=== PATIENT | female | born 1945 | race Caucasian/White ===

== ENCOUNTER 2024-04-28 14:08 | Inpatient (IN) ==
--- NOTE | 2024-04-28 14:19 | Emergency Department Note ---
Impression & Plan Weakness, Acute UTI (urinary tract infection) ED Provider Note NAME: GRAZYNA ALEXIS AGE: 78 SEX: F : 1945 ARRIVES VIA: Ambulance INFORMANT: Patient, EMS ED PROVIDER(S): Primo Harrison DO CHIEF COMPLAINT: Weakness HPI: The patient is a 78-year-old female who presented to the emergency department by ambulance for evaluation of generalized weakness. The patient was found by her caregiver this morning. She was having difficulty waking up. She states she normally wakes up early in the morning and is awake and having no problems when her caregiver arrives but today she felt very weak and tired. She states over the last week she has been feeling this way. She is also noticed a slight frontal headache. She has noticed generalized weakness and difficulty getting up and down. She has not been seen by her family doctor for the symptoms. She denies having any chest pain. She does complain of a dry cough. She does have lower extremity swelling which she states is not new for her. She denies having any back pain or vomiting. She states she has had some smelly urine especially over the course the last month. ROS: See above HPI for pertinent positives & negatives. A total of 10 systems reviewed and were otherwise negative. PAST MEDICAL HISTORY: See Below PAST SURGICAL HISTORY: See Below FAMILY HISTORY: See Below SOCIAL HISTORY: See Below HOME MEDICATIONS: See Below ALLERGIES: See Below VITALS: See Below PHYSICAL EXAMINATION: GENERAL: Patient is awake alert in no acute distress patient is resting comfortably and showing no signs of anxiety EYES: The conjunctivae are clear. The pupils are round and reactive. EARS, NOSE, MOUTH AND THROAT: The nose is without any evidence of any deformity. Mucous membranes are dry. NECK: The neck is nontender and supple. RESPIRATORY: Normal respiratory effort is noted there is no evidence of wheezing rhonchi or rales CARDIOVASCULAR: Regular rate and rhythm noted there no murmurs rubs or gallops normal S1 normal S2. GASTROINTESTINAL: The abdomen is soft. Abdomen is nontender. BACK: No midline tenderness or or step-off noted range of motion in flexion extension as well as rotation no signs of muscle spasm noted MUSCULOSKELETAL/EXTREMITIES: There is no evidence of gross deformity full range of motion is noted in the hips and shoulders. SKIN: Bilateral lower extremity edema was noted. NEUROLOGIC: Patient is awake alert and oriented x3. Strength was symmetric. There is no facial droop. Speech was clear. MEDICAL DECISION MAKING: The patient is a 78-year-old female who presented to the emergency department by ambulance for an evaluation of generalized weakness as well as reported confusion. Upon arrival the patient was awake and alert. The patient has been noticing foul-smelling urine. Nursing staff did note that she may have had a small uterine prolapse. The patient was treated with IV antibiotics in emergency department for presumed urinary tract infection noted on urinalysis. I discussed patient's laboratory and radiographic studies with her and her daughter. The patient's blood pressure was elevated. She has a history of hypertension but it is unclear if she has been compliant with her outpatient medications. Because of her daughter's concerns I discussed her condition with the on-call [facility] hospitalist. They have agreed to evaluate the patient in the emergency department for further management and disposition. Triage Nursing notes reviewed. Prior medical records reviewed Vital Signs: reviewed and remarkable for elevated blood pressure. Differential diagnosis: Infection, dehydration, metabolic abnormality, hypo/hyperglycemia, electrolyte disturbance, anemia, hypoxia, cardiac sources, intracerebral event, toxicologic, neurologic, as well as other pathologies. ER treatment provided: See below Diagnostics interpreted by me: ECG: EKG was obtained in the emergency department. My interpretation is normal sinus rhythm at 62 bpm. There were no PVCs noted. Nonspecific lateral ST abnormalities were noted. This was compared to a tracing from December 07, 2021. No changes were noted. Cardiac Monitoring: An order was placed for continuous cardiac monitoring. The monitor shows a rate of 73 bpm with sinus rhythm. Laboratory studies: As stated above and show below. Imaging studies: See below. Radiographic imaging was reviewed by myself Consultation(s): I discussed this case [facility]. Past Med/Surg History Problem List (Updated 04/28/24 @ 19:07 by Primo Harrison DO) Acute UTI (urinary tract infection) (Acute) Weakness (Acute) Medical History Hypokalemia Social History Smoking Status: Never smoker Preferred Language: Hungarian Feels Safe at Home: Yes Allergies Allergies Allergy/AdvReac Type Severity Reaction Status Date / Time semaglutide AdvReac Mild Diarrhea Unverified 04/28/24 17:53 metformin AdvReac Diarrhea Verified 12/05/22 20:52 Home Meds Home Medications Medication Instructions Recorded Confirmed aspirin 81 mg tablet,delayed 81 mg PO QAM 04/28/24 04/28/24 release atorvastatin 40 mg tablet 40 mg PO DAILY 04/28/24 04/28/24 escitalopram oxalate 20 mg tablet 20 mg PO DAILY 04/28/24 04/28/24 famotidine 20 mg tablet 20 mg PO HS 04/28/24 04/28/24 fluticasone propionate 50 2 spray intranasal DAILY PRN 04/28/24 04/28/24 mcg/actuation nasal allergies spray,suspension furosemide 20 mg tablet 20 mg PO DAILY PRN Fluid Retention 04/28/24 04/28/24 insulin detemir U-100 100 unit/mL 20 unit subcut BID 04/28/24 04/28/24 (3 mL) subcutaneous pen insulin lispro 100 unit/mL 8 unit subcut TID 04/28/24 04/28/24 subcutaneous pen (Humalog KwikPen (U-100) Insulin) levothyroxine 150 mcg tablet 150 mcg PO DAILY 04/28/24 04/28/24 losartan 100 mg tablet 100 mg PO DAILY 04/28/24 04/28/24 ondansetron HCl 8 mg tablet 8 mg PO DIRECTED PRN n/v 04/28/24 04/28/24 potassium chloride 20 mEq 20 meq PO QAM 04/28/24 04/28/24 tablet,extended release(part/cryst) Results & Data (ED) Vital Signs Vital Signs - 24 hr 04/28/24 14:14 04/28/24 14:16 04/28/24 15:00 Pulse Rate 66 Pulse Rate [Finger] 66 Respiratory Rate 18 18 Respiratory Effort / Characteristics Non-Labored Spontaneous Non-Labored Spontaneous Respiratory Depth Normal Normal Respiratory Pattern Regular Regular Blood Pressure 189/99 H Blood Pressure [Right Arm] 195/99 H Blood Pressure Mean 129 Blood Pressure Mean [Right Arm] 131 Pulse Oximetry 94 93 94 Oxygen Delivery Method Room Air Room Air Room Air Sepsis Recent Fever Within 48 Hours No Sepsis New/Unexplained Change in Mental Status N/A Sepsis Action Taken by Nursing No Action Required 04/28/24 18:00 Pulse Rate Pulse Rate [Finger] 73 Respiratory Rate 18 Respiratory Effort / Characteristics Non-Labored Spontaneous Respiratory Depth Normal Respiratory Pattern Regular Blood Pressure Blood Pressure [Right Arm] 146/94 H Blood Pressure Mean Blood Pressure Mean [Right Arm] 111 Pulse Oximetry 93 Oxygen Delivery Method Room Air Sepsis Recent Fever Within 48 Hours Sepsis New/Unexplained Change in Mental Status Sepsis Action Taken by Detention Medications Current Medication List: was personally reviewed by me Laboratory Data Attestation: I reviewed the patient's lab results. 04/28/24 14:14 04/28/24 14:14 Lab Results 04/28/24 04/28/24 04/28/24 Range/Units 14:14 14:54 17:30 WBC 5.54 (4.8-10.8) K/ul RBC 4.45 (4.20-5.40) M/uL Hgb 12.0 (12.0-16.0) g/dl Hct 36.2 L (37.0-47.0) % MCV 81.3 (80.0-100.0) fL MCH 27.0 (25.0-34.0) pg MCHC 33.1 (32.0-36.0) g/dL RDW Std Deviation 39.3 (36.4-46.3) fL RDW Coeff of Richelle 13.4 (11.5-14.5) % Plt Count 211 (130-400) K/uL MPV 10.3 (9.4-12.4) fL Immature Gran % (Auto) 0.2 % Neut % (Auto) 60.7 % Lymph % (Auto) 29.1 % [place] % (Auto) 5.8 % Eos % (Auto) 3.1 % Baso % (Auto) 1.1 % Neut # (Auto) 3.37 (1.40-6.50) K/uL Lymph # (Auto) 1.61 (1.20-3.40) K/uL [place] # (Auto) 0.32 (0.11-0.59) K/uL Eos # (Auto) 0.17 (0.00-0.50) K/uL Baso # (Auto) 0.06 (0.00-0.20) K/uL Immature Gran # (Auto) 0.01 (0.01-0.20) K/uL Sodium 140 (136-145) mmol/L Potassium 3.5 (3.5-5.1) mmol/L Chloride 105 (98-107) mmol/L Carbon Dioxide 28 (21-32) mmol/L Anion Gap 7 (3-11) BUN 20 (6-23) mg/dl Creatinine 1.07 (0.6-1.2) mg/dl Est Cr Clr Drug Dosing 46.5 ml/min eGFR 52.84 BUN/Creatinine Ratio 18.7 (10-20) Glucose 151 H (70-99(Fasting)) mg/dl Calcium 9.1 (8.6-10.3) mg/dl Magnesium 1.7 (1.7-2.4) mg/dl Total Bilirubin 0.6 (0.2-1.0) mg/dl AST 18 (13-39) U/L ALT 11 (7-52) U/L Alkaline Phosphatase 85 (34-104) U/L Total Creatine Kinase 256 H (26-192) U/L Troponin I High Sens 7.6 (0-14) pg/ml Total Protein 6.9 (6.0-8.3) gm/dl Albumin 3.9 (3.4-5.0) gm/dl Globulin 3.0 (2.5-4.0) gm/dl Albumin/Globulin Ratio 1.3 (0.9-2) TSH 122.438 H (0.300-4.500) uIu/ml Free T4 0.61 (0.61-1.60) ng/dl Urine Color Yellow Urine Appearance Cloudy A (Clear) Urine pH 6.5 (4.5-7.5) Ur Specific [place] 1.014 (1.000-1.030) Urine Protein 2+ H (Negative) Urine Glucose (UA) Negative (Negative) Urine Ketones Negative (Negative) Urine Blood Negative (Negative) Urine Nitrite Positive A (Negative) Urine Bilirubin Negative (Negative) Urine Urobilinogen Negative (Negative) Ur Leukocyte Esterase 3+ H (Negative) Urine WBC (Auto) >50 H (0-5) /hpf Urine RBC (Auto) 0-2 (0-2) /hpf U Hyaline Cast (Auto) 3-5 H (0-2) /lpf U Epithel Cells (Auto) 0-2 (0-2) /hpf Urine Bacteria (Auto) 4+ H (None Seen) SARS-CoV-2 (PCR) NEGATIVE (Negative) Influenza Type A (PCR) Negative (Neg) Influenza Type B (PCR) Negative (Neg) RSV (RT-PCR) Negative (Neg) Administered Medications Discontinued Medications Ceftriaxone Sodium (Rocephin) 2,000 mg in 50 mls @ 100 mls/hr IV NOW STA Stop: 04/28/24 18:36 Last Admin: 04/28/24 18:50 Dose: 100 mls/hr Documented By: [facility] Imaging Data Attestation: I personally reviewed and interpreted this imaging study as follows: My Impression: 1 view chest x-ray was obtained in the emergency department. My interpretation is no free air, final report below. CT of the brain was obtained. My interpretation is no intracranial hemorrhage or mass effect, final report below. Radiologist's Impression: Chest X-Ray 04/28/24 14:16 XR chest 1V portable HISTORY: 78 years-old Female weakness COMPARISON: 12/05/2022 TECHNIQUE: AP view of the chest FINDINGS: Cardiac silhouette is enlarged. Large hiatal hernia. Possible small left pleural effusion with left basilar consolidation. Pulmonary vascular congestion. Bones appear grossly intact. IMPRESSION: 1. Cardiomegaly with pulmonary vascular congestion. 2. Large hiatal hernia. 3. Possible small left pleural effusion with left basilar consolidation. ACT 112: Negative or not required by law. The above report was generated using voice recognition software. It may contain grammatical, syntax or spelling errors. Electronically signed by: Lan Mantilla M.D. 04/28/2024 3:[address] 04/28/24 14:16 CT head/brain wo con CLINICAL HISTORY: 78 years-old Female with weakness. Acute headache with weakness TECHNIQUE: Multiple axial CT images of the head were obtained without contrast. A dose lowering technique was utilized adhering to the principles of ALARA. CT DOSE: 547.75 mGy.cm COMPARISON: None. FINDINGS: No acute intracranial hemorrhage, midline shift, intracranial mass, hydrocephalus, territorial ischemia or abnormal extra-axial collection. Involutional changes with chronic microvascular ischemic disease. The calvarium is intact. Moderate mucosal thickening with volume loss of the right maxillary sinus. Mastoid air cells are clear. IMPRESSION: No acute intracranial abnormality. ACT 112: Negative or not required by law. The above report was generated using voice recognition software. It may contain grammatical, syntax or spelling errors. Electronically signed by: Lan Mantilla M.D. 04/28/2024 3:21 PM Discharge Plan Visit Data Chief Complaint: Illness ED Provider: Primo Harrison Discharge Problem: Weakness, Acute UTI (urinary tract infection) Patient Disposition: Being Evaluated by Hospitalist Forms Stand Alone Forms: My [facility] Prescriptions Prescriptions: No Action atorvastatin 40 mg tablet 40 mg PO DAILY ondansetron HCl [Zofran] 8 mg Tablet 8 mg PO DIRECTED PRN (Reason: n/v) aspirin [Aspir-81] 81 mg Tablet,Delayed Release (Dr/Ec) 81 mg PO QAM potassium chloride 20 mEq tablet,ER particles/crystals 20 meq PO QAM famotidine 20 mg tablet 20 mg PO HS levothyroxine 150 mcg tablet 150 mcg PO DAILY furosemide 20 mg tablet 20 mg PO DAILY PRN (Reason: Fluid Retention) losartan 100 mg tablet 100 mg PO DAILY fluticasone propionate 50 mcg/actuation spray,suspension 2 spray intranasal DAILY PRN (Reason: allergies) insulin lispro [Humalog KwikPen Insulin] 100 unit/mL insulin pen 8 unit SUBCUT TID escitalopram oxalate 20 mg tablet 20 mg PO DAILY Levemir FlexPen 100 unit/mL (3 mL) insulin pen 20 unit subcut BID Referrals Referrals: Barbie Diamond MD [Primary Care Provider] -
[2024-04-28 14:32] LABS: Basophils # (auto) 0.06 K/uL (0.00-0.20); Basophils % (auto) 1.1 %; Eosinophils # (auto) 0.17 K/uL (0.00-0.50); Eosinophils % (auto) 3.1 %; Hematocrit (blood only) 36.2 % (37.0-47.0); Immature Granulocytes # (auto) 0.01 K/uL (0.01-0.20); Immature Granulocytes % (auto) 0.2 %; Lymphocytes # (auto) 1.61 K/uL (1.20-3.40); Lymphocytes % (auto) 29.1 %; Mean Corpuscular Hgb Conc 33.1 g/dL (32.0-36.0); Mean Corpuscular Volume 81.3 fL (80.0-100.0); Mean Platelet Volume 10.3 fL (9.4-12.4); Monocytes # (auto) 0.32 K/uL (0.11-0.59); Monocytes % (auto) 5.8 %; Neutrophils # (auto) 3.37 K/uL (1.40-6.50); Neutrophils % (auto) 60.7 %; Platelet Count 211 K/uL (130-400); RDW Coefficient of Variation 13.4 % (11.5-14.5); RDW Standard Deviation 39.3 fL (36.4-46.3); Red Blood Count 4.45 M/uL (4.20-5.40); White Blood Count 5.54 K/ul (4.8-10.8)
[2024-04-28 14:48] LABS: Albumin Globulin Ratio 1.3 (0.9-2); Albumin Level 3.9 gm/dl (3.4-5.0); BUN Creatinine Ratio 18.7 (10-20); Bilirubin,Total 0.6 mg/dl (0.2-1.0); Calcium 9.1 mg/dl (8.6-10.3); Creatinine Clr Calc Pharmacy 46.5 ml/min; Magnesium 1.7 mg/dl (1.7-2.4); Potassium 3.5 mmol/L (3.5-5.1); Total Protein 6.9 gm/dl (6.0-8.3)
[2024-04-28 14:53] LABS: Troponin I High Sensitivity 7.6 pg/ml (0-14)
--- NOTE | 2024-04-28 15:19 | XRay Report ---
XR chest 1V portable HISTORY: 78 years-old Female weakness COMPARISON: 12/05/2022 TECHNIQUE: AP view of the chest FINDINGS: Cardiac silhouette is enlarged. Large hiatal hernia. Possible small left pleural effusion with left b asilar consolidation. Pulmonary vascular congestion. Bones appear grossly intact. IMPRESSION: 1. Cardiomegaly with pulmonary vascular congestion. 2. Large hiatal hernia. 3. Possible small left pleural effusion with left basilar consolidation. ACT 112: Negative or not required by law. The above report was generated using voice recognition software. It may contain grammatical, syntax o r spelling errors. Electronically signed by: Lan Mantilla M.D. 04/28/2024 3:18 PM
--- NOTE | 2024-04-28 15:22 | CT Scan Report ---
CT head/brain wo con CLINICAL HISTORY: 78 years-old Female with weakness. Acute headache with weakness TECHNIQUE: Multiple axial CT images of the head were obtained without contrast. A dose lowering tech nique was utilized adhering to the principles of ALARA. CT DOSE: 547.75 mGy.cm COMPARISON: None. FINDINGS: No acute intracranial hemorrhage, midline shift, intracranial mass, hydrocephalus, territorial ischem ia or abnormal extra-axial collection. Involutional changes with chronic microvascular ischemic disea se. The calvarium is intact. Moderate mucosal thickening with volume loss of the right maxillary sinus. Mastoid air cells are clear. IMPRESSION: No acute intracranial abnormality. ACT 112: Negative or not required by law. The above report was generated using voice recognition software. It may contain grammatical, syntax o r spelling errors. Electronically signed by: Lan Mantilla M.D. 04/28/2024 3:21 PM
[2024-04-28 15:41] LABS: Thyroid Stimulating Hormone 122.438 uIu/ml (0.300-4.500)
[2024-04-28 16:02] LABS: Influenza A virus by PCR Negative (Neg); Influenza B virus by PCR Negative (Neg); RSV by PCR Negative (Neg); SARS CoV2 RNA(COVID-19) Ceph NEGATIVE (Negative)
[2024-04-28 16:16] LABS: T4 Free Thyroxine 0.61 ng/dl (0.61-1.60)
[2024-04-28 17:58] LABS: Appearance Urine Cloudy (Clear); Bacteria Urine Automated 4+ (None Seen); Bilirubin Urine Negative (Negative); Blood Urine Negative (Negative); Color Urine Yellow; Epithelial Cell Urine Auto 0-2 /hpf (0-2); Glucose Urine UA Negative (Negative); Ketones Urine Negative (Negative); Leukocyte Esterase Urine 3+ (Negative); Nitrite Urine Positive (Negative); Protein Urine 2+ (Negative); RBC Urine Automated 0-2 /hpf (0-2); Specific Gravity Urine 1.014 (1.000-1.030); Urobilinogen Urine Negative (Negative); WBC Urine Automated >50 /hpf (0-5); pH Urine 6.5 (4.5-7.5)
[2024-04-28] MEDS: cefTRIAXone SODIUM 2,000 MG/50 ML BAG IV STA (18:50)
--- NOTE | 2024-04-28 19:10 | History & Physical Report ---
Date of Service April 28, 2024 Assessment & Plan (1) Weakness: (2) Stroke-like symptoms: (3) Acute UTI (urinary tract infection): (4) Hypothyroidism: (5) HTN (hypertension): (6) Diabetes mellitus, type II, insulin dependent: Plan: Generalized Weakness Stroke like symptom UTI No leukocytosis, negative influenza, RSV and COVID-19 PCR. Glucose: 151, no other significant electrolyte abnormality. negative troponin EKG: Sinus rhythm, rate 62, T wave flattening lateral leads CT head: No acute intracranial abnormality CXR: Cardiomegaly, pulmonary vascular congestion, possible small left pleural effusion with left basilar consolidation UA: + Nitrite, 3+ leuk esterase,> 50 WBC, 4+ bacteria Urine culture pending In ER given Rocephin Continue Rocephin DDx: TIA, R/O CVA. ?possible uncontrolled hypertension Tele to monitor for arrhythmias Lipids, A1c in am CTA head and neck MRI brain Echo Aspiration precautions PT/OT consult Resume home aspirin, atorvastatin Allow permissive HTN in 1st 24 hrs, but will likely resume home losartan If recurrent symptoms or findings on MRI consider neurology consult CBC, BMP in am Generalized Weakness Generalized weakness possibly secondary to underlying UTI and uncontrolled hypothyroidism Fall precautions PT/OT eval CPK: 256. Troponin WNL Repeat CPK in a.m. HTN In ER BP 195/99 down to 146/94 On losartan with known mediation noncompliance. Will hold for now with possible TIA, stroke rule out and allowing permissive hypertension. Will likely need to resume CXR:Cardiomegaly, pulmonary vascular congestion, possible small left pleural effusion with left basilar consolidation Patient with chronic cough without any worsening and no SOB, CP, fever/chills. Negative procalcitonin. Do not suspect pneumonia at this time Clinically patient appears euvolemic currently Hold home prn lasix Reassess in am Hypothyroidism TSH: 122, free T4: 0.6 TSH: 4.5 on 12/10/2022 Medication noncompliance Resume home levothyroxine Patient will require outpatient follow-up with repeat TSH levels to determine further dosing Loose stool Reports 3 episodes loose stool today. If recurrent diarrhea obtain stool culture and C. difficile DM II Insulin dependent A1c: 7.0 on 12/08/2023 Will continue basal bolus insulin A1c in am HLD Continue home atorvastatin DVT Prophylaxis SCDs for now Admit med tele DNR/DNI as per discussion with pt Follows with Dr Barbie Diamond for routine care Pt was seen and care coordinated with Dr De Santiago. See addendum I spent a total of 80 minutes reviewing notes, outpatient records, labs, medication, coordinating, documenting and providing care for this patient excluding time spent in the performance of separately billed services. History of Present Illness Chief Complaint: weakness Primary Care Provider: Barbie Diamond MD Patient is 78-year-old female with PMH DM II, diabetic neuropathy, CVA, HTN, HLD, hypothyroidism, hypokalemia, lymphedema, venous insufficiency, history of falls, history medication noncompliance presented to ER with c/o weakness and confusion type episode today. Patient states this morning woke up and felt ok. States was in kitchen when she suddenly felt weak and was trying to sit down but having difficultly. She states she felt "weird and had trouble thinking and trouble getting her words out" and couldn't walk. Reports symptoms lasted approximately 15 minutes. EMS was called and patient reports BSG was 160 when EMS arrived. She states caregiver didn't notice any slurred speech. Upon arrival to ER patient reports is at her baseline but still feels overall tired. Has been having posterior RAMIRES for past week. States no RAMIRES today. 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 Denies any recent vision changes. Patient reports for past couple of weeks waking up and still feeling tired. She reports wakes up to urinate 2-3 times a night and is able to fall back asleep eventually. Thinks gets about 8-9 hours of sleep a night. Patient admits to not taking her medications regularly and usually takes medications every 3 days because she doesn't like to take medication. She states took medications last night but unable to recall when last took prior to that. States has had a dry cough for a year and denies any increase or SOB. Reports chronic bilateral lower extremity edema. Reports has Lasix to use as needed however uses very rarely maybe approximately once a month. She feels her current edema is baseline. She denies any shortness of breath, chest pain, orthopnea. States had 3 episodes of loose stool today. Also nauseated this morning. Denies vomiting or abdominal pain or recent travel. States urine has been dark. Has caregiver to do cleaning and laundry one day a week. Denies fever/chills, diaphoresis, dizziness, syncope, recent vision changes, CP, SOB, orthopnea, palpitations, sore throat,rhinorrhea, abdominal pain, paresthesias, rashes, dysuria, hematuria. Per PCP note on 12/08/2023 patient had edema with amlodipine and that was discontinued, at that time she was on losartan 50 mg daily however BP was not within goal and it was recommended to increase to 100 mg daily Allergies Allergy/AdvReac Type Severity Reaction Status Date / Time semaglutide AdvReac Mild Diarrhea Unverified 04/28/24 17:53 metformin AdvReac Diarrhea Verified 12/05/22 20:52 Home Medications Medication Instructions Recorded Confirmed Type aspirin 81 mg tablet,delayed 81 mg PO QAM 04/28/24 04/28/24 History release atorvastatin 40 mg tablet 40 mg PO DAILY 04/28/24 04/28/24 History escitalopram oxalate 20 mg tablet 20 mg PO DAILY 04/28/24 04/28/24 History famotidine 20 mg tablet 20 mg PO HS 04/28/24 04/28/24 History fluticasone propionate 50 2 spray intranasal DAILY PRN 04/28/24 04/28/24 History mcg/actuation nasal allergies spray,suspension furosemide 20 mg tablet 20 mg PO DAILY PRN Fluid Retention 04/28/24 04/28/24 History insulin detemir U-100 100 unit/mL 20 unit subcut BID 04/28/24 04/28/24 History (3 mL) subcutaneous pen insulin lispro 100 unit/mL 8 unit subcut TID 04/28/24 04/28/24 History subcutaneous pen (Humalog KwikPen (U-100) Insulin) levothyroxine 150 mcg tablet 150 mcg PO DAILY 04/28/24 04/28/24 History losartan 100 mg tablet 100 mg PO DAILY 04/28/24 04/28/24 History ondansetron HCl 8 mg tablet 8 mg PO DIRECTED PRN n/v 04/28/24 04/28/24 History potassium chloride 20 mEq 20 meq PO QAM 04/28/24 04/28/24 History tablet,extended release(part/cryst) Past Med/Surg History Problem List (Updated 04/28/24 @ 20:45 by Background Benedicto) Diabetes mellitus, type II, insulin dependent HTN (hypertension) Hypothyroidism Stroke-like symptoms Acute UTI (urinary tract infection) (Acute) Weakness (Acute) Medical History Hypokalemia Family History Other Breast cancer Social History Smoking Status: Former smoker Hx Alcohol Use: No Hx Substance Use: No Preferred Language: Estonian Feels Safe at Home: Yes Review of Systems Review of Systems: All systems reviewed & are unremarkable except as noted in HPI & below Physical Exam Physical Exam: General: no acute distress, obese elderly female Head: normocephalic, atraumatic Eyes: PERRL, EOM's intact, conjunctiva non-injected, anicteric ENT: hard of hearing, normal inspection external ears, nose, mucous membranes mildly dry Neck: supple, trachea midline Lungs: clear, no respiratory distress, no wheezing/rhonchi/rales CV: RRR, no murmur, trace pretibial edema Abd: normal BS, soft, non-tender Ext: no cyanosis, no calf tenderness Neuro: A&O x 3, normal affect, facial sensation is intact and symmetric, face is strong and symmetric, soft palate elevates symmetrically, no dysarthria, shoulder shrug intact, tongue is midline, normal movement, no fasciculations. strength 5/5 bilateral upper extremities, 4/5 bilateral lower extremities Skin: warm, dry, +scratches to bilateral arms Results & Data Results & Data Vital Signs (Past 12 Hours) Vital Signs Pulse Pulse Resp BP BP Pulse Ox O2 Del Method 04/28/24 18:00 73 18 146/94 H 93 Room Air 04/28/24 15:00 66 18 195/99 H 94 Room Air 04/28/24 14:16 93 Room Air 04/28/24 14:14 66 18 189/99 H 94 Room Air Laboratory Results Short CBC 04/28/24 Range/Units 14:14 WBC 5.54 (4.8-10.8) K/ul Hgb 12.0 (12.0-16.0) g/dl Hct 36.2 L (37.0-47.0) % Plt Count 211 (130-400) K/uL BMP 04/28/24 14:14 Sodium 140 Potassium 3.5 Chloride 105 Carbon Dioxide 28 BUN 20 Creatinine 1.07 Glucose 151 H Calcium 9.1 Cardiac Enzymes 04/28/24 Range/Units 14:14 Total Creatine Kinase 256 H (26-192) U/L Liver Function 04/28/24 Range/Units 14:14 Total Bilirubin 0.6 (0.2-1.0) mg/dl AST 18 (13-39) U/L ALT 11 (7-52) U/L Alkaline Phosphatase 85 (34-104) U/L Albumin 3.9 (3.4-5.0) gm/dl Urine 04/28/24 Range/Units 17:30 Urine Color Yellow Urine Appearance Cloudy A (Clear) Urine pH 6.5 (4.5-7.5) Ur Specific [place] 1.014 (1.000-1.030) Urine Protein 2+ H (Negative) Urine Glucose (UA) Negative (Negative) Diagnostic Findings Chest X-Ray 04/28/24 14:16 XR chest 1V portable HISTORY: 78 years-old Female weakness COMPARISON: 12/05/2022 TECHNIQUE: AP view of the chest FINDINGS: Cardiac silhouette is enlarged. Large hiatal hernia. Possible small left pleural effusion with left basilar consolidation. Pulmonary vascular congestion. Bones appear grossly intact. IMPRESSION: 1. Cardiomegaly with pulmonary vascular congestion. 2. Large hiatal hernia. 3. Possible small left pleural effusion with left basilar consolidation. ACT 112: Negative or not required by law. The above report was generated using voice recognition software. It may contain grammatical, syntax or spelling errors. Electronically signed by: Lan Mantilla M.D. 04/28/2024 3:[address] 04/28/24 14:16 CT head/brain wo con CLINICAL HISTORY: 78 years-old Female with weakness. Acute headache with weakness TECHNIQUE: Multiple axial CT images of the head were obtained without contrast. A dose lowering technique was utilized adhering to the principles of ALARA. CT DOSE: 547.75 mGy.cm COMPARISON: None. FINDINGS: No acute intracranial hemorrhage, midline shift, intracranial mass, hydrocephalus, territorial ischemia or abnormal extra-axial collection. Involutional changes with chronic microvascular ischemic disease. The calvarium is intact. Moderate mucosal thickening with volume loss of the right maxillary sinus. Mastoid air cells are clear. IMPRESSION: No acute intracranial abnormality. ACT 112: Negative or not required by law. The above report was generated using voice recognition software. It may contain grammatical, syntax or spelling errors. Electronically signed by: Lan Mantilla M.D. 04/28/2024 3:21 PM Supervising Physician Co-Signing Physician Notes Attending addendum: The patient was seen and examined emergency room She has been complaining of weakness and confusion since this morning Has been feeling present with team examination Denies any slurred speech, headache, any blood, any weakness involving examined and does not have any nausea and or vomiting On examination Lying in bed without any acute distress Hemodynamically stable Chestdecreased breath sound the bases otherwise clear HeartS1-S2 Abdomenbenign Extremities1+ edema bilaterally CNSalert, awake, moving all limbs equally no focal motor deficit appreciated no acute events patient still Her admission labs, EKG and imaging studies reviewed Presented with possible strokelike symptoms and generalized weakness CT scan of the head has been negative and awaiting further testing Has UTI and started on antibiotic Chest x-ray is compatible with mild CHF Agree with assessment and plan as outlined above by Irvin Patrick PA-C and take the full disposition of care Dr Hermelinda De Santiago
[2024-04-28] MEDS: OPTIRAY 320 125ml IV ONE (20:36)
[2024-04-28] MEDS ORDERED: PROMETHAZINE 6.25 MG/50.25 ML BAG IV PRN (21:11)
[2024-04-28] MEDS ORDERED: DEXTROSE 50% 50 ML SYRINGE IV PRN (21:11)
[2024-04-28] MEDS ORDERED: GLUCAGON FOR INJ 1 MG VIAL SQ PRN (21:11)
[2024-04-28] MEDS ORDERED: GLUCOSE 10 TAB/TUBE PO PRN (21:11)
[2024-04-28] MEDS ORDERED: GLUCOSE 40% GEL 15 GM TUBE PO PRN (21:11)
[2024-04-28] MEDS ORDERED: PHARMACIST DISCHARGE MED REC CONSULT PRN (21:11)
[2024-04-28] MEDS ORDERED: POLYETHYLENE (MIRALAX) 17 GM PACK PO PRN (21:11)
[2024-04-28] MEDS ORDERED: CARBOHYDRATES FOR HYPOGLYCEMIA PO PRN (21:11)
[2024-04-28] MEDS: ASPIRIN 81 MG CHEW PO STA (21:56)
[2024-04-28] MEDS: LANTUS PER UNIT CHARGE SQ SCH (21:56)
[2024-04-28] MEDS: INSULIN ASPART PER UNIT CHARGE SC SCH (21:57)
--- NOTE | 2024-04-28 22:24 | CT Scan Report ---
Exam(s): CTA NECK With Contrast IV Amt: 116 ml optiray 320 EXAM: CT Angiography Neck With Intravenous Contrast CLINICAL HISTORY: Reason for exam: stroke like symptoms. TECHNIQUE: Routine carotid CT angiography protocol was performed with intravenous contrast. NASCET criteria using the distal ICAs for comparison were used for evaluation of stenoses. CTDI is 17 mGy and DLP is 503 mGy-cm. Automated exposure control was utilized for the study. A dose lowering technique was utilized adhering to the principles of ALARA. MIP reconstructed images were created and reviewed. CONTRAST: Patient received 116 ml optiray 320 of IV contrast COMPARISON: None. FINDINGS: VASCULATURE: Right common carotid artery: Unremarkable. No occlusion or significant stenosis. No dissection. Right internal carotid artery: Unremarkable. Extracranial segment is patent with no occlusion or significant stenosis. No dissection. Right external carotid artery: Unremarkable. No occlusion. Right vertebral artery: Unremarkable. No occlusion or significant stenosis. No dissection. Left common carotid artery: Unremarkable. No occlusion or significant stenosis. No dissection. Left internal carotid artery: Unremarkable. Extracranial segment is patent with no occlusion or significant stenosis. No dissection. Left external carotid artery: Unremarkable. No occlusion. Left vertebral artery: Unremarkable. No occlusion or significant stenosis. No dissection. Aorta: Conventional aortic arch branch anatomy. NECK: Bones/joints: Cervical spondylosis. No acute osseous findings. Soft tissues: Unremarkable. Lung apices: Pleural-parenchymal scarring at the lung apices. CAROTID STENOSIS REFERENCE USING NASCET CRITERIA: % ICA stenosis = (1 - narrowest ICA diameter/diameter of distal cervical ICA) x 100. Mild - <50% stenosis. Moderate - 50-69% stenosis. Severe - 70-94% stenosis. Near occlusion - 95-99% stenosis. Occluded - 100% stenosis. IMPRESSION: No dissection, hemodynamically significant stenosis, or occlusion. Electronically signed by: Cathryn Johnson M.D. 04/28/24 22:22 PM
--- NOTE | 2024-04-28 22:28 | CT Scan Report ---
Exam(s): CTA HEAD With Contrast IV Amt: 116 ml optiray 320 EXAM: CT Angiography Head With Intravenous Contrast CLINICAL HISTORY: Reason for exam: stroke like symptom. TECHNIQUE: Axial computed tomographic angiography images of the head with intravenous contrast. CTDI is 17 mGy and DLP is 503 mGy-cm. Automated exposure control was utilized for the study. A dose lowering technique was utilized adhering to the principles of ALARA. MIP reconstructed images were created and reviewed. CONTRAST: Patient received 116 ml optiray 320 of IV contrast COMPARISON: No relevant prior studies available. FINDINGS: Right internal carotid artery: Mild stenosis of the paraclinoid right ICA. No aneurysm. Right anterior cerebral artery: Unremarkable. No occlusion or significant stenosis. No aneurysm. Right middle cerebral artery: Unremarkable. No occlusion or significant stenosis. No aneurysm. Right posterior cerebral artery: origin of the right MENTAL HEALTH THERAPIST. No occlusion or significant stenosis. No aneurysm. Right vertebral artery: Unremarkable as visualized. Left internal carotid artery: No acute findings. Intracranial segment is patent with no significant stenosis. No aneurysm. Left anterior cerebral artery: Unremarkable. No occlusion or significant stenosis. No aneurysm. Left middle cerebral artery: Short segment anterior left M2 branch occlusion versus near-occlusion with immediate distal reconstitution (series 3, images [id number]). No aneurysm. Left posterior cerebral artery: origin of the left MENTAL HEALTH THERAPIST. No occlusion or significant stenosis. No aneurysm. Left vertebral artery: Unremarkable as visualized. Basilar artery: Unremarkable. No occlusion or significant stenosis. No aneurysm. IMPRESSION: Short segment anterior left M2 branch occlusion versus near-occlusion with immediate distal reconstitution (series 3, images [id number]). Correlate clinically and consider MRI. Communications: Call Doctor Other Electronically signed by: Cathryn Johnson M.D. 04/28/24 22:27 PM
--- NOTE | 2024-04-28 22:43 | Magnetic Resonance Report ---
Exam(s): MRI HEAD Without Contrast EXAM: MR Head Without Intravenous Contrast CLINICAL HISTORY: Reason for exam: r/o stroke. TECHNIQUE: Magnetic resonance images of the head/brain without intravenous contrast in multiple planes. COMPARISON: CT head, CTA head 04/28/24 FINDINGS: Brain: No diffusion restriction to suggest acute cerebral ischemia. No acute intracranial hemorrhage. No mass-effect or shift. Volume loss and chronic small vessel ischemic change. Ventricles: Unremarkable. No hydrocephalus. Bones/joints: Unremarkable. No acute fracture. Sinuses: Right maxillary sinus mucosal thickening. Mastoid air cells: Trace left mastoid effusion. Orbits: Unremarkable as visualized. IMPRESSION: No diffusion restriction to suggest acute cerebral ischemia. Electronically signed by: Cathryn Johnson M.D. 04/28/24 22:42 PM
[2024-04-29] MEDS: FAMOTIDINE 20 MG TAB PO SCH
[2024-04-29] MEDS ORDERED: LABETALOL HCL IV 5 MG/ML 20ML IV PRN (00:12)
[2024-04-29] MEDS: LABETALOL HCL IV 5 MG/ML 20ML IV STA (00:30)
--- NOTE | 2024-04-29 05:36 | Electrocardiogram Report ---
Test Reason : Blood Pressure : */* mmHG Vent. Rate : 62 BPM Atrial Rate : 62 BPM P-R Int : 168 ms QRS Dur : 82 ms QT Int : 472 ms P-R-T Axes : 83 11 158 degrees QTcB Int : 479 ms Normal sinus rhythm Cannot rule out Anterior infarct , age undetermined T wave abnormality, consider lateral ischemia Prolonged QT Abnormal ECG When compared with ECG of 05-Dec-2022 19:13, T wave inversion more evident in Lateral leads Confirmed by Jake Tolentino ([id number]) on 04/29/2024 5:35:59 AM Referred By: REFERRED SELF Confirmed By: Jake Tolentino
[2024-04-29] MEDS: LEVOTHYROXINE SODIUM 150 MCG TABLET PO SCH (06:09)
[2024-04-29 06:45] LABS: Hematocrit (blood only) 32.4 % (37.0-47.0); Hemoglobin 11.1 g/dl (12.0-16.0); Mean Corpuscular Hgb Conc 34.3 g/dL (32.0-36.0); Mean Corpuscular Volume 81.6 fL (80.0-100.0); Mean Platelet Volume 10.6 fL (9.4-12.4); Platelet Count 191 K/uL (130-400); RDW Coefficient of Variation 13.7 % (11.5-14.5); RDW Standard Deviation 40.2 fL (36.4-46.3); Red Blood Count 3.97 M/uL (4.20-5.40); White Blood Count 9.71 K/ul (4.8-10.8)
[2024-04-29 07:12] LABS: BUN Creatinine Ratio 19.8 (10-20); Calcium 8.7 mg/dl (8.6-10.3); Chol HDL Ratio 3.9 (0-5); Creatinine Clr Calc Pharmacy 48.2 ml/min; Potassium 3.4 mmol/L (3.5-5.1)
--- NOTE | 2024-04-29 07:23 | Hospitalist Progress Note ---
Date of Service April 29, 2024 Assessment & Plan (1) Weakness: (2) Stroke-like symptoms: (3) Acute UTI (urinary tract infection): (4) Hypothyroidism: (5) HTN (hypertension): (6) Diabetes mellitus, type II, insulin dependent: Plan: Ms. Haq is a 78-year-old female with PMH DM II, diabetic neuropathy, CVA, HTN, HLD, hypothyroidism, hypokalemia, lymphedema, venous insufficiency, history of falls, history medication noncompliance presented to ED due to confusion and admitted for stroke r/o. UA suggestive of UTI and MRI negative for stroke. CTA + for chronic stenosis that does not require any further management. #Generalized Weakness #Stroke like symptoms iso infection #Left MCA occlusions, chronic No leukocytosis, negative influenza, RSV and COVID-19 PCR. Glucose: 151, no other significant electrolyte abnormality. negative troponin EKG: Sinus rhythm, rate 62, T wave flattening lateral leads CT head: No acute intracranial abnormality CXR: Cardiomegaly, pulmonary vascular congestion, possible small left pleural effusion with left basilar consolidation MRI: no acute cerebral ischemia continue ASA and statin A1C 6.4--controlled DM cholesterol 233, LDL 155--increased statin to 80, encouraged compliance ECHO pending PT/OT #Acute complicated UTI UA: + Nitrite, 3+ leuk esterase,> 50 WBC, 4+ bacteria Urine culture pending In ER given Rocephin Continue Rocephin #HTN In ER BP 195/99 down to 146/94 resumed home losartan continue lasix prn #Hypothyroidism TSH: 122, free T4: 0.6 TSH: 4.5 on 12/10/2022 Medication noncompliance Continue home levothyroxine--counselled extensively about proper administration. 25 minutes with daughter at bedside #Loose stool *resolved CTM #DM II Insulin dependent A1c: 7.0 on 12/08/2023 Will continue basal bolus insulin A1c 6.4% DVT Prophylaxis SCDs for now Dispo contingent of PT/OT and culuture Admission and Anticipated Discharge Date Admission Date: April 28, 2024 Subjective NAEO Reports feeling much better discussed chronic fatigue---reviewed TSH of 122--patient states she knows how to take synthroid, but then admits she "doesn't take it that way, often its with food or other meds Physical Exam Constitutional: WD/WN, vitals as above Respiratory: normal respiratory effort, lungs clear to auscultation Cardiovascular: RRR, no murmur, no edema Musculoskeletal: no cyanosis or clubbing, extremities motor strength 5/5 Neurologic: PERRL, EOMI, accommodation nl, no face palsy, no dysarthria Results & Data Results & Data Vital Signs (Past 12 Hours) Vital Signs Temp Pulse Pulse Resp BP BP Pulse Ox 04/29/24 06:09 66 181/90 H 04/29/24 06:08 63 04/29/24 02:40 36.4 C L 65 18 195/86 H 93 04/29/24 00:45 66 177/82 H 04/29/24 00:30 71 216/122 H 04/29/24 00:07 36.7 C 71 18 216/122 H 93 04/28/24 21:45 69 04/28/24 21:20 74 04/28/24 21:11 04/28/24 21:11 36.5 C 69 18 210/121 H 93 04/28/24 19:50 74 18 159/87 H 92 O2 Del Method 04/29/24 06:09 04/29/24 06:08 04/29/24 02:40 Room Air 04/29/24 00:45 04/29/24 00:30 04/29/24 00:07 Room Air 04/28/24 21:45 04/28/24 21:20 04/28/24 21:11 Room Air 04/28/24 21:11 Room Air 04/28/24 19:50 Room Air Laboratory Results Short CBC 04/28/24 04/29/24 Range/Units 14:14 06:27 WBC 5.54 9.71 (4.8-10.8) K/ul Hgb 12.0 11.1 L (12.0-16.0) g/dl Hct 36.2 L 32.4 L (37.0-47.0) % Plt Count 211 191 (130-400) K/uL BMP 04/28/24 04/29/24 14:14 06:27 Sodium 140 142 Potassium 3.5 3.4 L Chloride 105 106 Carbon Dioxide 28 28 BUN 20 20 Creatinine 1.07 1.01 Glucose 151 H 116 H Calcium 9.1 8.7 Cardiac Enzymes 04/28/24 04/29/24 Range/Units 14:14 06:27 Total Creatine Kinase 256 H 285 H (26-192) U/L Liver Function 04/28/24 Range/Units 14:14 Total Bilirubin 0.6 (0.2-1.0) mg/dl AST 18 (13-39) U/L ALT 11 (7-52) U/L Alkaline Phosphatase 85 (34-104) U/L Albumin 3.9 (3.4-5.0) gm/dl Urine 04/28/24 Range/Units 17:30 Urine Color Yellow Urine Appearance Cloudy A (Clear) Urine pH 6.5 (4.5-7.5) Ur Specific [place] 1.014 (1.000-1.030) Urine Protein 2+ H (Negative) Urine Glucose (UA) Negative (Negative) Medications Administered Home Medications Medication Instructions Recorded Confirmed Last Taken aspirin 81 mg tablet,delayed 81 mg PO QAM 04/28/24 04/28/24 Unknown release atorvastatin 40 mg tablet 40 mg PO DAILY 04/28/24 04/28/24 Unknown escitalopram oxalate 20 mg tablet 20 mg PO DAILY 04/28/24 04/28/24 Unknown famotidine 20 mg tablet 20 mg PO HS 04/28/24 04/28/24 Unknown fluticasone propionate 50 2 spray intranasal DAILY PRN 04/28/24 04/28/24 Unknown mcg/actuation nasal allergies spray,suspension furosemide 20 mg tablet 20 mg PO DAILY PRN Fluid Retention 04/28/24 04/28/24 Unknown insulin detemir U-100 100 unit/mL 20 unit subcut BID 04/28/24 04/28/24 Unknown (3 mL) subcutaneous pen insulin lispro 100 unit/mL 8 unit subcut TID 04/28/24 04/28/24 Unknown subcutaneous pen (Humalog KwikPen (U-100) Insulin) levothyroxine 150 mcg tablet 150 mcg PO DAILY 04/28/24 04/28/24 Unknown losartan 100 mg tablet 100 mg PO DAILY 04/28/24 04/28/24 Unknown ondansetron HCl 8 mg tablet 8 mg PO DIRECTED PRN n/v 04/28/24 04/28/24 Unknown potassium chloride 20 mEq 20 meq PO QAM 04/28/24 04/28/24 Unknown tablet,extended release(part/cryst) Active Medications Generic Name Dose Route Start Last Admin Trade Name Freq PRN Reason Stop Dose Admin Famotidine 20 mg 04/28/24 21:30 04/29/24 00:00 Famotidine 20 Mg Tab PO 05/28/24 21:29 20 mg HS RUBENS Administration Insulin Aspart 0 units 04/28/24 21:15 04/28/24 21:57 Insulin Aspart Per Unit Charge SC 05/28/24 21:14 Not Given ACHS RUBENS Insulin Glargine 15 units 04/28/24 21:15 04/28/24 21:56 Lantus Per Unit Charge SQ 05/28/24 21:14 15 units BID RUBENS Administration Levothyroxine Sodium 150 mcg 04/29/24 06:30 04/29/24 06:09 Levothyroxine Sodium 150 Mcg Tablet PO 05/29/24 06:29 150 mcg DAILYBB RUBENS Administration
[2024-04-29] MEDS: ESCITALOPRAM OXALATE 20 MG TAB PO SCH (08:15)
[2024-04-29] MEDS: ASPIRIN 81 MG ECTAB PO SCH (08:15)
[2024-04-29] MEDS: ATORVASTATIN 40 MG TAB PO SCH (08:15)
[2024-04-29] MEDS: POTASSIUM CHLORIDE CRTAB 20 MEQ TABCR PO SCH (08:19)
[2024-04-29 08:23] LABS: Estimated Average Glucose 137 mg/dl; Hemoglobin A1C 6.4 % (4.5-5.6)
[2024-04-29] MEDS: LOSARTAN POTASSIUM 50 MG TAB PO SCH (08:24)
--- NOTE | 2024-04-29 10:19 | Neurology Consultation ---
Date of Consultation April 29, 2024 Assessment & Plan (1) Stroke-like symptoms: left MCA occlusion in a 78M with a PMH of HTN, HLD and DM. Exam is at her baseline. CTA shows a left MCA occlusion and MRI shows no evidence of stroke. I suspect that this is a chronic occlusion due to the lack of stroke on MRI and the near immediate reconstitution. Its unclear if the symptoms she experienced were a TIA from hypoperfusion across the occlusion, or an encephalopathy. Plan - continue ASA/statin - goal normotension Telehealth Consultation Telehealth Information Telehealth Information: I performed this visit using a real-time telehealth connection between my location and the patients location ([facility]). After connecting through interactive tele-video, patient was identified by name and date of and/or wristband check.Patient (or authorized healthcare outside medical sales representative) was informed that this was a telemedicine visit and it was being conducted confidentially over secure lines. My office door was closed and no one else was present in the room with me.Patient (or authorized healthcare outside medical sales representative) provided consent to proceed with the visit, expressed an understanding of privacy and security of the telemedicine visit, and gave permission to have a hospital outside medical sales representative in the room in order to assist with the visit and to conduct portions of the visit, as needed. I informed the patient (or authorized healthcare outside medical sales representative) that I reviewed their record and presented the opportunity for them to ask any questions regarding the visit today. The patient agreed to participate. History of Present Illness Reason for Consultation: stroke like symptoms Attending Physician: Ellyn Liao MD History of Present Illness Madison Haq is a 78F with a PMH of HTN, HLD and DM who presented to the ED with stroke like symptoms. Yesterday she was in the kitchen and had just washed the dishes. She became confused and was having trouble standing. Her respiratory care assistant was there and she was able to understand the conversation but felt confused. She also reports that her whole body was weak and this has been getting worse and worse over the last months. She denied any focal weakness but did report that her speech was off. She denies fever, headache, SOB. Allergies Allergy/AdvReac Type Severity Reaction Status Date / Time semaglutide AdvReac Mild Diarrhea Unverified 04/28/24 17:53 metformin AdvReac Diarrhea Verified 12/05/22 20:52 Home Medications Medication Instructions Recorded Confirmed Type aspirin 81 mg tablet,delayed 81 mg PO QAM 04/28/24 04/28/24 History release atorvastatin 40 mg tablet 40 mg PO DAILY 04/28/24 04/28/24 History escitalopram oxalate 20 mg tablet 20 mg PO DAILY 04/28/24 04/28/24 History famotidine 20 mg tablet 20 mg PO HS 04/28/24 04/28/24 History fluticasone propionate 50 2 spray intranasal DAILY PRN 04/28/24 04/28/24 History mcg/actuation nasal allergies spray,suspension furosemide 20 mg tablet 20 mg PO DAILY PRN Fluid Retention 04/28/24 04/28/24 History insulin detemir U-100 100 unit/mL 20 unit subcut BID 04/28/24 04/28/24 History (3 mL) subcutaneous pen insulin lispro 100 unit/mL 8 unit subcut TID 04/28/24 04/28/24 History subcutaneous pen (Humalog KwikPen (U-100) Insulin) levothyroxine 150 mcg tablet 150 mcg PO DAILY 04/28/24 04/28/24 History losartan 100 mg tablet 100 mg PO DAILY 04/28/24 04/28/24 History ondansetron HCl 8 mg tablet 8 mg PO DIRECTED PRN n/v 04/28/24 04/28/24 History potassium chloride 20 mEq 20 meq PO QAM 04/28/24 04/28/24 History tablet,extended release(part/cryst) Patient History Medical History Hypokalemia Family History Other Breast cancer Social History Smoking Status: Former smoker Smoking End Date: ; Second Hand Exposure: No; Do You Dip or Chew Tobacco: No; Hx Alcohol Use: No Hx Substance Use: No Preferred Language: Romansh Communication Ability: Effective Phlebotomy Instructor Required: No Beliefs That Will Affect Care: None Current Living Situation: Alone Current Living Situation Comment: Caregiver that comes 2x per week to help with tasks, daughter checks on her Other Information That Helps Us Care for You: No Feels Safe at Home: Yes Safety Concerns: Feels Safe At This Time Assistive Devices: Walker Review of Systems see HPI Physical Exam NEUROLOGIC EXAMINATION: Mental Status:alert, oriented to time, place, person, normal recent memory, normal remote memory, normal attention span, normal concentration, normal language, and normal fund of knowledge Cranial Nerves: CN 2 - no visual defect on confrontation and pupils round, equal, reactive to light CN 3, 4, 6 - extra-ocular movements intact and no nystagmus CN 5 - facial sensation intact CN 7 - no facial asymmetry CN 8 - hard of hearing CN 9, 10 - palate symmetric, normal gag CN 11 - good shoulder shrug CN 12 - tongue midline MOTOR: Strength was at least antigravity throughout, Pronator drift was absent, and There were no abnormal movements SENSATION: intact GAIT: deferred COORDINATION: no ataxia with finger to nose testing and heel to saunders testing REFLEXES: cannot assess over telemedicine Results & Data Vital Signs (Past 12 Hours) Vital Signs Temp Pulse Pulse Resp BP BP Pulse Ox 04/29/24 07:50 36.4 C L 62 18 185/83 H 92 04/29/24 06:09 66 181/90 H 04/29/24 06:08 63 04/29/24 02:40 36.4 C L 65 18 195/86 H 93 04/29/24 00:45 66 177/82 H 04/29/24 00:30 71 216/122 H 04/29/24 00:07 36.7 C 71 18 216/122 H 93 O2 Del Method 04/29/24 07:50 Room Air 04/29/24 06:09 04/29/24 06:08 04/29/24 02:40 Room Air 04/29/24 00:45 04/29/24 00:30 04/29/24 00:07 Room Air Diagnostic Findings Abnormal Lab Results 04/28/24 04/28/24 04/28/24 14:14 14:54 17:30 WBC 5.54 RBC 4.45 Hgb 12.0 Hct 36.2 L MCV 81.3 MCH 27.0 MCHC 33.1 RDW Std Deviation 39.3 RDW Coeff of Richelle 13.4 Plt Count 211 MPV 10.3 Immature Gran % (Auto) 0.2 Neut % (Auto) 60.7 Lymph % (Auto) 29.1 [place] % (Auto) 5.8 Eos % (Auto) 3.1 Baso % (Auto) 1.1 Neut # (Auto) 3.37 Lymph # (Auto) 1.61 [place] # (Auto) 0.32 Eos # (Auto) 0.17 Baso # (Auto) 0.06 Immature Gran # (Auto) 0.01 Sodium 140 Potassium 3.5 Chloride 105 Carbon Dioxide 28 Anion Gap 7 BUN 20 Creatinine 1.07 Est Cr Clr Drug Dosing 46.5 eGFR 52.84 BUN/Creatinine Ratio 18.7 Glucose 151 H POC Glucose Estimat Average Glucose Hemoglobin A1c Calcium 9.1 Magnesium 1.7 Total Bilirubin 0.6 AST 18 ALT 11 Alkaline Phosphatase 85 Total Creatine Kinase 256 H Troponin I High Sens 7.6 Total Protein 6.9 Albumin 3.9 Globulin 3.0 Albumin/Globulin Ratio 1.3 Triglycerides Cholesterol LDL Cholesterol, Calc VLDL Cholesterol, Calc HDL Cholesterol Cholesterol/HDL Ratio Procalcitonin < 0.02 TSH 122.438 H Free T4 0.61 Urine Color Yellow Urine Appearance Cloudy A Urine pH 6.5 Ur Specific [place] 1.014 Urine Protein 2+ H Urine Glucose (UA) Negative Urine Ketones Negative Urine Blood Negative Urine Nitrite Positive A Urine Bilirubin Negative Urine Urobilinogen Negative Ur Leukocyte Esterase 3+ H Urine WBC (Auto) >50 H Urine RBC (Auto) 0-2 U Hyaline Cast (Auto) 3-5 H U Epithel Cells (Auto) 0-2 Urine Bacteria (Auto) 4+ H SARS-CoV-2 (PCR) NEGATIVE Influenza Type A (PCR) Negative Influenza Type B (PCR) Negative RSV (RT-PCR) Negative 04/28/24 04/29/24 04/29/24 21:52 06:27 07:55 WBC 9.71 RBC 3.97 L Hgb 11.1 L Hct 32.4 L MCV 81.6 MCH 28.0 MCHC 34.3 RDW Std Deviation 40.2 RDW Coeff of Richelle 13.7 Plt Count 191 MPV 10.6 Immature Gran % (Auto) Neut % (Auto) Lymph % (Auto) [place] % (Auto) Eos % (Auto) Baso % (Auto) Neut # (Auto) Lymph # (Auto) [place] # (Auto) Eos # (Auto) Baso # (Auto) Immature Gran # (Auto) Sodium 142 Potassium 3.4 L Chloride 106 Carbon Dioxide 28 Anion Gap 8 BUN 20 Creatinine 1.01 Est Cr Clr Drug Dosing 48.2 eGFR 56.63 BUN/Creatinine Ratio 19.8 Glucose 116 H POC Glucose 145 H 140 H Estimat Average Glucose 137 Hemoglobin A1c 6.4 H Calcium 8.7 Magnesium Total Bilirubin AST ALT Alkaline Phosphatase Total Creatine Kinase 285 H Troponin I High Sens Total Protein Albumin Globulin Albumin/Globulin Ratio Triglycerides 95 Cholesterol 233 H LDL Cholesterol, Calc 155 VLDL Cholesterol, Calc 19 HDL Cholesterol 59 Cholesterol/HDL Ratio 3.9 Procalcitonin TSH Free T4 Urine Color Urine Appearance Urine pH Ur Specific [place] Urine Protein Urine Glucose (UA) Urine Ketones Urine Blood Urine Nitrite Urine Bilirubin Urine Urobilinogen Ur Leukocyte Esterase Urine WBC (Auto) Urine RBC (Auto) U Hyaline Cast (Auto) U Epithel Cells (Auto) Urine Bacteria (Auto) SARS-CoV-2 (PCR) Influenza Type A (PCR) Influenza Type B (PCR) RSV (RT-PCR) Medications Administered Brain MRI 04/28/24 19:52 Exam(s): MRI HEAD Without Contrast EXAM: MR Head Without Intravenous Contrast CLINICAL HISTORY: Reason for exam: r/o stroke. TECHNIQUE: Magnetic resonance images of the head/brain without intravenous contrast in multiple planes. COMPARISON: CT head, CTA head 04/28/24 FINDINGS: Brain: No diffusion restriction to suggest acute cerebral ischemia. No acute intracranial hemorrhage. No mass-effect or shift. Volume loss and chronic small vessel ischemic change. Ventricles: Unremarkable. No hydrocephalus. Bones/joints: Unremarkable. No acute fracture. Sinuses: Right maxillary sinus mucosal thickening. Mastoid air cells: Trace left mastoid effusion. Orbits: Unremarkable as visualized. IMPRESSION: No diffusion restriction to suggest acute cerebral ischemia. Electronically signed by: Cathryn Johnson M.D. 04/28/24 22:42 PM Head CTA 04/28/24 19:52 CR Exam(s): CTA HEAD With Contrast IV Amt: 116 ml optiray 320 EXAM: CT Angiography Head With Intravenous Contrast CLINICAL HISTORY: Reason for exam: stroke like symptom. TECHNIQUE: Axial computed tomographic angiography images of the head with intravenous contrast. CTDI is 17 mGy and DLP is 503 mGy-cm. Automated exposure control was utilized for the study. A dose lowering technique was utilized adhering to the principles of ALARA. MIP reconstructed images were created and reviewed. CONTRAST: Patient received 116 ml optiray 320 of IV contrast COMPARISON: No relevant prior studies available. FINDINGS: Right internal carotid artery: Mild stenosis of the paraclinoid right ICA. No aneurysm. Right anterior cerebral artery: Unremarkable. No occlusion or significant stenosis. No aneurysm. Right middle cerebral artery: Unremarkable. No occlusion or significant stenosis. No aneurysm. Right posterior cerebral artery: origin of the right BACK END ENGINEER. No occlusion or significant stenosis. No aneurysm. Right vertebral artery: Unremarkable as visualized. Left internal carotid artery: No acute findings. Intracranial segment is patent with no significant stenosis. No aneurysm. Left anterior cerebral artery: Unremarkable. No occlusion or significant stenosis. No aneurysm. Left middle cerebral artery: Short segment anterior left M2 branch occlusion versus near-occlusion with immediate distal reconstitution (series 3, images [id number]). No aneurysm. Left posterior cerebral artery: origin of the left BACK END ENGINEER. No occlusion or significant stenosis. No aneurysm. Left vertebral artery: Unremarkable as visualized. Basilar artery: Unremarkable. No occlusion or significant stenosis. No aneurysm. IMPRESSION: Short segment anterior left M2 branch occlusion versus near-occlusion with immediate distal reconstitution (series 3, images [id number]). Correlate clinically and consider MRI. Communications: Call Doctor Other Electronically signed by: Cathryn Johnson M.D. 04/28/24 22:27 PM
[2024-04-29] MEDS ORDERED: FUROSEMIDE 20 MG TAB PO PRN (14:48)
[2024-04-29] MEDS ORDERED: carvediloL 3.125 MG TAB PO SCH (16:00)
[2024-04-29] MEDS: SPIRONOLACTONE 12.5 MG TAB PO ONE (16:46)
[2024-04-29] MEDS: cefTRIAXone SODIUM 2,000 MG/50 ML BAG IV SCH (16:49)
--- NOTE | 2024-04-29 17:01 | Cardiology Progress Note ---
Date of Service April 29, 2024 Assessment & Plan (1) Stroke-like symptoms: (2) HTN (hypertension): (3) Left ventricular hypertrophy: (4) Acute UTI (urinary tract infection): Plan Patient does not have any prior echocardiograms on file at this institution or within the [facility] outpatient chart. An echocardiogram had previously been ordered by primary care but had yet to be completed. Echocardiogram performed today as part of her workup for strokelike symptoms reveals severe concentric left ventricle hypertrophy with resultant small LV cavity size. The left ventricular systolic function is normal to hyperdynamic with ejection fraction greater than 70%. Severe left atrial lodgment present. Mild aortic valve sclerosis without stenosis. There is a small loculated left lateral pericardial effusion. Grade 2 diastolic dysfunction noted. -The echocardiogram findings are compatible with severe concentric left ventricular atrophy due to underlying hypertension related to heart disease, perhaps a variant of hypertrophic cardiomyopathy, or infiltrative cardiomyopathy such as cardiac amyloidosis. Diagnostics Will check serum and urine immunofixation and kappa/lambda light chains Future considerations include cardiac MRI and nuclear medicine PYP scan as outpatient. Therapeutics At present recommend improved blood pressure control, labetalol 10 mg IV x 1 with carvedilol 3.125 mg by mouth twice daily to start thereafter with first dose at 2100. Agree with plan to treat with atorvastatin and losartan. The dose of loop diuretic may be necessary to help control edema, however patient certainly predisposed to volume depletion given the LVH and given recent administration of contrast, will hold off on further diuretic therapy with exception of the spironolactone at present. Admission and Anticipated Discharge Date Admission Date: April 28, 2024 Juan David Haq is a 78 year old female seen in cardiology consultation per the request of Dr Liao for the evaluation of hypertension and severe concentric left ventricular hypertrophy on echocardiogram. Patient does not follow with cardiology as an outpatient. She has a longstanding history of hypertension and apparent medication nonadherence. She has chronic lower extremity edema she presented via the emergency department on 04/28/2024. Having had sudden onset of weakness and expressive aphasia with difficulty walking. 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 CT angiogram of the head and neck was performed on admission revealing patent carotid arteries, there was a short segment in the anterior left M2 branch within occlusion versus near occlusion. MRI revealed no suggestion of acute infarct. At present the patient is asymptomatic. Telemetry reveals sinus rhythm in the 60s. Physical Exam Physical Exam: General: no acute distress and stated age Eyes: conjunctiva are pink and non-injected, sclera clear Neck: normal jugular venous pulse, no hepatojugular reflux Chest: normal shape and normal respiratory effort Lungs: clear to auscultation and percussion Cardiac Exam: - regular heart sounds, no murmurs, rubs, or gallops, no jugular venous distention Abdomen: abdomen soft, non-tender, no abnormal masses and no hepatosplenomegaly Musculoskeletal: no gait disturbance, no weakness Extremities: 1+ bilateral lower extremity edema Neuro:awake, conversant, follows commands, no focal motor deficits Results & Data Vital Signs (Past 12 Hours) Vital Signs Temp Pulse Pulse Resp BP BP Pulse Ox 04/29/24 15:27 36.6 C 60 18 196/82 H 91 04/29/24 14:06 62 04/29/24 11:37 36.5 C 65 18 174/82 H 94 04/29/24 07:50 36.4 C L 62 18 185/83 H 92 04/29/24 06:09 66 181/90 H 04/29/24 06:08 63 O2 Del Method 04/29/24 15:27 Room Air 04/29/24 14:06 04/29/24 11:37 Room Air 04/29/24 07:50 Room Air 04/29/24 06:09 04/29/24 06:08 Laboratory Results Lipids 04/29/24 Range/Units 06:27 Triglycerides 95 (0-150) mg/dl Cholesterol 233 H (0-200) mg/dl HDL Cholesterol 59 mg/dl Cholesterol/HDL Ratio 3.9 (0-5) CBC 04/29/24 Range/Units 06:27 WBC 9.71 (4.8-10.8) K/ul RBC 3.97 L (4.20-5.40) M/uL Hgb 11.1 L (12.0-16.0) g/dl Hct 32.4 L (37.0-47.0) % Plt Count 191 (130-400) K/uL Comprehensive Metabolic Panel 04/29/24 Range/Units 06:27 Sodium 142 (136-145) mmol/L Potassium 3.4 L (3.5-5.1) mmol/L Chloride 106 (98-107) mmol/L Carbon Dioxide 28 (21-32) mmol/L BUN 20 (6-23) mg/dl Creatinine 1.01 (0.6-1.2) mg/dl Glucose 116 H (70-99(Fasting)) mg/dl Calcium 8.7 (8.6-10.3) mg/dl Intake and Output 04/29/24 04/29/24 04/29/24 06:59 14:59 22:59 Intake Total 100 / 150 120 / 120 Balance 100 / 150 120 / 120 Intake: Oral 100 / 100 120 / 120 Other: # Unmeasured Voids 1 Weight 83.5 kg Weight Measurement Method Standing Scale Diagnostic Findings EKG performed on 04/28/2024: Sinus rhythm at 62 bpm with nonspecific T wave changes compatible with LVH, unchanged compared to 2021.
[2024-04-29] MEDS: hydrALAZINE HCL 20 MG/ML VIAL IV ONE ×2 (17:06→17:07)
[2024-04-29] MEDS ORDERED: cefTRIAXone SODIUM 1,000 MG/50 ML BAG IV SCH (18:00)
--- OUTSIDE RECORDS SUMMARY | 2024-04-29 18:57 | External Medical Summary | Summary of Care ---
Author Name Unknown Organization [facility] Address [address] [place] [address] Phone [phone] Care Team Providers Care Agricultural Purchasing Agent Name Role Phone Barbie Diamond MD Primary Care Provid er Encounter Details Date Type Department Care Team (Late st Contact Info) Description 11/10/2023 Orders Only PATIENT PORTAL DO NOT DELETE THIS DEPT USED BY [facility]OWN [id number] Allergies Active Allergy Reactions Criticality Noted Date Comments Lisinopril 05/16/2020 Other reaction(s): Cough Metformin Diarrhea 05/16/2020 documented as of this encounter (statuses as of 11/10/2023) Medications Medication Sig Dispensed Refills Start Date End Date Status Ondansetron HCl 8 MG Oral Tablet (Zofran)Indications:H iatal hernia,Colitis Take by mouth 1 Tablet every 8 hours as needed for Nausea. 20 Tablet 1 08/02/2021 Active Potassium Chloride Aiyana ER 20 MEQ Oral Tablet Extended ReleaseIndications:Hy pokalemia Take 1 Tablet by mouth in the morning. 90 Tablet 1 12/12/2022 Active Famotidine 20 MG Oral Tablet (Pepcid) Take 1 Tablet by mouth every night at bedtime. 90 Tablet 3 12/12/2022 Active Aspirin 81 MG Oral Tablet ChewableIndications:T ype 2 diabetes mellitus without complication, with long-term current use of insulin (HCC),Type 2 diabetes mellitus with hemoglobin A1c goal of less than 8.0% (HCC),Cerebrovascular accident (CVA), unspecified mechanism ([facility]) Take 1 Tablet by mouth in the morning. with food.. 100 Tablet 5 12/12/2022 Active HumaLOG KwikPen 100 UNIT/ML Subcutaneous Solution Pen-injectorIndicatio ns:Type 2 diabetes mellitus without complication, with long-term current use of insulin ([facility]) Inject 8 Units under the skin in the morning and 8 Units at noon and 8 Units in the evening. Inject before meals. 30 mL 3 12/15/2022 Active Levemir FlexPen 100 UNIT/ML Subcutaneous Solution Pen-injector (Insulin Detemir)Indications:T ype 2 diabetes mellitus with hemoglobin A1c goal of less than 8.0% ([facility]),Uncontrolled type 2 diabetes mellitus with hyperglycemia ([facility]),Type 2 diabetes mellitus without complication, with long-term current use of insulin ([facility]) Inject 20 Units under the skin in the morning and 20 Units before bedtime. 45 mL 3 02/10/2023 Active Furosemide 20 MG Oral Tablet (Lasix)Indications:Ly mphedema of both lower extremities Take 1 Tablet by mouth daily as needed (lower extremity swelling). for fluid accumulation or weight gain 30 Tablet 2 04/13/2023 Active Escitalopram Oxalate 20 MG Oral Tablet (Lexapro)Indications: Depression, unspecified depression type take 1 tablet by mouth IN THE MORNING 90 Tablet 3 04/13/2023 Active GNP UltiCare Pen [place] 32G X 4 MM (Insulin Pen Needle)Indications:Ty pe 2 diabetes mellitus without complication, with long-term current use of insulin ([facility]),Type 2 diabetes mellitus with hemoglobin A1c goal of less than 8.0% ([facility]) To be used with insulin injection, one needle per injection twice a day. 100 Each 11 04/13/2023 Active Losartan Potassium 50 MG Oral Tablet (Cozaar)Indications:T ype 2 diabetes mellitus with hemoglobin A1c goal of less than 8.0% ([facility]),Uncontrolled type 2 diabetes mellitus with hyperglycemia ([facility]),HTN, goal below 150/90 Take 1 Tablet by mouth in the morning. 90 Tablet 1 04/13/2023 Active Levothyroxine Sodium 150 MCG Oral Tablet (Levoxyl)Indications: Acquired hypothyroidism Take 1 Tablet by mouth daily first thing in the morning. (at least 30 min prior to breakfast or other meds) 90 Tablet 11/06/2023 Active Atorvastatin Calcium 40 MG Oral Tablet (Lipitor)Indications: Familial hypercholesterolemia, Cerebrovascular accident (CVA), unspecified mechanism (HCC) Take 1 Tablet by mouth in the morning. 90 Tablet 11/06/2023 Active documented as of this encounter (statuses as of 11/10/2023) Active Problems Problem Noted Date Diagnosed Date Hx of nonmelanoma skin cancer 12/15/2022 Overview: Basal cell with sebaceous differentiation (L upper back 12/28) Noncompliance with medication regimen 12/12/2022 Acute UTI 12/12/2022 Lymphedema of both lower extremities 12/12/2022 Type 2 diabetes mellitus wit h hemoglobin A1c goal of less than 8.0% 12/12/2022 Uncontrolled type 2 diabetes mellitus with hyper glycemia 12/12/2022 History of nonadherence to medical treatment Memory changes 12/05/2022 Ptosis of eyelid 12/05/2022 Fatigue 12/05/2022 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 3 H/O iron deficiency anemia 09/11/2021 Ambulatory dysfunction 08/02/2021 Balance problem 08/02/2021 PUD (peptic ulcer disease) 08/02/2021 History of bleeding peptic ulcer 08/02/2021 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 08/02/2021 Type 2 diabetes mellitus wit melvi complication, with long-term current use of insulin 08/02/2021 Colitis 08/02/2021 Colitis, acute 03/06/2021 Hiatal hernia 03/04/2021 Hypochloremia 03/04/2021 Hypomagnesemia 03/04/2021 Hyponatremia 03/04/2021 Hypokalemia 03/03/2021 Multinodular goiter (nontoxic) 05/16/2020 Age-related osteoporosis wit hout current pathological fracture 11/16/2019 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 Familial hypercholesterolemia 03/03/2018 Cerebrovascular accident (CVA) 08/07/2016 Depression 08/07/2016 Hyperlipidemia 08/07/2016 HTN, goal below 150/90 08/07/2016 Hypothyroidism 08/07/2016 Lymphedema 08/07/2016 Palpitations 08/07/2016 Stricture of artery 08/07/2016 documented as of this encounter (statuses as of 11/10/2023) Resolved Problems Problem Noted Date Diagnosed Date Resolved Date Changing skin lesion 12/05/2022 023 documented as of this encounter (statuses as of 11/10/2023) Immunizations Name Administration Dates Next Due COVID-19 mRNA, LNP-s, No Pre serve, 10 mcg, Ages 5-11 (Pfizer) 04/13/2021,03/17/2021 Pneumococcal Conjugate Vaccine, 20-valent (Prevn ar20) 12/12/2022 Pneumococcal Polysaccharide PPV23 (Pneumovax) Seasonal Influenza, Quadrivalent Hd (Fluzone Hd) 04/13/2023 Seasonal Influenza, Split, IIV3, With Preserve, Inj 03/08/2014,03/08/2013 TD, Preservative Free 06/08/2005 TDAP (age 10 and older)(Boostrix) 10/13/2015 documented as of this encounter Social History Tobacco Use Types Packs/Day Years Used Date Smoking Tobacco: Former Smokeless Tobacco: Never Alcohol Use Standard Drinks/Week Comments Not Currently 0 (1 standard drink = 0.6 oz pur e alcohol) Sex and Gender Information Value Date Recorded Sex Assigned at Not on file Gender Identity Not on file Sexual Orientation Not on file Job Start Date Occupation Industry Not on file Not on file Not on file documented as of this encounter Plan of Treatment Upcoming Encounters Date Type Department Care Team (Late st Contact Info) Description 12/08/2023 10:20 AM EDT Office Visit [facility] [address] [place] [address] Barbie Diamond MD [address] [place] [address] Health Maintenance Due Date Last Done Comments Albumin/Creatinine Ratio 1962 DXA Scan 1994 Zoster Vaccines (1 of 2) 1994 *BISPHONATE OR OTHER ACCEPTABLE MEDICATION NEEDED FOR OSTEOPOROSIS (REFER TO SMARTSET #1146) 08/04/2021 COVID-19 Vaccine ( season) 2023 04/13/2021, 03/17/2021 HbA1c 10/12/2023 04/13/2023, 07/0 10/2022, 09/05/2021 GFR 12/11/2023 12/10/2022, 07/0 07/2021, 09/05/2021, Additional history exists TSH 12/11/2023 12/10/2022, 07/0 07/2021, 09/05/2021 Diabetic Foot Exam 12/13/2023 12/12/2022 Diabetic Eye Exam 01/28/2024 01/27/2023, , 01/27/2023, Additional history exists DTaP,Tdap,and Td Vaccines (2 - Td or Tdap) 10/12/2025 10/13/2015, 06/08/2005 VITAMIN D LEVEL ONCE IN A LIFETIME-USE SMARTSET# [id number] Completed 12/10/2022 Pneumococcal Vaccine: 65+ Years Completed 12/12/2022, 06/08/2014 Influenza Vaccine (FLU shot) Completed 11/2022, 05/16/2020, 02/28/2019, Additional history exists GARDASIL-HPV IMMUNIZATION SERIES Aged Out No longer eligible based on patient's age to complete this topic Hepatitis B Aged Out No longer eligi ble based on patient's age to complete this topic MENINGOCOCCAL (MENACTRA/MENVEO) Aged Out No longer eligible based on patient's age to complete this topic documented as of this encounter Medical Devices Not on filedocumented as of this encounter Care Teams Agricultural Purchasing Agent Relationship Specialty Start Date End Date Barbie Diamond MD [address] [place] [address] PCP - General Family Medicine 08/02/21 documented as of this encounter
--- OUTSIDE RECORDS SUMMARY | 2024-04-29 18:57 | External Medical Summary ---
Author Name Unknown Address Unknown Organization : Laboratory Report Ordering Provider Test Date Status DUNIA SYKES 12/08/2023 11:15:24 Final Observation Date Value Abnormality Reference (Units ) Status HbA1C 12/08/2023 11:15:24 7.0 Above high normal 4. 0-5.6 (%) Final Performing Location
--- OUTSIDE RECORDS SUMMARY | 2024-04-29 18:57 | External Medical Summary | Summary of Care ---
Author Name Unknown Organization [facility] Address [address] [place] [address] Phone [phone] Care Team Providers Care Patient Consumer Marketer Name Role Phone Mony Duque MD Primary Care Provid er Reason for Visit * Reason Comments Medication Refill Encounter Details Date Type Department Care Team (Late st Contact Info) Description 01/24/2024 [address] [address] Mony Duque MD [address] [place] [id number] Type 2 diabetes mellitus without complication, with long-term current use of insulin ([facility]) Allergies Active Allergy Reactions Criticality Noted Date Comments Lisinopril 05/16/2020 Other reaction(s): Cough Metformin Diarrhea 05/16/2020 documented as of this encounter (statuses as of 01/25/2024) Medications Medication Sig Dispensed Refills Start Date End Date Status Ondansetron HCl 8 MG Oral Tablet (Zofran)Indications: Hiatal hernia,Colitis Take by mouth 1 Tablet every 8 hours as needed for Nausea. 20 Tablet 1 2 Active Potassium Chloride Aiyana ER 20 MEQ Oral Tablet Extended ReleaseIndications:H ypokalemia Take 1 Tablet by mouth in the morning. 90 Tablet 1 3 Active Famotidine 20 MG Oral Tablet (Pepcid) Take 1 Tablet by mouth every night at bedtime. 90 Tablet 3 3 Active Aspirin 81 MG Oral Tablet ChewableIndications: Type 2 diabetes mellitus without complication, with long-term current use of insulin ([facility]),Type 2 diabetes mellitus with hemoglobin A1c goal of less than 8.0% ([facility]),Cerebrovascula r accident (CVA), unspecified mechanism ([facility]) Take 1 Tablet by mouth in the morning. with food.. 100 Tablet 5 3 Active Levemir FlexPen 100 UNIT/ML Subcutaneous Solution Pen-injector (Insulin Detemir)Indications: Type 2 diabetes mellitus with hemoglobin A1c goal of less than 8.0% ([facility]),Uncontrolled type 2 diabetes mellitus with hyperglycemia ([facility]),Type 2 diabetes mellitus without complication, with long-term current use of insulin ([facility]) Inject 20 Units under the skin in the morning and 20 Units before bedtime. 45 mL 3 3 Active Furosemide 20 MG Oral Tablet (Lasix)Indications:L ymphedema of both lower extremities Take 1 Tablet by mouth daily as needed (lower extremity swelling). for fluid accumulation or weight gain 30 Tablet 2 3 Active Escitalopram Oxalate 20 MG Oral Tablet (Lexapro)Indications :Depression, unspecified depression type take 1 tablet by mouth IN THE MORNING 90 Tablet 3 3 Active GNP UltiCare Pen [place] 32G X 4 MM (Insulin Pen Needle)Indications:T ype 2 diabetes mellitus without complication, with long-term current use of insulin ([facility]),Type 2 diabetes mellitus with hemoglobin A1c goal of less than 8.0% ([facility]) To be used with insulin injection, one needle per injection twice a day. 100 Each 11 3 Active Levothyroxine Sodium 150 MCG Oral Tablet (Levoxyl)Indications :Acquired hypothyroidism Take 1 Tablet by mouth daily first thing in the morning. (at least 30 min prior to breakfast or other meds) 90 Tablet 4 Active Atorvastatin Calcium 40 MG Oral Tablet (Lipitor)Indications :Familial hypercholesterolemia ,Cerebrovascular accident (CVA), unspecified mechanism ([facility]) Take 1 Tablet by mouth in the morning. 90 Tablet 4 Active Fluticasone Propionate 50 MCG/ACT Nasal Suspension (Flonase)Indications :Seasonal allergic rhinitis due to pollen,Type 2 diabetes mellitus with diabetic neuropathy, with long-term current use of insulin (HCC) Administer 2 Sprays into each nostril in the morning. 16 g 5 4 Active Losartan Potassium 100 MG Oral Tablet (Cozaar)Indications: HTN, goal below 150/90,Type 2 diabetes mellitus with diabetic neuropathy, with long-term current use of insulin (HCC) Take 1 Tablet by mouth in the morning. 90 Tablet 1 4 Active HumaLOG KwikPen 100 UNIT/ML Subcutaneous Solution Pen-injectorIndicati ons:Type 2 diabetes mellitus without complication, with long-term current use of insulin (HCC) Inject 8 Units under the skin in the morning and 8 Units at noon and 8 Units in the evening. Inject before meals. 30 mL 3 4 Active HumaLOG KwikPen 100 UNIT/ML Subcutaneous Solution Pen-injectorIndicati ons:Type 2 diabetes mellitus without complication, with long-term current use of insulin (HCC) Inject 8 Units under the skin in the morning and 8 Units at noon and 8 Units in the evening. Inject before meals. 30 mL 3 3 01/24/20 24 Discontinu ed(Refill) documented as of this encounter (statuses as of 01/25/2024) Active Problems Problem Noted Date Diagnosed Date Diabetic peripheral neuropathy 12/08/2023 H/O falling 12/08/2023 Physical deconditioning 12/08/2023 Hx of nonmelanoma skin cancer 12/15/2022 Overview: Basal cell with sebaceous differentiation (L upper back 12/28) Noncompliance with medication regimen 12/12/2022 Acute UTI 12/12/2022 Lymphedema of both lower extremities 12/12/2022 Type 2 diabetes mellitus wit h diabetic neuropathy, with long-term current use of insulin 12/12/2022 History of nonadherence to medical treatment Memory changes 12/05/2022 Ptosis of eyelid 12/05/2022 Fatigue 12/05/2022 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 3 H/O iron deficiency anemia 09/11/2021 Ambulatory dysfunction 08/02/2021 Balance problem 08/02/2021 PUD (peptic ulcer disease) 08/02/2021 History of bleeding peptic ulcer 08/02/2021 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 (Adult - for ages 18 years and over) Not on file 11/24/2023 Is your family able to pay t he heat, water, or electric bill? (Household - for ages 0-17 years) Not on file 11/24/2023 Does your family have access to good internet? (Household - for ages 0-17 years) Not on file 11/24/2023 Social Connections Answer Date Recorded How often do you feel lonely or isolated from those around you? (Adult - for ages 18 years and over) Not on file 11/24/2023 Sex and Gender Information Value Date Recorded Sex Assigned at Not on file Gender Identity Not on file Sexual Orientation Not on file Job Start Date Occupation Industry Not on file Not on file Not on file documented as of this encounter Miscellaneous Notes * Telephone Encounter - Erin Spivey flaca - 01/25/2024 7:54 AM EDT Signed Prescriptions: Disp Refills HumaLOG KwikPen 100 UNIT/ML Subcutaneous S*30 mL 3 Sig: Inject 8Units under the skin in the morning and 8 Units at noon and 8 Units in the evening. Inject before meals.Authorizing Provider: MONY DUQUE User: ERIN SPIVEY documented in this encounter Plan of Treatment Upcoming Encounters Date Type Department Care Team (Late st Contact Info) Description 06/10/2024 1:20 PM EST [facility] [address] [facility] [address] [facility] [address] [facility] [address] Health Maintenance Due Date Last Done Comments Depression Monitoring 1957 Albumin/Creatinine Ratio 1963 DXA Scan 1994 Zoster Vaccines (1 of 2) 1994 Adult Wellness Visit 2010 *BISPHONATE OR OTHER ACCEPTABLE MEDICATION NEEDED FOR OSTEOPOROSIS (REFER TO SMARTSET #1146) 08/04/2021 COVID-19 Vaccine ( season) 2023 04/13/2021, 03/17/2021 GFR 12/11/2023 12/10/2022, 070 07/2021, 09/05/2021, Additional history exists TSH 12/11/2023 12/10/2022, 0 07/2021, 09/05/2021 Diabetic Eye Exam 01/28/2024 01/27/2023, , 01/27/2023, Additional history exists Influenza Vaccine (FLU shot) (#1) 2024 04/13/2023, 05/16/2020, 02/28/2019, Additional history exists HbA1c 06/09/2024 12/08/2023, 110 11/2022, 12/10/2022, Additional history exists Diabetic Foot Exam 12/07/2024 12/08/2023, 12/12/2022 DTaP,Tdap,and Td Vaccines (2 - Td or Tdap) 10/12/2025 10/13/2015, 06/08/2005 VITAMIN D LEVEL ONCE IN A LIFETIME-USE SMARTSET# [id number] Completed 12/10/2022 Pneumococcal Vaccine: 65+ Years Completed 12/12/2022, 06/08/2014 HPV (Gardasil) Vaccine Aged Out No lo nger eligible based on patient's age to complete this topic Hepatitis B Vaccine Aged Out No longe r eligible based on patient's age to complete this topic MENINGOCOCCAL (MENACTRA/MENVEO) Aged Out No longer eligible based on patient's age to complete this topic documented as of this encounter Medical Devices Not on filedocumented as of this encounter Visit Diagnoses Diagnosis Type 2 diabetes mellitus without complication, with long-term current use of insulin (HCC) documented in this encounter Care Teams Patient Consumer Marketer Relationship Specialty Start Date End Date Mony Duque MD [address] [facility] [place] [address] PCP - General Family Medicine 08/02/21 documented as of this encounter
--- OUTSIDE RECORDS SUMMARY | 2024-04-29 18:57 | External Medical Summary | Summary of Care ---
Author Name Unknown Organization [facility] Address [address] [place] [address] Phone [phone] Care Team Providers Care Java Technical Architect Name Role Phone Barbie Diamond MD Primary Care Provid er Reason for Referral * Evaluate & Treat - Unlimited Visits (Within 30 days (routine)) - Authorized Specialty Diagnoses / Procedures Referred By Devorah alvarado Referred To Contact HOME CARE / Home Care Diagnoses Cerebrovascular accident (CVA), unspecified mechanism (HCC) H/O falling Ambulatory dysfunction Physical deconditioning Diabetic peripheral neuropathy (HCC) Type 2 diabetes mellitus with diabetic neuropathy, with long-term current use of insulin (HCC) Barbie Diamond MD [address] [place] [address] Referral ID Status Reason Start Date Expiration Date Visits Requested Visits Authorized [id number] Authorized Specialty Services Required 12/08/2023 999 999 Question Answer Referral Priority Within 30 days (routine) Where should this appointment be scheduled? Joceline Comments Documentation of Kpoa-dc-Cewf Encounter Addendum Patient Name: Madison Haq I certify that this patient is under my care and that I, or a nurse practitioner or physician's clerical dentist assistant working with me, had a myss-ik-mxol encounter that meets the physician [id number] encounter requirements with this patient on: 12/08/23 The encounter with the patient was in whole, or in part, for the following medical condition, which is the primary reason for home health care (List medical condition): Gait dysfunction I certify that, based on my findings, the following services are medically necessary home health services: Physical Therapy To provide the following care/treatments: (All hospitalists not following the patient after discharge should complete this section): difficulty ambulating, history of falls at home recently Primary Care Physician to follow home care plan of care after discharge: My clinical findings support the need for the above services because: difficulty ambulating, falls at home Further, I certify that my clinical findings support that this patient is homebound (i.e. Absences from home require considerable and taxing effort and are for medical reasons or muslim services or infrequently or of short duration when for other reason) because: No transportation Physician Signature: Date of Signature: Physician Printed Name: Barbie Diamond MD Reason for Visit * Reason Onset Date Comments Physical-Exam Thinks she has a sinus infection, she is having headaches across her forehead and is having increase in sneezing and is becoming clogged up in her sinus Routine Exam 12/08/2023 Encounter Details Date Type Department Care Team (Latest Contact Info) Description 12/08/2023 10:20 AM EDT Office Visit [facility] [address] [place] [id number] Barbie Diamond MD [address] [place] [id number] Type 2 diabetes mellitus with diabetic neuropathy, with long-term current use of insulin ([facility])*; Risk and functional assessment; Type 2 diabetes mellitus with hemoglobin A1c goal of less than 8.0% ([facility]); Hyperlipidemia, unspecified hyperlipidemia type; Acquired hypothyroidism; Age-related osteoporosis without current pathological fracture; Seasonal allergic rhinitis due to pollen; HTN, goal below 150/90; Cerebrovascular accident (CVA), unspecified mechanism ([facility]); Type 2 diabetes mellitus with hemoglobin A1c goal of less than 7.0% ([facility]); H/O falling; Ambulatory dysfunction; Physical deconditioning; Diabetic peripheral neuropathy ([facility]) Allergies Active Allergy Reactions Criticality Noted Date Comments Lisinopril 05/16/2020 Other reaction(s): Cough Metformin Diarrhea 05/16/2020 documented as of this encounter (statuses as of 12/08/2023) Medications Medication Sig Dispensed Refills Start Date [...] complication, with long-term current use of insulin ([facility]),Type 2 diabetes mellitus with hemoglobin A1c goal of less than 8.0% ([facility]),Cerebrovascula r accident (CVA), unspecified mechanism ([facility]) Take 1 Tablet by mouth in the morning. with food.. 100 Tablet 5 3 Active HumaLOG KwikPen 100 UNIT/ML Subcutaneous Solution Pen-injectorIndicati ons:Type 2 diabetes mellitus without complication, with long-term current use of insulin ([facility]) Inject 8 Units under the skin in the morning and 8 Units at noon and 8 Units in the evening. Inject before meals. 30 mL 3 3 Active Levemir FlexPen 100 UNIT/ML Subcutaneous Solution Pen-injector (Insulin Detemir)Indications: Type 2 diabetes mellitus with hemoglobin A1c goal of less than 8.0% ([facility]),Uncontrolled type 2 diabetes mellitus with hyperglycemia ([facility]),Type 2 diabetes mellitus without complication, with long-term current use of insulin ([facility]) Inject 20 Units under the [...] Tablet 3 3 Active GNP UltiCare Pen Monroe 32G X 4 MM (Insulin Pen Needle)Indications:T ype 2 diabetes mellitus without complication, with long-term current use of insulin ([facility]),Type 2 diabetes mellitus with hemoglobin A1c goal of less than 8.0% ([facility]) To be used with insulin [...] :Familial hypercholesterolemia ,Cerebrovascular accident (CVA), unspecified mechanism ([facility]) Take 1 Tablet by mouth in the morning. 90 Tablet 4 Active Fluticasone Propionate 50 MCG/ACT Nasal Suspension (Flonase)Indications :Seasonal allergic rhinitis due to pollen,Type 2 diabetes mellitus with diabetic neuropathy, with long-term current use of insulin ([facility]) Administer 2 Sprays into each nostril in the morning. 16 g 5 4 Active Losartan Potassium 100 MG Oral Tablet (Cozaar)Indications: HTN, goal below 150/90,Type 2 diabetes mellitus with diabetic neuropathy, with long-term current use of insulin ([facility]) Take 1 Tablet by mouth in the morning. 90 Tablet 1 4 Active Losartan Potassium 50 MG Oral Tablet (Cozaar)Indications: Type 2 diabetes mellitus with hemoglobin A1c goal of less than 8.0% ([facility]),Uncontrolled type 2 diabetes mellitus with hyperglycemia ([facility]),HTN, goal below 150/90 Take 1 Tablet by mouth in the morning. 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 08/02/2021 Type 2 diabetes mellitus wit hocaitlyn complication, with long-term current use of insulin [...] as of this encounter (statuses as of 12/08/2023) Resolved Problems Problem Noted Date Diagnosed Date Resolved Date Uncontrolled type 2 diabetes mellitus with hyperglycemia 12/12/2022 12/08/2023 Changing skin lesion 12/05/2022 023 documented as of this encounter (statuses as of 12/08/2023) Immunizations Name Administration Dates Next Due COVID-19 [...] Date Smoking Tobacco: Former Smokeless Tobacco: Never Tobacco Cessation:Counseling Given: Not Answered Alcohol Use Standard Drinks/Week Comments Not Currently [...] on file documented as of this encounter Last Filed Vital Signs Vital Sign Reading Time Taken Comments Blood Pressure 152/90 12/08/2023 9:53 AM EDT Pulse 76 12/08/2023 9:53 AM EDT Temperature 36.6 C (97.8 F) 12/08/2023 9:53 AM ED T Respiratory Rate 16 12/08/2023 9:53 AM EDT Oxygen Saturation 97% 12/08/2023 9:53 AM EDT Inhaled Oxygen Concentration - - Weight 85.3 kg (188 lb) 12/08/2023 9:53 AM EDT Height 165.1 cm (5' 5") 12/08/2023 9:53 AM EDT Body Mass Index 31.28 12/08/2023 9:53 AM EDT documented in this encounter Patient Instructions * Patient Instructions* Ysabel Auguste LPN - 12/08/2023 10:02 AM EDT Patient Instructions - Fall Prevention (This education is for all patients over 65 regardless of symptoms) Remember to take your current medications as prescribed. In order to prevent falls, you are encouraged to: Exercise Utilize assistive/adaptive devices Avoid multifocal lenses when walking Avoid hazards in home Maintain a regular toileting schedule Any questions please contact our office. Preventing Falls in the Home (This education is for all patients over 65 regardless of symptoms) As you get older, falls are more likely. Thats because your reaction time slows. Your muscles and joints may also get stiffer, making them less flexible. Illness, medications, and vision changes can also affect your balance. A fall could leave you unable to live on your own. To make your home safer, follow these tips: Floors Put nonskid pads under area rugs Remove throw rugs Replace worn floor coverings Tack carpets firmly to each step on carpeted stairs. Put nonskid strips on the edges of uncarpeted stairs Keep floors and stairs free of clutter and cords Arrange furniture so there are clear pathways Clean up any spills right away Bathrooms Install grab bars in the tub or shower Apply nonskid strips or put a nonskid rubber mat in the tub or shower Sit on a bath chair to bathe Use bathmats with nonskid backing Lighting Keep a flashlight in each room Put a nightlight along the pathway between the bedroom and the bathroom [employer] Patient Education Copyright 2008 - 2010 [employer] except where otherwise noted Preventing Falls: Exercises to Improve Balance, Flexibility, Strength, and Staying Power (This education is for all patients over 65 regardless of symptoms) Certain types of exercises may help make you less likely to fall. Try the ones below. Or do other exercises that your healthcare provider suggests. Depending on your health, you may need to start slowly. Dont let that stop you. Even small amounts of exercise can help you. Be sure to talk to yourhealthcare provider before starting any exercise program. Improve Balance Many types of exercise can help improve balance. Miguel Angel chi and yoga are good examples. Heres another one to try. You can do it anytime and almost anywhere. Stand next to a counter or solid support. Push yourself up onto your tiptoes. Hold for 5 seconds. If you start to lose your balance, hold on to the counter. Rest and repeat 5 times. Work up to holding for 20 to 30 seconds, if you can. Increase Flexibility Being more flexible makes it easier for you to move around safely. Try exercises like the seated hamstring stretch. Sit in a chair and put one foot on a stool. Straighten your leg and reach with both hands down either side of your leg. Reach as far down your leg as you can. Hold for about 20 seconds. Go back to the starting position. Then repeat 5 times. Switch legs. Build Strength Resistance exercises help build strength. You can do them without equipment. Or you can use weights, elastic bands, or special machines. One such exercise is called the biceps curl. You can hold a 1 pound weight or even a can of soup. Do this exercise at least 3 times a week. Strive for everyday. Sit up straight in a chair. Keep your elbow close to your body and your wrist straight. Bend your arm, moving your hand up to your shoulder. Then slowly lower your arm. Repeat 5 times. Switch to the other arm. Build Your Staying Power Aerobic exercises make your heart and lungs stronger so you can keep moving longer. Walking and swimming are two of the best types of exercises you can do. Using a stationary bike is great, too. Find an aerobic exercise that you enjoy. Start slowly and build up. Even 5 minutes is helpful. Aimfor a goal of 30 minutes, at least 3 times a week. You dont have to do 30 minutes in one session. Break it up and walk a little throughout the day. More Helpful Tips Start easy. Slowly work up to doing more. Talk with your healthcare provider about the best exercises for you. Call senior centers or health clubs about exercise programs. If needed, have a family member watch you walk every so often to check your stability. Exercise with a friend. Choose an activity you both enjoy. Try exercises that you can do anytime, anywhere. Here are two examples. Have someone with you when you first try these: Practice walking by placing one foot right in front of the other. Stand up and sit down 10 times. Repeat this throughout the day. [employer] Patient Education Copyright 2008 [employer] except where otherwise noted. Preventing Falls: Moving Safely Using a Cane or Walker (This education is for all patients over 65 regardless of symptoms) Keep the cane away from your feet so you dont trip. A walking aid, such as a cane or walker, can help you stay more independent and avoid falls. Remember to keep your walking aid within easy reach when youre in a chair or in bed. And learn how to use it safely so you dont injure yourself. Using a Cane If you have a stronger side, hold the cane on that side. Get your balance. Move the cane and your weaker leg forward. Support your weight on both the cane and your weaker side. Step with your stronger leg. Start again from step 1. If youre using a folding walker, be sure you know how to lock it open. Check that its locked open before each use. Using a Walker Roll the walker (or lift it, if youre using one without wheels) forward about 12 inches. Step forward with your weaker leg first. Use the walker to help keep your balance. Bring your other foot forward to the center of the walker. Start again from step 1. Helpful Tips Check with your healthcare provider about the right walking aid to use. Ask about a walker with a seat attached. Check the tips of your cane or walker to make sure they have nonskid covers. Move slowly from room to room. Dont donaldson. Sit down to get dressed. Use a jen pack or backpack to keep your hands free. Get help for jobs that mean climbing, even on a stepstool. [employer] Patient Education Copyright 2008 [employer] except where otherwise noted. Urinary Incontinence Plan of Care Documentation: (This education is for all patients over 65 regardless of symptoms) Current medications reconciled. Patient encouraged to: Practice kegal exercises Provide education materials Use the restroom every 2 hours throughout the day Limit caffeine, alcohol, spicy foods and acidic foods Keep a bladder diary Limit fluid intake 3-4 hours before bed Lose weight Prevent constipation Take fluid pills at a time when you can get to the bathroom quickly Control sugar better if diabetic Limit fluid intake to 60 oz. per day Wear support stockings (TEDs)if you have edema Ysabel AugusteKEISHA 12/08/2023 Kegel Exercises Kegel exercises dont require special clothing or equipment. Theyre easy to learn and simple to do. And if you do them right, no one can tell youre doing them, so they can be done almost anywhere. Your doctor, nurse, or physical therapist can answer any questions you have and help you get started. A Weak Pelvic Floor The pelvic floor muscles may weaken due to aging, and vaginal childbirth, injury, surgery, chronic cough, or lack of exercise. If the pelvic floor is weak, your bladder and other pelvic organs may sag out of place. The urethra may also open too easily and allow urine to leak out. Kegel exercises can help you strengthen your pelvic floor muscles so they can better support the pelvic organs and control urine flow. How Kegel Exercises Are Done Try each of the Kegel exercises described below. When youre doing them, try not to move your leg, buttock, or stomach muscles. While youre urinating, try to stop the flow of urine. Start and stop it as often as you can. Contract as if you were stopping your urine stream, but do it when youre not urinating. Tighten your rectum as if trying not to pass gas. Contract your anus, but dont move your buttocks. Helpful Hints Do your Kegels as often as you can. The more you do them, the faster youll feel the results. Pick an activity you do often as a reminder. For instance, do your Kegels every time you sit down. Tighten your pelvic floor before you sneeze, get up from a chair, cough, laugh, or lift. This protects your pelvic floor from injury and can help prevent urine leakage. Try to hold each Kegel for a slow count to five. You probably wont be able to hold them for thatlong at first, but keep practicing. It will get easier as your pelvic floor gets stronger. Eventually, special weights that you place in your vagina may be recommended to help make your Kegels even more effective. [employer] Patient Education Copyright 2008 - 2010 [employer] except where otherwise noted. Here are some helpful tips for your urinary incontinence: (This education is for all patients over 65 regardless of symptoms) Practice Kegel exercises Use the restroom every 2 hours throughout the day Limit caffeine, alcohol, spicy foods, and acidic foods Keep a bladder diary Limit fluid intake 3-4 hours before bed Lose weight Prevent constipation Take fluid pills at a time when can get to the bathroom quickly Control sugar better if diabetic Limit fluid intake to 60 oz. per day Any questions, please feel free to contact our office. documented in this encounter Progress Notes * Barbie Diamond MD - 12/08/2023 10:24 AM EDT ASSESSMENT / PLAN: Madison Haq is a 78 year old female with PMHx T2DM on insulin, HTN, HLD, hypothyroidism, h/o CVA, osteoporosis, depresison, hiatal hernia/PUD, colitis, hypokalemia, blindness in right eye - here for recheck T2DM Historically followed w MTM, but now no longer Today's POC A1C within goal - commended! Cont levemir, humalog Cont ASA Venous insufficiency Cont lasix daily prn - she takes it on average twice a week Urged to wear her compression stockings more frequently Hypothyroidism Clinically euthyroid Update labs, cont current dosing 150mcg levo HTN / h/o ASCVD +lymphedema on norvasc - DC'd this last visit Recent switch to losartan 50mg - BP is still not within goal today - recommend further increase to 100mg daily, 2 wk BP recheck. HLD Cont current reg H/o falls Office of aging has reportedly been called She does have someone who comes twicew a wk to clean Pt tells me she has a life alert button And tells me her daughter lives 5 min away She is interested in home health to return for PT / physical deconditioning - order placed Diabetic polyneuropathy In feet - cont glucose mgmt, PT Follow Up: Return in about 6 months (around 06/09/2024) for Fasting Labs Soon, Labs 2-5 Days Before Next Visit. | For: Fasting Labs Soon, Labs 2-5 Days Before Next Visit | Check-out note: BP check in 2-3 weeks - she can do fasting labs at that time. Type 2 diabetes mellitus with diabetic neuropathy, with long-term current use of insulin ([facility]) (Primary) - LIPID PANEL WITH DIRECT LDL IF TG IS HIGH; Future; Expected date: 12/08/2023 - COMPREHENSIVE METABOLIC PANEL; Future; Expected date: 12/08/2023 - CBC WITH WBC DIFFERENTIAL AND ANEMIA REFLEX WORKUP; Future; Expected date: 12/08/2023 - TSH WITH FREE T4 IF INDICATED; Future; Expected date: 12/08/2023 - DEXA SCAN/BONE MINERAL AXIAL - ALBUMIN / CREATININE RATIO, URINE; Future; Expected date: 12/08/2023 - HEMOGLOBIN A1C; Future; Expected date: 06/09/2024 - COMPREHENSIVE METABOLIC PANEL; Future; Expected date: 06/09/2024 - Fluticasone Propionate 50 MCG/ACT Nasal Suspension (Flonase); Administer 2 Sprays into each nostril in the morning. - Losartan Potassium 100 MG Oral Tablet (Cozaar); Take 1 Tablet by mouth in the morning. - HEMOGLOBIN A1C, POINT OF CARE - DIABETES FOOT EXAM - HOME HEALTH REFERRAL OP Risk and functional assessment - ALBUMIN / CREATININE RATIO, URINE; Future; Expected date: 12/08/2023 - HEMOGLOBIN A1C; Future; Expected date: 06/09/2024 - COMPREHENSIVE METABOLIC PANEL; Future; Expected date: 06/09/2024 Type 2 diabetes mellitus with hemoglobin A1c goal of less than 8.0% ([facility]) - HEMOGLOBIN A1C, POINT OF CARE Hyperlipidemia, unspecified hyperlipidemia type - LIPID PANEL WITH DIRECT LDL IF TG IS HIGH; Future; Expected date: 12/08/2023 - COMPREHENSIVE METABOLIC PANEL; Future; Expected date: 12/08/2023 - CBC WITH WBC DIFFERENTIAL AND ANEMIA REFLEX WORKUP; Future; Expected date: 12/08/2023 - ALBUMIN / CREATININE RATIO, URINE; Future; Expected date: 12/08/2023 - HEMOGLOBIN A1C; Future; Expected date: 06/09/2024 - COMPREHENSIVE METABOLIC PANEL; Future; Expected date: 06/09/2024 Acquired hypothyroidism - TSH WITH FREE T4 IF INDICATED; Future; Expected date: 12/08/2023 - ALBUMIN / CREATININE RATIO, URINE; Future; Expected date: 12/08/2023 - HEMOGLOBIN A1C; Future; Expected date: 06/09/2024 - COMPREHENSIVE METABOLIC PANEL; Future; Expected date: 06/09/2024 Age-related osteoporosis without current pathological fracture - DEXA SCAN/BONE MINERAL AXIAL - ALBUMIN / CREATININE RATIO, URINE; Future; Expected date: 12/08/2023 - HEMOGLOBIN A1C; Future; Expected date: 06/09/2024 - COMPREHENSIVE METABOLIC PANEL; Future; Expected date: 06/09/2024 Seasonal allergic rhinitis due to pollen - Fluticasone Propionate 50 MCG/ACT Nasal Suspension (Flonase); Administer 2 Sprays into each nostril in the morning. HTN, goal below 150/90 - Losartan Potassium 100 MG Oral Tablet (Cozaar); Take 1 Tablet by mouth in the morning. Cerebrovascular accident (CVA), unspecified mechanism ([facility]) - HOME HEALTH REFERRAL OP Type 2 diabetes mellitus with hemoglobin A1c goal of less than 7.0% ([facility]) H/O falling - HOME HEALTH REFERRAL OP Ambulatory dysfunction - HOME HEALTH REFERRAL OP Physical deconditioning - HOME HEALTH REFERRAL OP Diabetic peripheral neuropathy ([facility]) - HOME HEALTH REFERRAL OP Follow Up: Return in about 6 months (around 06/09/2024) for Fasting Labs Soon, Labs 2-5 Days Before Next Visit. | For: Fasting Labs Soon, Labs 2-5 Days Before Next Visit | Check-out note: BP check in 2-3 weeks - she can do fasting labs at that time. If needed, prefers contact by: Ok to leave message on phone: SUBJECTIVE: Nursing Notes: Ysabel Auguste LPN 12/08/23 1007 Signed The patient has been properly identified by confirmation of name and date of . Chief Complaint Patient presents with Physical-Exam Thinks she has a sinus infection, she is having headaches across her forehead and is having increase in sneezing and is becoming clogged up in her sinus HPI: Madison Haq is a 78 year old female. Here for recheck. Today she is concerned about a sinus congestion - has sinus pressure across forehead, sneezing a lot, congestion - has used nose spray a couple times at night OTC Self stopped trulicity about 3 months ago - diarrhea A1C is greatly improved She checks her BSG twice a day - upon waking and also at night before bed. She thinks she doesn't eat enough. Appetite is chronically low. Will definitely eat twice a day, enough to take her humalog. Will sometimes eat a snack but won't take her humalog at that time. Can tell when she is hyperglycemic - notices blurred vision, fatigue. She thinks her last BP check at home was around 140s / 60s-80s Has had 2 bad falls in the last few weeks Took her a while to get up She did not go to ER, no pain now Has a life alert button Daughter lives 5 min away She is interested in home PT again, bc this helped strengthen her last year Latest Reference Range & Units 04/13/23 11:59 Hemoglobin A1C 4.0 - 5.6 % 5.9 (H) (H): Data is abnormally high Latest Reference Range & Units 12/10/22 10:19 Hemoglobin A1C 4.0 - 5.6 % 11.7 (H) (H): Data is abnormally high Today's POC reading: Latest Reference Range & Units 12/08/23 11:15 Hemoglobin A1c 4.0 - 5.6 % 7.0 (H) (H): Data is abnormally high Reviewed sources 1- Patient Active Problem List Diagnosis Age-related osteoporosis without current pathological fracture Cerebrovascular accident (CVA) (HCC) Colitis, acute Depression Familial hypercholesterolemia Hiatal hernia Hyperlipidemia HTN, goal below 150/90 Hypochloremia Hypokalemia Hypomagnesemia Hyponatremia Hypothyroidism Juvenile pernicious anemia Lymphedema Multinodular goiter (nontoxic) Palpitations Stricture of artery (HCC) Ambulatory dysfunction Balance problem PUD (peptic ulcer disease) History of bleeding peptic ulcer 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 Type 2 diabetes mellitus without complication, with long-term current use of insulin (HCC) Colitis H/O iron deficiency anemia History of nonadherence to medical treatment Memory changes Ptosis of eyelid Fatigue Other usp (current) drug therapy Noncompliance with medication regimen Acute UTI Lymphedema of both lower extremities Type 2 diabetes mellitus with diabetic neuropathy, with long-term current use of insulin (HCC) Hx of nonmelanoma skin cancer Diabetic peripheral neuropathy (HCC) H/O falling Physical deconditioning Current Outpatient Medications Medication Sig Dispense Refill Ondansetron HCl 8 MG Oral Tablet (Zofran) Take by mouth 1 Tablet every 8 hours as needed for Nausea. 20 Tablet 1 Potassium Chloride Aiyana ER 20 MEQ Oral Tablet Extended Release Take 1 Tablet by mouth in the morning. 90 Tablet 1 Famotidine 20 MG Oral Tablet (Pepcid) Take 1 Tablet by mouth every night at bedtime. 90 Tablet 3 Aspirin 81 MG Oral Tablet Chewable Take 1 Tablet by mouth in the morning. with food.. 100 Tablet 5 HumaLOG KwikPen 100 UNIT/ML Subcutaneous Solution Pen-injector Inject 8 Units under the skin in themorning and 8 Units at noon and 8 Units in the evening. Inject before meals. 30 mL 3 Levemir FlexPen 100 UNIT/ML Subcutaneous Solution Pen-injector (Insulin Detemir) Inject 20 Units under the skin in the morning and 20 Units before bedtime. 45 mL 3 Furosemide 20 MG Oral Tablet (Lasix) Take 1 Tablet by mouth daily as needed (lower extremity swelling). for fluid accumulation or weight gain 30 Tablet 2 Escitalopram Oxalate 20 MG Oral Tablet (Lexapro) take 1 tablet by mouth IN THE MORNING 90 Tablet 3 GNP UltiCare Pen Monroe 32G X 4 MM (Insulin Pen Needle) To be used with insulin injection, one needle per injection twice a day. 100 Each 11 Levothyroxine Sodium 150 MCG Oral Tablet (Levoxyl) Take 1 Tablet by mouth daily first thing in the morning. (at least 30 min prior to breakfast or other meds) 90 Tablet 0 Atorvastatin Calcium 40 MG Oral Tablet (Lipitor) Take 1 Tablet by mouth in the morning. 90 Tablet 0 Fluticasone Propionate 50 MCG/ACT Nasal Suspension (Flonase) Administer 2 Sprays into each nostril in the morning. 16 g 5 Losartan Potassium 100 MG Oral Tablet (Cozaar) Take 1 Tablet by mouth in the morning. 90 Tablet 1 No current facility-administered medications for this visit. OBJECTIVE: BP 152/90 | Pulse 76 | Temp 36.6 C (97.8 F) | Resp 16 | Ht 1.651 m (5' 5") | Wt 85.3 kg (188 lb) | SpO2 97% | BMI 31.28 kg/m | BSA 1.98 m Vitals reviewed and is hypertensive / afebrile / and not tachycardic General: No acute distress. Neuro: Alert Pleasant & interactive. Respiratory: Good inspiratory effort, no labored breathing. MSK: pitting edema in b/l lower ext up to mid saunders. Skin is in tact. No erythema. HEENT: Conjunctivae appear clear. No swelling noted face or lips. Skin: No rash visible on exposed skin areas, normal coloration & appears dry. Psych: Normal affect. Fluent speech. I spent a total of 40-54 minutes (exact time 40 mins) on the date of service in preparation, delivery, and documentation of the care provided to Madison Haq excluding any time spent in the performance of separately billed services. Barbie Diamond MD [address] [id number] Patient Instructions Patient Instructions - Fall Prevention (This education is for all patients over 65 regardless of symptoms) Remember to take your current medications as prescribed. In order to prevent falls, you are encouraged to: Exercise Utilize assistive/adaptive devices Avoid multifocal lenses when walking Avoid hazards in home Maintain a regular toileting schedule Any questions please contact our office. Preventing Falls in the Home (This education is for all patients over 65 regardless of symptoms) As you get older, falls are more likely. Thats because your reaction time slows. Your muscles and joints may also get stiffer, making them less flexible. Illness, medications, and vision changes can also affect your balance. A fall could leave you unable to live on your own. To make your home safer, follow these tips: Floors Put nonskid pads under area rugs Remove throw rugs Replace worn floor coverings Tack carpets firmly to each step on carpeted stairs. Put nonskid strips on the edges of uncarpeted stairs Keep floors and stairs free of clutter and cords Arrange furniture so there are clear pathways Clean up any spills right away Bathrooms Install grab bars in the tub or shower Apply nonskid strips or put a nonskid rubber mat in the tub or shower Sit on a bath chair to bathe Use bathmats with nonskid backing Lighting Keep a flashlight in each room Put a nightlight along the pathway between the bedroom and the bathroom [employer] Patient Education Copyright 2009 - 2010 [employer] except where otherwise noted Preventing Falls: Exercises to Improve Balance, Flexibility, Strength, and Staying Power (This education is for all patients over 65 regardless of symptoms) Certain types of exercises may help make you less likely to fall. Try the ones below. Or do other exercises that your healthcare provider suggests. Depending on your health, you may need to start slowly. Dont let that stop you. Even small amounts of exercise can help you. Be sure to talk to yourhealthcare provider before starting any exercise program. Improve Balance Many types of exercise can help improve balance. Miguel Angel chi and yoga are good examples. Heres another one to try. You can do it anytime and almost anywhere. Stand next to a counter or solid support. Push yourself up onto your tiptoes. Hold for 5 seconds. If you start to lose your balance, hold on to the counter. Rest and repeat 5 times. Work up to holding for 20 to 30 seconds, if you can. Increase Flexibility Being more flexible makes it easier for you to move around safely. Try exercises like the seated hamstring stretch. Sit in a chair and put one foot on a stool. Straighten your leg and reach with both hands down either side of your leg. Reach as far down your leg as you can. Hold for about 20 seconds. Go back to the starting position. Then repeat 5 times. Switch legs. Build Strength Resistance exercises help build strength. You can do them without equipment. Or you can use weights, elastic bands, or special machines. One such exercise is called the biceps curl. You can hold a 1 pound weight or even a can of soup. Do this exercise at least 3 times a week. Strive for everyday. Sit up straight in a chair. Keep your elbow close to your body and your wrist straight. Bend your arm, moving your hand up to your shoulder. Then slowly lower your arm. Repeat 5 times. Switch to the other arm. Build Your Staying Power Aerobic exercises make your heart and lungs stronger so you can keep moving longer. Walking and swimming are two of the best types of exercises you can do. Using a stationary bike is great, too. Find an aerobic exercise that you enjoy. Start slowly and build up. Even 5 minutes is helpful. Aimfor a goal of 30 minutes, at least 3 times a week. You dont have to do 30 minutes in one session. Break it up and walk a little throughout the day. More Helpful Tips Start easy. Slowly work up to doing more. Talk with your healthcare provider about the best exercises for you. Call senior centers or health clubs about exercise programs. If needed, have a family member watch you walk every so often to check your stability. Exercise with a friend. Choose an activity you both enjoy. Try exercises that you can do anytime, anywhere. Here are two examples. Have someone with you when you first try these: Practice walking by placing one foot right in front of the other. Stand up and sit down 10 times. Repeat this throughout the day. [employer] Patient Education Copyright 2008 [employer] except where otherwise noted. Preventing Falls: Moving Safely Using a Cane or Walker (This education is for all patients over 65 regardless of symptoms) Keep the cane away from your feet so you dont trip. A walking aid, such as a cane or walker, can help you stay more independent and avoid falls. Remember to keep your walking aid within easy reach when youre in a chair or in bed. And learn how to use it safely so you dont injure yourself. Using a Cane If you have a stronger side, hold the cane on that side. Get your balance. Move the cane and your weaker leg forward. Support your weight on both the cane and your weaker side. Step with your stronger leg. Start again from step 1. If youre using a folding walker, be sure you know how to lock it open. Check that its locked open before each use. Using a Walker Roll the walker (or lift it, if youre using one without wheels) forward about 12 inches. Step forward with your weaker leg first. Use the walker to help keep your balance. Bring your other foot forward to the center of the walker. Start again from step 1. Helpful Tips Check with your healthcare provider about the right walking aid to use. Ask about a walker with a seat attached. Check the tips of your cane or walker to make sure they have nonskid covers. Move slowly from room to room. Dont donaldson. Sit down to get dressed. Use a jen pack or backpack to keep your hands free. Get help for jobs that mean climbing, even on a stepstool. [employer] Patient Education Copyright 2008 - 2010 [employer] except where otherwise noted. Urinary Incontinence Plan of Care Documentation: (This education is for all patients over 65 regardless of symptoms) Current medications reconciled. Patient encouraged to: Practice kegal exercises Provide education materials Use the restroom every 2 hours throughout the day Limit caffeine, alcohol, spicy foods and acidic foods Keep a bladder diary Limit fluid intake 3-4 hours before bed Lose weight Prevent constipation Take fluid pills at a time when you can get to the bathroom quickly Control sugar better if diabetic Limit fluid intake to 60 oz. per day Wear support stockings (TEDs)if you have edema Ysabel Auguste LPN 12/08/2023 Kegel Exercises Kegel exercises dont require special clothing or equipment. Theyre easy to learn and simple to do. And if you do them right, no one can tell youre doing them, so they can be done almost anywhere. Your doctor, nurse, or physical therapist can answer any questions you have and help you get started. A Weak Pelvic Floor The pelvic floor muscles may weaken due to aging, and vaginal childbirth, injury, surgery, chronic cough, or lack of exercise. If the pelvic floor is weak, your bladder and other pelvic organs may sag out of place. The urethra may also open too easily and allow urine to leak out. Kegel exercises can help you strengthen your pelvic floor muscles so they can better support the pelvic organs and control urine flow. How Kegel Exercises Are Done Try each of the Kegel exercises described below. When youre doing them, try not to move your leg, buttock, or stomach muscles. While youre urinating, try to stop the flow of urine. Start and stop it as often as you can. Contract as if you were stopping your urine stream, but do it when youre not urinating. Tighten your rectum as if trying not to pass gas. Contract your anus, but dont move your buttocks. Helpful Hints Do your Kegels as often as you can. The more you do them, the faster youll feel the results. Pick an activity you do often as a reminder. For instance, do your Kegels every time you sit down. Tighten your pelvic floor before you sneeze, get up from a chair, cough, laugh, or lift. This protects your pelvic floor from injury and can help prevent urine leakage. Try to hold each Kegel for a slow count to five. You probably wont be able to hold them for thatlong at first, but keep practicing. It will get easier as your pelvic floor gets stronger. Eventually, special weights that you place in your vagina may be recommended to help make your Kegels even more effective. [employer] Patient Education Copyright 2009 - 2010 [employer] except where otherwise noted. Here are some helpful tips for your urinary incontinence: (This education is for all patients over 65 regardless of symptoms) Practice Kegel exercises Use the restroom every 2 hours throughout the day Limit caffeine, alcohol, spicy foods, and acidic foods Keep a bladder diary Limit fluid intake 3-4 hours before bed Lose weight Prevent constipation Take fluid pills at a time when can get to the bathroom quickly Control sugar better if diabetic Limit fluid intake to 60 oz. per day Any questions, please feel free to contact our office. * Ysabel Auguste LPN - 12/08/2023 10:02 AM EDT Fall Risk Plan of Care Documentation: - Current medications reconciled Patient encouraged to: - Exercise - Provide education materials for Core strengthening - Utilize assistive/adaptive devices - Provide education materials - Avoid multifocal lenses when walking - Avoid hazards in home - Provide education materials - Maintain a regular toileting schedule Ysabel Auguste LPN 12/08/2023 Urinary Incontinence Plan of Care Documentation: (This education is for all patients over 65 regardless of symptoms) Current medications reconciled. Patient encouraged to: Practice kegal exercises Provide education materials Use the restroom every 2 hours throughout the day Limit caffeine, alcohol, spicy foods and acidic foods Keep a bladder diary Limit fluid intake 3-4 hours before bed Lose weight Prevent constipation Take fluid pills at a time when you can get to the bathroom quickly Control sugar better if diabetic Limit fluid intake to 60 oz. per day Wear support stockings (TEDs)if you have edema Ysabel Auguste LPN 12/08/2023 Socks and Shoes Removed for Annual Diabetic Foot Screening RIGHT FOOT: No Reddened, Cracking, Or Open Areas Noted. RIGHT Dorsalis Pedis Pulse: Palpable RIGHT Posterior Tibial Pulse: Unable to locate RIGHT Monofilament:Patient reports difficulty feeling monofilament at Third toe- plantar surface, Ball of Foot-base of great toe, Ball of Foot-base of 3rd toe, and Ball of Foot-base of little toe LEFT FOOT: No Reddened, Cracking or Open Areas Noted. LEFT Dorsalis Pedis Pulse: Palpable LEFT Posterior Tibial Pulse: Palpable LEFT Monofilament:Patient reports feeling monofilament pressure on plantar surface of foot Do you need diabetic shoes: No documented in this encounter Nursing Notes * Ysabel Auguste LPN - 12/08/2023 10:01 AM EDT The patient has been properly identified by confirmation of name and date of . Chief Complaint Patient presents with Physical-Exam Thinks she has a sinus infection, she is having headaches across her forehead and is having increase in sneezing and is becoming clogged up in her sinus documented in this encounter Plan of Treatment Upcoming Encounters Date Type Department Care Team (Late st Contact Info) Description 06/10/2024 1:20 PM EST Office Visit [facility] [address] [place] [phone] Barbie Diamond MD [address] [place] [address] Scheduled Orders Name Type Priority Associated Diagnoses Orde r Schedule LIPID PANEL WITH DIRECT LDL IF TG IS HIGH Lab Routine Hyperlipidemia, unspecified hyperlipidemia type Type 2 diabetes mellitus with diabetic neuropathy, with long-term current use of insulin (HCC) Expected: 12/08/2023, Expires: 12/07/2024 COMPREHENSIVE METABOLIC PANEL Lab Routine Hyperlipidemia, unspecified hyperlipidemia type Type 2 diabetes mellitus with diabetic neuropathy, with long-term current use of insulin (HCC) Expected: 12/08/2023 (Approximate), Expires: 12/07/2024 CBC WITH WBC DIFFERENTIAL AND ANEMIA REFLEX WORKUP Lab Routine Hyperlipidemia, unspecified hyperlipidemia type Type 2 diabetes mellitus with diabetic neuropathy, with long-term current use of insulin (HCC) Expected: 12/08/2023 (Approximate), Expires: 12/07/2024 TSH WITH FREE T4 IF INDICATED Lab Routine Acquired hypothyroidism Type 2 diabetes mellitus with diabetic neuropathy, with long-term current use of insulin (HCC) Expected: 12/08/2023 (Approximate), Expires: 12/07/2024 DEXA SCAN/BONE MINERAL AXIAL Medical Imaging Routine Age-related osteoporosis without current pathological fracture Type 2 diabetes mellitus with diabetic neuropathy, with long-term current use of insulin (HCC) Ordered: 12/08/2023 ALBUMIN / CREATININE RATIO, URINE Lab Routine Risk and functional assessment Hyperlipidemia, unspecified hyperlipidemia type Acquired hypothyroidism Age-related osteoporosis without current pathological fracture Type 2 diabetes mellitus with diabetic neuropathy, with long-term current use of insulin (HCC) Expected: 12/08/2023 (Approximate), Expires: 12/07/2024 HEMOGLOBIN A1C Lab Routine Risk and functional assessment Hyperlipidemia, unspecified hyperlipidemia type Acquired hypothyroidism Age-related osteoporosis without current pathological fracture Type 2 diabetes mellitus with diabetic neuropathy, with long-term current use of insulin (HCC) Expected: 06/09/2024 (Approximate), Expires: 01/07/2025 COMPREHENSIVE METABOLIC PANEL Lab Routine Risk and functional assessment Hyperlipidemia, unspecified hyperlipidemia type Acquired hypothyroidism Age-related osteoporosis without current pathological fracture Type 2 diabetes mellitus with diabetic neuropathy, with long-term current use of insulin (HCC) Expected: 06/09/2024 (Approximate), Expires: 01/07/2025 Scheduled Referrals Name Type Priority Associated Diagnoses Orde r Schedule HOME HEALTH REFERRAL OP Referral Within 30 days (routine) Cerebrovascular accident (CVA), unspecified mechanism (HCC) H/O falling Ambulatory dysfunction Physical deconditioning Diabetic peripheral neuropathy (HCC) Type 2 diabetes mellitus with diabetic neuropathy, with long-term current use of insulin (HCC) Ordered: 12/08/2023 Health Maintenance Due Date Last Done Comments Depression Monitoring 1956 Albumin/Creatinine Ratio 1962 DXA Scan 1994 Zoster Vaccines (1 of 2) 1994 *BISPHONATE OR OTHER ACCEPTABLE MEDICATION NEEDED FOR OSTEOPOROSIS (REFER TO SMARTSET #1146) 08/04/2021 COVID-19 Vaccine ( season) 2023 04/13/2021, 03/17/2021 GFR 12/11/2023 12/10/2022, 0 07/2021, 09/05/2021, Additional history exists TSH 12/11/2023 12/10/2022, 070 07/2021, 09/05/2021 Diabetic Eye Exam 01/28/2024 01/27/2023, , 01/27/2023, Additional history exists Influenza Vaccine (FLU shot) (#1) 2024 04/13/2023, 05/16/2020, 02/28/2019, Additional history exists HbA1c 06/09/2024 12/08/2023, 11/2022, 12/10/2022, Additional history exists Diabetic Foot Exam 12/07/2024 12/08/2023, 12/12/2022 DTaP,Tdap,and Td Vaccines (2 - Td or Tdap) 10/12/2025 10/13/2015, 06/08/2005 VITAMIN D LEVEL ONCE IN A LIFETIME-USE SMARTSET# [id number] Completed 12/10/2022 Pneumococcal Vaccine: 65+ Years Completed 12/12/2022, 06/08/2014 GARDASIL-HPV IMMUNIZATION SERIES Aged Out No longer eligible based on patient's age to complete this topic Hepatitis B Aged Out No longer eligi ble based on patient's age to complete this topic MENINGOCOCCAL (MENACTRA/MENVEO) Aged Out No longer eligible based on patient's age to complete this topic documented as of this encounter Medical Devices Not on filedocumented as of this encounter Procedures Procedure Name Priority Date/Time Associated Diagnosis Comments HEMOGLOBIN A1C, POINT OF CARE Routine 12/08/2023 11:15 AM EDT Type 2 diabetes mellitus with hemoglobin A1c goal of less than 8.0% (HCC) Type 2 diabetes mellitus with diabetic neuropathy, with long-term current use of insulin (HCC) documented in this encounter Results * (ABNORMAL) HEMOGLOBIN A1C, POINT OF CARE (12/08/2023 11:15 AM EDT) Hemoglobin A1c 7.0(H) 4.0 - 5.6 % 12/08/2023 11:36 AM EDT [facility] 12/08/2023 11:1 5 AM EDT 12/08/2023 11:36 AM EDT Barbie Diamond MD LAB POINT OF CARE TEST DOCKED DEVICE UNSOLICITED RESULTS Performing Organization Address City/State/[facility] Co de Phone Number [facility] [address] [place] [address] documented in this encounter Visit Diagnoses Diagnosis Type 2 diabetes mellitus with diabetic neuropathy, with long-term current use of insulin (HCC)- Primary Risk and functional assessment Screening for unspecified condition Type 2 diabetes mellitus with hemoglobin A1c goal of less than 8.0% (HCC) Hyperlipidemia, unspecified hyperlipidemia type Acquired hypothyroidism Unspecified hypothyroidism Age-related osteoporosis without current pathological fracture Senile osteoporosis Seasonal allergic rhinitis due to pollen HTN, goal below 150/90 Cerebrovascular accident (CVA), unspecified mechanism (HCC) Type 2 diabetes mellitus with hemoglobin A1c goal of less than 7.0% (HCC) H/O falling Personal history of fall Ambulatory dysfunction Physical deconditioning Debility, unspecified Diabetic peripheral neuropathy (HCC) Type II or unspecified type diabetes mellitus with neurological manifestations, not stated as uncontrolled documented in this encounter Care Teams Java Technical Architect Relationship Specialty Start Date End Date Barbie Diamond MD [address] [place] [id number] PCP - General Family Medicine 08/02/21 documented as of this encounter
[2024-04-29] MEDS: carvediloL 3.125 MG TAB PO SCH (20:08)
[2024-04-30] MEDS: hydrALAZINE HCL 20 MG/ML VIAL IV ONE (03:26)
--- NOTE | 2024-04-30 05:26 | Ultrasound Report ---
EXAM: US duplex renal art/vein BI CLINICAL HISTORY: TECHNIQUE: Ultrasound with Doppler examination of both kidneys and both renal arteries. One or more of the following were performed- spectral analysis, resistive index, waveform analysis, and pulsed Doppler. COMPARISON: None. FINDINGS: The right kidney measures 10.0 cm in longitudinal diameter. The left kidney measures 9.3 cm in longitudinal diameter. Peak systolic velocity of the aorta measuring 143.8 cm/s. Patent renal veins bilaterally. Doppler velocity measurements: Abdominal aorta peak systolic velocity is 1 44 cm/s Right renal artery distally: 94/19 cm/s, RI: 0.8. Mid renal artery: 91.4/14 cm/s, RI: 0.85. Proximal renal artery: 129/19 cm/s call, RI: 0.85. Distal arcuate arteries: 44/11, RI: 0.75. Left distal renal artery: 61/12 cm/s, RI: 0.80. Mid renal artery: 99/23 cm/s, RI 0.76. Proximal renal artery: 84/14 cm/s, RI: 0.83. Distal arcuate arteries: 35/7 cm/s, RI: 0.80. Calculated right RAR:129/140: 0.89 Calculated left RAR: 99/144: 0.68 IMPRESSION: 1. Peak velocities are less than 180 cm/s and RAR values are less than 3/3.5 bilaterally excludes renal arterial stenosis however CTA is suggested if clinically indicated. 2. The highest velocity of the right kidney is seen in the proximal right renal artery measuring up to 130 cm/s. 3. The highest velocity of the left kidney is seen in the mid-left renal artery with a velocity reaching up to 100 cm/s. 4. Elevated RI throughout renal arteries bilaterally may suggest renal parenchymal disease. 5. Patent renal veins bilaterally. 6. Clinical correlation is advised. [facility] was called at [phone] at 4:21 AM MACHINE FELLER on 04/30/2024 and results were verbally communicated with Judy(nurse). Electronically signed by Olivia Lewis 04-30-2024 05:26 AM
[2024-04-30 07:15] LABS: Hematocrit (blood only) 34.1 % (37.0-47.0); Hemoglobin 11.4 g/dl (12.0-16.0); Mean Corpuscular Hemoglobin 27.1 pg (25.0-34.0); Mean Corpuscular Hgb Conc 33.4 g/dL (32.0-36.0); Mean Corpuscular Volume 81.2 fL (80.0-100.0); Mean Platelet Volume 10.9 fL (9.4-12.4); Platelet Count 206 K/uL (130-400); RDW Coefficient of Variation 13.9 % (11.5-14.5); RDW Standard Deviation 40.8 fL (36.4-46.3); White Blood Count 6.75 K/ul (4.8-10.8)
--- NOTE | 2024-04-30 07:30 | Hospitalist Progress Note ---
Date of Service April 30, 2024 Assessment & Plan (1) Weakness: (2) Stroke-like symptoms: (3) Acute UTI (urinary tract infection): (4) Hypothyroidism: (5) HTN (hypertension): (6) Diabetes mellitus, type II, insulin dependent: Plan: Ms. Haq is a 78-year-old female with PMH DM II, diabetic neuropathy, CVA, HTN, HLD, hypothyroidism, hypokalemia, lymphedema, venous insufficiency, history of falls, history medication noncompliance presented to ED due to confusion and admitted for stroke r/o. UA suggestive of UTI and MRI negative for stroke. CTA + for chronic stenosis that does not require any further management. Patient's course complicated by notably elevated blood pressures. Resumed home losartan with minimal improvement. Cardiology consulted given abnormal echo with concentric LVH and history of quite resistant HTN. TSH 122 on admission, remarkably abnormal even in setting of illness, will repeat given multiple days of standard dosing. Patient reports noncompliance and improper #Hypertensive Urgency #Concentric left ventricular hypertrophy Renal duplex negative for MALLORY immunofixation ordered per Cards for amyloidosis eval -will need OP cards follow up for PYP scan likely continue Spironolactone Cardiology following -Started on coreg, increased to 6.25mg BID -Continue losartan 100mg Continue statin #Generalized Weakness #Stroke like symptoms iso infection #Left MCA occlusions, chronic No leukocytosis, negative influenza, RSV and COVID-19 PCR. Glucose: 151, no other significant electrolyte abnormality. negative troponin EKG: Sinus rhythm, rate 62, T wave flattening lateral leads CT head: No acute intracranial abnormality CXR: Cardiomegaly, pulmonary vascular congestion, possible small left pleural effusion with left basilar consolidation MRI: no acute cerebral ischemia continue ASA and statin A1C 6.4--controlled DM cholesterol 233, LDL 155--increased statin to 80, encouraged compliance ECHO as above PT/OT rehab #Acute complicated UTI UA: + Nitrite, 3+ leuk esterase,> 50 WBC, 4+ bacteria Urine culture e coli, susceptible to CTX In ER given Rocephin Continue Rocephin #HTN In ER BP 195/99 down to 146/94 resumed home losartan continue lasix prn #Hypothyroidism TSH: 122, free T4: 0.6 TSH: 4.5 on 12/10/2022 Medication noncompliance Continue home levothyroxine--counselled extensively about proper administration. 25 minutes with daughter at bedside Repeat TSH down to 71 after proper dosing CTM, plan to repeat in 72 hours if admitted or upon follow up with PCP #Loose stool *resolved CTM #DM II Insulin dependent A1c: 7.0 on 12/08/2023 Will continue basal bolus insulin A1c 6.4% Held glargine, patient reports compliance with insulin, but noted that 15 U BID seemed to make patient hypoglycemia though reported 20 U BID at home Continue to follow POC DVT Prophylaxis SCDs for now Dispo PT/OT recommends rehab Admission and Anticipated Discharge Date Admission Date: April 28, 2024 Subjective Reports chronic fatigue symptoms Discussed insulin regimen in which patient states she does take 20 U glargine 2 times a day and "fast acting" Noted her glucose was low this am, better with juice Denies any chest pain, headaches, vision issues Physical Exam Constitutional: WD/WN, vitals as above Respiratory: normal respiratory effort, lungs clear to auscultation Cardiovascular: RRR, no murmur, no edema Musculoskeletal: no cyanosis or clubbing, extremities motor strength 5/5 Neurologic: PERRL, EOMI, accommodation nl, no face palsy, no dysarthria Results & Data Results & Data Vital Signs (Past 12 Hours) Vital Signs Temp Pulse Pulse Resp BP Pulse Ox O2 Del Method 04/30/24 05:41 63 04/30/24 04:37 63 178/84 H 04/30/24 03:27 36.4 C L 62 18 209/111 H 93 Room Air 04/30/24 00:11 36.4 C L 64 18 200/103 H 92 Room Air 04/29/24 22:21 65 04/29/24 19:53 36.4 C L 74 20 145/85 H 96 Room Air Laboratory Results Short CBC 04/30/24 Range/Units 06:32 WBC 6.75 (4.8-10.8) K/ul Hgb 11.4 L (12.0-16.0) g/dl Hct 34.1 L (37.0-47.0) % Plt Count 206 (130-400) K/uL BMP 04/30/24 06:32 Sodium 141 Potassium 3.3 L Chloride 107 Carbon Dioxide 26 BUN 23 Creatinine 0.98 Glucose 65 L Calcium 9.0 Medications Administered Home Medications Medication Instructions Recorded Confirmed Last Taken aspirin 81 mg tablet,delayed 81 mg PO QAM 04/28/24 04/28/24 Unknown release atorvastatin 40 mg tablet 40 mg PO DAILY 04/28/24 04/28/24 Unknown escitalopram oxalate 20 mg tablet 20 mg PO DAILY 04/28/24 04/28/24 Unknown famotidine 20 mg tablet 20 mg PO HS 04/28/24 04/28/24 Unknown fluticasone propionate 50 2 spray intranasal DAILY PRN 04/28/24 04/28/24 Unknown mcg/actuation nasal allergies spray,suspension furosemide 20 mg tablet 20 mg PO DAILY PRN Fluid Retention 04/28/24 04/28/24 Unknown insulin detemir U-100 100 unit/mL 20 unit subcut BID 04/28/24 04/28/24 Unknown (3 mL) subcutaneous pen insulin lispro 100 unit/mL 8 unit subcut TID 04/28/24 04/28/24 Unknown subcutaneous pen (Humalog KwikPen (U-100) Insulin) levothyroxine 150 mcg tablet 150 mcg PO DAILY 04/28/24 04/28/24 Unknown losartan 100 mg tablet 100 mg PO DAILY 04/28/24 04/28/24 Unknown ondansetron HCl 8 mg tablet 8 mg PO DIRECTED PRN n/v 04/28/24 04/28/24 Unknown potassium chloride 20 mEq 20 meq PO QAM 04/28/24 04/28/24 Unknown tablet,extended release(part/cryst) Active Medications Generic Name Dose Route Start Last Admin Trade Name Freq PRN Reason Stop Dose Admin Aspirin 81 mg 04/29/24 09:00 04/30/24 08:53 Aspirin 81 Mg Ectab PO 05/29/24 08:59 81 mg QAM RUBENS Administration Atorvastatin Calcium 80 mg 04/30/24 09:00 04/30/24 08:53 Atorvastatin 40 Mg Tab PO 05/30/24 08:59 80 mg DAILY RUBENS Administration Carvedilol 6.25 mg 04/30/24 09:00 04/30/24 09:33 Carvedilol 6.25 Mg Tab PO 05/30/24 08:59 6.25 mg BID RUBENS Administration Escitalopram Oxalate 20 mg 04/29/24 09:00 04/30/24 08:49 Escitalopram Oxalate 20 Mg Tab PO 05/29/24 08:59 20 mg DAILY RUBENS Administration Famotidine 20 mg 04/28/24 21:30 04/29/24 22:26 Famotidine 20 Mg Tab PO 05/28/24 21:29 20 mg HS RUBENS Administration Ceftriaxone Sodium 2,000 mg in 50 mls @ 100 mls/hr 04/29/24 18:00 04/29/24 18:35 Rocephin IV 05/04/24 17:59 Infused Q24H RUBENS Infusion Insulin Aspart 0 units 04/28/24 21:15 04/30/24 08:22 Insulin Aspart Per Unit Charge SC 05/28/24 21:14 Not Given ACHS RUBENS Insulin Glargine 15 units 04/28/24 21:15 04/29/24 20:12 Lantus Per Unit Charge SQ 05/28/24 21:14 15 units BID RUBENS Administration Levothyroxine Sodium 150 mcg 04/29/24 06:30 04/30/24 06:18 Levothyroxine Sodium 150 Mcg Tablet PO 05/29/24 06:29 150 mcg DAILYBB RUBENS Administration Losartan Potassium 100 mg 04/29/24 09:00 04/30/24 08:52 Losartan Potassium 50 Mg Tab PO 05/29/24 08:59 100 mg DAILY RUBENS Administration Potassium Chloride 40 meq 04/30/24 09:00 04/30/24 08:59 Potassium Chloride Crtab 20 Meq Tabcr PO 05/30/24 08:59 40 meq QAM RUBENS Administration Spironolactone 25 mg 04/30/24 09:00 04/30/24 08:49 Spironolactone 25 Mg Tab PO 05/30/24 08:59 25 mg QAM RUBENS Administration
[2024-04-30 07:49] LABS: BUN Creatinine Ratio 23.5 (10-20); Creatinine Clr Calc Pharmacy 49.6 ml/min; Potassium 3.3 mmol/L (3.5-5.1)
[2024-04-30] MEDS: SPIRONOLACTONE 25 MG TAB PO SCH (08:49)
[2024-04-30] MEDS: ATORVASTATIN 40 MG TAB PO SCH (08:53)
[2024-04-30 08:58] LABS: Thyroid Stimulating Hormone 71.646 uIu/ml (0.300-4.500)
[2024-04-30] MEDS: POTASSIUM CHLORIDE CRTAB 20 MEQ TABCR PO SCH (08:59)
[2024-04-30] MEDS: carvediloL 6.25 MG TAB PO SCH (09:33)
[2024-04-30 09:42] LABS: T4 Free Thyroxine 0.74 ng/dl (0.61-1.60)
--- NOTE | 2024-04-30 11:10 | Cardiology Progress Note ---
Date of Service April 30, 2024 Assessment & Plan (1) Stroke-like symptoms: (2) HTN (hypertension): (3) Left ventricular hypertrophy: (4) Acute UTI (urinary tract infection): (5) Hypothyroidism: Plan Patient does not have any prior echocardiograms on file at this institution or within the [facility] outpatient chart. An echocardiogram had previously been ordered by primary care but had yet to be completed. Echocardiogram performed today as part of her workup for strokelike symptoms reveals severe concentric left ventricle hypertrophy with resultant small LV cavity size. The left ventricular systolic function is normal to hyperdynamic with ejection fraction greater than 70%. Severe left atrial lodgment present. Mild aortic valve sclerosis without stenosis. There is a small loculated left lateral pericardial effusion. Grade 2 diastolic dysfunction noted. -The echocardiogram findings are compatible with severe concentric left ventricular atrophy due to underlying hypertension related to heart disease, perhaps a variant of hypertrophic cardiomyopathy, or infiltrative cardiomyopathy such as cardiac amyloidosis. Diagnostics Will check serum and urine immunofixation and kappa/lambda light chains Future considerations include cardiac MRI and nuclear medicine PYP scan as outpatient. Therapeutics Agree with plan to increase carvedilol to 6.25 mg p.o. twice daily, continue spironolactone 25 mg daily, supplement potassium, losartan 100 mg daily. TSH is markedly elevated, continue thyroid supplementation. Admission and Anticipated Discharge Date Admission Date: April 28, 2024 Subjective Patient seen in cardiology follow-up. Denies any acute complaints. Telemetry reveals sinus rhythm in the 60s to 70s. Physical Exam Physical Exam: General: no acute distress and stated age Eyes: conjunctiva are pink and non-injected, sclera clear Neck: normal jugular venous pulse, no hepatojugular reflux Chest: normal shape and normal respiratory effort Lungs: clear to auscultation and percussion Cardiac Exam: - regular heart sounds, no murmurs, rubs, or gallops, no jugular venous distention Abdomen: abdomen soft, non-tender, no abnormal masses and no hepatosplenomegaly Musculoskeletal: no gait disturbance, no weakness Extremities: 1+ bilateral lower extremity edema Neuro:awake, conversant, follows commands, no focal motor deficits Results & Data Vital Signs (Past 12 Hours) Vital Signs Temp Pulse Pulse Resp BP BP Pulse Ox 04/30/24 08:17 36.5 C 66 20 165/89 H 92 04/30/24 05:41 63 04/30/24 04:37 63 178/84 H 04/30/24 03:27 36.4 C L 62 18 209/111 H 93 04/30/24 00:11 36.4 C L 64 18 200/103 H 92 O2 Del Method 04/30/24 08:17 Room Air 04/30/24 05:41 04/30/24 04:37 04/30/24 03:27 Room Air 04/30/24 00:11 Room Air
[2024-04-30] MEDS: hydrALAZINE HCL 20 MG/ML VIAL IV STA (22:08)
[2024-05-01] MEDS: LABETALOL HCL IV 5 MG/ML 20ML IV STA (00:11)
[2024-05-01 07:47] LABS: Hematocrit (blood only) 34.7 % (37.0-47.0); Hemoglobin 11.6 g/dl (12.0-16.0); Mean Corpuscular Hemoglobin 27.7 pg (25.0-34.0); Mean Corpuscular Hgb Conc 33.4 g/dL (32.0-36.0); Mean Corpuscular Volume 82.8 fL (80.0-100.0); Platelet Count 201 K/uL (130-400); RDW Coefficient of Variation 13.9 % (11.5-14.5); RDW Standard Deviation 41.7 fL (36.4-46.3); Red Blood Count 4.19 M/uL (4.20-5.40); White Blood Count 6.48 K/ul (4.8-10.8)
[2024-05-01 08:08] LABS: Calcium 9.1 mg/dl (8.6-10.3); Magnesium 1.8 mg/dl (1.7-2.4); Phosphorus 2.8 mg/dl (2.5-4.9); Potassium 3.9 mmol/L (3.5-5.1)
[2024-05-01] MEDS: FLUTICASONE PROPIONATE NA SPR 16 GM BTL PRN (08:14)
[2024-05-01] MEDS: hydrALAZINE HCL 25 MG TAB PO SCH (09:45)
[2024-05-01] MEDS: carvediloL 12.5 MG TAB PO SCH (09:45)
--- NOTE | 2024-05-01 10:48 | Cardiology Progress Note ---
Date of Service May 01, 2024 Assessment & Plan (1) HTN (hypertension): (2) Left ventricular hypertrophy: (3) Stroke-like symptoms: (4) Acute UTI (urinary tract infection): (5) Hypothyroidism: Plan Patient does not have any prior echocardiograms on file at this institution or within the [facility] outpatient chart. An echocardiogram had previously been ordered by primary care but had yet to be completed. Echocardiogram performed 04/29/2024 as part of her workup for strokelike symptoms reveals severe concentric left ventricle hypertrophy with resultant small LV cavity size. The left ventricular systolic function is normal to hyperdynamic with ejection fraction greater than 70%. Severe left atrial lodgment present. Mild aortic valve sclerosis without stenosis. There is a small loculated left lateral pericardial effusion. Grade 2 diastolic dysfunction noted. -The echocardiogram findings are compatible with severe concentric left ventricular hypertrophy due to underlying hypertension related to heart disease, perhaps a variant of hypertrophic cardiomyopathy, or infiltrative cardiomyopathy such as cardiac amyloidosis. Diagnostics Check serum and urine immunofixation and kappa/lambda light chains Future considerations include cardiac MRI and nuclear medicine PYP scan as outpatient. Therapeutics Carvedilol initiated and titrated 12.5 mg twice daily. Continue [employer] treatment with losartan. Continue spironolactone. Added hydralazine 25 mg p.o. 3 times daily for ongoing high blood pressure. TSH is markedly elevated, continue thyroid supplementation. Admission and Anticipated Discharge Date Admission Date: April 28, 2024 Subjective Patient seen in cardiology follow-up. Notes headache this morning. Rested p oorly overnight last night. Telemetry reveals sinus rhythm in the 60s. Physical Exam Constitutional: WD/WN, vitals as above Respiratory: normal respiratory effort, lungs clear to auscultation Cardiovascular: Rate/Rhythm: regular rate and regular rhythm Heart Sounds: no murmur Vessels: no JVD Extremities: + edema (Trace to 1+ bilateral lower extremity edema, chronic) Gastrointestinal (Abdomen): normal bowel sounds, soft, nontender, no hepatosplenomegaly Neurologic: PERRL, EOMI, accommodation nl, no face palsy, no dysarthria Results & Data Vital Signs (Past 12 Hours) Vital Signs Temp Pulse Pulse Resp BP BP BP 05/01/24 08:06 60 05/01/24 07:30 36.4 C L 60 20 206/92 H 05/01/24 03:06 36.5 C 63 18 166/89 H 05/01/24 01:48 63 05/01/24 00:56 60 160/71 H 05/01/24 00:11 60 186/73 H 04/30/24 23:05 36.5 C 67 18 189/81 H Pulse Ox O2 Del Method 05/01/24 08:06 05/01/24 07:30 96 Room Air 05/01/24 03:06 95 Room Air 05/01/24 01:48 05/01/24 00:56 05/01/24 00:11 04/30/24 23:05 95 Room Air Laboratory Results CBC 05/01/24 Range/Units 07:03 WBC 6.48 (4.8-10.8) K/ul RBC 4.19 L (4.20-5.40) M/uL Hgb 11.6 L (12.0-16.0) g/dl Hct 34.7 L (37.0-47.0) % Plt Count 201 (130-400) K/uL Comprehensive Metabolic Panel 05/01/24 Range/Units 07:03 Sodium 141 (136-145) mmol/L Potassium 3.9 (3.5-5.1) mmol/L Chloride 106 (98-107) mmol/L Carbon Dioxide 27 (21-32) mmol/L BUN 24 H (6-23) mg/dl Creatinine 0.89 (0.6-1.2) mg/dl Glucose 83 (70-99(Fasting)) mg/dl Calcium 9.1 (8.6-10.3) mg/dl Intake and Output 04/30/24 05/01/24 05/01/24 22:59 06:59 14:59 Intake Total 250 / 490 Output Total 0 / 150 150 / 150 Balance 250 / 340 -150 / 340 Intake: IV 50 / 50 cefTRIAXone SODIUM 2,000 mg In 50 / 50 50 ml @ 100 mls/hr IV Q24H [facility] Rx#:[id number] Oral 200 / 440 Output: Urine 150 / 150 Urine Amount (Catheter) 0 / 0 External 0 / 0 Other: Weight 84.5 kg Weight Measurement Method Built in [facility] Diagnostic Findings Renal artery duplex did not suggest renal artery stenosis
--- NOTE | 2024-05-01 11:12 | Hospitalist Progress Note ---
Date of Service May 01, 2024 Assessment & Plan (1) Weakness: (2) Stroke-like symptoms: (3) Acute UTI (urinary tract infection): (4) Hypothyroidism: (5) HTN (hypertension): (6) Diabetes mellitus, type II, insulin dependent: Plan: Ms. Haq is a 78-year-old female with PMH DM II, diabetic neuropathy, CVA, HTN, HLD, hypothyroidism, hypokalemia, lymphedema, venous insufficiency, history of falls, history medication noncompliance presented to ED due to confusion and admitted for stroke r/o. UA suggestive of UTI and MRI negative for stroke. CTA + for chronic stenosis that does not require any further management. Patient's course complicated by notably elevated blood pressures. Resumed home losartan with minimal improvement. Cardiology consulted given abnormal echo with concentric LVH and history of quite resistant HTN. TSH 122 on admission, remarkably abnormal even in setting of illness, will repeat given multiple days of standard dosing. Patient reports noncompliance. TSH improved from 122--71 after am dosing. Will trend and encourage close follow up for proper dosing Glucose notably low with "home" insulin regimen. Will hold insulin at this time and adjust as appropriate. Patient still with pressures >160 and requiring prn despite multiple adjustments. Cardiology following, appreciate recommendations #Hypertensive Urgency #Concentric left ventricular hypertrophy Renal duplex negative for MALLORY immunofixation ordered per Cards for amyloidosis eval -will need OP cards follow up for PYP scan likely continue Spironolactone Cardiology following -Started on coreg, increased to 12.5mg BID -Continue losartan 100mg -Started on hydralazine 25 mg TID Continue statin cautious use of diuretics iso concentric htn #Generalized Weakness #Stroke like symptoms iso infection #Left MCA occlusions, chronic No leukocytosis, negative influenza, RSV and COVID-19 PCR. Glucose: 151, no other significant electrolyte abnormality. negative troponin EKG: Sinus rhythm, rate 62, T wave flattening lateral leads CT head: No acute intracranial abnormality CXR: Cardiomegaly, pulmonary vascular congestion, possible small left pleural effusion with left basilar consolidation MRI: no acute cerebral ischemia continue ASA and statin A1C 6.4--controlled DM cholesterol 233, LDL 155--increased statin to 80, encouraged compliance ECHO as above PT/OT rehab #Acute complicated UTI UA: + Nitrite, 3+ leuk esterase,> 50 WBC, 4+ bacteria Urine culture e coli, susceptible to CTX In ER given Rocephin Continue Rocephin #Hypothyroidism TSH: 122, free T4: 0.6 TSH: 4.5 on 12/10/2022 Medication noncompliance Continue home levothyroxine--counselled extensively about proper administration. 25 minutes with daughter at bedside Repeat TSH in am #Loose stool *resolved CTM #DM II Insulin dependent A1c: 7.0 on 12/08/2023 Will continue basal bolus insulin A1c 6.4% discontinued insulin at this time DVT Prophylaxis SCDs for now Dispo PT/OT recommends rehab Admission and Anticipated Discharge Date Admission Date: April 28, 2024 Subjective NAEO Sates she does feel marginally better and with increased appetite overall denies any new symptoms or concerns at this time Physical Exam Constitutional: WD/WN, vitals as above Respiratory: normal respiratory effort, lungs clear to auscultation Cardiovascular: rrr, nonpitting edema BLE Results & Data Results & Data Vital Signs (Past 12 Hours) Vital Signs Temp Pulse Pulse Resp BP BP BP 05/01/24 11:04 36.4 C L 61 20 144/75 H 05/01/24 08:06 60 05/01/24 07:30 36.4 C L 60 20 206/92 H 05/01/24 03:06 36.5 C 63 18 166/89 H 05/01/24 01:48 63 05/01/24 00:56 60 160/71 H 05/01/24 00:11 60 186/73 H Pulse Ox O2 Del Method 05/01/24 11:04 94 Room Air 05/01/24 08:06 05/01/24 07:30 96 Room Air 05/01/24 03:06 95 Room Air 05/01/24 01:48 05/01/24 00:56 05/01/24 00:11 Laboratory Results Short CBC 05/01/24 Range/Units 07:03 WBC 6.48 (4.8-10.8) K/ul Hgb 11.6 L (12.0-16.0) g/dl Hct 34.7 L (37.0-47.0) % Plt Count 201 (130-400) K/uL BMP 05/01/24 07:03 Sodium 141 Potassium 3.9 Chloride 106 Carbon Dioxide 27 BUN 24 H Creatinine 0.89 Glucose 83 Calcium 9.1 Medications Administered Home Medications Medication Instructions Recorded Confirmed Last Taken aspirin 81 mg tablet,delayed 81 mg PO QAM 04/28/24 04/28/24 Unknown release atorvastatin 40 mg tablet 40 mg PO DAILY 04/28/24 04/28/24 Unknown escitalopram oxalate 20 mg tablet 20 mg PO DAILY 04/28/24 04/28/24 Unknown famotidine 20 mg tablet 20 mg PO HS 04/28/24 04/28/24 Unknown fluticasone propionate 50 2 spray intranasal DAILY PRN 04/28/24 04/28/24 Unknown mcg/actuation nasal allergies spray,suspension furosemide 20 mg tablet 20 mg PO DAILY PRN Fluid Retention 04/28/24 04/28/24 Unknown insulin detemir U-100 100 unit/mL 20 unit subcut BID 04/28/24 04/28/24 Unknown (3 mL) subcutaneous pen insulin lispro 100 unit/mL 8 unit subcut TID 04/28/24 04/28/24 Unknown subcutaneous pen (Humalog KwikPen (U-100) Insulin) levothyroxine 150 mcg tablet 150 mcg PO DAILY 04/28/24 04/28/24 Unknown losartan 100 mg tablet 100 mg PO DAILY 04/28/24 04/28/24 Unknown ondansetron HCl 8 mg tablet 8 mg PO DIRECTED PRN n/v 04/28/24 04/28/24 Unknown potassium chloride 20 mEq 20 meq PO QAM 04/28/24 04/28/24 Unknown tablet,extended release(part/cryst) Active Medications Generic Name Dose Route Start Last Admin Trade Name Freq PRN Reason Stop Dose Admin Aspirin 81 mg 04/29/24 09:00 05/01/24 08:16 Aspirin 81 Mg Ectab PO 05/29/24 08:59 81 mg QAM RUBENS Administration Atorvastatin Calcium 80 mg 04/30/24 09:00 05/01/24 08:16 Atorvastatin 40 Mg Tab PO 05/30/24 08:59 80 mg DAILY RUBENS Administration Carvedilol 12.5 mg 05/01/24 09:00 05/01/24 09:45 Carvedilol 12.5 Mg Tab PO 05/31/24 08:59 12.5 mg BID RUBENS Administration Escitalopram Oxalate 20 mg 04/29/24 09:00 05/01/24 08:16 Escitalopram Oxalate 20 Mg Tab PO 05/29/24 08:59 20 mg DAILY RUBENS Administration Famotidine 20 mg 04/28/24 21:30 04/30/24 20:21 Famotidine 20 Mg Tab PO 05/28/24 21:29 20 mg HS RUBENS Administration Fluticasone Propionate 2 sprays 04/29/24 14:48 05/01/24 08:14 Fluticasone Propionate Na Spr 16 Gm Btl NA 05/29/24 14:47 2 sprays DAILY PRN Administration allergies Hydralazine HCl 25 mg 05/01/24 09:00 05/01/24 09:45 Hydralazine Hcl 25 Mg Tab PO 05/31/24 08:59 25 mg TID RUBENS Administration Ceftriaxone Sodium 2,000 mg in 50 mls @ 100 mls/hr 04/29/24 18:00 04/30/24 20:56 Rocephin IV 05/04/24 17:59 Infused Q24H RUBENS Infusion Insulin Glargine 15 units 04/28/24 21:15 04/29/24 20:12 Lantus Per Unit Charge SQ 05/28/24 21:14 15 units BID RUBENS Administration Levothyroxine Sodium 150 mcg 04/29/24 06:30 05/01/24 05:26 Levothyroxine Sodium 150 Mcg Tablet PO 05/29/24 06:29 150 mcg DAILYBB RUBENS Administration Losartan Potassium 100 mg 04/29/24 09:00 05/01/24 08:15 Losartan Potassium 50 Mg Tab PO 05/29/24 08:59 100 mg DAILY RUBENS Administration Potassium Chloride 40 meq 04/30/24 09:00 05/01/24 08:21 Potassium Chloride Crtab 20 Meq Tabcr PO 05/30/24 08:59 40 meq QAM RUBENS Administration Spironolactone 25 mg 04/30/24 09:00 05/01/24 08:15 Spironolactone 25 Mg Tab PO 05/30/24 08:59 25 mg QAM RUBENS Administration
[2024-05-01] MEDS: hydrALAZINE HCL 20 MG/ML VIAL IV ONE (16:23)
[2024-05-01 18:11] LABS: Appearance Urine Clear (Clear); Bacteria Urine Automated None Seen (None Seen); Bilirubin Urine Negative (Negative); Blood Urine Negative (Negative); Color Urine Yellow; Epithelial Cell Urine Auto 0-2 /hpf (0-2); Glucose Urine UA Negative (Negative); Ketones Urine Negative (Negative); Leukocyte Esterase Urine Negative (Negative); Nitrite Urine Negative (Negative); Protein Urine 2+ (Negative); RBC Urine Automated 0-2 /hpf (0-2); Specific Gravity Urine 1.017 (1.000-1.030); Urobilinogen Urine Negative (Negative); WBC Urine Automated 0-5 /hpf (0-5)
[2024-05-01] MEDS: hydrALAZINE TAB 50 MG TAB PO SCH (20:13)
--- NOTE | 2024-05-02 07:56 | Cardiology Progress Note ---
Date of Service May 02, 2024 Assessment & Plan (1) Left ventricular hypertrophy: (2) Hypothyroid: (3) Hypothyroidism: Plan 78 yo woman presenting with stroke-like symptoms + Cardiomyopathy LVEF 70% (hyperdynamic) LA dilation (severe) + Pericardial Effusion Check serum and urine immunofixation and kappa/lambda light chains -Future considerations include cardiac MRI and nuclear medicine PYP scan as outpatient to evaluate for Cardiac Amyloid Therapeutics * Continue Carvedilol 12.5 mg twice daily. - HR 60 * Continue Losartan 100 mg po per day * Continue spironolactone 25 mg po per day * Continue hydralazine 75 mg p.o. TID * Consider Procardia XL 30 mg po per day in exchange for Hydralzine - can then escalate dose * Next step is to add Chlorthalindone 25 mg po per day * TSH is markedly elevated, continue thyroid supplementation - Endocrine evaluation? * May need to be considered for Renal Denervation as an outpt * Mobilize * 52 min spent addressing challenges, educating and advancing daily plan of care Bhavin Barriga Admission and Anticipated Discharge Date Admission Date: April 28, 2024 Subjective Events Overnight: Telemetry: Sinus P+ PACs, lowest HR 50's-60's Subjective: No immediate complaints Review of Systems Review of Systems: All systems reviewed & are unremarkable except as noted in HPI & below Physical Exam Physical Exam: Overweight Wore glasses No elevation in JVP S1S2 Soft 2/6 systolic murmur CTA B Trace LE edema LE appear edematoyus without major pitting - question of myxedema Results & Data Vital Signs (Past 12 Hours) Vital Signs Temp Pulse Pulse Resp BP BP Pulse Ox 05/02/24 07:36 56 L 05/02/24 02:57 36.6 C 64 18 153/77 H 95 05/01/24 23:54 36.4 C L 60 18 201/71 H 96 05/01/24 23:15 64 05/01/24 21:07 190/85 H O2 Del Method 05/02/24 07:36 05/02/24 02:57 Room Air 05/01/24 23:54 Room Air 05/01/24 23:15 05/01/24 21:07 Laboratory Results Comprehensive Metabolic Panel 05/01/24 Range/Units 07:03 Sodium 141 (136-145) mmol/L Potassium 3.9 (3.5-5.1) mmol/L Chloride 106 (98-107) mmol/L Carbon Dioxide 27 (21-32) mmol/L BUN 24 H (6-23) mg/dl Creatinine 0.89 (0.6-1.2) mg/dl Glucose 83 (70-99(Fasting)) mg/dl Calcium 9.1 (8.6-10.3) mg/dl Intake and Output 05/01/24 05/02/24 05/02/24 22:59 06:59 14:59 Intake Total 250 / 630 140 / 630 Output Total 400 / 800 400 / 800 Balance -150 / -170 -260 / -170 Intake: IV 50 / 50 cefTRIAXone SODIUM 2,000 mg In 50 / 50 50 ml @ 100 mls/hr IV Q24H [facility] Rx#:[id number] Oral 200 / 580 140 / 580 Output: Urine Amount (Catheter) 400 / 800 400 / 800 External 400 / 800 400 / 800 Other: Weight 83.3 kg Weight Measurement [facility] Medications Administered Current Inpatient Medications Acetaminophen (Acetaminophen 325 Mg Tab) 650 mg PO Q4H PRN PRN Reason: Pain or Fever Stop: 05/28/24 21:10 Aspirin (Aspirin 81 Mg Ectab) 81 mg PO QAM RUBENS Stop: 05/29/24 08:59 Last Admin: 05/01/24 08:16 Dose: 81 mg Atorvastatin Calcium (Atorvastatin 40 Mg Tab) 80 mg PO DAILY RUBENS Stop: 05/30/24 08:59 Last Admin: 05/01/24 08:16 Dose: 80 mg Carvedilol (Carvedilol 12.5 Mg Tab) 12.5 mg PO BID RUBENS Stop: 05/31/24 08:59 Last Admin: 05/01/24 20:12 Dose: 12.5 mg Dextrose (Dextrose 50% 50 Ml Syringe) 25 - 50 ml IV UD PRN; Protocol PRN Reason: Hypoglycemia Protocol Stop: 05/28/24 21:10 Escitalopram Oxalate (Escitalopram Oxalate 20 Mg Tab) 20 mg PO DAILY RUBENS Stop: 05/29/24 08:59 Last Admin: 05/01/24 08:16 Dose: 20 mg Famotidine (Famotidine 20 Mg Tab) 20 mg PO HS RUBENS Stop: 05/28/24 21:29 Last Admin: 05/01/24 20:13 Dose: 20 mg Fluticasone Propionate (Fluticasone Propionate Na Spr 16 Gm Btl) 2 sprays NA DAILY PRN PRN Reason: allergies Stop: 05/29/24 14:47 Last Admin: 05/01/24 08:14 Dose: 2 sprays Glucagon (Glucagon For Inj 1 Mg Vial) 1 mg SQ UD PRN; Protocol PRN Reason: Hypoglycemia Protocol Stop: 05/28/24 21:10 Glucose (Glucose 40% Gel 15 Gm Tube) 15 - 30 gm PO UD PRN; Protocol PRN Reason: Hypoglycemia Protocol Stop: 05/28/24 21:10 Glucose (Glucose 10 Tab/Tube) 4 - 8 tab PO UD PRN; Protocol PRN Reason: Hypoglycemia Protocol Stop: 05/28/24 21:10 Hydralazine HCl (Hydralazine Tab 50 Mg Tab) 50 mg PO TID RUBENS Stop: 05/31/24 20:59 Last Admin: 05/01/24 20:13 Dose: 50 mg Promethazine HCl (Phenergan) 6.25 mg in 50.25 mls @ 201 mls/hr IV Q6H PRN PRN Reason: Nausea And Vomiting Stop: 05/28/24 21:10 Ceftriaxone Sodium (Rocephin) 2,000 mg in 50 mls @ 100 mls/hr IV Q24H RUBENS Stop: 05/04/24 17:59 Last Infusion: 05/01/24 20:08 Dose: Infused Insulin Glargine (Lantus Per Unit Charge) 15 units SQ BID RUBENS Stop: 05/28/24 21:14 Last Admin: 04/29/24 20:12 Dose: 15 units Levothyroxine Sodium (Levothyroxine Sodium 150 Mcg Tablet) 150 mcg PO DAILYBB RUBENS Stop: 05/29/24 06:29 Last Admin: 05/02/24 05:45 Dose: 150 mcg Losartan Potassium (Losartan Potassium 50 Mg Tab) 100 mg PO DAILY RUBENS Stop: 05/29/24 08:59 Last Admin: 05/01/24 08:15 Dose: 100 mg Miscellaneous (Carbohydrates For Hypoglycemia ) 15 - 30 gm PO UD PRN PRN Reason: Hypoglycemia Protocol Stop: 05/28/24 21:10 Polyethylene Glycol (Polyethylene (Miralax) 17 Gm Pack) 17 gm PO DAILY RUBENS Stop: 06/01/24 07:14 Potassium Chloride (Potassium Chloride Crtab 20 Meq Tabcr) 40 meq PO QAM RUBENS Stop: 05/30/24 08:59 Last Admin: 05/01/24 08:21 Dose: 40 meq Senna/Docusate Sodium (Docusate Sodium/Senna 50/8.6mg Tab) 1 tab PO QAM RUBENS Stop: 06/01/24 08:59 Spironolactone (Spironolactone 25 Mg Tab) 25 mg PO QAM RUBENS Stop: 05/30/24 08:59 Last Admin: 05/01/24 08:15 Dose: 25 mg
[2024-05-02 08:01] LABS: Hematocrit (blood only) 33.4 % (37.0-47.0); Hemoglobin 11.1 g/dl (12.0-16.0); Mean Corpuscular Hemoglobin 27.4 pg (25.0-34.0); Mean Corpuscular Hgb Conc 33.2 g/dL (32.0-36.0); Mean Corpuscular Volume 82.5 fL (80.0-100.0); Mean Platelet Volume 11.3 fL (9.4-12.4); Platelet Count 207 K/uL (130-400); RDW Standard Deviation 41.8 fL (36.4-46.3); Red Blood Count 4.05 M/uL (4.20-5.40); White Blood Count 5.34 K/ul (4.8-10.8)
[2024-05-02] MEDS: POLYETHYLENE (MIRALAX) 17 GM PACK PO SCH (08:17)
[2024-05-02] MEDS: DOCUSATE SODIUM/SENNA 50/8.6MG TAB PO SCH (08:20)
[2024-05-02 08:33] LABS: Calcium 8.8 mg/dl (8.6-10.3); Creatinine Clr Calc Pharmacy 50.6 ml/min; Magnesium 1.7 mg/dl (1.7-2.4); Potassium 3.7 mmol/L (3.5-5.1)
[2024-05-02 09:21] LABS: Thyroid Stimulating Hormone 56.858 uIu/ml (0.300-4.500)
[2024-05-02 09:56] LABS: T4 Free Thyroxine 0.86 ng/dl (0.61-1.60)
[2024-05-02] MEDS: hydrALAZINE HCL 20 MG/ML VIAL IV ONE (10:05)
[2024-05-02] MEDS: CHLORTHALIDONE 25 MG TAB PO SCH (10:54)
--- NOTE | 2024-05-02 12:28 | Hospitalist Progress Note ---
Date of Service May 02, 2024 Assessment & Plan (1) Weakness: (2) Stroke-like symptoms: (3) Acute UTI (urinary tract infection): (4) Hypothyroidism: (5) HTN (hypertension): (6) Diabetes mellitus, type II, insulin dependent: Plan: Ms. Haq is a 78-year-old female with PMH DM II, diabetic neuropathy, CVA, HTN, HLD, hypothyroidism, hypokalemia, lymphedema, venous insufficiency, history of falls, history medication noncompliance presented to ED due to confusion and admitted for stroke r/o. UA suggestive of UTI and MRI negative for stroke. CTA + for chronic stenosis that does not require any further management. Patient's course complicated by notably elevated blood pressures. Resumed home losartan with minimal improvement. Cardiology consulted given abnormal echo with concentric LVH and history of quite resistant HTN. TSH 122 on admission, remarkably abnormal even in setting of illness, will repeat given multiple days of standard dosing. Patient reports noncompliance. TSH improved from 122--71 after am dosing. Will trend and encourage close follow up for proper dosing Glucose notably low with "home" insulin regimen. Will hold insulin at this time and adjust as appropriate. Patient still with pressures >160 and requiring prn despite multiple adjustments. Cardiology following, appreciate recommendations #Hypertensive Urgency #Concentric left ventricular hypertrophy Renal duplex negative for MALLORY immunofixation ordered per Cards for amyloidosis eval -will need OP cards follow up for PYP scan likely continue Spironolactone Cardiology following -Continue on coreg, increased to 12.5mg BID titration limited 2/2 heart rate -Continue losartan 100mg -Stop hydral and start procardia 30mg XL -continue chlorthalidone in am Continue statin cautious use of diuretics iso concentric htn #Generalized Weakness #Stroke like symptoms iso infection #Left MCA occlusions, chronic No leukocytosis, negative influenza, RSV and COVID-19 PCR. Glucose: 151, no other significant electrolyte abnormality. negative troponin EKG: Sinus rhythm, rate 62, T wave flattening lateral leads CT head: No acute intracranial abnormality CXR: Cardiomegaly, pulmonary vascular congestion, possible small left pleural effusion with left basilar consolidation MRI: no acute cerebral ischemia continue ASA and statin A1C 6.4--controlled DM cholesterol 233, LDL 155--increased statin to 80, encouraged compliance ECHO as above PT/OT rehab #Acute complicated UTI UA: + Nitrite, 3+ leuk esterase,> 50 WBC, 4+ bacteria Urine culture e coli, susceptible to CTX In ER given Rocephin Continue Rocephin #Hypothyroidism TSH: 122, free T4: 0.6 TSH: 4.5 on 12/10/2022 Medication noncompliance Continue home levothyroxine--counselled extensively about proper administration. 25 minutes with daughter at bedside Repeat TSH--rapid reduction in TSH from 122--->56 #urine retention iso constipation #Loose stool *resolved bowel regimen in place jacobsen in place, consider trial -jacobsen helps with 24 hour urine collection #DM II Insulin dependent A1c: 7.0 on 12/08/2023 Will continue basal bolus insulin A1c 6.4% discontinued insulin at this time DVT Prophylaxis SCDs for now Dispo PT/OT recommends rehab Admission and Anticipated Discharge Date Admission Date: April 28, 2024 Subjective pressures still quite elevated however, patient reported feeling much improved Denies any acute concerns Physical Exam Constitutional: WD/WN, vitals as above Respiratory: normal respiratory effort, lungs clear to auscultation Cardiovascular: RRR, no murmur, no edema Gastrointestinal (Abdomen): normal bowel sounds, soft, nontender, no hepatosplenomegaly Results & Data Results & Data Vital Signs (Past 12 Hours) Vital Signs Temp Pulse Pulse Resp BP BP Pulse Ox 05/02/24 11:31 36.7 C 61 18 183/82 H 95 05/02/24 10:45 168/79 H 05/02/24 09:58 203/79 H 05/02/24 07:55 36.2 C L 59 L 18 193/88 H 94 05/02/24 07:36 56 L 05/02/24 02:57 36.6 C 64 18 153/77 H 95 O2 Del Method 05/02/24 11:31 Room Air 05/02/24 10:45 05/02/24 09:58 05/02/24 07:55 Room Air 05/02/24 07:36 05/02/24 02:57 Room Air Laboratory Results Short CBC 05/02/24 Range/Units 07:12 WBC 5.34 (4.8-10.8) K/ul Hgb 11.1 L (12.0-16.0) g/dl Hct 33.4 L (37.0-47.0) % Plt Count 207 (130-400) K/uL BMP 05/02/24 07:12 Sodium 139 Potassium 3.7 Chloride 107 Carbon Dioxide 26 BUN 24 H Creatinine 0.96 Glucose 104 H Calcium 8.8 Urine 05/01/24 Range/Units 17:53 Urine Color Yellow Urine Appearance Clear (Clear) Urine pH 7.0 (4.5-7.5) Ur Specific Ary 1.017 (1.000-1.030) Urine Protein 2+ H (Negative) Urine Glucose (UA) Negative (Negative) Medications Administered Home Medications Medication Instructions Recorded Confirmed Last Taken aspirin 81 mg tablet,delayed 81 mg PO QAM 04/28/24 04/28/24 Unknown release atorvastatin 40 mg tablet 40 mg PO DAILY 04/28/24 04/28/24 Unknown escitalopram oxalate 20 mg tablet 20 mg PO DAILY 04/28/24 04/28/24 Unknown famotidine 20 mg tablet 20 mg PO HS 04/28/24 04/28/24 Unknown fluticasone propionate 50 2 spray intranasal DAILY PRN 04/28/24 04/28/24 Unknown mcg/actuation nasal allergies spray,suspension furosemide 20 mg tablet 20 mg PO DAILY PRN Fluid Retention 04/28/24 04/28/24 Unk nown insulin detemir U-100 100 unit/mL 20 unit subcut BID 04/28/24 04/28/24 Unknown (3 mL) subcutaneous pen insulin lispro 100 unit/mL 8 unit subcut TID 04/28/24 04/28/24 Unknown subcutaneous pen (Humalog KwikPen (U-100) Insulin) levothyroxine 150 mcg tablet 150 mcg PO DAILY 04/28/24 04/28/24 Unknown losartan 100 mg tablet 100 mg PO DAILY 04/28/24 04/28/24 Unknown ondansetron HCl 8 mg tablet 8 mg PO DIRECTED PRN n/v 04/28/24 04/28/24 Unknown potassium chloride 20 mEq 20 meq PO QAM 04/28/24 04/28/24 Unknown tablet,extended release(part/cryst) Active Medications Generic Name Dose Route Start Last Admin Trade Name Freq PRN Reason Stop Dose Admin Aspirin 81 mg 04/29/24 09:00 05/02/24 08:19 Aspirin 81 Mg Ectab PO 05/29/24 08:59 81 mg QAM RUBENS Administration Atorvastatin Calcium 80 mg 04/30/24 09:00 05/02/24 08:18 Atorvastatin 40 Mg Tab PO 05/30/24 08:59 80 mg DAILY RUBENS Administration Carvedilol 12.5 mg 05/01/24 09:00 05/02/24 08:19 Carvedilol 12.5 Mg Tab PO 05/31/24 08:59 12.5 mg BID RUBENS Administration Chlorthalidone 25 mg 05/02/24 10:30 05/02/24 10:54 Chlorthalidone 25 Mg Tab PO 06/01/24 10:29 25 mg QAM RUBENS Administration Escitalopram Oxalate 20 mg 04/29/24 09:00 05/02/24 08:18 Escitalopram Oxalate 20 Mg Tab PO 05/29/24 08:59 20 mg DAILY RUBENS Administration Famotidine 20 mg 04/28/24 21:30 05/01/24 20:13 Famotidine 20 Mg Tab PO 05/28/24 21:29 20 mg HS RUBENS Administration Fluticasone Propionate 2 sprays 04/29/24 14:48 05/01/24 08:14 Fluticasone Propionate Na Spr 16 Gm Btl NA 05/29/24 14:47 2 sprays DAILY PRN Administration allergies Ceftriaxone Sodium 2,000 mg in 50 mls @ 100 mls/hr 04/29/24 18:00 05/01/24 20:08 Rocephin IV 05/04/24 17:59 Infused Q24H RUBENS Infusion Insulin Glargine 15 units 04/28/24 21:15 04/29/24 20:12 Lantus Per Unit Charge SQ 05/28/24 21:14 15 units BID RUBENS Administration Levothyroxine Sodium 150 mcg 04/29/24 06:30 05/02/24 05:45 Levothyroxine Sodium 150 Mcg Tablet PO 05/29/24 06:29 150 mcg DAILYBB RUBENS Administration Losartan Potassium 100 mg 04/29/24 09:00 05/02/24 08:18 Losartan Potassium 50 Mg Tab PO 05/29/24 08:59 100 mg DAILY RUBENS Administration Polyethylene Glycol 17 gm 05/02/24 07:15 05/02/24 09:42 Polyethylene (Miralax) 17 Gm Pack PO 06/01/24 07:14 Not Given DAILY RUBENS Potassium Chloride 40 meq 04/30/24 09:00 05/02/24 08:20 Potassium Chloride Crtab 20 Meq Tabcr PO 05/30/24 08:59 40 meq QAM RUBENS Administration Senna/Docusate Sodium 1 tab 05/02/24 09:00 05/02/24 08:20 Docusate Sodium/Senna 50/8.6mg Tab PO 06/01/24 08:59 1 tab QAM RUBENS Administration Spironolactone 25 mg 04/30/24 09:00 05/02/24 08:50 Spironolactone 25 Mg Tab PO 05/30/24 08:59 25 mg QAM RUBENS Administration
[2024-05-02] MEDS: NIFEdipine EXTENDED REL 30 MG TABCR PO STA (12:57)
[2024-05-02] MEDS: LACTATED RINGER'S 500 ML IV ONE (13:19)
[2024-05-02] MEDS ORDERED: hydrALAZINE HCL 25 MG TAB PO SCH (14:00)
[2024-05-02] MEDS: NIFEdipine 10 MG CAP PO ONE (17:03)
[2024-05-03] MEDS: ACETAMINOPHEN 325 MG TAB PO PRN (03:05)
[2024-05-03] MEDS: NIFEdipine EXTENDED REL 30 MG TABCR PO SCH (08:08)
[2024-05-03 08:37] LABS: Free Kappa/Lambda Ratio 1.53 (0.26-1.65); Free Lambda 18.3 mg/L (5.7-26.3)
[2024-05-03 08:59] LABS: BUN Creatinine Ratio 24.8 (10-20); Creatinine Clr Calc Pharmacy 48.3 ml/min
--- NOTE | 2024-05-03 08:59 | Cardiology Progress Note ---
Date of Service May 03, 2024 Assessment & Plan (1) Left ventricular hypertrophy: (2) Hypothyroid: Plan 78 yo woman presenting with stroke-like symptoms + Cardiomyopathy LVEF 70% (hyperdynamic) LA dilation (severe) + Pericardial Effusion Check serum and urine immunofixation and kappa/lambda light chains -Future considerations include cardiac MRI and nuclear medicine PYP scan as outpatient to evaluate for Cardiac Amyloid Therapeutics * Continue Carvedilol 12.5 mg twice daily. - HR 60 * Continue Losartan 100 mg po per day * Continue spironolactone 25 mg po per day * Continue hydralazine 75 mg p.o. TID * Consider Procardia XL 30 mg po per day in exchange for Hydralzine - can then escalate dose * Next step is to add Chlorthalindone 25 mg po per day * TSH is markedly elevated, continue thyroid supplementation - Endocrine evaluation? * May need to be considered for Renal Denervation as an outpt * Mobilize * 52 min spent addressing challenges, educating and advancing daily plan of care Bhavin Barriga Admission and Anticipated Discharge Date Admission Date: April 28, 2024 Subjective Events Overnight: Subjective: Review of Systems Review of Systems: All systems reviewed & are unremarkable except as noted in HPI & below Physical Exam Physical Exam: Overweight Wore glasses No elevation in JVP S1S2 Soft 2/6 systolic murmur CTA B Trace LE edema LE appear edematoyus without major pitting - question of myxedema Results & Data Vital Signs (Past 12 Hours) Vital Signs Temp Pulse Pulse Resp BP BP Pulse Ox 05/03/24 07:16 36.3 C L 59 L 16 170/91 H 95 05/03/24 06:51 57 L 05/03/24 04:32 64 168/65 H 05/03/24 02:56 36.3 C L 62 16 195/81 H 94 05/03/24 00:56 64 05/02/24 22:41 36.4 C L 60 16 161/80 H 94 O2 Del Method 05/03/24 07:16 Room Air 05/03/24 06:51 05/03/24 04:32 05/03/24 02:56 Room Air 05/03/24 00:56 05/02/24 22:41 Room Air Laboratory Results Intake and Output 05/02/24 05/03/24 05/03/24 22:59 06:59 14:59 Intake Total 50 / 1050 500 / 1050 Output Total 450 / 1600 1150 / 1600 Balance -400 / -550 -650 / -550 Intake: IV 50 / 550 cefTRIAXone SODIUM 2,000 mg In 50 / 50 50 ml @ 100 mls/hr IV Q24H [facility] Rx#:[id number] Oral 500 / 500 Output: Urine Amount (Catheter) 450 / 1600 1150 / 1600 Schwartz/Indwelling 450 / 1600 1150 / 1600 Other: Weight 83.9 kg Medications Administered Current Inpatient Medications Acetaminophen (Acetaminophen 325 Mg Tab) 650 mg PO Q4H PRN PRN Reason: Pain or Fever Stop: 05/28/24 21:10 Last Admin: 05/03/24 08:15 Dose: 650 mg Aspirin (Aspirin 81 Mg Ectab) 81 mg PO QAM RUBENS Stop: 05/29/24 08:59 Last Admin: 05/03/24 08:06 Dose: 81 mg Atorvastatin Calcium (Atorvastatin 40 Mg Tab) 80 mg PO DAILY RUBENS Stop: 05/30/24 08:59 Last Admin: 05/03/24 08:07 Dose: 80 mg Carvedilol (Carvedilol 12.5 Mg Tab) 12.5 mg PO BID RUBENS Stop: 05/31/24 08:59 Last Admin: 05/03/24 08:07 Dose: 12.5 mg Chlorthalidone (Chlorthalidone 25 Mg Tab) 25 mg PO QAM RUBENS Stop: 06/01/24 10:29 Last Admin: 05/03/24 08:08 Dose: 25 mg Dextrose (Dextrose 50% 50 Ml Syringe) 25 - 50 ml IV UD PRN; Protocol PRN Reason: Hypoglycemia Protocol Stop: 05/28/24 21:10 Escitalopram Oxalate (Escitalopram Oxalate 20 Mg Tab) 20 mg PO DAILY RUBENS Stop: 05/29/24 08:59 Last Admin: 05/03/24 08:08 Dose: 20 mg Famotidine (Famotidine 20 Mg Tab) 20 mg PO HS RUBENS Stop: 05/28/24 21:29 Last Admin: 05/02/24 19:59 Dose: 20 mg Fluticasone Propionate (Fluticasone Propionate Na Spr 16 Gm Btl) 2 sprays NA DAILY PRN PRN Reason: allergies Stop: 05/29/24 14:47 Last Admin: 05/01/24 08:14 Dose: 2 sprays Glucagon (Glucagon For Inj 1 Mg Vial) 1 mg SQ UD PRN; Protocol PRN Reason: Hypoglycemia Protocol Stop: 05/28/24 21:10 Glucose (Glucose 40% Gel 15 Gm Tube) 15 - 30 gm PO UD PRN; Protocol PRN Reason: Hypoglycemia Protocol Stop: 05/28/24 21:10 Glucose (Glucose 10 Tab/Tube) 4 - 8 tab PO UD PRN; Protocol PRN Reason: Hypoglycemia Protocol Stop: 05/28/24 21:10 Promethazine HCl (Phenergan) 6.25 mg in 50.25 mls @ 201 mls/hr IV Q6H PRN PRN Reason: Nausea And Vomiting Stop: 05/28/24 21:10 Ceftriaxone Sodium (Rocephin) 2,000 mg in 50 mls @ 100 mls/hr IV Q24H RUBENS Stop: 05/04/24 17:59 Last Infusion: 05/02/24 17:46 Dose: Infused Insulin Glargine (Lantus Per Unit Charge) 15 units SQ BID RUBENS Stop: 05/28/24 21:14 Last Admin: 04/29/24 20:12 Dose: 15 units Levothyroxine Sodium (Levothyroxine Sodium 150 Mcg Tablet) 150 mcg PO DAILYBB RUBENS Stop: 05/29/24 06:29 Last Admin: 05/03/24 05:40 Dose: 150 mcg Losartan Potassium (Losartan Potassium 50 Mg Tab) 100 mg PO DAILY RUBENS Stop: 05/29/24 08:59 Last Admin: 05/03/24 08:07 Dose: 100 mg Miscellaneous (Carbohydrates For Hypoglycemia ) 15 - 30 gm PO UD PRN PRN Reason: Hypoglycemia Protocol Stop: 05/28/24 21:10 Nifedipine (Nifedipine Extended Rel 30 Mg Tabcr) 30 mg PO QAM RUBENS Stop: 06/02/24 08:59 Last Admin: 05/03/24 08:08 Dose: 30 mg Polyethylene Glycol (Polyethylene (Miralax) 17 Gm Pack) 17 gm PO DAILY RUBENS Stop: 06/01/24 07:14 Last Admin: 05/03/24 08:06 Dose: 17 gm Potassium Chloride (Potassium Chloride Crtab 20 Meq Tabcr) 40 meq PO QAM RUBENS Stop: 05/30/24 08:59 Last Admin: 05/03/24 08:06 Dose: 40 meq Senna/Docusate Sodium (Docusate Sodium/Senna 50/8.6mg Tab) [facility] Stop: 06/01/24 08:59 Last Admin: 05/03/24 08:15 Dose: 1 tab Spironolactone (Spironolactone 25 Mg Tab) 25 mg PO QAM [facility] Stop: 05/30/24 08:59 Last Admin: 05/03/24 08:09 Dose: 25 mg
[2024-05-03 11:01] VITALS: RESP 17; TEMP 97.5; O2SAT 94
--- NOTE | 2024-05-03 12:21 | Discharge Summary ---
Discharge Summary Date of Service May 03, 2024 Principal Dx & Hospital Course #1 = Principal Diagnosis (1) Weakness: (2) Stroke-like symptoms: (3) Acute UTI (urinary tract infection): (4) Hypothyroidism: (5) HTN (hypertension): (6) Diabetes mellitus, type II, insulin dependent: Ms. Haq is a 78-year-old female with PMH DM II, diabetic neuropathy, CVA, HTN, HLD, hypothyroidism, hypokalemia, lymphedema, venous insufficiency, history of falls, history medication noncompliance presented to ED due to confusion and admitted for stroke r/o. UA suggestive of UTI and MRI negative for stroke. CTA + for chronic stenosis that does not require any further management. Symptoms resolved with abx. Patient's course complicated by notably elevated blood pressures. Resumed home losartan with minimal improvement. Cardiology consulted given abnormal echo with concentric LVH and history of quite resistant HTN. Patient ultimately started on multiple medications; however, when pressures were in "normal" range, patient reported feeling symptomatic. Goal ultimately to keep SBP <175. Patient with TSH 122 on admission, remarkably abnormal even in setting of illness, will repeat given multiple days of standard dosing. Patient reports noncompliance. TSH improved from 122--71--55 after am dosing. Patient continued on home Synthroid and reported near resolution of fatigue. Glucose notably low with "home" insulin regimen. Insulin was discontinued. A1C 6.4%. Glucose stable in 120s consistently. On day of discharge, patient eager for rehab and to get "closer to home." Pressures variable, consistent with trend during admission. Patient tolerating current regimen. First, you had an active UTI. You responded well to antibiotics. -Continue oral antibiotics for two more days, your next dose is this evening of cefuroxime 500mg. Second, you were evaluated by Neurology who noted that you had narrowing of blood vessels in the brain, this can make you very sensitive to blood pressure changes. For this your cholesterol medication was increased to Atorvastatin 80mg daily. Third, your blood pressure was very high and has been historically. You were started on multiple new medications to keep your blood pressure in an acceptable/less critical range. Goal is to keep your pressure less than 175 on the top number (systolic). You will need very close Cardiology follow up. You may require a scan in the future given how "thick" your heart muscle is. Fourth, your thyroid hormones were very high suggesting issues with how you may have been taking your Synthroid. After resuming this medication, your numbers were improving. Please follow up with lab work in 3-4 weeks to adjust the dosing of your synthroid if necessary. Fifth, when resuming insulin it was noted that you were very hypoglycemic and without insulin you were stable with your glucose. Please follow up with PCP to discuss any further need for insulin, however your A1C 6.4% and we discontinued insulin at this time. Please continue a bowel regimen daily to prevent constipation #Hypertensive Urgency #Concentric left ventricular hypertrophy Renal duplex negative for MALLORY immunofixation ordered per Cards for amyloidosis eval -will need OP cards follow up for PYP scan likely continue Spironolactone Cardiology following -Continue on coreg, increased to 12.5mg BID titration limited 2/2 heart rate -Continue losartan 100mg -Stop hydral and start procardia 30mg XL -continue chlorthalidone in am Continue statin cautious use of diuretics iso concentric htn #Generalized Weakness #Stroke like symptoms iso infection #Left MCA occlusions, chronic No leukocytosis, negative influenza, RSV and COVID-19 PCR. Glucose: 151, no other significant electrolyte abnormality. negative troponin EKG: Sinus rhythm, rate 62, T wave flattening lateral leads CT head: No acute intracranial abnormality CXR: Cardiomegaly, pulmonary vascular congestion, possible small left pleural effusion with left basilar consolidation MRI: no acute cerebral ischemia continue ASA and statin A1C 6.4--controlled DM cholesterol 233, LDL 155--increased statin to 80, encouraged compliance ECHO as above PT/OT rehab #Acute complicated UTI UA: + Nitrite, 3+ leuk esterase,> 50 WBC, 4+ bacteria Urine culture e coli, susceptible to CTX In ER given Rocephin Continue Rocephin #Hypothyroidism TSH: 122, free T4: 0.6 TSH: 4.5 on 12/10/2022 Medication noncompliance Continue home levothyroxine--counselled extensively about proper administration. 25 minutes with daughter at bedside Repeat TSH--rapid reduction in TSH from 122--->56 #urine retention iso constipation resolved #Loose stool *resolved bowel regimen in place jacobsen in place, consider trial -jacobsen helps with 24 hour urine collection #DM II Insulin dependent A1c: 7.0 on 12/08/2023 Will continue basal bolus insulin A1c 6.4% discontinued insulin at this time Notes For Next Care Provider -TSH 122 on admission, rapid downtrend with proper scheduling of synthroid, will need TSH in 3-4 weeks for dosing adjustments -A1C 6.4%, notably hypoglycemic on "home "dosing, discontinued insulin, consider A1C in 3 months -Will need Cardiology follow for BP management, follow up on 24 hours urine studies, and follow up PYP scan if necessary Medication Changes From Visit -Start cefuroxime 500mg starting the evning of discharge for 48 more hours -Start spironolactone 25mg daily -Start Chlorthalidone 25mg daily -Start Coreg 12.5 mg two times a day -Start nifedipine XL 30mgd daily -Increased Atorvastatin to 80mg daily -Discontinued insulin Admission HPI Per Admitting Provider Patient is 78-year-old female with PMH DM II, diabetic neuropathy, CVA, HTN, HLD, hypothyroidism, hypokalemia, lymphedema, venous insufficiency, history of falls, history medication noncompliance presented to ER with c/o weakness and confusion type episode today. Patient states this morning woke up and felt ok. States was in kitchen when she suddenly felt weak and was trying to sit down but having difficultly. She states she felt "weird and had trouble thinking and trouble getting her words out" and couldn't walk. Reports symptoms lasted approximately 15 minutes. EMS was called and patient reports BSG was 160 when EMS arrived. She states caregiver didn't notice any slurred speech. Upon arrival to ER patient reports is at her baseline but still feels overall tired. Has been having posterior RAMIRES for past week. States no RAMIRES today. 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 Denies any recent vision changes. Patient reports for past couple of weeks waking up and still feeling tired. She reports wakes up to urinate 2-3 times a night and is able to fall back asleep eventually. Thinks gets about 8-9 hours of sleep a night. Patient admits to not taking her medications regularly and usually takes medications every 3 days because she doesn't like to take medication. She states took medications last night but unable to recall when last took prior to that. States has had a dry cough for a year and denies any increase or SOB. Reports chronic bilateral lower extremity edema. Reports has Lasix to use as needed however uses very rarely maybe approximately once a month. She feels her current edema is baseline. She denies any shortness of breath, chest pain, orthopnea. States had 3 episodes of loose stool today. Also nauseated this morning. Denies vomiting or abdominal pain or recent travel. States urine has been dark. Has caregiver to do cleaning and laundry one day a week. Denies fever/chills, diaphoresis, dizziness, syncope, recent vision changes, CP, SOB, orthopnea, palpitations, sore throat, rhinorrhea, abdominal pain, paresthesias, rashes, dysuria, hematuria. Per PCP note on 12/08/2023 patient had edema with amlodipine and that was discontinued, at that time she was on losartan 50 mg daily however BP was not within goal and it was recommended to increase to 100 mg daily Admission Exam Per Admitting Provider General: no acute distress, obese elderly female Head: normocephalic, atraumatic Eyes: PERRL, EOM's intact, conjunctiva non-injected, anicteric ENT: hard of hearing, normal inspection external ears, nose, mucous membranes mildly dry Neck: supple, trachea midline Lungs: clear, no respiratory distress, no wheezing/rhonchi/rales CV: RRR, no murmur, trace pretibial edema Abd: normal BS, soft, non-tender Ext: no cyanosis, no calf tenderness Neuro: A&O x 3, normal affect, facial sensation is intact and symmetric, face is strong and symmetric, soft palate elevates symmetrically, no dysarthria, shoul audra shrug intact, tongue is midline, normal movement, no fasciculations. strength 5/5 bilateral upper extremities, 4/5 bilateral lower extremities Skin: warm, dry, +scratches to bilateral arms Discharge Exam Constitutional WD/WN, vitals as above Respiratory normal respiratory effort, lungs clear to auscultation Cardiovascular RRR, no murmur, no edema Gastrointestinal (Abdomen) normal bowel sounds, soft, nontender, no hepatosplenomegaly Musculoskeletal no cyanosis or clubbing, extremities motor strength 5/5 Neurologic PERRL, EOMI, accommodation nl, no face palsy, no dysarthria Updated Medication List Medication Instructions Recorded Confirmed Type aspirin 81 mg tablet,delayed 81 mg PO QAM 04/28/24 04/28/24 History release escitalopram oxalate 20 mg tablet 20 mg PO DAILY 04/28/24 04/28/24 History famotidine 20 mg tablet 20 mg PO HS 04/28/24 04/28/24 History fluticasone propionate 50 2 spray intranasal DAILY PRN 04/28/24 04/28/24 History mcg/actuation nasal allergies spray,suspension levothyroxine 150 mcg tablet 150 mcg PO DAILY 04/28/24 04/28/24 History losartan 100 mg tablet 100 mg PO DAILY 04/28/24 04/28/24 History ondansetron HCl 8 mg tablet 8 mg PO DIRECTED PRN n/v 04/28/24 04/28/24 History potassium chloride 20 mEq 20 meq PO QAM 04/28/24 04/28/24 History tablet,extended release(part/cryst) atorvastatin 40 mg tablet 80 mg (2 x 40 mg) PO DAILY 30 days 05/03/24 Rx #60 tabs carvedilol 12.5 mg tablet 12.5 mg PO BID 30 days #60 tabs 05/03/24 Rx cefuroxime axetil 500 mg tablet 500 mg PO BID 2 days #4 tabs 05/03/24 Rx chlorthalidone 25 mg tablet 25 mg PO QAM 30 days #30 tabs 05/03/24 Rx nifedipine 30 mg tablet,extended 30 mg PO QAM 30 days #30 tabs 05/03/24 Rx release 24 hr (Procardia XL) polyethylene glycol 3350 17 gram 17 g PO DAILY #30 ea 05/03/24 Rx oral powder packet (Miralax) spironolactone 25 mg tablet 25 mg PO QAM 30 days #30 tabs 05/03/24 Rx Hospital Stay Data Consultations 04/28/24 18:55 ED Decision to Admit Stat 04/29/24 07:19 Consult Neurology Routine 04/29/24 15:42 Consult Cardiology Routine Diagnostic Imagining Performed 04/28/24 14:16 CT head/brain wo con Stat 04/28/24 19:52 CT angio head w con Urgent CT angio neck with con Urgent MR brain wo con Routine 04/30/24 US duplex renal art/vein BI Routine Discharge Instructions Given to Patient (Per Discharging Provider) You were admitted for stroke like symptoms. You were found to have multiple issues. First, you had an active UTI. You responded well to antibiotics. -Continue oral antibiotics for two more days, your next dose is this evening of cefuroxime 500mg. Second, you were evaluated by Neurology who noted that you had narrowing of blood vessels in the brain, this can make you very sensitive to blood pressure changes. For this your cholesterol medication was increased to Atorvastatin 80mg daily. Third, your blood pressure was very high and has been historically. You were started on multiple new medications to keep your blood pressure in an acceptable/less critical range. Goal is to keep your pressure less than 175 on the top number (systolic). -Continue your losartan 100mg daily -Start spironolactone 25mg daily -Start Chlorthalidone 25mg daily -Start Coreg 12.5 mg two times a day -Start nifedipine XL 30mgd daily You will need very close Cardiology follow up. You may require a scan in the future given how "thick" your heart muscle is. Fourth, your thyroid hormones were very high suggesting issues with how you may have been taking your Synthroid. After resuming this medication, your numbers were improving. Please follow up with lab work in 3-4 weeks to adjust the dosing of your synthroid if necessary. Fifth, when resuming insulin it was noted that you were very hypoglycemic and without insulin you were stable with your glucose. Please follow up with PCP to discuss any further need for insulin, however your A1C 6.4% and we discontinued insulin at this time. Please continue a bowel regimen daily to prevent constipation Total Time Total Time Spent Total Time Spent (In Minutes): 45
[2024-05-03 12:39] VITALS: PULSE 61
[2024-05-03 14:34] VITALS: BP 190/94
[2024-05-06 08:18] LABS: Abnormal Protein Band 1 DNR mg/24 h (NONE DETECTED); Abnormal Protein Band 2 DNR mg/24 h (NONE DETECTED); Abnormal Protein Band 3 DNR mg/24 h (NONE DETECTED); Creatinine, 24 hr Urine 0.89 g/24 h (0.50-2.15); Protein, Urine 24 Hour 569 mg/24 h (<150); Ur Albumin % 78 %; Ur Alpha-1-globulin % 4 %; Ur Alpha-2-globulin % 5 %; Ur Beta Globulin % 7 %; Ur Gamma Globulin % 6 %; Ur Protein/Creatinine Rat mg/g 636 mg/g creat (<150); Urine Protein/Creatinine Ratio 0.636 (<0.150)
== END 2024-05-03 14:49 | DRG 690 ==
LOC: ED 14:08 → 2N 19:14 → SUATTDRO 19:14 → 2N 20:20
DX: E11.40 Type 2 diabetes mellitus with diabetic neuropathy, unspecified; I69.398 Other sequelae of cerebral infarction; E03.9 Hypothyroidism, unspecified; I42.9 Cardiomyopathy, unspecified; R19.7 Diarrhea, unspecified; I49.1 Atrial premature depolarization; I66.02 Occlusion and stenosis of left middle cerebral artery; Z91.148 Patient's other noncompliance with medication regimen for other reason; I16.0 Hypertensive urgency; B96.20 Unspecified Escherichia coli [E. coli] as the cause of diseases classified elsewhere; Z88.8 Allergy status to other drugs, medicaments and biological substances; R53.1 Weakness; Z79.899 Other long term (current) drug therapy; Z79.890 Hormone replacement therapy; Z66 Do not resuscitate; T38.1X6A Underdosing of thyroid hormones and substitutes, initial encounter; I11.0 Hypertensive heart disease with heart failure; Z79.82 Long term (current) use of aspirin; I87.2 Venous insufficiency (chronic) (peripheral); N39.0 Urinary tract infection, site not specified; E78.5 Hyperlipidemia, unspecified; R41.0 Disorientation, unspecified

== ENCOUNTER 2024-10-17 07:36 | Inpatient (IN) ==
--- OUTSIDE RECORDS SUMMARY | 2024-10-17 07:42 | External Medical Summary | Summary of Care ---
Author Name Unknown Organization [facility] Address [address] [address] Phone [phone] Care Team Providers [facility] Director Name Role Phone Barbie Diamond MD Primary Care Provid er Reason for Visit * Reason Onset Date Comments Health Maintenance 10/14/2024 Encounter Details Date Type Department Care Team (Late st Contact Info) Description 10/[facility]/[address] [facility] [address] [place] [id number] Barbie Diamond MD [address] [place] [id number] Health Maintenance Allergies Active Allergy Reactions Criticality Noted Date Comments Lisinopril 05/16/2020 Other reaction(s): Cough Metformin Diarrhea 05/16/2020 documented as of this encounter (statuses as of 10/14/2024) Medications Ondansetron HCl 8 MG Oral Tablet (Zofran)Indications:Hia marcus hernia,Colitis Take by mouth 1 Tablet every 8 hours as needed for Nausea. 20 Tablet 1 022 Active Additional Information Patient not taking.Reported on 05/17/2024 Potassium Chloride Aiyana ER 20 MEQ Oral Tablet Extended ReleaseIndications:Hypo kalemia Take 1 Tablet by mouth in the morning. 90 Tablet 1 10/13/19 24 11:28 AM EDT 023 Active Famotidine 20 MG Oral Tablet (Pepcid) Take 1 Tablet by mouth every night at bedtime. 90 Tablet 3 10/13/19 24 11:28 AM EDT 023 Active Aspirin 81 MG Oral Tablet ChewableIndications:Typ e 2 diabetes mellitus without complication, with long-term current use of insulin ([facility]),Type 2 diabetes mellitus with hemoglobin A1c goal of less than 8.0% ([facility]),Cerebrovascular accident (CVA), unspecified mechanism ([facility]) Take 1 Tablet by mouth in the morning. with food.. 100 Tablet 5 10/13/19 24 11:28 AM EDT 023 Active Levemir FlexPen 100 UNIT/ML Subcutaneous Solution Pen-injector (Insulin Detemir)Indications:Typ e 2 diabetes mellitus with hemoglobin A1c goal of less than 8.0% ([facility]),Uncontrolled type 2 diabetes mellitus with hyperglycemia ([facility]),Type 2 diabetes mellitus without complication, with long-term current use of insulin ([facility]) Inject 20 Units under the skin in the morning and 20 Units before bedtime. 45 mL 3 01/26/20 24 4:21 PM EDT 023 Active Additional Information Patient not taking.Reported on 05/17/2024 Furosemide 20 MG Oral Tablet (Lasix)Indications:Lymp hedema of both lower extremities Take 1 Tablet by mouth daily as needed (lower extremity swelling). for fluid accumulation or weight gain 30 Tablet 2 10/13/19 24 11:28 AM EDT 023 Active Additional Information Patient not taking.Reported on 05/17/2024 Fluticasone Propionate 50 MCG/ACT Nasal Suspension (Flonase)Indications:Se asonal allergic rhinitis due to pollen,Type 2 diabetes mellitus with diabetic neuropathy, with long-term current use of insulin ([facility]) Administer 2 Sprays into each nostril in the morning. 16 g 5 12/08/19 24 11:14 AM EDT 024 Active Losartan Potassium 100 MG Oral Tablet (Cozaar)Indications:HTN , goal below 150/90,Type 2 diabetes mellitus with diabetic neuropathy, with long-term current use of insulin ([facility]) Take 1 Tablet by mouth in the morning. 90 Tablet 1 07/04/19 25 1:08 PM EST 024 Active HumaLOG KwikPen 100 UNIT/ML Subcutaneous Solution Pen-injectorIndications :Type 2 diabetes mellitus without complication, with long-term current use of insulin ([facility]) Inject 8 Units under the skin in the morning and 8 Units at noon and 8 Units in the evening. Inject before meals. 30 mL 3 01/26/20 24 4:21 PM EDT Active Additional Information Patient not taking.Reported on 05/17/2024 Polyethylene Glycol 3350 17 GM Oral Packet (Miralax) 17 g orally daily 30 Each Active Carvedilol 12.5 MG Oral Tablet (Coreg) Take 1 tablet by mouth twice a day with meals 60 Tablet 05/16/20 24 12:01 PM EST 024 Active Chlorthalidone 25 MG Oral Tablet (Hygroton) Take 1 tablet by mouth daily 30 Tablet 05/16/20 24 12:01 PM EST 024 Active NIFEdipine ER Osmotic Release 60 MG Oral Tablet Extended Release 24 Hour (Procardia XL) Take 1 tablet by mouth daily 30 Tablet 05/16/20 24 12:01 PM EST 024 Active Spironolactone 25 MG Oral Tablet (Aldactone) Take 1 tablet by mouth daily 30 Tablet 05/16/20 24 12:01 PM EST 024 Active Atorvastatin Calcium 80 MG Oral Tablet (Lipitor)Indications:Fa milial hypercholesterolemia Take 1 Tablet by mouth in the morning. 90 Tablet 1 07/04/19 25 1:08 PM EST 024 Active Escitalopram Oxalate 20 MG Oral Tablet (Lexapro)Indications:De pression, unspecified depression type take 1 tablet by mouth IN THE MORNING 90 Tablet 1 07/04/19 25 1:08 PM EST 025 Active Levothyroxine Sodium 150 MCG Oral Tablet (Levoxyl)Indications:Ac quired hypothyroidism Take 1 Tablet by mouth daily first thing in the morning. (at least 30 min prior to breakfast or other meds) 90 Tablet 07/04/19 25 1:08 PM EST 025 Active GNP UltiCare Pen [place] 32G X 4 MM (Insulin Pen Needle)Indications:Type 2 diabetes mellitus without complication, with long-term current use of insulin (HCC),Type 2 diabetes mellitus with hemoglobin A1c goal of less than 8.0% (HCC) To be used with insulin injection, one needle per injection twice a day. 100 Each 11 10/08/19 5:40 PM EDT 025 Active documented as of this encounter (statuses as of 10/14/2024) Active Problems Problem Noted Date Diagnosed Date Resistant hypertension 05/17/2024 Diabetic peripheral neuropathy 12/08/2023 H/O falling 12/08/2023 Physical deconditioning 12/08/2023 Hx of nonmelanoma skin cancer 12/15/2022 Overview (12/15/2022): Basal cell with sebaceous differentiation (L upper back 12/28) Noncompliance with medication regimen 12/12/2022 Acute UTI 12/12/2022 Lymphedema of both lower extremities 12/12/2022 Type 2 diabetes mellitus wit h diabetic neuropathy, with long-term current use of insulin 12/12/2022 History of nonadherence to medical treatment Memory changes 12/05/2022 Ptosis of eyelid 12/05/2022 Fatigue 12/05/2022 [facility] [place] [facility] therapy H/O iron deficiency anemia [...] as of this encounter (statuses as of 10/14/2024) Resolved Problems Problem Noted Date Diagnosed Date Resolved Date Uncontrolled type 2 diabetes mellitus with hyperglycemia 12/12/2022 12/08/2023 Changing skin lesion 12/05/2022 023 documented as of this encounter (statuses as of 10/14/2024) Immunizations Name Administration Dates Next Due COVID-19 mRNA, LNP-s, No Pre serve, 10 mcg, Ages 5-11 (Pfizer) 04/13/2021,03/17/2021 Pneumococcal Conjugate Vaccine, 20-valent (Prevn ar20) 12/12/2022 Pneumococcal Polysaccharide PPV23 (Pneumovax) Seasonal Influenza Vac., MDV, IM, 0.5 mL (Fluzon e) 03/08/2014,03/08/2013 Seasonal Influenza, High Dos e, Trivalent, PF, IM (Fluzone HD) 05/17/2024 Seasonal Influenza, Quadrivalent Hd (Fluzone Hd) 04/13/2023 TD, Preservative Free 06/08/2005 TDAP (age 10 and older)(Boostrix) 10/13/2015 documented as of this encounter Social History Tobacco Use Types Packs/Day Years Used Date Smoking Tobacco: Former Smokeless Tobacco: Never Alcohol Use Standard Drinks/Week Comments Not Currently 0 (1 standard drink = 0.6 oz pur e alcohol) Comments No Sex and Gender Information Value Date Recorded Sex Assigned at Not on file Legal Sex Female 6:18 AM EST Gender Identity Not on file Sexual Orientation Not on file documented as of this encounter Miscellaneous Notes * Telephone Encounter - Kacey KuhnKEISHA - 10/14/2024 10:09 AM EDT Care Gaps Comprehensive Care Outreach Last Office/Telemedicine Visit: 05/17/2024 (in office), Visit date not found (telemedicine) Next Office Visit: Visit date not found Hemoglobin AIC Results: Lab Results Component Value Date/Time HEMOGLOBIN A1C - [facility] 5.9 (H) 04/13/2023 11:59 AM HEMOGLOBIN A1C - [facility] 11.7 (H) 12/10/2022 10:19 AM HEMOGLOBIN A1C - [facility] 6.5 (H) 09/05/2021 11:47 AM HEMOGLOBIN A1C POCT - [facility] 7.0 (H) 12/08/2023 11:15 AM BP Readings from Last 1 Encounters: 05/17/24 165/81 Reviewed Health Maintenance below: Health Maintenance Topic Date Due Depression Monitoring Never done Albumin/Creatinine Ratio Never done DXA Scan Never done Zoster Vaccines (1 of 2) Never done Adult Wellness Visit Never done *BISPHONATE OR OTHER ACCEPTABLE MEDICATION NEEDED FOR OSTEOPOROSIS (REFER TO SMARTSET #1146) Never done TSH 12/11/2023 Diabetic Eye Exam 01/28/2024 COVID-19 Vaccine () 02/07/2024 HbA1c 06/09/2024 Ov Dexa Lab eye Care Gap Outreach Action Taken: Left message documented in this encounter Plan of Treatment Health Maintenance Due Date Last Done Comments Depression Monitoring 1956 Albumin/Creatinine Ratio 1962 DXA Scan 1994 Zoster Vaccines (1 of 2) 1994 Adult Wellness Visit 2010 *BISPHONATE OR OTHER ACCEPTABLE MEDICATION NEEDED FOR OSTEOPOROSIS (REFER TO SMARTSET #1146) 08/04/2021 TSH 12/11/2023 12/10/2022, 07/2021, 09/05/2021 Diabetic Eye Exam 01/28/2024 01/27/2023, , 01/27/2023, Additional history exists COVID-19 Vaccine ( season) 2024 07/26/2022, 04/13/2021, 04/13/2021, Additional history exists HbA1c 06/09/2024 12/08/2023, 11/2022, 12/10/2022, Additional history exists Diabetic Foot Exam 12/07/2024 12/08/2023, 12/12/2022 GFR 05/11/2025 05/11/2024, 04/09, 12/10/2022, Additional history exists DTap/Tdap Vaccines (2 - Td or Tdap) 10/12/2025 10/13/2015, 06/08/2005 EKG Completed 04/28/2024, 12/05/2022 VITAMIN D LEVEL ONCE IN A LIFETIME-USE SMARTSET# 40185 Completed 12/10/2022 Pneumococcal Vaccine: 50+ Years Completed 12/12/2022, 06/08/2014 Influenza Vaccine (FLU shot) Completed 03/2024, 04/13/2023, 05/16/2020, Additional history exists HPV (Gardasil) Vaccine Aged Out No lo nger eligible based on patient's age to complete this topic Hepatitis B Vaccine Aged Out No longe r eligible based on patient's age to complete this topic MENINGOCOCCAL (MENACTRA/MENVEO) Aged Out No longer eligible based on patient's age to complete this topic Meningitis B Vaccine (Bexsero/Trumemba) Aged Out No longer eligible based on patient's age to complete this topic documented as of this encounter Medical Devices Not on filedocumented as of this encounter Care Teams [facility] Director Relationship Specialty Start Date End Date Barbie Diamond MD PCP - General Family Medicine 08/02/21 documented as of this encounter
--- OUTSIDE RECORDS SUMMARY | 2024-10-17 07:43 | External Medical Summary ---
Author Name Unknown Address Unknown Organization K09:[facility] [place] [address] Laboratory Report Ordering Provider Test Date Status STORM WILLIS 05/04/2024 05:49:57 Final Observation Date Value Abnormality Reference (Units ) Status WBC, Total 05/04/2024 05:49:57 5.12 4.00-10.8 0 (K/uL) Final RBC 05/04/2024 05:49:57 4.14 3.85-5.15 (M/uL) Final Hemoglobin 05/04/2024 05:49:57 11.6 Below low normal 12 .0-15.3 (g/dL) Final HCT 05/04/2024 05:49:57 35.0 Below low normal 36. 0-45.2 (%) Final MCV 05/04/2024 05:49:57 84.5 81.5-97.5 (fL) Final MCH 05/04/2024 05:49:57 28.0 27.0-34.0 (pg) Final MCHC 05/04/2024 05:49:57 33.1 32.0-36.0 (g/dL) Final RDW 05/04/2024 05:49:57 14.4 11.5-15.5 (%) Final Platelets 05/04/2024 05:49:57 214 140-400 (K /uL) Final MPV 05/04/2024 05:49:57 11.3 6.6-11.1 ( fL) Final Performing Location [facility] [place] [id number]
--- OUTSIDE RECORDS SUMMARY | 2024-10-17 07:43 | External Medical Summary | Summary of Care ---
Author Name Unknown Organization [facility] Address [address] [place] [address] Phone [phone] Care Team Providers Care Property Man Name Role Phone Barbie Diamond MD Primary Care Provid er Reason for Visit * Reason Onset Date Comments Fax 05/20/2024 [facility] Encounter Details Date Type Department Care Team (Late st Contact Info) Description 05/20/2024 Telephone [facility] [address] [phone] Barbie Diamond MD [address] [phone] Fax ([facility]) Allergies Active Allergy Reactions Criticality Noted Date Comments Lisinopril 05/16/2020 Other reaction(s): Cough Metformin Diarrhea 05/16/2020 documented as of this encounter (statuses as of 05/20/2024) Medications Ondansetron HCl 8 MG Oral Tablet [...] with long-term current use of insulin ([facility]),Type 2 diabetes mellitus with hemoglobin A1c goal of less than 8.0% ([facility]),Cerebrovascular accident (CVA), unspecified mechanism ([facility]) Take 1 Tablet by mouth in the morning. with food.. 100 Tablet 5 10/13/19 24 11:28 AM EDT 023 Active Levemir FlexPen 100 UNIT/ML Subcutaneous Solution Pen-injector (Insulin Detemir)Indications:Typ e 2 diabetes mellitus with hemoglobin A1c goal of less than 8.0% ([facility]),Uncontrolled type 2 diabetes mellitus with hyperglycemia ([facility]),Type 2 diabetes mellitus without complication, with long-term current use of insulin ([facility]) Inject 20 Units under the skin in [...] Additional Information Patient not taking.Reported on 05/17/2024 Escitalopram Oxalate 20 MG Oral Tablet (Lexapro)Indications:De pression, unspecified depression type take 1 tablet by mouth IN THE MORNING 90 Tablet 3 10/13/19 24 11:28 AM EDT 023 Active GNP UltiCare Pen [place] 32G X 4 MM (Insulin Pen Needle)Indications:Type 2 diabetes mellitus without complication, with long-term current use of insulin ([facility]),Type 2 diabetes mellitus with hemoglobin A1c goal of less than 8.0% ([facility]) To be used with insulin injection, one needle per injection twice a day. 100 Each 11 03/17/20 24 1:21 PM EDT 023 Active Additional Information Patient not taking.Reported on 05/17/2024 Levothyroxine Sodium 150 MCG Oral Tablet (Levoxyl)Indications:Ac quired hypothyroidism Take 1 Tablet by mouth daily first thing in the morning. (at least 30 min prior to breakfast or other meds) 90 Tablet 11/06/19 24 8:48 AM EDT 024 Active Fluticasone Propionate 50 MCG/ACT Nasal Suspension (Flonase)Indications:Se asonal allergic rhinitis due to pollen,Type 2 diabetes mellitus with diabetic neuropathy, with long-term current use of insulin ([facility]) Administer 2 Sprays into each nostril in the morning. 16 g 5 12/08/19 24 11:14 AM EDT 024 Active Losartan Potassium 100 MG Oral Tablet (Cozaar)Indications:HTN , goal below 150/90,Type 2 diabetes mellitus with diabetic neuropathy, with long-term current use of insulin (HCC) Take 1 Tablet by mouth in the morning. 90 Tablet 1 12/08/19 24 11:14 AM EDT 024 Active HumaLOG KwikPen 100 UNIT/ML Subcutaneous Solution Pen-injectorIndications :Type 2 diabetes mellitus without complication, with long-term current use of insulin ([facility]) Inject 8 Units under the skin in the morning and 8 Units at noon and 8 Units in the evening. Inject before meals. 30 mL 3 01/26/20 24 4:21 PM EDT 024 Active Additional Information Patient not taking.Reported on 05/17/2024 Polyethylene Glycol 3350 17 GM Oral Packet (Miralax) 17 g orally daily 30 Each Active Carvedilol 12.5 MG Oral Tablet (Coreg) Take 1 tablet by mouth twice a day with meals 60 Tablet 05/16/20 24 12:01 PM EST Active Chlorthalidone 25 MG Oral Tablet (Hygroton) Take 1 tablet by mouth daily 30 Tablet 05/16/20 24 12:01 PM EST Active NIFEdipine ER Osmotic Release 60 MG Oral Tablet Extended Release 24 Hour (Procardia XL) Take 1 tablet by mouth daily 30 Tablet 05/16/20 24 12:01 PM EST Active Spironolactone 25 MG Oral Tablet (Aldactone) Take 1 tablet by mouth daily 30 Tablet 05/16/20 24 12:01 PM EST 024 Active Atorvastatin Calcium 80 MG Oral Tablet (Lipitor)Indications:Fa milial hypercholesterolemia Take 1 Tablet by mouth in the morning. 90 Tablet 1 024 Active documented as of this encounter (statuses as of 05/20/2024) Active Problems Problem Noted Date Diagnosed Date [...] Ptosis of eyelid 12/05/2022 Fatigue 12/05/2022 Other custodial (current) drug therapy H/O iron deficiency anemia [...] as of this encounter (statuses as of 05/20/2024) Resolved Problems Problem Noted Date Diagnosed Date Resolved Date Uncontrolled type 2 diabetes mellitus with hyperglycemia 12/12/2022 12/08/2023 Changing skin lesion 12/05/2022 023 documented as of this encounter (statuses as of 05/20/2024) Immunizations Name Administration Dates Next Due COVID-19 [...] encounter Miscellaneous Notes * Telephone Encounter - Magaly Guy LPN - 05/20/2024 3:39 PM EST Received Fax for BFPROVIDERS: Dr. Lisha Shipley ORDER received from [facility] and FAXED documented in this encounter Plan of Treatment Upcoming Encounters Date Type Department Care Team (Late st Contact Info) Description 05/31/2024 11:00 AM EST Office Visit Podiatry [address] [place] [phone] Saul Gonzalez, DPM [address] [place] [address] 06/10/2024 1:20 PM EST [facility] [place] [facility] [address] [facility] [address] [place] [phone] Barbie Diamond MD [address] [facility] [place] [address] 09/20/2024 10:00 AM EDT Office Visit Cardiology, [facility] [address] [place] [address] Gurpreet Shipley DO [address] [place] [address] Health Maintenance Due Date Last Done Comments [...] D LEVEL ONCE IN A LIFETIME-USE SMARTSET# 53442 Completed 12/10/2022 Pneumococcal Vaccine: 65+ Years Completed [...] filedocumented as of this encounter Care Teams Property Man Relationship Specialty Start Date End Date Barbie Diamond MD [address] [place] [address] PCP - General Family Medicine 08/02/21 documented as of this encounter
--- OUTSIDE RECORDS SUMMARY | 2024-10-17 07:43 | External Medical Summary | Summary of Care ---
Author Name Unknown Organization [facility] Address [address] [place] [address] Phone [phone] Care Team Providers Care Journeyman Pipe Welder Name Role Phone Barbie Diamond MD Primary Care Provid er Encounter Details Date Type Department Care Team (Late st Contact Info) Description 04/29/2024 Result Scan Unspecified Department <No scans attached> Allergies Active Allergy Reactions Criticality Noted Date Comments Lisinopril 05/16/2020 Other reaction(s): Cough Metformin Diarrhea 05/16/2020 documented as of this encounter (statuses as of 05/23/2024) Medications Ondansetron HCl 8 MG Oral Tablet (Zofran)Indications :Hiatal hernia,Colitis Take by mouth 1 Tablet every 8 hours as needed for Nausea. 20 Tablet 1 08/02/19 22 Active Additional Information Patient not taking.Reported on 05/17/2024 Potassium Chloride Aiyana ER 20 MEQ Oral Tablet Extended ReleaseIndications: Hypokalemia Take 1 Tablet by mouth in the morning. 90 Tablet 1 4 11:28 AM EDT 12/13/19 23 Active Famotidine 20 MG Oral Tablet (Pepcid) Take 1 Tablet by mouth every night at bedtime. 90 Tablet 3 4 11:28 AM EDT 12/13/19 23 Active Aspirin 81 MG Oral Tablet ChewableIndications :Type 2 diabetes mellitus without complication, with long-term current use of insulin (HCC),Type 2 diabetes mellitus with hemoglobin A1c goal of less than 8.0% ([facility]),Cerebrovascul ar accident (CVA), unspecified mechanism ([facility]) Take 1 Tablet by mouth in the morning. with food.. 100 Tablet 5 4 11:28 AM EDT 12/13/19 Active Levemir FlexPen 100 UNIT/ML Subcutaneous Solution Pen-injector (Insulin Detemir)Indications :Type 2 diabetes mellitus with hemoglobin A1c goal of less than 8.0% ([facility]),Uncontrolled type 2 diabetes mellitus with hyperglycemia ([facility]),Type 2 diabetes mellitus without complication, with long-term current use of insulin ([facility]) Inject 20 Units under the skin in the morning and 20 Units before bedtime. 45 mL 3 4 4:21 PM EDT 02/11/20 Active Additional Information Patient not taking.Reported on 05/17/2024 Furosemide 20 MG Oral Tablet (Lasix)Indications: Lymphedema of both lower extremities Take 1 Tablet by mouth daily as needed (lower extremity swelling). for fluid accumulation or weight gain 30 Tablet 2 4 11:28 AM EDT 04/13/20 Active Additional Information Patient not taking.Reported on 05/17/2024 Escitalopram Oxalate 20 MG Oral Tablet (Lexapro)Indication s:Depression, unspecified depression type take 1 tablet by mouth IN THE MORNING 90 Tablet 3 4 11:28 AM EDT 04/13/20 23 Active GNP UltiCare Pen [place] 32G X 4 MM (Insulin Pen Needle)Indications: Type 2 diabetes mellitus without complication, with long-term current use of insulin ([facility]),Type 2 diabetes mellitus with hemoglobin A1c goal of less than 8.0% ([facility]) To be used with insulin injection, one needle per injection twice a day. 100 Each 11 4 1:21 PM EDT 04/13/20 Active Additional Information Patient not taking.Reported on 05/17/2024 Levothyroxine Sodium 150 MCG Oral Tablet (Levoxyl)Indication s:Acquired hypothyroidism Take 1 Tablet by mouth daily first thing in the morning. (at least 30 min prior to breakfast or other meds) 90 Tablet 4 8:48 AM EDT 11/06/19 24 Active Fluticasone Propionate 50 MCG/ACT Nasal Suspension (Flonase)Indication s:Seasonal allergic rhinitis due to pollen,Type 2 diabetes mellitus with diabetic neuropathy, with long-term current use of insulin ([facility]) Administer 2 Sprays into each nostril in the morning. 16 g 5 4 11:14 AM EDT 12/08/19 24 Active Losartan Potassium 100 MG Oral Tablet (Cozaar)Indications :HTN, goal below 150/90,Type 2 diabetes mellitus with diabetic neuropathy, with long-term current use of insulin ([facility]) Take 1 Tablet by mouth in the morning. 90 Tablet 1 4 11:14 AM EDT 12/08/19 24 Active HumaLOG KwikPen 100 UNIT/ML Subcutaneous Solution Pen-injectorIndicat ions:Type 2 diabetes mellitus without complication, with long-term current use of insulin ([facility]) Inject 8 Units under the skin in the morning and 8 Units at noon and 8 Units in the evening. Inject before meals. 30 mL 3 4 4:21 PM EDT 01/25/20 24 Active Additional Information Patient not taking.Reported on 05/17/2024 documented as of this encounter (statuses as of 05/23/2024) Active Problems Problem Noted Date Diagnosed Date [...] Ptosis of eyelid 12/05/2022 Fatigue 12/05/2022 Other senior living (current) drug therapy 3 H/O iron deficiency [...] as of this encounter (statuses as of 05/23/2024) Resolved Problems Problem Noted Date Diagnosed Date Resolved Date Uncontrolled type 2 diabetes mellitus with hyperglycemia 12/12/2022 12/08/2023 Changing skin lesion 12/05/2022 023 documented as of this encounter (statuses as of 05/23/2024) Immunizations Name Administration Dates Next Due COVID-19 mRNA, LNP-s, No Pre serve, 10 mcg, Ages 5-11 (Pfizer) 04/13/2021,03/17/2021 Pneumococcal Conjugate Vaccine, 20-valent (Prevn ar20) 12/12/2022 Pneumococcal Polysaccharide PPV23 (Pneumovax) Seasonal Influenza Vac., MDV, IM, 0.5 mL (Fluzon e) 03/08/2014,03/08/2013 Seasonal Influenza, Quadrivalent Hd (Fluzone Hd) 04/13/2023 [...] Upcoming Encounters Date Type Department Care Team ([facility] st Contact Info) Description 05/31/2024 11:00 AM EST Office Visit Podiatry [address] [place] [phone] Saul Gonzalez, BRIEN [address] [place] [address] 06/10/2024 1:20 PM EST [facility] [address] [facility] [place] [phone] Barbie Diamond MD [address] [facility] [place] [address] 09/20/2024 10:00 AM EDT Office Visit Cardiology, [facility] [address] [place] [address] Gurpreet Shipley DO [address] [place] [phone] Health Maintenance Due Date Last Done Comments Depression Monitoring 1956 Albumin/Creatinine Ratio 1962 DXA Scan 1994 Zoster Vaccines (1 of 2) 1994 Adult Wellness Visit 2010 *BISPHONATE OR OTHER ACCEPTABLE MEDICATION NEEDED FOR OSTEOPOROSIS (REFER TO SMARTSET #1146) 08/04/2021 TSH 12/11/2023 12/10/2022, 07/0 07/2021, 09/05/2021 Diabetic Eye Exam 01/28/2024 01/27/2023, , 01/27/2023, Additional history exists COVID-19 Vaccine ( season) 2024 07/26/2022, 04/13/2021, 04/13/2021, Additional history exists HbA1c 06/09/2024 12/08/2023, 110 11/2022, 12/10/2022, Additional history exists Diabetic Foot Exam 12/07/2024 12/08/2023, 12/12/2022 GFR 05/11/2025 05/11/2024, 04/09, 12/10/2022, Additional history exists DTap/Tdap Vaccines (2 - Td or Tdap) 10/12/2025 10/13/2015, 06/08/2005 VITAMIN D LEVEL ONCE IN A LIFETIME-USE SMARTSET# 32146 Completed 12/10/2022 Pneumococcal Vaccine: 65+ Years Completed [...] Procedure Name Priority Date/Time Associated Diagnosis Comments ECHOCARDIOLOGY SCANNED RESULT 04/29/2024 EKG SCANNED RESULT 04/28/2024 documented in this encounter Results * ECHOCARDIOLOGY SCANNED RESULT (04/29/2024) 04/29/2024 us No Physician Data Unknown ECHOCARDIOLOGY Final Result * EKG SCANNED RESULT (04/28/2024) 04/28/2024 us No Physician Data Unknown EKG Final Result documented in this encounter Care Teams Journeyman Pipe Welder Relationship Specialty Start Date End Date Barbie Diamond MD [address] [facility] [place] [address] PCP - General Family Medicine 08/02/21 documented as of this encounter
--- OUTSIDE RECORDS SUMMARY | 2024-10-17 07:43 | External Medical Summary ---
Author Name Unknown Address Unknown Organization K09:[facility] [place] [address] Laboratory Report Ordering Provider Test Date Status STORM WILLIS 05/11/2024 05:58:24 Final Observation Date Value Abnormality Reference (Units ) Status BUN 05/11/2024 05:58:24 50 Above high normal 6-20 (mg/dL) Final Creatinine 05/11/2024 05:58:24 1.3 Above high normal 0.5-1.0 (mg/dL) Final Glomerular filtration rate/1.73 sq M.predicted [Volume Rate/Area] in Serum, Plasma or Blood by Creatinine-based formula (CKD-EPI) 05/11/2024 05:58:24 43 Below low normal >=60 (mL/min) Final eGFR is calculated based on the CKD-EPI 2020 equation. Sodium 05/11/2024 05:58:24 136 135-146 (m mol/L) Final Potassium 05/11/2024 05:58:24 4.7 3.5-5.1 (m mol/L) Final Cl 05/11/2024 05:58:24 103 98-107 (mm ol/L) Final CO2 05/11/2024 05:58:24 22 22-32 (mmo l/L) Final Anion gap 05/11/2024 05:58:24 11 7-15 (mmol /L) Final Glucose 05/11/2024 05:58:24 165 Above high normal 70 -120 (mg/dL) Final Calcium 05/11/2024 05:58:24 9.6 8.4-10.2 ( mg/dL) Final Performing Location [facility] [place] [address]
--- OUTSIDE RECORDS SUMMARY | 2024-10-17 07:43 | External Medical Summary | Summary of Care ---
Author Name Unknown Organization [facility] Address [address] [place] [address] Phone [phone] Care Team Providers Care Director Of Manufacturing Name Role Phone Barbie Diamond MD Primary Care Provid er Reason for Visit * Reason Onset Date Comments Referral 05/23/2024 Encounter Details Date Type Department Care Team (Late st Contact Info) Description 05/23/2024 New Patient Triage (PROCESS DEVELOPMENT ENGINEER USE ONLY) Cardiology, [facility] [address] [place], [place] [phone] Crystal Lim CRNP [address] [place] [address] Referral Allergies Active Allergy Reactions Criticality Noted Date Comments Lisinopril 05/16/2020 Other reaction(s): Cough Metformin Diarrhea 05/16/2020 documented as of this encounter (statuses as of 06/17/2024) Medications Ondansetron HCl 8 MG Oral Tablet [...] long-term current use of insulin ([facility]),Type 2 diabetes mellitus with hemoglobin A1c goal of less than 8.0% (HCC),Cerebrovascular accident (CVA), unspecified mechanism ([facility]) Take 1 Tablet by mouth in the morning. with food.. 100 Tablet 5 10/13/19 24 11:28 AM EDT 023 Active Levemir FlexPen 100 UNIT/ML Subcutaneous Solution Pen-injector (Insulin Detemir)Indications:Typ e 2 diabetes mellitus with hemoglobin A1c goal of less than 8.0% ([facility]),Uncontrolled type 2 diabetes mellitus with hyperglycemia ([facility]),Type 2 diabetes mellitus without complication, with long-term current use of insulin ([facility]) Inject 20 Units under the skin in the morning and 20 Units before bedtime. 45 mL 3 01/26/20 4:21 PM EDT 023 Active Additional Information [...] AM EDT 023 Active GNP UltiCare Pen [place] 32G X 4 MM (Insulin Pen Needle)Indications:Type 2 diabetes mellitus without complication, with long-term current use of insulin ([facility]),Type 2 diabetes mellitus with hemoglobin A1c goal of less than 8.0% ([facility]) To be used with insulin injection, one needle per injection twice a day. 100 Each 11 03/17/20 24 1:21 PM EDT 11/06/2 023 Active Additional Information Patient not taking.Reported on 05/17/2024 Levothyroxine Sodium 150 MCG Oral Tablet (Levoxyl)Indications:Ac quired hypothyroidism Take 1 Tablet by mouth daily first thing in the morning. (at least 30 min prior to breakfast or other meds) 90 Tablet 11/06/19 24 8:48 AM EDT Active Fluticasone Propionate 50 MCG/ACT Nasal Suspension (Flonase)Indications:Se asonal allergic rhinitis due to pollen,Type 2 diabetes mellitus with diabetic neuropathy, with long-term current use of insulin ([facility]) Administer 2 Sprays into each nostril in the morning. 16 g 5 12/08/19 24 11:14 AM EDT 024 Active Losartan Potassium 100 MG Oral Tablet (Cozaar)Indications:HTN , goal below 150/90,Type 2 diabetes mellitus with diabetic neuropathy, with long-term current use of insulin ([facility]) Take 1 Tablet by mouth in the morning. 90 Tablet 1 12/08/19 24 11:14 AM EDT Active HumaLOG KwikPen 100 UNIT/ML Subcutaneous Solution Pen-injectorIndications :Type 2 diabetes mellitus without complication, with long-term current use of insulin ([facility]) Inject 8 Units under the skin in [...] as of this encounter (statuses as of 06/17/2024) Active Problems Problem Noted Date Diagnosed Date [...] Ptosis of eyelid 12/05/2022 Fatigue 12/05/2022 Other intermodal truck driver (current) drug therapy H/O iron deficiency anemia [...] as of this encounter (statuses as of 06/17/2024) Resolved Problems Problem Noted Date Diagnosed Date Resolved Date Uncontrolled type 2 diabetes mellitus with hyperglycemia 12/12/2022 12/08/2023 Changing skin lesion 12/05/2022 023 documented as of this encounter (statuses as of 06/17/2024) Immunizations Name Administration Dates Next Due COVID-19 [...] on file documented as of this encounter Progress Notes * Jaleel Jamison OSA - 06/16/2024 10:38 AM EST LM for patient to call back to schedule, will send letter for the appt on 06/16/24 NEW CARDIOLOGY at 1:00 PM (30 min)Arrive by 12:45 PM Friday October 25, 2024 Appointment Provider:Jeff Mena DO in CARDIOLOGY [facility] * Jaleel Jamison OSA - 06/09/2024 1:57 PM EST LM for patient to call back to schedule. * Jaleel Jamison OSA - 06/03/2024 12:01 PM EST LM for patient to call back to schedule. * Sarah Mei RN - 06/03/2024 11:47 AM EST Per provider request via TTC below, please offer upcoming close in new. Route back with date/time confirmed. * Jaleel Jamison OSA - 05/30/2024 8:43 AM EST Sarah, may I offer this patient a sooner D[employer] appt with any provider? Thank you. * Deanna Villasenor LPN - 05/30/2024 8:14 AM EST * Kendra Aj CRNP - 05/27/2024 10:20 PM EST Does patient need to be seen?: Yes Modality: Office visit Urgency: Within 30 days (routine) Discussed care plan with patient or proxy?: Yes Shabnamt Communicated with patient on Date (mm/dd/lenardy): 05/23/2024 at Time ([facility]): [id number] 78 year old female with multiple co-morbidities, found to have hypertensive urgency, med non adherence and UTI Patient needs sooner appt ideally within the next month. 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 Barriga & Rajesh while inpatient. Would a visit with advanced practitioner be appropriate for sooner appt? INFO FROM CARDIAC REFERRAL Discharged from [facility] [place] 05/03 for hypertensive urgency - reportedly needs 24 h urine studies and PYP scan "if necessary" APPOINTMENT INFO: 09/20/2024 10:00 AM Cardiology Gurpreet Bolanos O, DO PCP/REFERRING ASSESSMENT / PLAN: Madison Haq is a 78 year old female with PMHx T2DM on insulin, HTN, HLD, hypothyroidism, h/o CVA, osteoporosis, depresison, hiatal hernia/PUD, colitis, hypokalemia, blindness in right eye - Here for JANNETTE - Admitted at [facility] [place] Admission date: 04/28 Discharge date: 05/03 Presented with: confusion Diagnosis: stroke ruled out, hypertensive urgency, med nonadherence, UTI Diagnostics: TSH as high as 122 - pt reports med noncompliance A1C 6.4% LVH on TTE - eval amyloidosis Hospital stay complicated by: 1- none Treatments / Consultation(s): 1- Cardiology - goal SBP <175 - cont spironolactone 2- Neuro - 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) - atorvastatin 80mg daily Changes to chronic medications: 1 - DC insulin 2- losartan 100 / coreg 12.5 bid / stop hydral and start nifedipine 30mg XL / cont chlorthalidone /start spironolactone 25mg EKG/ECHO/ZIO/CARDIAC TESTING No recent LABS Results for orders placed or performed in visit on 05/11/24 CBC Result Value Ref Range WBC 7.13 4.00 - 10.80 K/uL RBC 3.87 3.85 - 5.15 M/uL HGB 10.8 (L) 12.0 - 15.3 g/dL HCT 32.8 (L) 36.0 - 45.2 % MCV 84.8 81.5 - 97.5 fL MCH 27.9 27.0 - 34.0 pg MCHC 32.9 32.0 - 36.0 g/dL RDW 14.6 11.5 - 15.5 % PLT 202 140 - 400 K/uL MPV 12.0 6.6 - 11.1 fL BASIC METABOLIC PANEL Result Value Ref Range BUN 50 (H) 6 - 20 mg/dL CREATININE 1.3 (H) 0.5 - 1.0 mg/dL EGFR 43 (L) >=60 mL/min SODIUM 136 135 - 146 mmol/L POTASSIUM 4.7 3.5 - 5.1 mmol/L CHLORIDE 103 98 - 107 mmol/L CO2 22 22 - 32 mmol/L ANION GAP 11 7 - 15 mmol/L GLUCOSE 165 (H) 70 - 120 mg/dL CALCIUM 9.6 8.4 - 10.2 mg/dL MEDICATIONS Atorvastatin Calcium 80 MG Oral Tablet (Lipitor) Carvedilol 12.5 MG Oral Tablet (Coreg) Chlorthalidone 25 MG Oral Tablet (Hygroton) NIFEdipine ER Osmotic Release 60 MG Oral Tablet Extended Release 24 Hour (Procardia XL) Spironolactone 25 MG Oral Tablet (Aldactone) Polyethylene Glycol 3350 17 GM Oral Packet (Miralax) HumaLOG KwikPen 100 UNIT/ML Subcutaneous Solution Pen-injector Fluticasone Propionate 50 MCG/ACT Nasal Suspension (Flonase) Losartan Potassium 100 MG Oral Tablet (Cozaar) Levothyroxine Sodium 150 MCG Oral Tablet (Levoxyl) Escitalopram Oxalate 20 MG Oral Tablet (Lexapro) Furosemide 20 MG Oral Tablet (Lasix) GNP UltiCare Pen [place] 32G X 4 MM (Insulin Pen Needle) Levemir FlexPen 100 UNIT/ML Subcutaneous Solution Pen-injector (Insulin Detemir) Aspirin 81 MG Oral Tablet Chewable Famotidine 20 MG Oral Tablet (Pepcid) Potassium Chloride Aiyana ER 20 MEQ Oral Tablet Extended Release Ondansetron HCl 8 MG Oral Tablet (Zofran) HOSPITALIZATIONS/CONSULTS UNDER MEDIA TAB documented in this encounter Plan of Treatment Upcoming Encounters Date Type Department Care Team (Late st Contact Info) Description 10/25/2024 1:00 PM EDT Office Visit Cardiology, [facility] [address] [place] [address] Jeff Mena, [address] [place] [address] Health Maintenance Due Date Last Done Comments [...] D LEVEL ONCE IN A LIFETIME-USE SMARTSET# [id number] Completed 12/10/2022 Pneumococcal Vaccine: 50+ Years Completed [...] filedocumented as of this encounter Care Teams Director Of Manufacturing Relationship Specialty Start Date End Date Barbie Diamond MD PCP - General Family Medicine 08/02/21 documented as of this encounter
--- OUTSIDE RECORDS SUMMARY | 2024-10-17 07:43 | External Medical Summary | Summary of Care ---
Author Name Unknown Organization [facility] Address [address] [place] [address] Phone [phone] Care Team Providers Care Manufacturing Technology Professor Name Role Phone Barbie Diamond MD Primary Care Provid er Encounter Details Date Type Department Care Team (Late st Contact Info) Description 06/30/2024 Population Health External Data Unspecified Department Allergies Active Allergy Reactions Criticality Noted Date Comments Lisinopril 05/16/2020 Other reaction(s): Cough Metformin Diarrhea 05/16/2020 documented as of this encounter (statuses as of 06/30/2024) Medications Ondansetron HCl 8 MG Oral Tablet [...] hemoglobin A1c goal of less than 8.0% ([facility]),Cerebrovascular accident (CVA), unspecified mechanism ([facility]) Take 1 Tablet by mouth in the morning. with food.. 100 Tablet 5 10/13/19 24 11:28 AM EDT 023 Active Levemir FlexPen 100 UNIT/ML Subcutaneous Solution Pen-injector (Insulin Detemir)Indications:Typ e 2 diabetes mellitus with hemoglobin A1c goal of less than 8.0% ([facility]),Uncontrolled type 2 diabetes mellitus with hyperglycemia ([facility]),Type 2 diabetes mellitus without complication, with long-term current use of insulin ([facility]) Inject 20 Units under the skin in [...] AM EDT 023 Active GNP UltiCare Pen [place] 32G X 4 MM (Insulin Pen Needle)Indications:Type 2 diabetes mellitus without complication, with long-term current use of insulin ([facility]),Type 2 diabetes mellitus with hemoglobin A1c goal of less than 8.0% ([facility]) To be used with insulin injection, one [...] neuropathy, with long-term current use of insulin ([facility]) Administer 2 Sprays into each nostril in the morning. 16 g 5 12/08/19 24 11:14 AM EDT Active Losartan Potassium 100 MG Oral Tablet (Cozaar)Indications:HTN , goal below 150/90,Type 2 diabetes mellitus with diabetic neuropathy, with long-term current use of insulin ([facility]) Take 1 Tablet by mouth in the morning. 90 Tablet 1 12/08/19 24 11:14 AM EDT Active HumaLOG KwikPen 100 UNIT/ML Subcutaneous Solution Pen-injectorIndications :Type 2 diabetes mellitus without complication, with long-term current use of insulin ([facility]) Inject 8 Units under the skin in [...] Tablet 05/16/20 24 12:01 PM EST Active Atorvastatin Calcium 80 MG Oral Tablet (Lipitor)Indications:Fa milial hypercholesterolemia Take 1 Tablet by mouth in the morning. 90 Tablet 1 Active documented as of this encounter (statuses as of 06/30/2024) Active Problems Problem Noted Date Diagnosed Date [...] Ptosis of eyelid 12/05/2022 Fatigue 12/05/2022 Other group home (current) drug therapy H/O iron deficiency anemia [...] as of this encounter (statuses as of 06/30/2024) Resolved Problems Problem Noted Date Diagnosed Date Resolved Date Uncontrolled type 2 diabetes mellitus with hyperglycemia 12/12/2022 12/08/2023 Changing skin lesion 12/05/2022 023 documented as of this encounter (statuses as of 06/30/2024) Immunizations Name Administration Dates Next Due COVID-19 [...] as of this encounter Plan of Treatment Health Maintenance Due Date Last Done Comments Depression Monitoring 1956 Albumin/Creatinine Ratio 1962 DXA Scan 1994 Zoster Vaccines (1 of 2) 1994 Adult Wellness Visit 2010 *BISPHONATE OR OTHER ACCEPTABLE MEDICATION NEEDED FOR OSTEOPOROSIS (REFER TO SMARTSET #1146) 08/04/2021 TSH 12/11/2023 12/10/2022, 070 07/2021, 09/05/2021 Diabetic [...] D LEVEL ONCE IN A LIFETIME-USE SMARTSET# [id number] Completed 12/10/2022 Pneumococcal Vaccine: 50+ Years Completed [...] filedocumented as of this encounter Care Teams Manufacturing Technology Professor Relationship Specialty Start Date End Date Barbie Diamond MD PCP - General Family Medicine 08/02/21 documented as of this encounter
--- OUTSIDE RECORDS SUMMARY | 2024-10-17 07:43 | External Medical Summary | Summary of Care ---
Author Name Unknown Organization [facility] Address [address] [place] [address] Phone [phone] Care Team Providers Care Shot Fireman Name Role Phone Mony Diamond MD Primary Care Provid er Reason for Visit * Reason Comments Medication Refill Encounter Details Date Type Department Care Team (Late st Contact Info) Description 06/30/2024 Refill [facility] [address] [place] [phone] Mony Diamond MD [address] [facility] [place] [address] Type 2 diabetes mellitus without complication, with long-term current use of insulin ([facility]); Type 2 diabetes mellitus with hemoglobin A1c goal of less than 8.0% ([facility]) Allergies Active Allergy Reactions Criticality Noted Date Comments Lisinopril 05/16/2020 Other reaction(s): Cough Metformin Diarrhea 05/16/2020 documented as of this encounter (statuses as of 07/01/2024) Medications Ondansetron HCl 8 MG Oral Tablet [...] complication, with long-term current use of insulin ([facility]),Type 2 diabetes mellitus with hemoglobin A1c goal of less than 8.0% ([facility]),Cerebrovascular accident (CVA), unspecified mechanism ([facility]) Take 1 Tablet by mouth in the morning. with food.. 100 Tablet 5 10/13/19 24 11:28 AM EDT 023 Active Levemir FlexPen 100 UNIT/ML Subcutaneous Solution Pen-injector (Insulin Detemir)Indications:Typ e 2 diabetes mellitus with hemoglobin A1c goal of less than 8.0% ([facility]),Uncontrolled type 2 diabetes mellitus with hyperglycemia ([facility]),Type 2 diabetes mellitus without complication, with long-term current use of insulin ([facility]) Inject 20 Units under the [...] neuropathy, with long-term current use of insulin ([facility]) Administer 2 Sprays into each [...] in the morning. 90 Tablet 1 Active GNP UltiCare Pen [place] 32G X 4 MM (Insulin Pen Needle)Indications:Type 2 diabetes mellitus without complication, with long-term current use of insulin (HCC),Type 2 diabetes mellitus with hemoglobin A1c goal of less than 8.0% (HCC) To be used with insulin injection, one needle per injection twice a day. 100 Each 025 Active GNP UltiCare Pen [place] 32G X 4 MM (Insulin Pen Needle)Indications:Type 2 diabetes mellitus without complication, with long-term current use of insulin (HCC),Type 2 diabetes mellitus with hemoglobin A1c goal of less than 8.0% (HCC) To be used with insulin injection, one needle per injection twice a day. 100 Each 11 03/17/20 24 1:21 PM EDT 023 2024 Disconti natalie(Ref ill) documented as of this encounter (statuses as of 07/01/2024) Active Problems Problem Noted Date Diagnosed Date [...] Ptosis of eyelid 12/05/2022 Fatigue 12/05/2022 Other lidder (current) drug therapy H/O iron deficiency anemia [...] as of this encounter (statuses as of 07/01/2024) Resolved Problems Problem Noted Date Diagnosed Date Resolved Date Uncontrolled type 2 diabetes mellitus with hyperglycemia 12/12/2022 12/08/2023 Changing skin lesion 12/05/2022 023 documented as of this encounter (statuses as of 07/01/2024) Immunizations Name Administration Dates Next Due COVID-19 [...] encounter Miscellaneous Notes * Telephone Encounter - Mony Diamond MD - 07/01/2024 12:42 PM EST Signed Prescriptions: Disp Refills GNP UltiCare Pen [place] 32G X 4 MM (Insul*100 Ea*11 Sig: To be used with insulin injection, one needle per injection twice a day. Authorizing Provider: MONY DIAMOND * Telephone Encounter - Gabbi Guillaume LPN - 07/01/2024 9:05 AM ESTPending Prescriptions: Disp Refills GNP UltiCare Pen [place] 32G X 4 MM (Insul*100 Ea*11 Sig: To beused with insulin injection, one needle per injection twice a day. documented in this encounter Plan of Treatment [...] D LEVEL ONCE IN A LIFETIME-USE SMARTSET# [id number] Completed 12/10/2022 Pneumococcal Vaccine: 50+ Years Completed [...] with long-term current use of insulin (HCC) Type 2 diabetes mellitus with hemoglobin A1c goal of less than 8.0% (HCC) documented in this encounter Care Teams Shot Fireman Relationship Specialty Start Date End Date Mony Diamond MD PCP - General Family Medicine 08/02/21 documented as of this encounter
--- OUTSIDE RECORDS SUMMARY | 2024-10-17 07:43 | External Medical Summary ---
Author Name Unknown Address Unknown Organization K09:[facility] [address] Laboratory Report Ordering Provider Test Date Status STORM WILLIS 05/11/2024 05:58:24 Final Observation Date Value Abnormality Reference (Units ) Status WBC, Total 05/11/2024 05:58:24 7.13 4.00-10.8 0 (K/uL) Final RBC 05/11/2024 05:58:24 3.87 3.85-5.15 (M/uL) Final Hemoglobin 05/11/2024 05:58:24 10.8 Below low normal 12 .0-15.3 (g/dL) Final HCT 05/11/2024 05:58:24 32.8 Below low normal 36. 0-45.2 (%) Final MCV 05/11/2024 05:58:24 84.8 81.5-97.5 (fL) Final MCH 05/11/2024 05:58:24 27.9 27.0-34.0 (pg) Final MCHC 05/11/2024 05:58:24 32.9 32.0-36.0 (g/dL) Final RDW 05/11/2024 05:58:24 14.6 11.5-15.5 (%) Final Platelets 05/11/2024 05:58:24 202 140-400 (K /uL) Final MPV 05/11/2024 05:58:24 12.0 6.6-11.1 ( fL) Final Performing Location [facility] [place] [address]
--- OUTSIDE RECORDS SUMMARY | 2024-10-17 07:43 | External Medical Summary | Summary of Care ---
Author Name Unknown Organization [facility] Address [address] [place] [address] Phone [phone] Care Team Providers Care Assistant Community Manager Name Role Phone Barbie Diamond MD Primary Care Provid er Encounter Details Date Type Department Care Team (Late st Contact Info) Description 04/30/2024 Result Scan Unspecified Department Jeff Mena, DO [address] [place] [address] <No scans attached> Allergies Active Allergy Reactions Criticality Noted Date Comments Lisinopril 05/16/2020 Other reaction(s): Cough Metformin Diarrhea 05/16/2020 documented as of this encounter (statuses as of 05/02/2024) Medications Ondansetron HCl 8 MG Oral Tablet (Zofran)Indications :Hiatal hernia,Colitis Take by mouth 1 Tablet every 8 hours as needed for Nausea. 20 Tablet 1 08/02/19 22 Active Potassium Chloride Aiyana ER 20 MEQ [...] complication, with long-term current use of insulin ([facility]),Type 2 diabetes mellitus with hemoglobin A1c goal of less than 8.0% ([facility]),Cerebrovascul ar accident (CVA), unspecified mechanism ([facility]) Take 1 Tablet by mouth in the morning. with food.. 100 Tablet 5 4 11:28 AM EDT 12/13/19 23 Active Levemir FlexPen 100 UNIT/ML Subcutaneous Solution Pen-injector (Insulin Detemir)Indications :Type 2 diabetes mellitus with hemoglobin A1c goal of less than 8.0% ([facility]),Uncontrolled type 2 diabetes mellitus with hyperglycemia ([facility]),Type 2 diabetes mellitus without complication, with long-term current use of insulin ([facility]) Inject 20 Units under the skin in the morning and 20 Units before bedtime. 45 mL 3 4 4:21 PM EDT 02/11/20 23 Active Furosemide 20 MG Oral Tablet (Lasix)Indications: Lymphedema of both lower extremities Take 1 Tablet by mouth daily as needed (lower extremity swelling). for fluid accumulation or weight gain 30 Tablet 2 4 11:28 AM EDT 04/13/20 23 Active Escitalopram Oxalate 20 MG Oral Tablet (Lexapro)Indication s:Depression, unspecified depression type take 1 tablet by mouth IN THE MORNING 90 Tablet 3 4 11:28 AM EDT 04/13/20 23 Active GNP UltiCare Pen [place] 32G X 4 MM (Insulin Pen Needle)Indications: Type 2 diabetes mellitus without complication, with long-term current use of insulin ([facility]),Type 2 diabetes mellitus with hemoglobin A1c goal of less than 8.0% ([facility]) To be used with insulin injection, one needle per injection twice a day. 100 Each 11 4 1:21 PM EDT 04/13/20 23 Active Levothyroxine Sodium 150 MCG Oral Tablet (Levoxyl)Indication s:Acquired hypothyroidism Take 1 Tablet by mouth daily first thing in the morning. (at least 30 min prior to breakfast or other meds) 90 Tablet 4 8:48 AM EDT 11/06/19 24 Active Atorvastatin Calcium 40 MG Oral Tablet (Lipitor)Indication s:Familial hypercholesterolemi a,Cerebrovascular accident (CVA), unspecified mechanism ([facility]) Take 1 Tablet by mouth in the morning. 90 Tablet 4 8:48 AM EDT 11/06/19 24 Active Fluticasone Propionate 50 MCG/ACT Nasal Suspension (Flonase)Indication s:Seasonal allergic rhinitis due to pollen,Type 2 diabetes mellitus with diabetic neuropathy, with long-term current use of insulin ([facility]) Administer 2 Sprays into each nostril in the morning. 16 g 5 4 11:14 AM EDT 12/08/19 24 Active Losartan Potassium 100 MG Oral Tablet (Cozaar)Indications :HTN, goal below 150/90,Type 2 diabetes mellitus with diabetic neuropathy, with long-term current use of insulin ([facility]) Take 1 Tablet by mouth in the morning. 90 Tablet 1 4 11:14 AM EDT 12/08/19 24 Active HumaLOG KwikPen 100 UNIT/ML Subcutaneous Solution Pen-injectorIndicat ions:Type 2 diabetes mellitus without complication, with long-term current use of insulin ([facility]) Inject 8 Units under the skin in the morning and 8 Units at noon and 8 Units in the evening. Inject before meals. 30 mL 3 4 4:21 PM EDT 01/25/20 24 Active documented as of this encounter (statuses as of 05/02/2024) Active Problems Problem Noted Date Diagnosed Date [...] [facility] drug therapy 3 H/O iron deficiency [...] as of this encounter (statuses as of 05/02/2024) Resolved Problems Problem Noted Date Diagnosed Date Resolved Date Uncontrolled type 2 diabetes mellitus with hyperglycemia 12/12/2022 12/08/2023 Changing skin lesion 12/05/2022 023 documented as of this encounter (statuses as of 05/02/2024) Immunizations Name Administration Dates Next Due COVID-19 [...] Description 06/10/2024 1:20 PM EST [facility] [address] [phone] Barbie Diamond MD [address] [place] [address] Health Maintenance Due Date Last Done Comments Depression Monitoring 1956 Albumin/Creatinine Ratio 1962 DXA Scan 1994 Zoster Vaccines (1 of 2) 1994 Adult Wellness Visit 2010 *BISPHONATE OR OTHER ACCEPTABLE MEDICATION NEEDED FOR OSTEOPOROSIS (REFER TO SMARTSET #1146) 08/04/2021 GFR 12/11/2023 12/10/2022, 070 07/2021, 09/05/2021, Additional history exists TSH 12/11/2023 12/10/2022, 07/0 07/2021, 09/05/2021 Diabetic Eye Exam 01/28/2024 01/27/2023, , 01/27/2023, Additional history exists COVID-19 Vaccine ( season) 2024 04/13/2021, 03/17/2021 Influenza Vaccine (FLU shot) (#1) 2024 04/13/2023, 05/16/2020, 02/28/2019, Additional history exists HbA1c 06/09/2024 12/08/2023, 110 11/2022, 12/10/2022, Additional history exists Diabetic Foot Exam 12/07/2024 12/08/2023, 12/12/2022 DTap/Tdap Vaccines (2 - Td or Tdap) 10/12/2025 10/13/2015, 06/08/2005 VITAMIN D LEVEL ONCE IN A LIFETIME-USE SMARTSET# 43745 Completed 12/10/2022 Pneumococcal Vaccine: 65+ Years Completed [...] Procedure Name Priority Date/Time Associated Diagnosis Comments RADIOLOGY SCANNED RESULT 04/30/2024 documented in this encounter Results * RADIOLOGY SCANNED RESULT (04/30/2024) 04/30/2024 Jeff Mena DO DIAGNOSTIC RADIOLOGY SERVICE S Final Result documented in this encounter Care Teams Assistant Community Manager Relationship Specialty Start Date End Date Barbie Diamond MD [address] [place] [address] PCP - General Family Medicine 08/02/21 documented as of this encounter
--- OUTSIDE RECORDS SUMMARY | 2024-10-17 07:43 | External Medical Summary | Summary of Care ---
Author Name Unknown Organization [facility] Address [address] [place] [address] Phone [phone] Care Team Providers Care Nurse Transition Name Role Phone Barbie Diamond MD Primary Care Provid er Reason for Visit * Reason Onset Date Comments Fax 06/03/2024 [facility] Encounter Details Date Type Department Care Team (Late st Contact Info) Description 06/03/2024 [facility] [address] [phone] Barbie Diamond MD [address] [phone] Fax ([facility]) Allergies Active Allergy Reactions Criticality Noted Date Comments Lisinopril 05/16/2020 Other reaction(s): Cough Metformin Diarrhea 05/16/2020 documented as of this encounter (statuses as of 06/03/2024) Medications Ondansetron HCl 8 MG Oral Tablet [...] of insulin ([facility]),Type 2 diabetes mellitus with hemoglobin A1c goal of less than 8.0% ([facility]),Cerebrovascular accident (CVA), unspecified mechanism ([facility]) Take 1 Tablet by mouth in the morning. with food.. 100 Tablet 5 10/13/19 24 11:28 AM EDT 023 Active Levemir FlexPen 100 UNIT/ML Subcutaneous Solution Pen-injector (Insulin Detemir)Indications:Typ e 2 diabetes mellitus with hemoglobin A1c goal of less than 8.0% ([facility]),Uncontrolled type 2 diabetes mellitus with hyperglycemia ([facility]),Type 2 diabetes mellitus without complication, with long-term current use of insulin ([facility]) Inject 20 Units under the skin in [...] AM EDT 023 Active GNP UltiCare Pen [place] 32G X 4 MM (Insulin Pen Needle)Indications:Type 2 diabetes mellitus without complication, with long-term current use of insulin ([facility]),Type 2 diabetes mellitus with hemoglobin A1c goal of less than 8.0% ([facility]) To be used with insulin injection, one [...] of insulin ([facility]) Administer 2 Sprays into each nostril in [...] of insulin ([facility]) Inject 8 Units under the skin in [...] as of this encounter (statuses as of 06/03/2024) Active Problems Problem Noted Date Diagnosed Date [...] Ptosis of eyelid 12/05/2022 Fatigue 12/05/2022 Other correction (current) drug therapy H/O iron deficiency anemia [...] as of this encounter (statuses as of 06/03/2024) Resolved Problems Problem Noted Date Diagnosed Date Resolved Date Uncontrolled type 2 diabetes mellitus with hyperglycemia 12/12/2022 12/08/2023 Changing skin lesion 12/05/2022 023 documented as of this encounter (statuses as of 06/03/2024) Immunizations Name Administration Dates Next Due COVID-19 [...] Telephone Encounter - Magaly Guy LPN - 06/03/2024 3:13 PM EST Received Fax for BFPROVIDERS: Dr. Barbie Diamond PT PLAN OF CARE/EVALUATION received from [facility] and FAXED documented in this encounter Plan of Treatment Upcoming Encounters Date Type Department Care Team (Late st Contact Info) Description 06/10/2024 1:20 PM EST Office Visit [facility], [facility] [address] [phone] Barbie Diamond MD [address] [address] Health Maintenance Due Date Last Done [...] D LEVEL ONCE IN A LIFETIME-USE SMARTSET# [id number] Completed 12/10/2022 Pneumococcal Vaccine: 50+ Years Completed [...] filedocumented as of this encounter Care Teams Nurse Transition Relationship Specialty Start Date End Date Barbie Diamond MD PCP - General Family Medicine 08/02/21 documented as of this encounter
--- OUTSIDE RECORDS SUMMARY | 2024-10-17 07:43 | External Medical Summary | Summary of Care ---
Author Name Unknown Organization [facility] Address [address] [place] [address] Phone [phone] Care Team Providers Care Refrigerator Assembler Name Role Phone Barbie Diamond MD Primary Care Provid er Reason for Referral * Evaluate & Treat - Unlimited Visits (Within 30 days (routine)) - Authorized Specialty Diagnoses / Procedures Referred By Devorah alvarado Referred To Contact Podiatry Diagnoses Type 2 diabetes mellitus with diabetic neuropathy, with long-term current use of insulin (HCC) Diabetic peripheral neuropathy (HCC) Diabetic retinopathy associated with type 2 diabetes mellitus, macular edema presence unspecified, unspecified laterality, unspecified retinopathy severity (HCC) Cerebrovascular accident (CVA), unspecified mechanism (HCC) Balance problem Dependent on walker for ambulation Barbie Diamond MD [address] [place] [address] Phone: tel: fax: Referral ID Status Reason Start Date Expiration Date Visits Requested Visits Authorized [id number] Authorized Specialty Services Required [phone] Question Answer Referral Priority Within 30 days (routine) Where should this appointment be scheduled? [facility] Which condition are you referring this patient for? Diabetic foot care/pain Specific condition? Diabetic Foot care Medicare Patient? Yes Can Patient perform routine footcare without assistance? No Does patient have a chronic condition? Yes Has patient been seen in the past 6 months? Yes Date last seen for chronic condition: 05/17/2024 Who saw patient for chronic condition? Barbie Diamond MD Comments Routine Diabetic Foot Care * Evaluate & Treat - Unlimited Visits (Within 30 days (routine)) - Authorized Specialty Diagnoses / Procedures Referred By Devorah alvarado Referred To Contact HOME CARE / Home Care Diagnoses Type 2 diabetes mellitus with diabetic neuropathy, with long-term current use of insulin (HCC) Diabetic peripheral neuropathy (HCC) History of nonadherence to medical treatment Resistant hypertension Diabetic retinopathy associated with type 2 diabetes mellitus, macular edema presence unspecified, unspecified laterality, unspecified retinopathy severity (HCC) Cerebrovascular accident (CVA), unspecified mechanism (HCC) Balance problem Dependent on walker for ambulation Barbie Diamond MD [address] [facility] [place] [address] Phone: tel: fax: Referral ID Status Reason Start Date Expiration Date Visits Requested Visits Authorized [id number] Authorized Specialty Services Required [phone] Question Answer Referral Priority Within 30 days (routine) Where should this appointment be scheduled? [facility] Comments Documentation of [id number] Encounter Addendum Patient Name: Madison Haq I certify that this patient is under my care and that I, or a nurse practitioner or physician's medical record assistant working with me, had a [id number] encounter that meets the physician [id number] encounter requirements with this patient on: 05/17/24 The encounter with the patient was in whole, or in part, for the following medical condition, which is the primary reason for home health care (List medical condition): Medication management I certify that, based on my findings, the following services are medically necessary home health services: Nursing To provide the following care/treatments: (All hospitalists not following the patient after discharge should complete this section): medication management Primary Care Physician to follow home care plan of care after discharge: Barbie Diamond MD My clinical findings support the need for the above services because: pt is homebound, vision is severely impaired Further, I certify that my clinical findings support that this patient is homebound (i.e. Absences from home require considerable and taxing effort and are for medical reasons or jehovah's witness services or infrequently or of short duration when for other reason) because: Needs assistance with medication compliance Needs assistance with light house chores Physician Signature: Date of Signature: Physician Printed Name: Barbie Diamond MD * Evaluate & Treat - Unlimited Visits (Within 30 days (routine)) - Authorized Specialty Diagnoses / Procedures Referred By Contusha t Referred To Contact Ophthalmology Diagnoses Diabetic retinopathy associated with type 2 diabetes mellitus, macular edema presence unspecified, unspecified laterality, unspecified retinopathy severity (HCC) Barbie Diamond MD [address] [place] [id number] Phone: tel: fax: Referral ID Status Reason Start Date Expiration Date Visits Requested Visits Authorized [id number] Authorized Specialty Services Required [phone] Question Answer Referral Priority Within 30 days (routine) Where should this appointment be scheduled? [facility] Referring for: Ophthalmology Conditions Ophthalmology Conditions Other Ophthalmology (comment) Comments Needs to see retina specialist - bc surgeon will not fix cataracts until retinopathy addressed. * Evaluate & Treat - Unlimited Visits (Within 30 days (routine)) - Authorized Specialty Diagnoses / Procedures Referred By Contusha t Referred To Contact Cardiovascular Medicine / Cardiology Diagnoses Resistant hypertension Barbie Diamond MD [address] [place] [address] Phone: tel: fax: Referral ID Status Reason Start Date Expiration Date Visits Requested Visits Authorized [id number] Authorized Specialty Services Required [phone] Question Answer Referral Priority Within 30 days (routine) Where should this appointment be scheduled? [facility] To which of the following clinics are you referring your patient? [facility] Comments Discharged from [facility] 05/03 for hypertensive urgency - reportedly needs 24 h urine studies and PYP scan "if necessary" Reason for Visit * Reason Onset Date Comments Hospital Follow-Up Needs to get back on track with her diabetes due to being on different medications in the hospital Continued home care as well Does start therapy this Thursday Home health nurse and insurance will change in June Medication Administration 05/17/2024 Flu an d/or Pneumo Inj Encounter Details Date Type Department Care Team (Late st Contact Info) Description 05/17/2024 2:00 PM EST Office Visit [facility] Jean Claude Edmondson [address] [phone] Barbie Diamond MD [address] [place] [address] Diabetic peripheral neuropathy (HCC)*; Need for prophylactic vaccination and inoculation against influenza; Type 2 diabetes mellitus with diabetic neuropathy, with long-term current use of insulin (HCC); Familial hypercholesterolemia; History of nonadherence to medical treatment; Resistant hypertension; Diabetic retinopathy associated with type 2 diabetes mellitus, macular edema presence unspecified, unspecified laterality, unspecified retinopathy severity (HCC); Cerebrovascular accident (CVA), unspecified mechanism (HCC); Balance problem; Dependent on walker for ambulation; Urinary incontinence, nocturnal enuresis Allergies Active Allergy Reactions Criticality Noted Date Comments Lisinopril 05/16/2020 Other reaction(s): Cough Metformin Diarrhea 05/16/2020 documented as of this encounter (statuses as of 05/17/2024) Medications Ondansetron HCl 8 MG Oral Tablet (Zofran)Indications:Hi atal hernia,Colitis Take by mouth 1 Tablet every 8 hours as needed for Nausea. 20 Tablet 1 2021 Active Additional Information Patient not taking.Reported on 05/17/2024 Potassium Chloride Aiyana ER 20 MEQ Oral Tablet Extended ReleaseIndications:Hyp okalemia Take 1 Tablet by mouth in the morning. 90 Tablet 1 024 11:28 AM EDT 2022 Active Famotidine 20 MG Oral Tablet (Pepcid) Take 1 Tablet by mouth every night at bedtime. 90 Tablet 3 024 11:28 AM EDT 2022 Active Aspirin 81 MG Oral Tablet ChewableIndications:Ty pe 2 diabetes mellitus without complication, with long-term current use of insulin ([facility]),Type 2 diabetes mellitus with hemoglobin A1c goal of less than 8.0% ([facility]),Cerebrovascular accident (CVA), unspecified mechanism (HCC) Take 1 Tablet by mouth in the morning. with food.. 100 Tablet 5 11:28 AM EDT 2022 Active Levemir FlexPen 100 UNIT/ML Subcutaneous Solution Pen-injector (Insulin Detemir)Indications:Ty pe 2 diabetes mellitus with hemoglobin A1c goal of less than 8.0% ([facility]),Uncontrolled type 2 diabetes mellitus with hyperglycemia ([facility]),Type 2 diabetes mellitus without complication, with long-term current use of insulin ([facility]) Inject 20 Units under the skin in the morning and 20 Units before bedtime. 45 mL 3 4:21 PM EDT 2022 Active Additional Information Patient not taking.Reported on 05/17/2024 Furosemide 20 MG Oral Tablet (Lasix)Indications:Lym phedema of both lower extremities Take 1 Tablet by mouth daily as needed (lower extremity swelling). for fluid accumulation or weight gain 30 Tablet 2 11:28 AM EDT 2022 Active Additional Information Patient not taking.Reported on 05/17/2024 Escitalopram Oxalate 20 MG Oral Tablet (Lexapro)Indications:D epression, unspecified depression type take 1 tablet by mouth IN THE MORNING 90 Tablet 3 024 11:28 AM EDT 2022 Active GNP UltiCare Pen [place] 32G X 4 MM (Insulin Pen Needle)Indications:Typ e 2 diabetes mellitus without complication, with long-term current use of insulin ([facility]),Type 2 diabetes mellitus with hemoglobin A1c goal of less than 8.0% ([facility]) To be used with insulin injection, one needle per injection twice a day. 100 Each 11 1:21 PM EDT 2022 Active Additional Information Patient not taking.Reported on 05/17/2024 Levothyroxine Sodium 150 MCG Oral Tablet (Levoxyl)Indications:A cquired hypothyroidism Take 1 Tablet by mouth daily first thing in the morning. (at least 30 min prior to breakfast or other meds) 90 Tablet 8:48 AM EDT 2023 Active Fluticasone Propionate 50 MCG/ACT Nasal Suspension (Flonase)Indications:S easonal allergic rhinitis due to pollen,Type 2 diabetes mellitus with diabetic neuropathy, with long-term current use of insulin ([facility]) Administer 2 Sprays into each nostril in the morning. 16 g 5 11:14 AM EDT 2023 Active Losartan Potassium 100 MG Oral Tablet (Cozaar)Indications:HT N, goal below 150/90,Type 2 diabetes mellitus with diabetic neuropathy, with long-term current use of insulin ([facility]) Take 1 Tablet by mouth in the morning. 90 Tablet 1 11:14 AM EDT 2023 Active HumaLOG KwikPen 100 UNIT/ML Subcutaneous Solution Pen-injectorIndication s:Type 2 diabetes mellitus without complication, with long-term current use of insulin ([facility]) Inject 8 Units under the skin in the morning and 8 Units at noon and 8 Units in the evening. Inject before meals. 30 mL 3 4:21 PM EDT 2023 Active Additional Information Patient not taking.Reported on 05/17/2024 Polyethylene Glycol 3350 17 GM Oral Packet (Miralax) 17 g orally daily 30 Each 2023 Active Carvedilol 12.5 MG Oral Tablet (Coreg) Take 1 tablet by mouth twice a day with meals 60 Tablet 12:01 PM EST 2023 Active Chlorthalidone 25 MG Oral Tablet (Hygroton) Take 1 tablet by mouth daily 30 Tablet 12:01 PM EST 2023 Active NIFEdipine ER Osmotic Release 60 MG Oral Tablet Extended Release 24 Hour (Procardia XL) Take 1 tablet by mouth daily 30 Tablet 12:01 PM EST 2023 Active Spironolactone 25 MG Oral Tablet (Aldactone) Take 1 tablet by mouth daily 30 Tablet 12:01 PM EST 2023 Active Atorvastatin Calcium 80 MG Oral Tablet (Lipitor)Indications:F amilial hypercholesterolemia Take 1 Tablet by mouth in the morning. 90 Tablet 1 2023 Active Atorvastatin Calcium 40 MG Oral Tablet (Lipitor)Indications:F amilial hypercholesterolemia,C erebrovascular accident (CVA), unspecified mechanism (HCC) Take 1 Tablet by mouth in the morning. 90 Tablet 8:48 AM EDT 05/17 Discontinued Atorvastatin Calcium 40 MG Oral Tablet (Lipitor) take 2 tablets orally daily for 30 days 60 Tablet 12:00 PM EST 05/17 Discontinued Carvedilol 12.5 MG Oral Tablet (Coreg) take 1 tablet by mouth twice a day for 30 days 60 Tablet 12:00 PM EST 05/17 Discontinued( Medication List Clean Up) Chlorthalidone 25 MG Oral Tablet (Hygroton) take 1 tablet by mouth daily in the morning for 30 days 30 Tablet 12:00 PM EST 05/17 Discontinued( Medication List Clean Up) NIFEdipine ER Osmotic Release 30 MG Oral Tablet Extended Release 24 Hour (Procardia XL) take 1 tablet by mouth daily in the morning for 30 days 30 Tablet 12:00 PM EST 05/17 Discontinued( Medication/Do se Changed) Spironolactone 25 MG Oral Tablet (Aldactone) take 1 tablet by mouth daily in the morning for 30 days 30 Tablet 12:00 PM EST 05/17 Discontinued( Medication List Clean Up) Atorvastatin Calcium 80 MG Oral Tablet (Lipitor) Take 1 tablet by mouth Daily 30 Tablet 12:01 PM EST 05/17 Discontinued documented as of this encounter (statuses as of 05/17/2024) Active Problems Problem Noted Date Diagnosed Date [...] Ptosis of eyelid 12/05/2022 Fatigue 12/05/2022 Other supervisor long goods (current) drug therapy H/O iron deficiency anemia [...] as of this encounter (statuses as of 05/17/2024) Resolved Problems Problem Noted Date Diagnosed Date Resolved Date Uncontrolled type 2 diabetes mellitus with hyperglycemia 12/12/2022 12/08/2023 Changing skin lesion 12/05/2022 023 documented as of this encounter (statuses as of 05/17/2024) Immunizations Name Administration Dates Next Due COVID-19 [...] Sign Reading Time Taken Comments Blood Pressure 165/81 05/17/2024 1:57 PM EST Pulse 76 05/17/2024 1:57 PM EST Temperature 36.2 °C (97.1 °F) 05/17/2024 1:57 PM ES T Respiratory Rate 17 05/17/2024 1:57 PM EST Oxygen Saturation 96% 05/17/2024 1:57 PM EST Inhaled Oxygen Concentration - - Weight 81.9 kg (180 lb 8 oz) 05/17/2024 1:57 PM EST Height 165.1 cm (5' 5") 05/17/2024 1:57 PM EST Body Mass Index 30.04 05/17/2024 1:57 PM EST documented in this encounter Progress Notes * Barbie Diamond MD - 05/17/2024 2:26 PM EST Images from the original note were not included. ASSESSMENT / PLAN: Madison Haq is a 78 year old female with PMHx T2DM on insulin, HTN, HLD, hypothyroidism, h/o CVA, osteoporosis, depresison, hiatal hernia/PUD, colitis, hypokalemia, blindness in right eye - Here for JANNETTE - Admitted at [facility] Admission date: 04/28 Discharge date: 05/03 Presented [...] XL / cont chlorthalidone /start spironolactone 25mg Chronic conditions: T2DM levemir, humalog were stopped while inpatient - will remain off for 1 mo, recheck A1C and titrate from there Cont ASA Venous insufficiency Cont lasix daily prn - she takes it on average twice a week compression stockings Hypothyroidism - urged adherence Update labs, cont current dosing 150mcg levo HTN / h/o ASCVD BP meds per cardiology History of lymphedema on norvasc Discharged from [facility] 05/03 for hypertensive urgency - reportedly needs 24 h urine studies and PYP scan "if necessary" HLD Cont current reg H/o falls Office of aging has reportedly been called She does have someone who comes twicew a wk to clean Pt tells me she has a life alert button And tells me her daughter lives 5 min away She is interested in home health to return for PT / physical deconditioning Diabetic polyneuropathy In feet - cont glucose mgmt, PT Check-out note: Keep f/u w me in Jefry - fasting labs prior to that visit Diabetic peripheral neuropathy (HCC) (Primary) - HOME HEALTH REFERRAL OP Need for prophylactic vaccination and inoculation against influenza - INFLUENZA VAC., TRIVALENT, HD, PF, 65 AND ABOVE, 0.5 ML IM (FLUZONE HD) Type 2 diabetes mellitus with diabetic neuropathy, with long-term current use of insulin ([facility]) - HOME HEALTH REFERRAL OP Familial hypercholesterolemia - Atorvastatin Calcium 80 MG Oral Tablet (Lipitor); Take 1 Tablet by mouth in the morning. History of nonadherence to medical treatment - HOME HEALTH REFERRAL OP Resistant hypertension - CARDIOLOGY REFERRAL OP - HOME HEALTH REFERRAL OP Diabetic retinopathy associated with type 2 diabetes mellitus, macular edema presence unspecified, unspecified laterality, unspecified retinopathy severity ([facility]) - ADULT/PEDS OPHTHALMOLOGY/OPTOMETRY REFERRAL OP - HOME HEALTH REFERRAL OP Cerebrovascular accident (CVA), unspecified mechanism ([facility]) - HOME HEALTH REFERRAL OP Balance problem - HOME HEALTH REFERRAL OP Dependent on walker for ambulation - HOME HEALTH REFERRAL OP Urinary incontinence, nocturnal enuresis - DURABLE MEDICAL EQUIPMENT Check-out note: Keep f/u w me in Jun - fasting labs prior to that visit If needed, prefers contact by: Ok to leave message on phone: SUBJECTIVE: Nursing Notes: Ysabel Auguste LPN 05/17/24 1413 Signed The patient has been properly identified by confirmation of name and date of . Chief Complaint Patient presents with Hospital Follow-Up Needs to get back on track with her diabetes due to being on different medications in the hospital Continued home care as well Does start therapy this Thursday Home health nurse and insurance will change in June HPI: Madison Haq is a 78 year old female. Here for JANNETTE. Daughter helps provide history. Needs home care [facility]oceline lindsay starting jun 08 Sleep is good Appetite is good Mentation back to baseline Updated discharge medication list from hospital: Reviewed sources 1- Patient Active Problem List Diagnosis Age-related osteoporosis without current pathological fracture Cerebrovascular accident (CVA) ([facility]) Colitis, acute Depression Familial hypercholesterolemia Hiatal hernia Hyperlipidemia HTN, goal below 150/90 Hypochloremia Hypokalemia Hypomagnesemia Hyponatremia Hypothyroidism Juvenile pernicious anemia Lymphedema Multinodular goiter (nontoxic) Palpitations Stricture of artery ([facility]) Ambulatory dysfunction Balance problem PUD (peptic ulcer disease) History of bleeding peptic ulcer 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 Type 2 diabetes mellitus without complication, with long-term current use of insulin ([facility]) Colitis H/O iron deficiency anemia History of nonadherence to medical treatment Memory changes Ptosis of eyelid Fatigue Other mcfp (current) drug therapy Noncompliance with medication regimen Acute UTI Lymphedema of both lower extremities Type 2 diabetes mellitus with diabetic neuropathy, with long-term current use of insulin (HCC) Hx of nonmelanoma skin cancer Diabetic peripheral neuropathy (HCC) H/O falling Physical deconditioning Resistant hypertension Current Outpatient Medications Medication Sig Dispense Refill Potassium Chloride Aiyana ER 20 MEQ Oral Tablet Extended Release Take 1 Tablet by mouth in the morning. 90 Tablet 1 Famotidine 20 MG Oral Tablet (Pepcid) Take 1 Tablet by mouth every night at bedtime. 90 Tablet 3 Aspirin 81 MG Oral Tablet Chewable Take 1 Tablet by mouth in the morning. with food.. 100 Tablet 5 Escitalopram Oxalate 20 MG Oral Tablet (Lexapro) take 1 tablet by mouth IN THE MORNING 90 Tablet 3 Levothyroxine Sodium 150 MCG Oral Tablet (Levoxyl) Take 1 Tablet by mouth daily first thing in the morning. (at least 30 min prior to breakfast or other meds) 90 Tablet 0 Fluticasone Propionate 50 MCG/ACT Nasal Suspension (Flonase) Administer 2 Sprays into each nostril in the morning. 16 g 5 Losartan Potassium 100 MG Oral Tablet (Cozaar) Take 1 Tablet by mouth in the morning. 90 Tablet 1 Chlorthalidone 25 MG Oral Tablet (Hygroton) take 1 tablet by mouth daily in the morning for 30 days30 Tablet 0 Polyethylene Glycol 3350 17 GM Oral Packet (Miralax) 17 g orally daily 30 Each 0 Carvedilol 12.5 MG Oral Tablet (Coreg) Take 1 tablet by mouth twice a day with meals 60 Tablet 0 NIFEdipine ER Osmotic Release 60 MG Oral Tablet Extended Release 24 Hour (Procardia XL) Take 1 tablet by mouth daily 30 Tablet 0 Spironolactone 25 MG Oral Tablet (Aldactone) Take 1 tablet by mouth daily 30 Tablet 0 Atorvastatin Calcium 80 MG Oral Tablet (Lipitor) Take 1 Tablet by mouth in the morning. 90 Tablet 1 Ondansetron HCl 8 MG Oral Tablet (Zofran) Take by mouth 1 Tablet every 8 hours as needed for Nausea. (Patient not taking: Reported on 05/17/2024) 20 Tablet 1 Levemir FlexPen 100 UNIT/ML Subcutaneous Solution Pen-injector (Insulin Detemir) Inject 20 Units under the skin in the morning and 20 Units before bedtime. (Patient not taking: Reported on 05/17/2024) 45 mL 3 Furosemide 20 MG Oral Tablet (Lasix) Take 1 Tablet by mouth daily as needed (lower extremity swelling). for fluid accumulation or weight gain (Patient not taking: Reported on 05/17/2024) 30 Tablet 2 GNP UltiCare Pen [place] 32G X 4 MM (Insulin Pen Needle) To be used with insulin injection, one needle per injection twice a day. (Patient not taking: Reported on 05/17/2024) 100 Each 11 HumaLOG KwikPen 100 UNIT/ML Subcutaneous Solution Pen-injector Inject 8 Units under the skin in themorning and 8 Units at noon and 8 Units in the evening. Inject before meals. (Patient not taking: Reported on 05/17/2024) 30 mL 3 Chlorthalidone 25 MG Oral Tablet (Hygroton) Take 1 tablet by mouth daily 30 Tablet 0 No current facility-administered medications for this visit. OBJECTIVE: BP 165/81 | Pulse 76 | Temp 97.1 °F (36.2 °C) | Resp 17 | Ht 5' 5" (1.651 m) | Wt 180 lb 8 oz (81.9 kg) | SpO2 96% | BMI 30.04 kg/m² | BSA 1.94 m² Vitals reviewed and is afebrile / and not tachycardic General: No acute distress. Neuro: Alert Pleasant & interactive. Respiratory: Good inspiratory effort, no labored breathing. CTAB CV: RRR no M R G MSK: swelling in ankles +1 b/l HEENT: Conjunctivae appear clear. No swelling noted [...] spent in the performance of separately billed services or time spent by another provider/QHP. Barbie Diamond MD [address] [phone] There are no Patient Instructions on file for this visit. * Ysabel Auguste LPN - 05/17/2024 2:13 PM EST PRE - ADMINISTRATION DOCUMENTATION Are you experiencing any cold symptoms or fever? No Have you had Guillain-[place] Syndrome (an illness that causes paralysis) within the last 6 weeks? No Have you had the flu shot in the past? YES Have you ever had a reaction to the flu shot? Lizabeth Auguste LPN, 05/17/2024 2:13 PM documented in this encounter Nursing Notes * Ysabel Auguste LPN - 05/17/2024 2:11 PM EST The patient has been properly identified by confirmation of name and date of . Chief Complaint Patient presents with Hospital Follow-Up Needs to get back on track with her diabetes due to being on different medications in the hospital Continued home care as well Does start therapy this Thursday Home health nurse and insurance will change in June documented in this encounter Plan of Treatment Upcoming Encounters Date Type Department Care Team (Late st Contact Info) Description 05/31/2024 11:00 AM EST Office Visit Podiatry [address] [place] [id number] Saul Gonzalez, [address] [place] [address] 06/10/2024 1:20 PM EST Office Visit [facility] Francie Phan [address] [phone] Barbie Diamond MD [address] [place] [address] 09/20/2024 10:00 AM EDT Office Visit Cardiology, [facility] [address] [place] [address] Gurpreet Shipley DO [address] [facility] [place] [address] Scheduled Referrals Name Type Priority Associated Diagnoses Orde r Schedule CARDIOLOGY REFERRAL OP Referral Within 30 days (routine) Resistant hypertension Ordered: 05/17/2024 ADULT/PEDS OPHTHALMOLOGY/OPTOME TRY REFERRAL OP Referral Within 30 days (routine) Diabetic retinopathy associated with type 2 diabetes mellitus, macular edema presence unspecified, unspecified laterality, unspecified retinopathy severity (HCC) Ordered: 05/17/2024 HOME HEALTH REFERRAL OP Referral Within 30 days (routine) Type 2 diabetes mellitus with diabetic neuropathy, with long-term current use of insulin (HCC) Diabetic peripheral neuropathy (HCC) History of nonadherence to medical treatment Resistant hypertension Diabetic retinopathy associated with type 2 diabetes mellitus, macular edema presence unspecified, unspecified laterality, unspecified retinopathy severity (HCC) Cerebrovascular accident (CVA), unspecified mechanism (HCC) Balance problem Dependent on walker for ambulation Ordered: 05/17/2024 PODIATRY (DIABETES-EXTENDED) REFERRAL OP Referral Within 30 days (routine) Type 2 diabetes mellitus with diabetic neuropathy, with long-term current use of insulin (HCC) Diabetic peripheral neuropathy (HCC) Diabetic retinopathy associated with type 2 diabetes mellitus, macular edema presence unspecified, unspecified laterality, unspecified retinopathy severity (HCC) Cerebrovascular accident (CVA), unspecified mechanism (HCC) Balance problem Dependent on walker for ambulation Ordered: 05/17/2024 Health Maintenance Due Date Last Done Comments [...] 04/13/2021, Additional history exists HbA1c 06/09/2024 12/08/2023, 11/0 11/2022, 12/10/2022, Additional history exists Diabetic Foot Exam 12/07/2024 12/08/2023, 12/12/2022 GFR 05/11/2025 05/11/2024, 11/2 12/2023, 12/10/2022, Additional history exists DTap/Tdap Vaccines (2 - Td or Tdap) 10/12/2025 10/13/2015, 06/08/2005 VITAMIN D LEVEL ONCE IN A LIFETIME-USE SMARTSET# [id number] Completed 12/10/2022 Pneumococcal Vaccine: 65+ Years Completed [...] as of this encounter Visit Diagnoses Diagnosis Diabetic peripheral neuropathy (HCC)- Primary Type II or unspecified type diabetes mellitus with neurological manifestations, not stated as uncontrolled Need for prophylactic vaccination and inoculation against influenza Type 2 diabetes mellitus with diabetic neuropathy, 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 hypercholesterolemia Pure hypercholesterolemia History of nonadherence to medical treatment Personal history of noncompliance with medical treatment, presenting hazards to health Resistant hypertension Diabetic retinopathy associated with type 2 diabetes mellitus, macular edema presence unspecified, unspecified laterality, unspecified retinopathy severity (HCC) Cerebrovascular accident (CVA), unspecified mechanism (HCC) Balance problem Other symptoms involving nervous and musculoskeletal systems Dependent on walker for ambulation Urinary incontinence, nocturnal enuresis Nocturnal enuresis documented in this encounter Care Teams 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
--- OUTSIDE RECORDS SUMMARY | 2024-10-17 07:43 | External Medical Summary ---
Author Name Unknown Address Unknown Organization [id number]:[facility] [place] [address] Laboratory Report Ordering Provider Test Date Status STORM WILLIS 05/04/2024 05:49:57 Final Observation Date Value Abnormality Reference (Units ) Status BUN 05/04/2024 05:49:57 29 Above high normal 6-20 (mg/dL) Final Creatinine 05/04/2024 05:49:57 1.0 0.5-1.0 (mg/dL) Final Glomerular filtration rate/1.73 sq M.predicted [Volume Rate/Area] in Serum, Plasma or Blood by Creatinine-based formula (CKD-EPI) 05/04/2024 05:49:57 60 >=60 (mL/min) Final eGFR is calculated based on the CKD-EPI 2020 equation. Sodium 05/04/2024 05:49:57 135 135-146 (m mol/L) Final Potassium 05/04/2024 05:49:57 4.3 3.5-5.1 (m mol/L) Final Cl 05/04/2024 05:49:57 102 98-107 (mm ol/L) Final CO2 05/04/2024 05:49:57 21 Below low normal 22- 32 (mmol/L) Final Anion gap 05/04/2024 05:49:57 12 7-15 (mmol /L) Final Glucose 05/04/2024 05:49:57 118 70-120 (mg /dL) Final Calcium 05/04/2024 05:49:57 9.4 8.4-10.2 ( mg/dL) Final Performing Location [facility] [place] [place] [address]
[2024-10-17] MEDS: LABETALOL HCL IV 5 MG/ML 20ML IV STA ×2 (08:39→11:56)
[2024-10-17 08:43] LABS: Albumin Globulin Ratio 1.3 (0.9-2); Albumin Level 4.2 gm/dl (3.4-5.0); BUN Creatinine Ratio 38.1 (10-20); Bilirubin,Total 0.8 mg/dl (0.2-1.0); Calcium 9.9 mg/dl (8.6-10.3); Creatinine Clr Calc Pharmacy 54.7 ml/min; Globulin 3.3 gm/dl (2.5-4.0); Total Protein 7.5 gm/dl (6.0-8.3)
[2024-10-17 08:49] LABS: Basophils # (auto) 0.01 K/uL (0.00-0.20); Basophils % (auto) 0.1 %; Hematocrit (blood only) 42.6 % (37.0-47.0); Hemoglobin 14.9 g/dl (12.0-16.0); Immature Granulocytes # (auto) 0.04 K/uL (0.01-0.20); Immature Granulocytes % (auto) 0.5 %; Lymphocytes # (auto) 0.87 K/uL (1.20-3.40); Mean Corpuscular Hemoglobin 27.6 pg (25.0-34.0); Mean Platelet Volume 10.9 fL (9.4-12.4); Monocytes # (auto) 0.29 K/uL (0.11-0.59); Monocytes % (auto) 3.3 %; Neutrophils # (auto) 7.48 K/uL (1.40-6.50); Neutrophils % (auto) 86.1 %; Platelet Count 233 K/uL (130-400); RDW Coefficient of Variation 13.4 % (11.5-14.5); RDW Standard Deviation 37.9 fL (36.4-46.3); Red Blood Count 5.39 M/uL (4.20-5.40); White Blood Count 8.69 K/ul (4.8-10.8)
[2024-10-17] MEDS: ONDANSETRON INJ 2 MG/ML 2 ML VIAL ONE (08:51)
[2024-10-17] MEDS: SODIUM CHLORIDE 0.9% 1,000 ML IV ONE (08:51)
[2024-10-17] MEDS: ONDANSETRON INJ 2 MG/ML 2 ML VIAL IV STA (08:51)
[2024-10-17 08:54] LABS: INR 1.1 (0.9-1.1); Partial Thromboplastin Time 26 Seconds (21-31); Prothrombin Time 11.6 Seconds (9.0-12.0)
[2024-10-17 08:56] LABS: Troponin I High Sensitivity 10.3 pg/ml (0-14)
[2024-10-17] MEDS: OPTIRAY 320 100ml IV ONE (10:00)
--- NOTE | 2024-10-17 10:18 | CT Scan Report ---
ABDOMEN AND PELVIS CT WITH IV CONTRAST CT DOSE: 1377.01 mGy.cm HISTORY: Acute generalized abdominal pain with nausea, vomiting and possible obstruction n,v, SBO TECHNIQUE: Multiaxial CT images of the abdomen and pelvis were performed following the IV administrat ion of 93 cc of Optiray, A dose lowering technique was utilized adhering to the principles of ALARA. COMPARISON STUDY: None. FINDINGS: Trace pericardial effusion. Coronary artery calcifications. Mild dependent subsegmental bas ilar atelectasis. There is no pneumatosis or pneumoperitoneum identified. There is a large hiatal her genie with majority of the stomach present within the thorax. Fluid-filled mildly distended stomach. Un remarkable spleen, moderately atrophic pancreas, gallbladder and adrenal glands. The liver is within normal limits. There is patency of the hepatic and portal veins. Multifocal cortical scarring with parenchymal thinning of the kidneys. No hydronephrosis. Mild nonspe cific urinary bladder wall thickening with perivesicular stranding. There are a few small foci of air noted within the bladder lumen. Pelvic floor relaxation. Fibroid uterus with 2 cm fundal calcified f ibroid. Severe atherosclerosis of the aorta without aneurysm. There is no lymphadenopathy. Colonic diverticulosis without acute diverticulitis. No bowel obstruction or bowel wall thickening. N oninflamed appendix. No acute fracture. Grade 1 anterolisthesis is noted at L4 on L5 and L5 on S1 sec ondary to chronic severe facet disease. Degenerative changes of the spine, pelvis and hips. IMPRESSION: 1. No bowel obstruction or bowel wall thickening. 2. Large hiatal hernia with fluid-filled mildly distended stomach. This is unlikely to represent praneeth darian outlet obstruction, however considering patient history of acute nausea and vomiting, close clini jordyn follow-up recommended. 3. Mild urinary bladder wall thickening. Correlate with urinalysis to exclude cystitis. 4. Colonic diverticulosis without acute diverticulitis. 5. Fibroid uterus. ACT 112: Negative or not required by law. The above report was generated using voice recognition software. It may contain grammatical, syntax o r spelling errors. Electronically signed by: Lan Mantilla M.D. 10/17/2024 10:17 AM
--- NOTE | 2024-10-17 10:52 | History & Physical Report ---
Date of Service October 17, 2024 Assessment & Plan (1) Acute gastroenteritis: (2) Hypokalemia: (3) Hypertensive urgency: (4) Diabetes mellitus, type II, insulin dependent: (5) Hypothyroid: (6) Noncompliance with medications: Plan This is a 79 y/o female with DM2 with associated diabetic neuropathy, prior CVA, HTN, hyperlipidemia, hypothyroidism, venous insufficiency, lymphedema, history of medication noncompliance and other history as outlined below who presents to the ED today with N/V/D x 3 days. She also notes poor oral intake and not taking any of her usual medications or insulin for at least 2-3 days. Work-up in the ED revealed hypokalemia with potassium of 3.0, hyperglycemia with glucose of 354 but no evidence of MIN or leukocytosis. She received labetalol for initial BP of 270/127 with improvement of systolic to the 190s to 200s. Pt referred for admission for further management of BP and glucose. #Hypertensive urgency - Admit to PCU - Restart home losartan 100 mg po now then daily - Was on nifedipine in the past, will retry amlodipine 5 mg now then daily - On review of past BPs, it appears pt tends to run high although unclear if this is due to medication noncompliance or difficult to control BP #Acute gastroenteritis #N/V/D #Dehydration - Stool PCR - PRN anti-emetics - Liquid diet then advance as tolerated - Will give additional 1L of NSS at 100 cc/hr then reevaluate - Monitor Is and Os #Hypokalemia - Check mag - Replete IV and po KCl - Repeat labs in the AM #Dysuria - Check UA - will await results before deciding on possible antibiotics #Insulin-requiring DM2 - Decrease basal insulin to 10 units BID, insulin sliding scale - BSG ACHS - A1c in the AM #Hypothyroidism - TSH in the AM - Continue levothyroxine PT/OT evaluations - may need to consider rehab, home health at d/c. Placement has apparently been discussed in the past but pt was unwilling to consider at that time. Pt seen and reviewed with collaborating physician, Dr. Mehta. Plan of care discussed and as outlined above. Code status: Full code DVT prophylaxis: Franklin Quintero PA-C History of Present Illness Chief Complaint: N/V/D Primary Care Provider: Barbie Diamond MD This is a 79 y/o female with DM2 with associated diabetic neuropathy, prior CVA, HTN, hyperlipidemia, hypothyroidism, venous insufficiency, lymphedema, history of medication noncompliance and other history as outlined below who presents to the ED today with N/V/D. Pt was found this morning by her daughter - in bed, more lethargic, incontinent of urine and stool per EMS report. Pt reports that she started about three days ago feeling very nauseated with associated vomiting and watery diarrhea. Denies hematemesis or bloody diarrhea. She reports at least two episodes of diarrhea yesterday but has trouble recalling the details of her symptoms. She denies fevers, chills, change in chronic cough, chest pain, dyspnea, change in urination, hematuria. She does note dysuria and is concerned that she may have a UTI. She also reports nasal congestion but has steroid nasal spray that she uses for this PRN. She has chronic LE lymphedema, which she reports is no worse than usual. Due to her symptoms, she has not taken her usual medications or her insulin for at least 2-3 days. She lives alone, uses a walker for ambulation. She denies falls in the last month. She has not recently seen her PCP and her records indicated previous issues with medication noncompliance. She reports that her BP runs high at baseline. She had difficulty recalling her medications but thinks that currently she only takes losartan 100 mg daily for BP although has not taken this in a few days. Allergies Allergy/AdvReac Type Severity Reaction Status Date / Time semaglutide AdvReac Mild Diarrhea Unverified 04/28/24 17:53 metformin AdvReac Diarrhea Verified 12/05/22 20:52 Home Medications Medication Instructions Recorded Confirmed Type aspirin 81 mg tablet,delayed 81 mg PO QAM 04/28/24 10/17/24 History release escitalopram oxalate 20 mg tablet 20 mg PO DAILY 04/28/24 10/17/24 History famotidine 20 mg tablet 20 mg PO DAILY PRN reflux 04/28/24 10/17/24 History fluticasone propionate 50 2 spray intranasal DAILY PRN 04/28/24 10/17/24 History mcg/actuation nasal Allergy Symptoms spray,suspension levothyroxine 150 mcg tablet 150 mcg PO DAILY 04/28/24 10/17/24 History losartan 100 mg tablet 100 mg PO DAILY 04/28/24 10/17/24 History potassium chloride 20 mEq 20 meq PO QAM 04/28/24 10/17/24 History tablet,extended release(part/cryst) atorvastatin 80 mg tablet 80 mg PO DAILY 10/17/24 10/17/24 History furosemide 20 mg tablet 20 mg PO DAILY PRN Edema 10/17/24 10/17/24 History insulin detemir U-100 100 unit/mL 15 unit subcut BID 10/17/24 10/17/24 History (3 mL) subcutaneous pen insulin lispro 100 unit/mL 8 unit subcut AC 10/17/24 10/17/24 History subcutaneous pen (Humalog KwikPen (U-100) Insulin) Past Med/Surg History Problem List (Updated 10/17/24 @ 15:10 by Hawa Raza MD) Adult failure to thrive (Acute) Hernia, hiatal (Acute) Hypertensive urgency (Acute) Noncompliance with medications Hypokalemia Hypertensive urgency Acute gastroenteritis Hypothyroid Left ventricular hypertrophy Diabetes mellitus, type II, insulin dependent HTN (hypertension) Hypothyroidism Stroke-like symptoms Weakness (Acute) Medical History Hypokalemia Family History Other Breast cancer Social History Smoking Status: Unknown if ever smoked Second Hand Exposure: No; Do You Dip or Chew Tobacco: No; Hx Alcohol Use: No Hx Substance Use: No Preferred Language: Italian Communication Ability: Effective State Wildlife Officer Required: No Beliefs That Will Affect Care: None Current Living Situation: Alone Current Living Situation Comment: Caregiver that comes 2x per week to help with tasks, daughter checks on her Feels Safe at Home: Yes Safety Concerns: Feels Safe At This Time Assistive Devices: Denture - Upper, Denture - Lower and Walker Review of Systems Review of Systems: All systems reviewed & are unremarkable except as noted in Subjective Physical Exam Physical Exam: Please see physician note for details of the physical exam. Results & Data Results & Data Vital Signs (Past 12 Hours) Vital Signs Temp Pulse Resp BP Pulse Ox O2 Del Method 10/17/24 10:09 215/103 H 10/17/24 10:09 70 17 94 10/17/24 10:00 77 10/17/24 09:42 67 21 96 10/17/24 09:30 209/117 H 10/17/24 09:24 200/90 H 10/17/24 09:24 63 21 94 10/17/24 09:00 60 216/103 H 10/17/24 09:00 60 23 97 10/17/24 09:00 216/103 H 10/17/24 08:46 191/91 H 10/17/24 08:45 54 L 14 94 10/17/24 08:39 56 L 270/127 H 10/17/24 08:30 270/127 H 10/17/24 08:30 270/127 H 10/17/24 08:28 257/132 H 10/17/24 08:06 55 L 14 94 Room Air 10/17/24 08:00 55 L 16 94 Room Air 10/17/24 07:58 36.3 C L 55 L 20 264/105 H 94 Room Air 10/17/24 07:56 59 L 10/17/24 07:51 59 L 20 10/17/24 07:50 259/173 H Laboratory Results Lab Results 10/17/24 10/17/24 10/17/24 Range/Units 07:49 07:55 08:17 WBC 8.69 (4.8-10.8) K/ul RBC 5.39 (4.20-5.40) M/uL Hgb 14.9 (12.0-16.0) g/dl Hct 42.6 (37.0-47.0) % MCV 79.0 L (80.0-100.0) fL MCH 27.6 (25.0-34.0) pg MCHC 35.0 (32.0-36.0) g/dL RDW Std Deviation 37.9 (36.4-46.3) fL RDW Coeff of Richelle 13.4 (11.5-14.5) % Plt Count 233 (130-400) K/uL MPV 10.9 (9.4-12.4) fL Immature Gran % (Auto) 0.5 % Neut % (Auto) 86.1 % Lymph % (Auto) 10.0 % Pierce % (Auto) 3.3 % Eos % (Auto) 0.0 % Baso % (Auto) 0.1 % Neut # (Auto) 7.48 H (1.40-6.50) K/uL Lymph # (Auto) 0.87 L (1.20-3.40) K/uL Pierce # (Auto) 0.29 (0.11-0.59) K/uL Eos # (Auto) 0.00 (0.00-0.50) K/uL Baso # (Auto) 0.01 (0.00-0.20) K/uL Immature Gran # (Auto) 0.04 (0.01-0.20) K/uL PT 11.6 (9.0-12.0) Seconds INR 1.1 (0.9-1.1) APTT 26 (21-31) Seconds PTT Ratio 1.0 Sodium 140 (136-145) mmol/L Potassium 3.0 L (3.5-5.1) mmol/L Chloride 103 (98-107) mmol/L Carbon Dioxide 29 (21-32) mmol/L Anion Gap 8 (3-11) BUN 32 H (6-23) mg/dl Creatinine 0.84 (0.6-1.2) mg/dl Est Cr Clr Drug Dosing 54.7 ml/min eGFR 70.20 BUN/Creatinine Ratio 38.1 H (10-20) Glucose 354 H* (70-99(Fasting)) mg/dl POC Glucose 350 H* (70-99) mg/dl Lactate 1.6 (0.4-2.0) mmol/L Calcium 9.9 (8.6-10.3) mg/dl Total Bilirubin 0.8 (0.2-1.0) mg/dl AST 12 L (13-39) U/L ALT 10 (7-52) U/L Alkaline Phosphatase 119 H (34-104) U/L Total Creatine Kinase 42 (26-192) U/L Troponin I High Sens 10.3 (0-14) pg/ml Total Protein 7.5 (6.0-8.3) gm/dl Albumin 4.2 (3.4-5.0) gm/dl Globulin 3.3 (2.5-4.0) gm/dl Albumin/Globulin Ratio 1.3 (0.9-2) Diagnostic Findings Abdomen/Pelvis CT 10/17/24 09:[address] WITH IV CONTRAST CT DOSE: 1377.01 mGy.cm HISTORY: Acute generalized abdominal pain with nausea, vomiting and possible obstruction n,v, SBO TECHNIQUE: Multiaxial CT images of the abdomen and pelvis were performed following the IV administration of 93 cc of Optiray, A dose lowering technique was utilized adhering to the principles of ALARA. COMPARISON STUDY: None. FINDINGS: Trace pericardial effusion. Coronary artery calcifications. Mild dependent subsegmental basilar atelectasis. There is no pneumatosis or pneumoperitoneum identified. There is a large hiatal hernia with majority of the stomach present within the thorax. Fluid-filled mildly distended stomach. Unremarkable spleen, moderately atrophic pancreas, gallbladder and adrenal glands. The liver is within normal limits. There is patency of the hepatic and portal veins. Multifocal cortical scarring with parenchymal thinning of the kidneys. No hydronephrosis. Mild nonspecific urinary bladder wall thickening with perivesicular stranding. There are a few small foci of air noted within the bladder lumen. Pelvic floor relaxation. Fibroid uterus with 2 cm fundal calcified fibroid. Severe atherosclerosis of the aorta without aneurysm. There is no lymphadenopathy. Colonic diverticulosis without acute diverticulitis. No bowel obstruction or bowel wall thickening. Noninflamed appendix. No acute fracture. Grade 1 anterolisthesis is noted at L4 on L5 and L5 on S1 secondary to chronic severe facet disease. Degenerative changes of the spine, pelvis and hips. IMPRESSION: 1. No bowel obstruction or bowel wall thickening. 2. Large hiatal hernia with fluid-filled mildly distended stomach. This is unlikely to represent gastric outlet obstruction, however considering patient history of acute nausea and vomiting, close clinical follow-up recommended. 3. Mild urinary bladder wall thickening. Correlate with urinalysis to exclude cystitis. 4. Colonic diverticulosis without acute diverticulitis. 5. Fibroid uterus. ACT 112: Negative or not required by law. The above report was generated using voice recognition software. It may contain grammatical, syntax or spelling errors. Electronically signed by: Lan Mantilla M.D. 10/17/2024 10:17 AM Medications Administered Discontinued Medications Sodium Chloride (Nss) 1,000 mls @ 999 mls/hr IV .Q1H1M ONE Stop: 10/17/24 09:48 Last Infusion: 10/17/24 10:11 Dose: Infused Documented By: Admin: 10/17/24 08:51 Dose: 999 mls/hr Documented By: JERONIMO Ioversol (Optiray 320 100ml) 93 ml IV ONCE ONE Stop: 10/17/24 10:00 Last Admin: 10/17/24 10:00 Dose: 93 ml Documented By: BRITT Labetalol HCl (Labetalol Hcl Iv 5 Mg/Ml 20ml) 10 mg IV NOW STA Stop: 10/17/24 08:35 Last Admin: 10/17/24 08:39 Dose: 10 mg Documented By: JERONIMO Ondansetron HCl (Ondansetron Inj 2 Mg/Ml 2 Ml Vial) Confirm Administered Dose 4 mg .ROUTE .STK-MED ONE Stop: 10/17/24 08:30 Last Admin: 10/17/24 08:51 Dose: Not Given Documented By: JERONIMO Ondansetron HCl (Ondansetron Inj 2 Mg/Ml 2 Ml Vial) 4 mg IV NOW STA Stop: 10/17/24 08:48 Last Admin: 10/17/24 08:51 Dose: 4 mg Documented By: JERONIMO Supervising Physician Co-Signing Physician Notes Presents with nausea, vomiting and non bloody diarrhea for the past 3 days Denied abd pain, fever, chills Reports dysuria. Has not taken her meds for the past few days On exam, General: Ill appearing elderly woman Eyes: PERRL, conjunctivae normal, not pale, anicteric sclerae, EOM intact bilaterally ENMT: External ear and nose normal, +dry oral mucosa Respiratory: Normal respiratory effort, no respiratory distress, lungs clear to auscultation, no crackles and no wheezes Cardiovascular: RRR S1 S2 Gastrointestinal (Abdomen): Abdomen is not distended, soft, non-tender to palpation, no guarding, normal bowel sounds Musculoskeletal: +pedal edema (reports this is chronic) Neurologic: Alert and oriented x 3, No focal weakness, sensation grossly intact Psychiatric: Euthymic affect, no depressed affect Labs notable for K 3 CT A/P did not show bowel obstruction. Noted large hiatal hernia, mild urinary bladder wall thickening Hypertensive urgency Acute gastroenteritis Resume home losartan 100mg daily Reports BP runs high at home even on meds Start amlodipine 5mg daily May need Cards input if BP does not improve with changes Patient appear dehydrated on exam. Will continue IVF for now Full liquid diet. Antiemetics Get stool pcr/c diff Monitor po intake/output Possible UTI based on history and CT, get UA. If suggestive of UTI, start ceftriaxone Reports she takes Levemir 15U BID and then Humalog 8U TID AC. Reduce long acting insulin to 10U BID until po intake improves. Insulin sliding scale Monitor Replete hypokalemia and monitor PT/OT Agree with plans as detailed by Margaret Quintero PA-C I spent a total of 35 minutes coordinating, documenting and providing care for this patient excluding time spent in performance of separately billed services (5) Hypothyroid Hypothyroidism type: acquired Qualified Code(s): E03.9 - Hypothyroidism, unspecified
[2024-10-17 11:32] LABS: Magnesium 1.8 mg/dl (1.7-2.4)
--- NOTE | 2024-10-17 11:44 | Emergency Department Note ---
Impression & Plan Hypertensive urgency, Hernia, hiatal, Adult failure to thrive ED Provider Note NAME: CORINNE ALEXIS AGE: 79 SEX: F : 1945 ARRIVES VIA: Ambulance INFORMANT: Patient, ED PROVIDER(S): Hawa Raza MD CHIEF COMPLAINT: Nausea, vomiting HPI: This is a 79-year-old female present for nausea and vomiting. Patient has not felt well for the past 3 days. She notes nausea vomiting with diarrhea. Patient unable to take her Po medications at home. She does note she feels very ill and weak at this time. She has not had any falls. She has decreased appetite. She reports no chest pain, shortness of breath. She reports no significant headache. ROS: See above HPI for pertinent positives & negatives. A total of 10 systems reviewed and were otherwise negative. PAST MEDICAL HISTORY: See Below PAST SURGICAL HISTORY: See Below FAMILY HISTORY: See Below SOCIAL HISTORY: See Below HOME MEDICATIONS: See Below ALLERGIES: See Below VITALS: See Below PHYSICAL EXAMINATION: General: Mildly ill-appearing Head: Normocephalic and atraumatic Eyes: Normal inspection, extraocular muscles intact Ear, nose, throat: Normal external exam, dry mucous membranes Neck: Normal range of motion Respiratory: lungs clear to auscultation bilaterally Cardiovascular: Regular rate/rhythm, no murmur GI: soft, nontender, no guarding or rebound Extremities: nontender, moves all extremities Neuro: The patient awake and alert, appropriately conversive, no focal deficits, symmetric faces Skin: Warm, dry, and intact MEDICAL DECISION MAKING: This is a an 79-year-old female present for nausea, vomiting and diarrhea. Patient has not felt well for 3 days and not taking medication. Her blood pressure on arrival is 259/173. On recheck this is persistent in the 260s and 270s over 120s. Patient no current neurologic deficits. Will give labetalol for this extremely high blood pressure. Will also require fluid as she appears volume down. -Bloodwork is reassuring showing no leukocytosis, no anemia. Slight hypokalemia is noted. Otherwise glucose is elevated at 350 without signs of DKA. -CT imaging reveals large hiatal hernia. Mild urinary bladder wall thickening is also noted. -With patient's significantly elevated blood pressure concern for hypertensive emergency, inability to take care of herself, will admit the patient at this time -Patient blood pressure continue to uptrend will give second dose of labetalol -Care discussed with hospitalist service for admission under Dr. Swift Differential diagnosis: SBO, gastroenteritis, hypertensive emergency Independent History obtained from: Daughter Diagnostics interpreted by me: ECG: ECG independently interpreted by me with sinus bradycardia, rate of 56, normal axis, normal AL, normal QRS, normal QTc, no ST segment elevations consistent with STEMI criteria Cardiac Monitoring: An order was placed for continuous cardiac monitoring. The monitor shows a rate of 66 with sinus rhythm. Past Med/Surg History Problem List (Updated 10/17/24 @ 15:10 by Hawa Raza MD) Adult failure to thrive (Acute) Hernia, hiatal (Acute) Hypertensive urgency (Acute) Noncompliance with medications Hypokalemia Hypertensive urgency Acute gastroenteritis Hypothyroid Left ventricular hypertrophy Diabetes mellitus, type II, insulin dependent HTN (hypertension) Hypothyroidism Stroke-like symptoms Weakness (Acute) Medical History Hypokalemia Family History Other Breast cancer Social History Smoking Status: Unknown if ever smoked Second Hand Exposure: No; Do You Dip or Chew Tobacco: No; Hx Alcohol Use: No Hx Substance Use: No Preferred Language: Maltese Communication Ability: Effective Pulling Machine Operator Required: No Beliefs That Will Affect Care: None Current Living Situation: Alone Current Living Situation Comment: Caregiver that comes 2x per week to help with tasks, daughter checks on her Feels Safe at Home: Yes Safety Concerns: Feels Safe At This Time Assistive Devices: Denture - Upper, Denture - Lower and Walker Allergies Allergies Allergy/AdvReac Type Severity Reaction Status Date / Time semaglutide AdvReac Mild Diarrhea Unverified 04/28/24 17:53 metformin AdvReac Diarrhea Verified 12/05/22 20:52 Home Meds Home Medications Medication Instructions Recorded Confirmed aspirin 81 mg tablet,delayed 81 mg PO QAM 04/28/24 10/17/24 release escitalopram oxalate 20 mg tablet 20 mg PO DAILY 04/28/24 10/17/24 famotidine 20 mg tablet 20 mg PO DAILY PRN reflux 04/28/24 10/17/24 fluticasone propionate 50 2 spray intranasal DAILY PRN 04/28/24 10/17/24 mcg/actuation nasal Allergy Symptoms spray,suspension levothyroxine 150 mcg tablet 150 mcg PO DAILY 04/28/24 10/17/24 losartan 100 mg tablet 100 mg PO DAILY 04/28/24 10/17/24 potassium chloride 20 mEq 20 meq PO QAM 04/28/24 10/17/24 tablet,extended release(part/cryst) atorvastatin 80 mg tablet 80 mg PO DAILY 10/17/24 10/17/24 furosemide 20 mg tablet 20 mg PO DAILY PRN Edema 10/17/24 10/17/24 insulin detemir U-100 100 unit/mL 15 unit subcut BID 10/17/24 10/17/24 (3 mL) subcutaneous pen insulin lispro 100 unit/mL 8 unit subcut AC 10/17/24 10/17/24 subcutaneous pen (Humalog KwikPen (U-100) Insulin) Results & Data (ED) Vital Signs Vital Signs - 24 hr 10/17/24 07:50 10/17/24 07:51 10/17/24 07:56 Temperature Temperature Source Pulse Rate 59 L 59 L Pulse Rate [Apical] Pulse Rate from SpO2 Sensor Respiratory Rate 20 Respiratory Effort / Characteristics Respiratory Depth Respiratory Pattern Blood Pressure 259/173 H Blood Pressure [Right Arm] Blood Pressure Mean 186 Blood Pressure Mean [Right Arm] Blood Pressure Position Pulse Oximetry Oxygen Delivery Method Sepsis Recent Fever Within 48 Hours Sepsis New/Unexplained Change in Mental Status Sepsis Action Taken by Nursing 10/17/24 07:58 10/17/24 08:00 10/17/24 08:06 Temperature 36.3 C L Temperature Source Oral Pulse Rate 55 L 55 L 55 L Pulse Rate [Apical] Pulse Rate from SpO2 Sensor 55 L 55 L Respiratory Rate 20 16 14 Respiratory Effort / Characteristics Non-Labored Spontaneous Respiratory Depth Normal Respiratory Pattern Regular Blood Pressure 264/105 H Blood Pressure [Right Arm] Blood Pressure Mean 158 Blood Pressure Mean [Right Arm] Blood Pressure Position Lying Pulse Oximetry 94 94 94 Oxygen Delivery Method Room Air Room Air Room Air Sepsis Recent Fever Within 48 Hours No Sepsis New/Unexplained Change in Mental Status N/A Sepsis Action Taken by Nursing No Action Required 10/17/24 08:28 10/17/24 08:30 10/17/24 08:30 Temperature Temperature Source Pulse Rate Pulse Rate [Apical] Pulse Rate from SpO2 Sensor Respiratory Rate Respiratory Effort / Characteristics Respiratory Depth Respiratory Pattern Blood Pressure 257/132 H 270/127 H 270/127 H Blood Pressure [Right Arm] Blood Pressure Mean 149 214 214 Blood Pressure Mean [Right Arm] Blood Pressure Position Pulse Oximetry Oxygen Delivery Method Sepsis Recent Fever Within 48 Hours Sepsis New/Unexplained Change in Mental Status Sepsis Action Taken by Nursing 10/17/24 08:39 10/17/24 08:45 10/17/24 08:46 Temperature Temperature Source Pulse Rate 56 L 54 L Pulse Rate [Apical] Pulse Rate from SpO2 Sensor 54 L Respiratory Rate 14 Respiratory Effort / Characteristics Respiratory Depth Respiratory Pattern Blood Pressure 270/127 H 191/91 H Blood Pressure [Right Arm] Blood Pressure Mean 121 Blood Pressure Mean [Right Arm] Blood Pressure Position Pulse Oximetry 94 Oxygen Delivery Method Sepsis Recent Fever Within 48 Hours Sepsis New/Unexplained Change in Mental Status Sepsis Action Taken by Nursing 10/17/24 09:00 10/17/24 09:00 10/17/24 09:00 Temperature Temperature Source Pulse Rate 60 60 Pulse Rate [Apical] Pulse Rate from SpO2 Sensor 60 Respiratory Rate 23 Respiratory Effort / Characteristics Respiratory Depth Respiratory Pattern Blood Pressure 216/103 H 216/103 H Blood Pressure [Right Arm] Blood Pressure Mean 155 Blood Pressure Mean [Right Arm] Blood Pressure Position Pulse Oximetry 97 Oxygen Delivery Method Sepsis Recent Fever Within 48 Hours Sepsis New/Unexplained Change in Mental Status Sepsis Action Taken by Nursing 10/17/24 09:24 10/17/24 09:24 10/17/24 09:30 Temperature Temperature Source Pulse Rate 63 Pulse Rate [Apical] Pulse Rate from SpO2 Sensor 63 Respiratory Rate 21 Respiratory Effort / Characteristics Respiratory Depth Respiratory Pattern Blood Pressure 200/90 H 209/117 H Blood Pressure [Right Arm] Blood Pressure Mean 162 156 Blood Pressure Mean [Right Arm] Blood Pressure Position Pulse Oximetry 94 Oxygen Delivery Method Sepsis Recent Fever Within 48 Hours Sepsis New/Unexplained Change in Mental Status Sepsis Action Taken by Nursing 10/17/24 09:42 10/17/24 10:00 10/17/24 10:09 Temperature Temperature Source Pulse Rate 67 77 70 Pulse Rate [Apical] Pulse Rate from SpO2 Sensor 67 70 Respiratory Rate 21 17 Respiratory Effort / Characteristics Respiratory Depth Respiratory Pattern Blood Pressure Blood Pressure [Right Arm] Blood Pressure Mean Blood Pressure Mean [Right Arm] Blood Pressure Position Pulse Oximetry 96 94 Oxygen Delivery Method Sepsis Recent Fever Within 48 Hours Sepsis New/Unexplained Change in Mental Status Sepsis Action Taken by Nursing 10/17/24 10:09 10/17/24 10:09 10/17/24 10:21 Temperature Temperature Source Pulse Rate 67 Pulse Rate [Apical] Pulse Rate from SpO2 Sensor 66 Respiratory Rate 16 Respiratory Effort / Characteristics Respiratory Depth Respiratory Pattern Blood Pressure 215/103 H 215/103 H Blood Pressure [Right Arm] Blood Pressure Mean 130 130 Blood Pressure Mean [Right Arm] Blood Pressure Position Pulse Oximetry 94 Oxygen Delivery Method Sepsis Recent Fever Within 48 Hours Sepsis New/Unexplained Change in Mental Status Sepsis Action Taken by Nursing 10/17/24 10:30 10/17/24 10:36 10/17/24 11:00 Temperature Temperature Source Pulse Rate 66 Pulse Rate [Apical] 66 Pulse Rate from SpO2 Sensor 66 Respiratory Rate 18 16 Respiratory Effort / Characteristics Non-Labored Spontaneous Respiratory Depth Respiratory Pattern Blood Pressure 229/104 H Blood Pressure [Right Arm] 215/103 H Blood Pressure Mean 156 Blood Pressure Mean [Right Arm] 140 Blood Pressure Position Pulse Oximetry 94 94 Oxygen Delivery Method Room Air Sepsis Recent Fever Within 48 Hours Sepsis New/Unexplained Change in Mental Status Sepsis Action Taken by Nursing Laboratory Data 10/17/24 07:55 10/17/24 07:55 Lab Results 10/17/24 10/17/24 10/17/24 Range/Units 07:49 07:55 08:17 WBC 8.69 (4.8-10.8) K/ul RBC 5.39 (4.20-5.40) M/uL Hgb 14.9 (12.0-16.0) g/dl Hct 42.6 (37.0-47.0) % MCV 79.0 L (80.0-100.0) fL MCH 27.6 (25.0-34.0) pg MCHC 35.0 (32.0-36.0) g/dL RDW Std Deviation 37.9 (36.4-46.3) fL RDW Coeff of Richelle 13.4 (11.5-14.5) % Plt Count 233 (130-400) K/uL MPV 10.9 (9.4-12.4) fL Immature Gran % (Auto) 0.5 % Neut % (Auto) 86.1 % Lymph % (Auto) 10.0 % Clay % (Auto) 3.3 % Eos % (Auto) 0.0 % Baso % (Auto) 0.1 % Neut # (Auto) 7.48 H (1.40-6.50) K/uL Lymph # (Auto) 0.87 L (1.20-3.40) K/uL Clay # (Auto) 0.29 (0.11-0.59) K/uL Eos # (Auto) 0.00 (0.00-0.50) K/uL Baso # (Auto) 0.01 (0.00-0.20) K/uL Immature Gran # (Auto) 0.04 (0.01-0.20) K/uL PT 11.6 (9.0-12.0) Seconds INR 1.1 (0.9-1.1) APTT 26 (21-31) Seconds PTT Ratio 1.0 Sodium 140 (136-145) mmol/L Potassium 3.0 L (3.5-5.1) mmol/L Chloride 103 (98-107) mmol/L Carbon Dioxide 29 (21-32) mmol/L Anion Gap 8 (3-11) BUN 32 H (6-23) mg/dl Creatinine 0.84 (0.6-1.2) mg/dl Est Cr Clr Drug Dosing 54.7 ml/min eGFR 70.20 BUN/Creatinine Ratio 38.1 H (10-20) Glucose 354 H* (70-99(Fasting)) mg/dl POC Glucose 350 H* (70-99) mg/dl Lactate 1.6 (0.4-2.0) mmol/L Calcium 9.9 (8.6-10.3) mg/dl Magnesium 1.8 (1.7-2.4) mg/dl Total Bilirubin 0.8 (0.2-1.0) mg/dl AST 12 L (13-39) U/L ALT 10 (7-52) U/L Alkaline Phosphatase 119 H (34-104) U/L Total Creatine Kinase 42 (26-192) U/L Troponin I High Sens 10.3 (0-14) pg/ml Total Protein 7.5 (6.0-8.3) gm/dl Albumin 4.2 (3.4-5.0) gm/dl Globulin 3.3 (2.5-4.0) gm/dl Albumin/Globulin Ratio 1.3 (0.9-2) Administered Medications Hydralazine HCl (Hydralazine Hcl 20 Mg/Ml Vial) 5 mg IV Q6H PRN PRN Reason: BP>160/90 Stop: 11/16/24 14:29 Last Admin: 10/17/24 14:44 Dose: 5 mg Documented By: ILAN Sodium Chloride (Nss) 1,000 mls @ 80 mls/hr IV .[id number] RUBENS Stop: 10/17/24 23:35 Last Admin: 10/17/24 12:07 Dose: 100 mls/hr Documented By: KD Losartan Potassium (Losartan Potassium 50 Mg Tab) 100 mg PO QAM RUBENS Stop: 11/16/24 11:44 Last Admin: 10/17/24 12:44 Dose: 100 mg Documented By: KD Ondansetron HCl (Ondansetron Inj 2 Mg/Ml 2 Ml Vial) 4 mg IV Q6H PRN PRN Reason: Nausea And Vomiting Stop: 11/16/24 11:39 Last Admin: 10/17/24 11:59 Dose: 4 mg Documented By: KD Discontinued Medications Amlodipine Besylate (Amlodipine Besylate 5 Mg Tab) 5 mg PO NOW ONE Stop: 10/17/24 11:40 Last Admin: 10/17/24 12:06 Dose: 5 mg Documented By: KD Sodium Chloride (Nss) 1,000 mls @ 999 mls/hr IV .Q1H1M ONE Stop: 10/17/24 09:48 Last Infusion: 10/17/24 10:11 Dose: Infused Documented By: Admin: 10/17/24 08:51 Dose: 999 mls/hr Documented By: JERONIMO Potassium Chloride (K Vivek / Wtr) 10 meq in 100 mls @ 100 mls/hr IV Q1H RUBENS Stop: 10/17/24 14:59 Last Admin: 10/17/24 13:15 Dose: 100 mls/hr Documented By: Infusion: 10/17/24 13:01 Dose: Infused Documented By: Admin: 10/17/24 12:01 Dose: 100 mls/hr Documented By: KD Insulin Aspart (Insulin Aspart Per Unit Charge) Confirm Administered Dose 7,000 units .ROUTE .STK-MED ONE Stop: 10/17/24 14:39 Last Admin: 10/17/24 14:39 Dose: 7 units Documented By: ILAN Co-signed By: SPENCER Ioversol (Optiray 320 100ml) 93 ml IV ONCE ONE Stop: 10/17/24 10:00 Last Admin: 10/17/24 10:00 Dose: 93 ml Documented By: BRITT Labetalol HCl (Labetalol Hcl Iv 5 Mg/Ml 20ml) 10 mg IV NOW STA Stop: 10/17/24 08:35 Last Admin: 10/17/24 08:39 Dose: 10 mg Documented By: JERONIMO Labetalol HCl (Labetalol Hcl Iv 5 Mg/Ml 20ml) 10 mg IV NOW STA Stop: 10/17/24 11:18 Last Admin: 10/17/24 11:56 Dose: 10 mg Documented By: KD Ondansetron HCl (Ondansetron Inj 2 Mg/Ml 2 Ml Vial) Confirm Administered Dose 4 mg .ROUTE .STK-MED ONE Stop: 10/17/24 08:30 Last Admin: 10/17/24 08:51 Dose: Not Given Documented By: JERONIMO Ondansetron HCl (Ondansetron Inj 2 Mg/Ml 2 Ml Vial) 4 mg IV NOW STA Stop: 10/17/24 08:48 Last Admin: 10/17/24 08:51 Dose: 4 mg Documented By: JERONIMO Potassium Chloride (Potassium Chloride Crtab 20 Meq Tabcr) 40 meq PO NOW STA Stop: 10/17/24 11:46 Last Admin: 10/17/24 12:06 Dose: 40 meq Documented By: KD Imaging Data Radiologist's Impression: Abdomen/Pelvis CT 10/17/24 09:[address] WITH IV CONTRAST CT DOSE: 1377.01 mGy.cm HISTORY: Acute generalized abdominal pain with nausea, vomiting and possible obstruction n,v, SBO TECHNIQUE: Multiaxial CT images of the abdomen and pelvis were performed following the IV administration of 93 cc of Optiray, A dose lowering technique was utilized adhering to the principles of ALARA. COMPARISON STUDY: None. FINDINGS: Trace pericardial effusion. Coronary artery calcifications. Mild dependent subsegmental basilar atelectasis. There is no pneumatosis or pneumoperitoneum identified. There is a large hiatal hernia with majority of the stomach present within the thorax. Fluid-filled mildly distended stomach. Unremarkable spleen, moderately atrophic pancreas, gallbladder and adrenal glands. The liver is within normal limits. There is patency of the hepatic and portal veins. Multifocal cortical scarring with parenchymal thinning of the kidneys. No hydronephrosis. Mild nonspecific urinary bladder wall thickening with perivesicular stranding. There are a few small foci of air noted within the bladder lumen. Pelvic floor relaxation. Fibroid uterus with 2 cm fundal calcified fibroid. Severe atherosclerosis of the aorta without aneurysm. There is no lymphadenopathy. Colonic diverticulosis without acute diverticulitis. No bowel obstruction or bowel wall thickening. Noninflamed appendix. No acute fracture. Grade 1 anterolisthesis is noted at L4 on L5 and L5 on S1 secondary to chronic severe facet disease. Degenerative changes of the spine, pelvis and hips. IMPRESSION: 1. No bowel obstruction or bowel wall thickening. 2. Large hiatal hernia with fluid-filled mildly distended stomach. This is unlikely to represent gastric outlet obstruction, however considering patient history of acute nausea and vomiting, close clinical follow-up recommended. 3. Mild urinary bladder wall thickening. Correlate with urinalysis to exclude cystitis. 4. Colonic diverticulosis without acute diverticulitis. 5. Fibroid uterus. ACT 112: Negative or not required by law. The above report was generated using voice recognition software. It may contain grammatical, syntax or spelling errors. Electronically signed by: Lan Mantilla M.D. 10/17/2024 10:17 AM Discharge Plan Visit Data Chief Complaint: Illness Stated Complaint: ILLNESS, HYPERTENSIVE, NAUSA ED Provider: Hawa Raza Discharge Problem: Hypertensive urgency, Hernia, hiatal, Adult failure to thrive Patient Disposition: Admitted As Inpatient Condition: Fair Discharge Instructions Interventions: ED Discharge Assessment Last Done: 10/17/24 13:40
[2024-10-17] MEDS: ONDANSETRON INJ 2 MG/ML 2 ML VIAL IV PRN (11:59)
[2024-10-17] MEDS: POTASSIUM CHLORIDE / WTR 10 MEQ/100 ML PLCT IV SCH (12:01)
[2024-10-17] MEDS: amLODIPine BESYLATE 5 MG TAB PO ONE (12:06)
[2024-10-17] MEDS: POTASSIUM CHLORIDE CRTAB 20 MEQ TABCR PO STA (12:06)
[2024-10-17] MEDS: SODIUM CHLORIDE 0.9% 1,000 ML IV SCH (12:07)
[2024-10-17] MEDS: LOSARTAN POTASSIUM 50 MG TAB PO SCH (12:44)
[2024-10-17 14:08] LABS: Appearance Urine Turbid (Clear); Bacteria Urine Automated 4+ (None Seen); Bilirubin Urine Negative (Negative); Blood Urine 2+ (Negative); Cast Urine Automated >20 /lpf (0-2); Color Urine Yellow; Epithelial Cell Urine Auto 0-2 /hpf (0-2); Glucose Urine UA 3+ (Negative); Ketones Urine Trace (Negative); Leukocyte Esterase Urine 1+ (Negative); Nitrite Urine Negative (Negative); Protein Urine 4+ (Negative); Specific Gravity Urine > 1.045 (1.000-1.030); Urobilinogen Urine Negative (Negative); WBC Urine Automated >50 /hpf (0-5)
[2024-10-17] MEDS ORDERED: CARBOHYDRATES FOR HYPOGLYCEMIA PO PRN (14:12)
[2024-10-17] MEDS ORDERED: GLUCAGON FOR INJ 1 MG VIAL SQ PRN (14:12)
[2024-10-17] MEDS ORDERED: GLUCOSE 40% GEL 15 GM TUBE PO PRN (14:12)
[2024-10-17] MEDS ORDERED: GLUCOSE 10 TAB/TUBE PO PRN (14:12)
[2024-10-17] MEDS ORDERED: DEXTROSE 50% 50 ML SYRINGE IV PRN (14:12)
[2024-10-17] MEDS: INSULIN ASPART PER UNIT CHARGE ONE (14:39)
[2024-10-17] MEDS: hydrALAZINE HCL 20 MG/ML VIAL IV PRN ×2 (14:44→20:02)
[2024-10-17] MEDS: cefTRIAXone SODIUM 2,000 MG/50 ML BAG IV SCH (16:17)
[2024-10-17] MEDS: hydrALAZINE HCL 20 MG/ML VIAL IV ONE (16:36)
[2024-10-17] MEDS: PROCHLORPERAZINE 5 MG in SYRINGE 4 ML IV PRN (16:54)
[2024-10-17] MEDS: INSULIN ASPART PER UNIT CHARGE SC SCH (17:14)
--- NOTE | 2024-10-17 18:37 | Electrocardiogram Report ---
Test Reason : Blood Pressure : */* mmHG Vent. Rate : 56 BPM Atrial Rate : 56 BPM P-R Int : 152 ms QRS Dur : 84 ms QT Int : 510 ms P-R-T Axes : 97 41 114 degrees QTcB Int : 492 ms Sinus bradycardia Nonspecific ST and T wave abnormality Abnormal ECG When compared with ECG of 28-Apr-2024 15:00, No significant change was found Confirmed by David Munoz ([id number]) on 10/17/2024 6:36:52 PM Referred By: REFERRED SELF Confirmed By: David Munoz
[2024-10-17] MEDS: LANTUS PER UNIT CHARGE SQ SCH (20:56)
[2024-10-18] MEDS: SODIUM CHLORIDE 0.9% 1,000 ML IV SCH (03:31)
[2024-10-18] MEDS: LEVOTHYROXINE SODIUM 150 MCG TABLET PO SCH (03:32)
[2024-10-18 06:03] LABS: Basophils # (auto) 0.02 K/uL (0.00-0.20); Basophils % (auto) 0.2 %; Eosinophils # (auto) 0.01 K/uL (0.00-0.50); Eosinophils % (auto) 0.1 %; Hematocrit (blood only) 37.2 % (37.0-47.0); Hemoglobin 12.7 g/dl (12.0-16.0); Immature Granulocytes # (auto) 0.09 K/uL (0.01-0.20); Immature Granulocytes % (auto) 0.9 %; Lymphocytes # (auto) 1.02 K/uL (1.20-3.40); Lymphocytes % (auto) 10.5 %; Mean Corpuscular Hemoglobin 27.3 pg (25.0-34.0); Mean Corpuscular Hgb Conc 34.1 g/dL (32.0-36.0); Mean Platelet Volume 11.2 fL (9.4-12.4); Monocytes # (auto) 0.63 K/uL (0.11-0.59); Monocytes % (auto) 6.5 %; Neutrophils # (auto) 7.91 K/uL (1.40-6.50); Neutrophils % (auto) 81.8 %; Platelet Count 220 K/uL (130-400); RDW Coefficient of Variation 13.8 % (11.5-14.5); RDW Standard Deviation 40.1 fL (36.4-46.3); Red Blood Count 4.65 M/uL (4.20-5.40); White Blood Count 9.68 K/ul (4.8-10.8)
[2024-10-18 06:33] LABS: BUN Creatinine Ratio 40.7 (10-20); Calcium 9.5 mg/dl (8.6-10.3); Creatinine Clr Calc Pharmacy 42.8 ml/min; Potassium 3.6 mmol/L (3.5-5.1)
[2024-10-18 06:37] LABS: Thyroid Stimulating Hormone 23.314 uIu/ml (0.300-4.500)
[2024-10-18 07:17] LABS: T4 Free Thyroxine 0.68 ng/dl (0.61-1.60)
[2024-10-18] MEDS: LACTATED RINGER'S 1,000 ML IV SCH (07:49)
[2024-10-18 08:05] LABS: Estimated Average Glucose 200 mg/dl; Hemoglobin A1C 8.6 % (4.5-5.6)
[2024-10-18] MEDS: amLODIPine BESYLATE 5 MG TAB PO SCH (08:14)
[2024-10-18] MEDS: POTASSIUM CHLORIDE CRTAB 20 MEQ TABCR PO SCH (08:17)
[2024-10-18] MEDS ORDERED: ESCITALOPRAM OXALATE 20 MG TAB PO SCH (09:00)
[2024-10-18] MEDS ORDERED: amLODIPine BESYLATE 5 MG TAB PO SCH (09:00)
--- NOTE | 2024-10-18 09:11 | Surgery Consultation ---
Date of Consultation October 18, 2024 Assessment & Plan (1) Hernia, hiatal: Patient with c/o nausea, of nausea, vomiting, and diarrhea for the past three days. A ct scan of the abd/pelvis is showing concerns for a large hiatal hernia. Currently the patient denies vomiting , abdominal pain. With +belching and reports known hx of hiatal hernia. Nurse at bedside reports patient is on a full liquid diet and has not have much po intake but is taking meds with apple sauce. A stool pcr has been ordered, WBC wnl, +urine culture was started on Rocephin. On exam VSS with elevated BP 177/73, abd is soft non distended, non ttp. Recommend continuing IV Fluids for hydration, IV antiemetic, IV antibiotics. Will discuss case with on-call surgeon Dr Erickson and further recommendations will be forthcoming. As above. CT scan reviewed. Patient states that she has been having nausea vomiting as well as diarrhea. She denies upper abdominal or chest pain. She states that typically she does not have difficulty eating. Unclear to me how much of this may be related to her hiatal hernia versus something else such as a viral gastroenteritis. I plan to call her daughter to discuss. Continue conservative management. If she continues to have nausea vomiting food intolerance etc. we may have to more strongly consider repair of her large hiatal hernia. Will follow along closely for now. History of Present Illness Reason for Consultation: large hiatal hernia Requesting Physician: Dr Mckeon Attending Physician: Ian Mckeon MD History of Present Illness Patient is a pleasant 79 y/o f with PMH DM2 with associated diabetic neuropathy, prior CVA, HTN, hyperlipidemia, hypothyroidism, venous insufficiency, lymphedema, that presented to [facility] ER yesterday with complaint of nausea, vomiting, and diarrhea for the past three days. She had been unable to take her medication and found to be hypertensive in the ER and was admitted. A ct scan of the abd/pelvis is showing concerns for a large hiatal hernia. Currently the patient denies vomiting , abdominal pain. Nurse at bedside reports patient is on a full liquid diet and has not have much po intake but is taking meds with apple sauce. The patient does endorse belching. She denies prior abdominal surgery, ans states that she has had a known hiatal hernia for "years". She denies blood thinners. Allergies Allergy/AdvReac Type Severity Reaction Status Date / Time semaglutide AdvReac Mild Diarrhea Unverified 04/28/24 17:53 metformin AdvReac Diarrhea Verified 12/05/22 20:52 Home Medications Medication Instructions Recorded Confirmed Type aspirin 81 mg tablet,delayed 81 mg PO QAM 04/28/24 10/17/24 History release escitalopram oxalate 20 mg tablet 20 mg PO DAILY 04/28/24 10/17/24 History famotidine 20 mg tablet 20 mg PO DAILY PRN reflux 04/28/24 10/17/24 History fluticasone propionate 50 2 spray intranasal DAILY PRN 04/28/24 10/17/24 History mcg/actuation nasal Allergy Symptoms spray,suspension levothyroxine 150 mcg tablet 150 mcg PO DAILY 04/28/24 10/17/24 History losartan 100 mg tablet 100 mg PO DAILY 04/28/24 10/17/24 History potassium chloride 20 mEq 20 meq PO QAM 04/28/24 10/17/24 History tablet,extended release(part/cryst) atorvastatin 80 mg tablet 80 mg PO DAILY 10/17/24 10/17/24 History furosemide 20 mg tablet 20 mg PO DAILY PRN Edema 10/17/24 10/17/24 History insulin detemir U-100 100 unit/mL 15 unit subcut BID 10/17/24 10/17/24 History (3 mL) subcutaneous pen insulin lispro 100 unit/mL 8 unit subcut AC 10/17/24 10/17/24 History subcutaneous pen (Humalog KwikPen (U-100) Insulin) Patient History Family History Other Breast cancer Social History Smoking Status: Unknown if ever smoked Second Hand Exposure: No; Do You Dip or Chew Tobacco: No; Hx Alcohol Use: No Hx Substance Use: No Preferred Language: Slovak Communication Ability: Effective Booster Pump Oiler Required: No Beliefs That Will Affect Care: None Current Living Situation: Alone Current Living Situation Comment: Caregiver that comes 2x per week to help with tasks, daughter checks on her Feels Safe at Home: Yes Safety Concerns: Feels Safe At This Time Assistive Devices: Walker Review of Systems Constitutional: + fatigue Gastrointestinal: + belching, + nausea and + vomiting; no abdominal pain Physical Exam Constitutional: cooperative; no acute distress and + uncomfortable Respiratory: normal respiratory effort; no respiratory distress Cardiovascular: Rate/Rhythm: regular rate Gastrointestinal (Abdomen): Inspection/Auscultation: abdomen not distended and no abdominal surgical scar Percussion/Palpation: abdomen soft; abdomen nontender Results & Data Vital Signs (Past 12 Hours) Vital Signs Temp Pulse Pulse Resp BP BP Pulse Ox 10/18/24 07:58 98.2 F 63 21 177/73 H 97 10/18/24 03:41 143/95 H 10/18/24 02:59 97.9 F 75 16 176/79 H 95 10/17/24 22:38 97.9 F 68 18 155/82 H 95 10/17/24 22:35 71 O2 Del Method 10/18/24 07:58 Room Air 10/18/24 03:41 10/18/24 02:59 Room Air 10/17/24 22:38 Room Air 10/17/24 22:35 Diagnostic Findings [place], [place] [phone] CT Scan Report Patient: CORNINE ALEXIS Admit Date: 10/17/24 MR#: [id number] Address1: [address] [place] [address] Acct ID:[id number] Address2: [address] Date: 1945 [facility] Zip: [place] [address] Age: 79 Location: ED Sex: F Room/Bed: Att Phy: Diagnosis: ILLNESS, HYPERTENSIVE, NAUSA Lavonne Phy: Barbie Diamond MD Service Date: 10/17/24 Fam Phy: Interpreting Phy: Lan Fortune Phy: Ordering Phy: Hawa Raza MD cc: ~ ABDOMEN AND PELVIS CT WITH IV CONTRAST CT DOSE: 1377.01 mGy.cm HISTORY: Acute generalized abdominal pain with nausea, vomiting and possible obs truction n,v, SBO TECHNIQUE: Multiaxial CT images of the abdomen and pelvis were performed following the IV administration of 93 cc of Optiray, A dose lowering technique was utilized adhering to the principles of ALARA. COMPARISON STUDY: None. FINDINGS: Trace pericardial effusion. Coronary artery calcifications. Mild dependent subsegmental basilar atelectasis. There is no pneumatosis or pneum operitoneum identified. There is a large hiatal hernia with majority of the stomach present within the thorax. Fluid-filled mildly distended stomach. Unremarkable spleen, moderately atrophic pancreas, gallbladder and adrenal glands. The liver is within normal limits. There is patency of the hepatic and portal veins. Multifocal cortical scarring with parenchymal thinning of the kidneys. No hydronephrosis. Mild nonspecific urinary bladder wall thickening with perivesicular stranding. There are a few small foci of air noted within the bladder lumen. Pelvic floor relaxation. Fibroid uterus with 2 cm fundal calcified fibroid. Severe atherosclerosis of the aorta without aneurysm. There is no lymphadenopathy. Colonic diverticulosis without acute diverticulitis. No bowel obstruction or bowel wall thickening. Noninflamed appendix. No acute fracture. Grade 1 anterolisthesis is noted at L4 on L5 and L5 on S1 secondary to chronic severe facet disease. Degenerative changes of the spine, pelvis and hips. IMPRESSION: 1. No bowel obstruction or bowel wall thickening. 2. Large hiatal hernia with fluid-filled mildly distended stomach. This is unlikely to represent gastric outlet obstruction, however considering patient history of acute nausea and vomiting, close clinical follow-up recommended. 3. Mild urinary bladder wall thickening. Correlate with urinalysis to exclude cystitis. 4. Colonic diverticulosis without acute diverticulitis. 5. Fibroid uterus. ACT 112: Negative or not required by law. The above report was generated using voice recognition software. It may contain grammatical, syntax or spelling errors. Electronically signed by: Lan Mantilla M.D. 10/17/2024 10:17 AM Dictated: 10/17/24 1011 Transcribed: 10/17/24 1011 Results CBC w Diff Results: RBC 4.65 M/uL (4.20-5.40) 10/18/24 WBC 9.68 K/ul (4.8-10.8) 10/18/24 Hgb 12.7 g/dl (12.0-16.0) 10/18/24 Hct 37.2 % (37.0-47.0) 10/18/24 MCV 80.0 fL (80.0-100.0) 10/18/24 MCH 27.3 pg (25.0-34.0) 10/18/24 MCHC 34.1 g/dL (32.0-36.0) 10/18/24 RDW Standard Deviation 40.1 fL (36.4-46.3) 10/18/24 RDW Coefficient of Variation 13.8 % (11.5-14.5) 10/18/24 Plt Count 220 K/uL (130-400) 10/18/24 MPV 11.2 fL (9.4-12.4) 10/18/24 Neutrophils (%) (Auto) 81.8 % 10/18/24 Lymphocytes (%) (Auto) 10.5 % 10/18/24 Monocytes # (Auto) 0.63 K/uL (0.11-0.59) H 10/18/24 Eosinophils # (Auto) 0.01 K/uL (0.00-0.50) 10/18/24 Immature Granulocyte % (Auto) 0.9 % 10/18/24 Neutrophils # (Auto) 7.91 K/uL (1.40-6.50) H 10/18/24 Lymphocytes # (Auto) 1.02 K/uL (1.20-3.40) L 10/18/24 Monocytes # (Auto) 0.63 K/uL (0.11-0.59) H 10/18/24 Eosinophils # (Auto) 0.01 K/uL (0.00-0.50) 10/18/24 Basophils # (Auto) 0.02 K/uL (0.00-0.20) 10/18/24 Immature Granulocyte # (Auto) 0.09 K/uL (0.01-0.20) 5 PG Care Time/CCT Total # of Minutes Spent Total Time Spent with Patient: Total time spent is greater than 50% in coordination of care (as documented) at patient's floor/unit and/or counseling patient: Coding Level of Care Code 49030 INT INP/OBS CARE 2/55MIN Diagnoses Hernia, hiatal K44.9
--- NOTE | 2024-10-18 10:45 | Hospitalist Progress Note ---
Date of Service October 18, 2024 Assessment & Plan (1) Acute gastroenteritis: (2) Hypokalemia: (3) Hypertensive urgency: (4) Diabetes mellitus, type II, insulin dependent: (5) Hypothyroid: (6) Noncompliance with medications: Plan This is a 79 y/o female with DM2 with associated diabetic neuropathy, prior CVA, HTN, hyperlipidemia, hypothyroidism, venous insufficiency, lymphedema, history of medication noncompliance and other history as outlined below who presents to the ED today with N/V/D x 3 days. She also notes poor oral intake and not taking any of her usual medications or insulin for at least 2-3 days. Work-up in the ED revealed hypokalemia with potassium of 3.0, hyperglycemia with glucose of 354 but no evidence of MIN or leukocytosis. She received labetalol for initial BP of 270/127 with improvement of systolic to the 190s to 200s. Pt referred for admission for further management of BP and glucose. #Acute Gastroenteritis #N/V/D #Dehydration #Large Hiatal Hernia - Stool PCR - PRN anti-emetics - full liquid diet for now - start IV fluids for next 18 hours - general surgery consulted given large hiatal hernia as potential cause of symptoms, appreciate recs - Monitor Is and Os #Hypertensive urgency - continue home losartan 100 mg po now then daily - increase amlodopine to 10 mg - On review of past BPs, it appears pt tends to run high although unclear if this is due to medication noncompliance or difficult to control BP - f/u PT/OT recs, likely needs placement given report of failure to thrive at home #Hypokalemia - repleted #Insulin-requiring DM2 - basal insulin 10 units BID, insulin sliding scale - BSG ACHS #Hypothyroidism - Continue levothyroxine Rosalina Quintero PA-C Admission and Anticipated Discharge Date Admission Date: October 17, 2024 Subjective Patient seen and examined at bedside. Patient doing ok today. She states she has been having nausea/vomiting/diarrhea for the past 3 days. She states this has happened to her several times before. Review of Systems Review of Systems: CONSTITUTIONAL: fatigue, weakness EYES: Patient denies any visual symptoms. EARS, NOSE, AND THROAT: No difficulties with hearing. No symptoms of rhinitis or sore throat. CARDIOVASCULAR: Patient denies chest pains, palpitations, orthopnea and paroxysmal nocturnal dyspnea. RESPIRATORY: No dyspnea on exertion, no wheezing or cough. GI: nausea, vomiting, diarrhea : No urinary hesitancy or dribbling. No nocturia or urinary frequency. No abnormal urethral discharge. MUSCULOSKELETAL: No myalgias or arthralgias. NEUROLOGIC: No chronic headaches, no seizures. Patient denies numbness, tingling or weakness. PSYCHIATRIC: Patient denies problems with mood disturbance. No problems with anxiety. ENDOCRINE: No excessive urination or excessive thirst. DERMATOLOGIC: Patient denies any rashes or skin changes. Physical Exam Physical Exam: Gen: A&O 3 NAD HEENT: NCAT, EOMI, not icteric. External ears normal. No rhinorrhea. Moist mucous membranes. Neck: Supple, full range of motion, no observable masses, No meningeal sign. Lungs: No Respiratory distress. CV: RRR, no edema. Abdomen: mild tenderness to palpation in epigastric region MSK: No joint swelling, no redness. Skin: No rashes, petechiae, lesions. Normal color per patient. Neuro: Normal Gait, Grossly intact. Psych: Appropriate for situation. Results & Data Results & Data Vital Signs (Past 12 Hours) Vital Signs Temp Pulse Resp BP BP Pulse Ox O2 Del Method 10/18/24 07:58 36.8 C 63 21 177/73 H 97 Room Air 10/18/24 03:41 143/95 H 10/18/24 02:59 36.6 C 75 16 176/79 H 95 Room Air Laboratory Results -personally reviewed, no leukocytosis noted, very elevated BUn/creatinine ratio suggestive of dehydration, TSH of 23 with low normal T4, UA strongly suggestive of UTI Medications Administered Amlodipine Besylate (Amlodipine Besylate 5 Mg Tab) 10 mg PO QAM [facility] Stop: 11/17/24 08:59 Last Admin: 10/18/24 08:14 Dose: 10 mg Documented By: EP Ceftriaxone Sodium (Rocephin) 2,000 mg in 50 mls @ 100 mls/hr IV Q24H [facility] Stop: 10/22/24 15:14 Last Infusion: 10/17/24 17:35 Dose: Infused Documented By: Admin: 10/17/24 16:17 Dose: 100 mls/hr Documented By: EP Sodium Chloride (Nss) 1,000 mls @ 80 mls/hr IV .[id number] [facility] Stop: 10/18/24 15:59 Last Admin: 10/18/24 03:31 Dose: 80 mls/hr Documented By: MIGUEL ÁNGEL Lactated Ringer's (Lr) 1,000 mls @ 80 mls/hr IV .[id number] [facility] Stop: 10/18/24 18:00 Last Admin: 10/18/24 07:49 Dose: 80 mls/hr Documented By: ILAN Insulin Aspart (Insulin Aspart Per Unit Charge) 0 units SC ACHS [facility] Stop: 11/16/24 16:29 Last Admin: 10/18/24 07:50 Dose: Not Given Documented By: Admin: 10/17/24 20:56 Dose: 5 units Documented By: MIGUEL ÁNGEL Co-signed By: JAVIER Admin: 10/17/24 17:14 Dose: 6 units Documented By: ILAN Co-signed By: BRIAN Insulin Glargine (Lantus Per Unit Charge) 10 units SQ BID [facility] Stop: 11/16/24 20:59 Last Admin: 10/18/24 08:13 Dose: 10 units Documented By: ILAN Co-signed By: BRIAN Admin: 10/17/24 20:56 Dose: 10 units Documented By: MIGUEL ÁNGEL Co-signed By: JAVIER Losartan Potassium (Losartan Potassium 50 Mg Tab) 100 mg PO [facility] Stop: 11/16/24 11:44 Last Admin: 10/18/24 08:14 Dose: 100 mg Documented By: Admin: 10/17/24 12:44 Dose: 100 mg Documented By: KD Ondansetron HCl (Ondansetron Inj 2 Mg/Ml 2 Ml Vial) 4 mg IV Q6H PRN PRN Reason: Nausea And Vomiting Stop: 11/16/24 11:39 Last Admin: 10/17/24 20:07 Dose: 4 mg Documented By: MIGUEL ÁNGEL Admin: 10/17/24 11:59 Dose: 4 mg Documented By: KD Potassium Chloride (Potassium Chloride Crtab 20 Meq Tabcr) 20 meq PO QAM [facility] Stop: 11/17/24 08:59 Last Admin: 10/18/24 08:17 Dose: 20 meq Documented By: EP (5) Hypothyroid Hypothyroidism type: acquired Qualified Code(s): E03.9 - Hypothyroidism, unspecified
[2024-10-18] MEDS: PANTOprazole 40 MG TAB PO SCH (14:11)
[2024-10-18] MEDS: hydroCHLOROthiazide 25 MG TAB PO SCH (18:20)
[2024-10-19] MEDS: hydrALAZINE HCL 20 MG/ML VIAL IV STA (04:22)
[2024-10-19] MEDS: LEVOTHYROXINE SODIUM 137 MCG TABLET PO SCH (04:27)
[2024-10-19] MEDS: LEVOTHYROXINE SODIUM 25 MCG TABLET PO SCH (04:27)
[2024-10-19 06:11] LABS: Hematocrit (blood only) 36.9 % (37.0-47.0); Hemoglobin 12.6 g/dl (12.0-16.0); Mean Corpuscular Hemoglobin 27.5 pg (25.0-34.0); Mean Corpuscular Hgb Conc 34.1 g/dL (32.0-36.0); Mean Corpuscular Volume 80.6 fL (80.0-100.0); Mean Platelet Volume 10.6 fL (9.4-12.4); Platelet Count 183 K/uL (130-400); RDW Coefficient of Variation 13.8 % (11.5-14.5); RDW Standard Deviation 40.5 fL (36.4-46.3); Red Blood Count 4.58 M/uL (4.20-5.40); White Blood Count 8.37 K/ul (4.8-10.8)
[2024-10-19 06:33] LABS: Calcium 8.9 mg/dl (8.6-10.3); Magnesium 1.6 mg/dl (1.7-2.4); Potassium 3.1 mmol/L (3.5-5.1)
[2024-10-19 06:39] LABS: BUN Creatinine Ratio 38.8 (10-20); Creatinine Clr Calc Pharmacy 48.1 ml/min; Phosphorus 2.5 mg/dl (2.5-4.9)
[2024-10-19] MEDS: MAGNESIUM SULFATE / D5W 1 GM/100 ML BAG IV ONE (09:06)
[2024-10-19] MEDS: POTASSIUM CHLORIDE 10 MEQ TABCR PO ONE ×2 (09:07→15:17)
--- NOTE | 2024-10-19 13:45 | Hospitalist Progress Note ---
Date of Service October 19, 2024 Assessment & Plan (1) Acute gastroenteritis: (2) Hypokalemia: (3) Hypertensive urgency: (4) Diabetes mellitus, type II, insulin dependent: (5) Hypothyroid: (6) Noncompliance with medications: Plan Patient is an 79 y/o female with DM2 with associated diabetic neuropathy, prior CVA, HTN, hyperlipidemia, hypothyroidism, venous insufficiency, lymphedema, history of medication noncompliance and other history as outlined below who presents to the ED today with N/V/D x 3 days. She also notes poor oral intake and not taking any of her usual medications or insulin for at least 2-3 days. Work-up in the ED revealed hypokalemia with potassium of 3.0, hyperglycemia with glucose of 354 but no evidence of MIN or leukocytosis. She received labetalol for initial BP of 270/127 with improvement of systolic to the 190s to 200s. Pt referred for admission for further management of BP and glucose. Acute Gastroenteritis N/V/D Dehydration Large Hiatal Hernia --CT ABD:Large hiatal hernia with fluid-filled mildly distended stomach. This is unlikely to represent gastric outlet obstruction. Mild urinary bladder wall thickening. Correlate with urinalysis to exclude cystitis. Colonic diverticulosis without acute diverticulitis. Fibroid uterus. -- Will check stool studies if recurrence of diarrhea --Full liquid diet for now --Appreciate surgery input --Will consider GI evaluation if no resolution of GI symptoms --Added Protonix twice daily --Consider to advance diet as tolerated -- IV fluids, antiemetics as needed Urinary tract infection--POA -- Urine culture growing pansensitive E. coli, Aerococcus urinae --Blood cultures negative to date Continue IV Rocephin Hypertensive urgency Continue losartan 100 mg daily Added amlodipine 10 mg daily, HCTZ 12.5 mg daily Monitor and adjust medications as needed Hypokalemia Hypomagnesemia Replete and monitor Insulin-requiring DM2 -Basal insulin 10 units BID, insulin sliding scale - BSG ACHS Hypothyroidism -Continue levothyroxine DVT Px: Lovenox SQ CODE STATUS Full code Disposition PT OT prior to discharge Admission and Anticipated Discharge Date Admission Date: October 17, 2024 Subjective Patient is seen and examined at bedside States having nausea associated with some dizziness today Also reports poor oral intake Denies any chest pain, abdominal pain, dyspnea No other complaints today Review of Systems Review of Systems: All systems reviewed & are unremarkable except as noted in Subjective Physical Exam Physical Exam: Physical Exam: Vitals signs as noted above General Appearance:Obese, no apparent distress Head: normocephalic, Atraumatic Eyes: normal inspection, EOMI Neck: supple, Trachea midline Respiratory/Chest: Normal breath sounds, CTA, No accessory muscle use Cardiovascular: S1, S2, No murmur Abdomen/GI:Soft, Non tender, Bowel sounds present Extremities/Musculoskeletal:normal inspection, 1+edema Neurologic/Psych:AAOX3, grossly no focal neurological deficits Skin: normal color, warm Results & Data Results & Data Vital Signs (Past 12 Hours) Vital Signs Temp Pulse Pulse Resp BP BP Pulse Ox 10/19/24 11:38 36.4 C L 71 16 163/77 H 93 10/19/24 08:27 36.7 C 67 14 156/73 H 94 10/19/24 08:00 67 10/19/24 04:49 163/71 H 10/19/24 03:56 36.6 C 68 17 193/91 H 95 O2 Del Method 10/19/24 11:38 Room Air 10/19/24 08:27 Room Air 10/19/24 08:00 10/19/24 04:49 10/19/24 03:56 Room Air Laboratory Results Short CBC 10/19/24 Range/Units 05:46 WBC 8.37 (4.8-10.8) K/ul Hgb 12.6 (12.0-16.0) g/dl Hct 36.9 L (37.0-47.0) % Plt Count 183 (130-400) K/uL BMP 10/19/24 05:46 Sodium 136 Potassium 3.1 L Chloride 106 Carbon Dioxide 25 BUN 38 H Creatinine 0.98 Glucose 127 H Calcium 8.9 (5) Hypothyroid Hypothyroidism type: acquired Qualified Code(s): E03.9 - Hypothyroidism, unspecified
--- NOTE | 2024-10-19 13:52 | Surgery Progress Note ---
Date of Service October 19, 2024 Assessment & Plan (1) Hernia, hiatal: Plan: I did have a long discussion with Jessica's daughter yesterday. I will reach out to her again. Certainly does not appear to be a gastric outlet obstruction although I do believe her hiatal hernia is causing some symptoms I believe she is too weak and frail at this stage to consider repair. If her symptoms progress or she exhibits signs of a true outlet obstruction we would have to r econsider this. We will be available as needed but will follow along from the periphery during this admission. (2) Adult failure to thrive: (3) Weakness: Admission and Anticipated Discharge Date Admission Date: October 17, 2024 Subjective Patient seen. Not feeling well today. "Dizzy" she does state that her diarrhea has resolved. Physical Exam Constitutional: WD/WN, vitals as above no acute distress and not ill appearing Eyes: PERRL, conjunctivae normal, anicteric sclerae EOM intact bilaterally ENMT: external ear and nose normal, oropharynx normal Ears: no hearing impairment Neck: trachea midline, no thyromegaly Respiratory: normal respiratory effort; no respiratory distress and does not use accessory muscles Cardiovascular: Rate/Rhythm: regular rate and regular rhythm Gastrointestinal (Abdomen): normal bowel sounds, soft, nontender, no hepatosplenomegaly Skin: no rashes, warm and dry Psychiatric: Orientation: alert, oriented x 3 and cooperative Results & Data Vital Signs (Past 12 Hours) Vital Signs Temp Pulse Pulse Resp BP BP Pulse Ox 10/19/24 11:38 36.4 C L 71 16 163/77 H 93 10/19/24 08:27 36.7 C 67 14 156/73 H 94 10/19/24 08:00 67 10/19/24 04:49 163/71 H 10/19/24 03:56 36.6 C 68 17 193/91 H 95 O2 Del Method 10/19/24 11:38 Room Air 10/19/24 08:27 Room Air 10/19/24 08:00 10/19/24 04:49 10/19/24 03:56 Room Air PG Care Time/CCT Total # of Minutes Spent Total Time Spent with Patient: Total time spent is greater than 50% in coordination of care (as documented) at patient's floor/unit and/or counseling patient: Coding Level of Care Code 20362 SUB INP/OBS CARE 07/02MIN Diagnoses Hernia, hiatal K44.9 Adult failure to thrive R62.7 Weakness R53.1
[2024-10-19] MEDS: ENOXAPARIN INJ 40 MG/0.4 ML SYR SQ SCH (14:25)
[2024-10-19] MEDS: AMPICILLIN 1,000 MG in SODIUM CHLOR 0.9% MINI-B 100 ML IV SCH (15:17)
[2024-10-19] MEDS: MAGNESIUM CHLORIDE W/CALCIUM 64MG DELAYED REL TAB PO SCH (20:53)
[2024-10-19] MEDS: PANTOprazole 40 MG TAB PO SCH (20:53)
[2024-10-19] MEDS: carvediloL 3.125 MG TAB PO SCH (23:33)
--- NOTE | 2024-10-20 00:49 | Communication Note ---
Date of Service: October 20, 2024 Made aware by RN of uncontrolled blood pressure. SBP 1 40-1 90s the last 24 hours. Patient asymptomatic as per RN. AP Hypertensive urgency Patient noncompliant with additional Coreg and spironolactone Rx recommended by cardiology following April 2020 for confinement as per records. Add Coreg to current HCTZ Rx, and maximal doses losartan, amlodipine Rx Will relay to AM provider.
[2024-10-20] MEDS: amLODIPine BESYLATE 5 MG TAB PO ONE (01:47)
[2024-10-20] MEDS: carvediloL 3.125 MG TAB PO ONE (04:50)
[2024-10-20] MEDS: MAGNESIUM SULFATE / D5W 1 GM/100 ML BAG IV ONE (04:50)
[2024-10-20] MEDS: POTASSIUM CHLORIDE CRTAB 20 MEQ TABCR PO STA (04:50)
[2024-10-20 07:13] LABS: Hematocrit (blood only) 41.1 % (37.0-47.0); Hemoglobin 13.4 g/dl (12.0-16.0); Mean Corpuscular Hemoglobin 27.5 pg (25.0-34.0); Mean Corpuscular Hgb Conc 32.6 g/dL (32.0-36.0); Mean Corpuscular Volume 84.4 fL (80.0-100.0); Mean Platelet Volume 10.6 fL (9.4-12.4); Platelet Count 175 K/uL (130-400); RDW Coefficient of Variation 13.6 % (11.5-14.5); RDW Standard Deviation 41.9 fL (36.4-46.3); Red Blood Count 4.87 M/uL (4.20-5.40); White Blood Count 6.58 K/ul (4.8-10.8)
[2024-10-20 07:19] LABS: Calcium 8.5 mg/dl (8.6-10.3); Potassium 3.7 mmol/L (3.5-5.1)
[2024-10-20 07:25] LABS: BUN Creatinine Ratio 33.7 (10-20); Creatinine Clr Calc Pharmacy 53.1 ml/min
[2024-10-20] MEDS ORDERED: POTASSIUM CHLORIDE 10 MEQ TABCR PO SCH (09:00)
[2024-10-20] MEDS: AMPICILLIN 1,000 MG in SODIUM CHLOR 0.9% MINI-B 100 ML IV SCH (12:46)
--- NOTE | 2024-10-20 13:30 | Hospitalist Progress Note ---
Date of Service October 20, 2024 Assessment & Plan (1) Acute gastroenteritis: (2) Hypokalemia: (3) Hypertensive urgency: (4) Diabetes mellitus, type II, insulin dependent: (5) Hypothyroid: (6) Noncompliance with medications: Plan Patient is an 79 y/o female with DM2 with associated diabetic neuropathy, prior CVA, HTN, hyperlipidemia, hypothyroidism, venous insufficiency, lymphedema, history of medication noncompliance and other history as outlined below who presents to the ED today with N/V/D x 3 days. She also notes poor oral intake and not taking any of her usual medications or insulin for at least 2-3 days. Work-up in the ED revealed hypokalemia with potassium of 3.0, hyperglycemia with glucose of 354 but no evidence of MIN or leukocytosis. She received labetalol for initial BP of 270/127 with improvement of systolic to the 190s to 200s. Pt referred for admission for further management of BP and glucose. Acute Gastroenteritis N/V/D Dehydration Large Hiatal Hernia --CT ABD:Large hiatal hernia with fluid-filled mildly distended stomach. This is unlikely to represent gastric outlet obstruction. Mild urinary bladder wall thickening. Correlate with urinalysis to exclude cystitis. Colonic diverticulosis without acute diverticulitis. Fibroid uterus. -- Will check stool studies if recurrence of diarrhea --Appreciate surgery input --Added Protonix twice daily -- IV fluids, antiemetics as needed Advance to regular diet today May need rehab placement Urinary tract infection--POA -- Urine culture growing pansensitive E. coli, Aerococcus urinae --Blood cultures negative to date Continue IV Rocephin>> transition to ampicillin Hypertensive urgency Continue losartan 100 mg daily Added amlodipine 10 mg daily, HCTZ 12.5 mg daily, Coreg 3.125 mg twice a day Monitor and adjust medications as needed Blood pressure better today Hypokalemia Hypomagnesemia Replete and monitor Insulin-requiring DM2 -Basal insulin 10 units BID, insulin sliding scale - BSG ACHS Hypothyroidism -Continue levothyroxine DVT Px: Lovenox SQ CODE STATUS Full code Disposition May need rehab Admission and Anticipated Discharge Date Admission Date: October 17, 2024 Subjective Patient is seen and examined at bedside States feeling better today Nausea improving Tolerating liquid diet Denies any chest pain, abdominal pain, dyspnea, dizziness Review of Systems Review of Systems: All systems reviewed & are unremarkable except as noted in Subjective Physical Exam Physical Exam: Physical Exam: Vitals signs as noted above General Appearance:Obese, no apparent distress Head: normocephalic, Atraumatic Eyes: normal inspection, EOMI Neck: supple, Trachea midline Respiratory/Chest: Normal breath sounds, CTA, No accessory muscle use Cardiovascular: S1, S2, No murmur Abdomen/GI:Soft, Non tender, Bowel sounds present Extremities/Musculoskeletal:normal inspection, 1+edema Neurologic/Psych:AAOX3, grossly no focal neurological deficits Skin: normal color, warm Results & Data Results & Data Vital Signs (Past 12 Hours) Vital Signs Temp Pulse Pulse Resp BP BP Pulse Ox 10/20/24 11:26 36.3 C L 70 17 120/77 95 10/20/24 08:06 36.8 C 70 15 138/66 94 10/20/24 08:00 67 10/20/24 06:01 70 135/77 94 10/20/24 03:44 36.6 C 67 16 169/88 H 94 10/20/24 01:27 68 184/97 H O2 Del Method 10/20/24 11:26 Room Air 10/20/24 08:06 Room Air 10/20/24 08:00 10/20/24 06:01 Room Air 10/20/24 03:44 Room Air 10/20/24 01:27 Laboratory Results Short CBC 10/20/24 Range/Units 06:53 WBC 6.58 (4.8-10.8) K/ul Hgb 13.4 (12.0-16.0) g/dl Hct 41.1 (37.0-47.0) % Plt Count 175 (130-400) K/uL BMP 10/20/24 06:53 Sodium 134 L Potassium 3.7 Chloride 105 Carbon Dioxide 24 BUN 30 H Creatinine 0.89 Glucose 94 Calcium 8.5 L (5) Hypothyroid Hypothyroidism type: acquired Qualified Code(s): E03.9 - Hypothyroidism, unspecified
[2024-10-20] MEDS ORDERED: carvediloL 3.125 MG TAB PO SCH (17:00)
[2024-10-21] MEDS: amLODIPine BESYLATE 5 MG TAB PO SCH (08:04)
[2024-10-21] MEDS: ATORVASTATIN 40 MG TAB PO SCH (08:05)
[2024-10-21] MEDS: ESCITALOPRAM OXALATE 20 MG TAB PO SCH (08:05)
[2024-10-21] MEDS: ASPIRIN 81 MG ECTAB PO SCH (08:06)
[2024-10-21] MEDS: POTASSIUM CHLORIDE 10 MEQ TABCR PO SCH (08:14)
[2024-10-21 09:14] LABS: BUN Creatinine Ratio 29.9 (10-20); Calcium 8.9 mg/dl (8.6-10.3); Magnesium 1.7 mg/dl (1.7-2.4); Potassium 3.6 mmol/L (3.5-5.1)
--- NOTE | 2024-10-21 09:35 | Surgery Progress Note ---
Date of Service October 21, 2024 Assessment & Plan (1) Hernia, hiatal: Plan: Pt w/ hiatal hernia she reports she feels improvement overall since admission denies n/v/further diarrhea. tolerating diet and pills believe her symptoms are mild and the surgery would be a big undertaking for her we will defer on surgery as she appears to be doing well and patient is agreeable dispo planning per medicine, we will sign off but please call with any questions/concerns As above. Patient looks much better. States that her pain nausea and diarrhea have resolved. I would not recommend surgery for the hiatal hernia at this time. Admission and Anticipated Discharge Date Admission Date: October 17, 2024 Subjective Patient states she is feeling better. Denies diarrhea. She reports she is tolerating a diet and pills without issues. Physical Exam Physical Exam: awake, sitting up Respiratory: normal respiratory effort Results & Data Vital Signs (Past 12 Hours) Vital Signs Temp Pulse Resp BP BP Pulse Ox O2 Del Method 10/21/24 08:01 67 152/86 H 10/21/24 07:44 97.5 F L 67 16 193/86 H 93 Room Air 10/21/24 07:10 Room Air PG Care Time/CCT Total # of Minutes Spent Total Time Spent with Patient: Total time spent is greater than 50% in coordination of care (as documented) at patient's floor/unit and/or counseling patient: Coding Level of Care Code 16245 SUB INP/OBS CARE 07/02MIN Diagnoses Hernia, hiatal K44.9
[2024-10-21 09:53] LABS: Hematocrit (blood only) 40.6 % (37.0-47.0); Hemoglobin 14.1 g/dl (12.0-16.0); Mean Corpuscular Hemoglobin 27.6 pg (25.0-34.0); Mean Corpuscular Hgb Conc 34.7 g/dL (32.0-36.0); Mean Corpuscular Volume 79.6 fL (80.0-100.0); Mean Platelet Volume 10.6 fL (9.4-12.4); Platelet Count 215 K/uL (130-400); RDW Coefficient of Variation 13.5 % (11.5-14.5); RDW Standard Deviation 39.1 fL (36.4-46.3); White Blood Count 7.18 K/ul (4.8-10.8)
[2024-10-21] MEDS: ADVANCED PROBIOTIC 625 MG CAPSULE PO SCH (13:17)
--- NOTE | 2024-10-21 15:16 | Hospitalist Progress Note ---
Date of Service October 21, 2024 Assessment & Plan (1) Acute gastroenteritis: (2) Hypokalemia: (3) Hypertensive urgency: (4) Diabetes mellitus, type II, insulin dependent: (5) Hypothyroid: (6) Noncompliance with medications: Plan Patient is an 79 y/o female with DM2 with associated diabetic neuropathy, prior CVA, HTN, hyperlipidemia, hypothyroidism, venous insufficiency, lymphedema, history of medication noncompliance and other history as outlined below who presents to the ED today with N/V/D x 3 days. She also notes poor oral intake and not taking any of her usual medications or insulin for at least 2-3 days. Work-up in the ED revealed hypokalemia with potassium of 3.0, hyperglycemia with glucose of 354 but no evidence of MIN or leukocytosis. She received labetalol for initial BP of 270/127 with improvement of systolic to the 190s to 200s. Pt referred for admission for further management of BP and glucose. Acute Gastroenteritis N/V/D Dehydration Large Hiatal Hernia --CT ABD:Large hiatal hernia with fluid-filled mildly distended stomach. This is unlikely to represent gastric outlet obstruction. Mild urinary bladder wall thickening. Correlate with urinalysis to exclude cystitis. Colonic diverticulosis without acute diverticulitis. Fibroid uterus. -- Will check stool studies if recurrence of diarrhea --Appreciate surgery input -- Continue Protonix 40 mg twice a day -- IV fluids, antiemetics as needed Tolerating regular diet Stable for discharge, waiting for placement Urinary tract infection--POA -- Urine culture growing pansensitive E. coli, Aerococcus urinae --Blood cultures negative to date Continue IV Rocephin>> transition to ampicillin Ampicillin transition to oral antibiotics to complete the course Hypertensive urgency Continue losartan 100 mg daily Added amlodipine 10 mg daily, HCTZ 12.5 mg daily, Coreg 3.125 mg twice a day Monitor and adjust medications as needed Hypokalemia Hypomagnesemia Replete and monitor Insulin-requiring DM2 -Basal insulin 10 units BID, insulin sliding scale - BSG ACHS Hypothyroidism -Continue levothyroxine DVT Px: Lovenox SQ CODE STATUS Full code Disposition Rehab when accepted Admission and Anticipated Discharge Date Admission Date: October 17, 2024 Subjective Patient is seen and examined at bedside Sitting in general remained controlled Tolerating diet Still has some nausea but no vomiting Offers no new complaints Denies any chest pain, abdominal pain, dyspnea, dizziness Review of Systems Review of Systems: All systems reviewed & are unremarkable except as noted in Subjective Physical Exam Physical Exam: Physical Exam: Vitals signs as noted above General Appearance:Obese, no apparent distress Head: normocephalic, Atraumatic Eyes: normal inspection, EOMI Neck: supple, Trachea midline Respiratory/Chest: Normal breath sounds, CTA, No accessory muscle use Cardiovascular: S1, S2, No murmur Abdomen/GI:Soft, Non tender, Bowel sounds present Extremities/Musculoskeletal:normal inspection, 1+edema Neurologic/Psych:AAOX3, grossly no focal neurological deficits Skin: normal color, warm Results & Data Results & Data Vital Signs (Past 12 Hours) Vital Signs Temp Pulse Resp BP BP Pulse Ox O2 Del Method 10/21/24 15:11 36.5 C 62 16 161/73 H 95 Room Air 10/21/24 08:01 67 152/86 H 10/21/24 07:44 36.4 C L 67 16 193/86 H 93 Room Air 10/21/24 07:10 Room Air Laboratory Results Short CBC 10/21/24 Range/Units 08:25 WBC 7.18 (4.8-10.8) K/ul Hgb 14.1 (12.0-16.0) g/dl Hct 40.6 (37.0-47.0) % Plt Count 215 (130-400) K/uL BMP 10/21/24 08:25 Sodium 134 L Potassium 3.6 Chloride 100 Carbon Dioxide 29 BUN 26 H Creatinine 0.87 Glucose 121 H Calcium 8.9 (5) Hypothyroid Hypothyroidism type: acquired Qualified Code(s): E03.9 - Hypothyroidism, unspecified
[2024-10-21] MEDS: AMOXICILLIN 500 MG CAP PO SCH (21:11)
[2024-10-22 06:58] LABS: Creatinine Clr Calc Pharmacy 53.4 ml/min
--- NOTE | 2024-10-22 15:42 | Hospitalist Progress Note ---
Date of Service October 22, 2024 Assessment & Plan (1) Acute gastroenteritis: (2) Hypokalemia: (3) Hypertensive urgency: (4) Diabetes mellitus, type II, insulin dependent: (5) Hypothyroid: (6) Noncompliance with medications: Plan Patient is an 79 y/o female with DM2 with associated diabetic neuropathy, prior CVA, HTN, hyperlipidemia, hypothyroidism, venous insufficiency, lymphedema, history of medication noncompliance and other history as outlined below who presents to the ED today with N/V/D x 3 days. She also notes poor oral intake and not taking any of her usual medications or insulin for at least 2-3 days. Work-up in the ED revealed hypokalemia with potassium of 3.0, hyperglycemia with glucose of 354 but no evidence of MIN or leukocytosis. She received labetalol for initial BP of 270/127 with improvement of systolic to the 190s to 200s. Pt referred for admission for further management of BP and glucose. Acute Gastroenteritis N/V/D Dehydration Large Hiatal Hernia --CT ABD:Large hiatal hernia with fluid-filled mildly distended stomach. This is unlikely to represent gastric outlet obstruction. Mild urinary bladder wall thickening. Correlate with urinalysis to exclude cystitis. Colonic diverticulosis without acute diverticulitis. Fibroid uterus. -- Will check stool studies if recurrence of diarrhea --Appreciate surgery input -- Continue Protonix 40 mg twice a day -- IV fluids, antiemetics as needed Tolerating regular diet Stable for discharge, waiting for placement Case management to help with discharge planning Urinary tract infection--POA -- Urine culture growing pansensitive E. coli, Aerococcus urinae --Blood cultures negative to date Continue IV Rocephin>> transition to ampicillin Ampicillin transition to oral amoxicillin to complete the course Hypertensive urgency Continue losartan 100 mg daily Added amlodipine 10 mg daily, HCTZ 12.5 mg daily, Coreg 3.125 mg twice a day Monitor and adjust medications as needed Blood pressure much improved Hypokalemia Hypomagnesemia Replete and monitor Insulin-requiring DM2 -Basal insulin 10 units BID, insulin sliding scale - BSG ACHS Hypothyroidism -Continue levothyroxine Insomnia Melatonin HS as needed DVT Px: Lovenox SQ CODE STATUS Full code Disposition Rehab when accepted Admission and Anticipated Discharge Date Admission Date: October 17, 2024 Subjective Patient is seen and examined at bedside States feeling tired Also reports poor sleep No other complaints today Nausea much improved Tolerating current diet Denies any chest pain, abdominal pain, dyspnea, dizziness Review of Systems Review of Systems: All systems reviewed & are unremarkable except as noted in Subjective Physical Exam Physical Exam: Physical Exam: Vitals signs as noted above General Appearance:Obese, no apparent distress Head: normocephalic, Atraumatic Eyes: normal inspection, EOMI Neck: supple, Trachea midline Respiratory/Chest: Normal breath sounds, CTA, No accessory muscle use Cardiovascular: S1, S2, No murmur Abdomen/GI:Soft, Non tender, Bowel sounds present Extremities/Musculoskeletal:normal inspection, 1+edema Neurologic/Psych:AAOX3, grossly no focal neurological deficits Skin: normal color, warm Results & Data Results & Data Vital Signs (Past 12 Hours) Vital Signs Temp Pulse Resp BP Pulse Ox Pulse Ox O2 Del Method 10/22/24 15:05 36.4 C L 64 16 164/78 H 95 Room Air 10/22/24 14:27 96 10/22/24 08:03 Room Air 10/22/24 07:34 36.3 C L 62 16 170/90 H 96 Room Air O2 Del Method 10/22/24 15:05 10/22/24 14:27 Room Air 10/22/24 08:03 10/22/24 07:34 Laboratory Results [facility] 10/22/24 06:06 Creatinine 0.88 (5) Hypothyroid Hypothyroidism type: acquired Qualified Code(s): E03.9 - Hypothyroidism, unspecified
[2024-10-22] MEDS: MELATONIN 3 MG TAB PO PRN (21:24)
[2024-10-23] MEDS ORDERED: AMOXICILLIN 500 MG CAP PO SCH (09:00)
--- NOTE | 2024-10-23 14:56 | Hospitalist Progress Note ---
Date of Service October 23, 2024 Assessment & Plan (1) Acute gastroenteritis: (2) Hypokalemia: (3) Hypertensive urgency: (4) Diabetes mellitus, type II, insulin dependent: (5) Hypothyroid: (6) Noncompliance with medications: Plan Patient is an 79 y/o female with DM2 with associated diabetic neuropathy, prior CVA, HTN, hyperlipidemia, hypothyroidism, venous insufficiency, lymphedema, history of medication noncompliance and other history as outlined below who presents to the ED today with N/V/D x 3 days. She also notes poor oral intake and not taking any of her usual medications or insulin for at least 2-3 days. Work-up in the ED revealed hypokalemia with potassium of 3.0, hyperglycemia with glucose of 354 but no evidence of MIN or leukocytosis. She received labetalol for initial BP of 270/127 with improvement of systolic to the 190s to 200s. Pt referred for admission for further management of BP and glucose. Acute Gastroenteritis N/V/D Dehydration Large Hiatal Hernia --CT ABD:Large hiatal hernia with fluid-filled mildly distended stomach. This is unlikely to represent gastric outlet obstruction. Mild urinary bladder wall thickening. Correlate with urinalysis to exclude cystitis. Colonic diverticulosis without acute diverticulitis. Fibroid uterus. -- Will check stool studies if recurrence of diarrhea --Appreciate surgery input -- Continue Protonix 40 mg twice a day -- IV fluids, antiemetics as needed Tolerating regular diet Stable for discharge, waiting for placement Case management to help with discharge planning Symptomatically much improved Urinary tract infection--POA -- Urine culture growing pansensitive E. coli, Aerococcus urinae --Blood cultures negative to date Continue IV Rocephin>> transition to ampicillin Ampicillin transition to oral amoxicillin to complete the course Hypertensive urgency Continue losartan 100 mg daily Added amlodipine 10 mg daily, HCTZ 12.5 mg daily, Coreg 3.125 mg twice a day Monitor and adjust medications as needed Blood pressure improving on current regimen Hypokalemia Hypomagnesemia Replete and monitor Insulin-requiring DM2 -Basal insulin, insulin sliding scale - BSG ACHS Adjust insulin to minimize hypoglycemia Hypothyroidism -Continue levothyroxine Insomnia Melatonin HS as needed DVT Px: Lovenox SQ CODE STATUS Full code Disposition Rehab when accepted Admission and Anticipated Discharge Date Admission Date: October 17, 2024 Subjective Patient is seen and examined at bedside No new complaints today Slept better overnight Nausea much improved Denies any chest pain, abdominal pain, dyspnea, dizziness Waiting for placement Review of Systems Review of Systems: All systems reviewed & are unremarkable except as noted in Subjective Physical Exam Physical Exam: Physical Exam: Vitals signs as noted above General Appearance:Obese, no apparent distress Head: normocephalic, Atraumatic Eyes: normal inspection, EOMI Neck: supple, Trachea midline Respiratory/Chest: Normal breath sounds, CTA, No accessory muscle use Cardiovascular: S1, S2, No murmur Abdomen/GI:Soft, Non tender, Bowel sounds present Extremities/Musculoskeletal:normal inspection, 1+edema Neurologic/Psych:AAOX3, grossly no focal neurological deficits Skin: normal color, warm Results & Data Results & Data Vital Signs (Past 12 Hours) Vital Signs Temp Pulse Resp BP Pulse Ox O2 Del Method 10/23/24 14:36 36.5 C 64 16 142/72 H 94 Room Air 10/23/24 07:35 36.3 C L 57 L 18 121/73 94 Room Air 10/23/24 07:23 Room Air (5) Hypothyroid Hypothyroidism type: acquired Qualified Code(s): E03.9 - Hypothyroidism, unspecified
[2024-10-23] MEDS: LANTUS PER UNIT CHARGE SQ SCH (20:29)
[2024-10-23] MEDS ORDERED: LANTUS PER UNIT CHARGE SQ SCH (21:00)
[2024-10-24 07:52] LABS: Calcium 8.9 mg/dl (8.6-10.3); Creatinine Clr Calc Pharmacy 43.1 ml/min; Potassium 3.6 mmol/L (3.5-5.1)
[2024-10-24] MEDS ORDERED: MELATONIN 3 MG TAB PO PRN (11:11)
[2024-10-24 12:00] VITALS: RESP 16
[2024-10-24] MEDS ORDERED: bisacodyL 10 MG SUPP PR PRN (12:26)
[2024-10-24] MEDS: POLYETHYLENE (MIRALAX) 17 GM PACK PO SCH (13:34)
[2024-10-24] MEDS: DOCUSATE SODIUM 100 MG CAP PO SCH (13:34)
--- NOTE | 2024-10-24 14:28 | XRay Report ---
KUB HISTORY: constipation COMPARISON STUDY: 10/17/2024 FINDINGS: There is a large amount of retained stool. There is interval mild small bowel distention me asuring up to 3 cm greatest diameter. No gross free air. IMPRESSION: 1. Large amount of retained stool. 2. Interval mild small bowel distention could be due to the retained stool. However, if abdominal sym ptoms worsen, consider follow-up CT scan to make sure there is not a developing small bowel obstructi on. ACT 112: Negative or not required by law. The above report was generated using voice recognition software. It may contain grammatical, syntax o r spelling errors. Electronically signed by: Mian Rivers M.D. 10/24/2024 2:27 PM
--- NOTE | 2024-10-24 14:56 | Hospitalist Progress Note ---
Date of Service October 24, 2024 Assessment & Plan (1) Acute gastroenteritis: (2) Hypokalemia: (3) Hypertensive urgency: (4) Diabetes mellitus, type II, insulin dependent: (5) Hypothyroid: (6) Noncompliance with medications: Plan Patient is an 79 y/o female with DM2 with associated diabetic neuropathy, prior CVA, HTN, hyperlipidemia, hypothyroidism, venous insufficiency, lymphedema, history of medication noncompliance and other history as outlined below who presents to the ED today with N/V/D x 3 days. She also notes poor oral intake and not taking any of her usual medications or insulin for at least 2-3 days. Work-up in the ED revealed hypokalemia with potassium of 3.0, hyperglycemia with glucose of 354 but no evidence of MIN or leukocytosis. She received labetalol for initial BP of 270/127 with improvement of systolic to the 190s to 200s. Pt referred for admission for further management of BP and glucose. Acute Gastroenteritis N/V/D Dehydration Large Hiatal Hernia --CT ABD:Large hiatal hernia with fluid-filled mildly distended stomach. This is unlikely to represent gastric outlet obstruction. Mild urinary bladder wall thickening. Correlate with urinalysis to exclude cystitis. Colonic diverticulosis without acute diverticulitis. Fibroid uterus. -- Will check stool studies if recurrence of diarrhea --Appreciate surgery input -- Continue Protonix 40 mg twice a day -- IV fluids, antiemetics as needed Tolerating regular diet Case management to help with discharge planning Symptomatically much improved Likely discharge to SNF on Thursday Urinary tract infection--POA -- Urine culture growing pansensitive E. coli, Aerococcus urinae --Blood cultures negative to date Continue IV Rocephin>> transition to ampicillin Ampicillin transition to oral amoxicillin to complete the course Will complete antibiotic course tomorrow Constipation Started on bowel regimen Encouraged to ambulate Will repeat KUB tomorrow Hypertensive urgency Continue losartan 100 mg daily Added amlodipine 10 mg daily, HCTZ 12.5 mg daily, Coreg 3.125 mg twice a day Monitor and adjust medications as needed Blood pressure stable today Hypokalemia Hypomagnesemia Replete and monitor Insulin-requiring DM2 -Basal insulin, insulin sliding scale - BSG ACHS Adjust insulin to minimize hypoglycemia Hypothyroidism -Continue levothyroxine Insomnia Melatonin HS as needed DVT Px: Lovenox SQ CODE STATUS Full code Disposition Rehab when accepted Admission and Anticipated Discharge Date Admission Date: October 17, 2024 Subjective Patient is seen and examined at bedside Reports constipation Also reports nausea but no vomiting Denies any chest pain, abdominal pain, dyspnea, dizziness Review of Systems Review of Systems: All systems reviewed & are unremarkable except as noted in Subjective Physical Exam Physical Exam: Physical Exam: Vitals signs as noted above General Appearance:Obese, no apparent distress Head: normocephalic, Atraumatic Eyes: normal inspection, EOMI Neck: supple, Trachea midline Respiratory/Chest: Normal breath sounds, CTA, No accessory muscle use Cardiovascular: S1, S2, No murmur Abdomen/GI:Soft, Non tender, Bowel sounds present Extremities/Musculoskeletal:normal inspection, 1+edema Neurologic/Psych:AAOX3, grossly no focal neurological deficits Skin: normal color, warm Results & Data Results & Data Vital Signs (Past 12 Hours) Vital Signs Temp Pulse Resp BP Pulse Ox O2 Del Method 10/24/24 11:58 36.7 C 63 16 122/69 96 Room Air 10/24/24 09:29 Room Air 10/24/24 07:43 36.4 C L 61 15 160/81 H 94 Room Air Laboratory Results BMP 10/24/24 07:11 Sodium 134 L Potassium 3.6 Chloride 99 Carbon Dioxide 29 BUN 36 H Creatinine 1.09 Glucose 147 H Calcium 8.9 (5) Hypothyroid Hypothyroidism type: acquired Qualified Code(s): E03.9 - Hypothyroidism, unspecified
[2024-10-24] MEDS: SENNA 8.6 MG TAB PO SCH (16:08)
[2024-10-24 19:50] VITALS: TEMP 97.5
--- NOTE | 2024-10-25 07:44 | XRay Report ---
EXAM: XR KUB/Abdomen 1 view CLINICAL HISTORY: Constipation. TECHNIQUE: X-ray images of the abdomen were obtained in the Anteroposterior (AP) projection. COMPARISON: No prior studies are available for comparison. FINDINGS: Gas Pattern: Loaded colon and rectum with fecal matter with speckled low-density soft tissue-like mass within a distended rectum. The gas pattern within the abdomen is normal. No evidence of bowel obstruction or distention. Soft Tissues: Right hypochondrial radio-opaque calcification. Soft tissues of the abdomen appear normal without evidence of masses. The liver, spleen, and kidneys are of normal size and position. Mild degenerative changes of both sacroiliac joints, grade II sacroiliitis Lumbar spondylotic changes with bilateral facet arthropathy at L4-5 and L5-S1 levels. Diffuse decreased bone density suggesting osteopenia. Bilateral mild hip osteoarthritic changes. IMPRESSION: 1. Loaded colon and rectum with fecal matter with speckled low-density soft tissue like mass within a distended rectum, likely suggesting fecal impaction.Clinical correlation and further investigation as indicated is advised. 2. Right hypochondrial radio-opaque calcification, possibility of gallbladder stone.ultrasound is advised. Electronically signed by Rene Pisano 10-25-2024 07:44 AM
[2024-10-25 07:48] VITALS: O2SAT 95
[2024-10-25 08:29] LABS: Creatinine Clr Calc Pharmacy 41.6 ml/min
--- NOTE | 2024-10-25 12:40 | Hospitalist Progress Note ---
Date of Service October 25, 2024 Assessment & Plan (1) Acute gastroenteritis: (2) Hypokalemia: (3) Hypertensive urgency: (4) Diabetes mellitus, type II, insulin dependent: (5) Hypothyroid: (6) Noncompliance with medications: Plan Patient is an 79 y/o female with DM2 with associated diabetic neuropathy, prior CVA, HTN, hyperlipidemia, hypothyroidism, venous insufficiency, lymphedema, history of medication noncompliance and other history as outlined below who presents to the ED today with N/V/D x 3 days. She also notes poor oral intake and not taking any of her usual medications or insulin for at least 2-3 days. Work-up in the ED revealed hypokalemia with potassium of 3.0, hyperglycemia with glucose of 354 but no evidence of MIN or leukocytosis. She received labetalol for initial BP of 270/127 with improvement of systolic to the 190s to 200s. Pt referred for admission for further management of BP and glucose. Acute Gastroenteritis N/V/D Dehydration Large Hiatal Hernia --CT ABD:Large hiatal hernia with fluid-filled mildly distended stomach. This is unlikely to represent gastric outlet obstruction. Mild urinary bladder wall thickening. Correlate with urinalysis to exclude cystitis. Colonic diverticulosis without acute diverticulitis. Fibroid uterus. -- Will check stool studies if recurrence of diarrhea --Appreciate surgery input -- Continue Protonix 40 mg twice a day -- IV fluids, antiemetics as needed Tolerating regular diet Case management to help with discharge planning Symptomatically much improved Plan to discharge to rehab facility today Urinary tract infection--POA -- Urine culture growing pansensitive E. coli, Aerococcus urinae --Blood cultures negative to date Continue IV Rocephin>> transition to ampicillin Ampicillin transition to oral amoxicillin to complete the course Completed antibiotic course today Constipation Encouraged to ambulate Continue bowel regimen Hypertensive urgency Continue losartan 100 mg daily Added amlodipine 10 mg daily, HCTZ 12.5 mg daily, Coreg 3.125 mg twice a day Monitor and adjust medications as needed Blood pressure variable Hypokalemia Hypomagnesemia Replete and monitor Insulin-requiring DM2 -Basal insulin, insulin sliding scale - BSG ACHS Adjust insulin to minimize hypoglycemia Hypothyroidism -Continue levothyroxine Insomnia Melatonin HS as needed DVT Px: Lovenox SQ CODE STATUS Full code Disposition Plan to discharge to rehab facility today Admission and Anticipated Discharge Date Admission Date: October 17, 2024 Subjective Patient is seen and examined at bedside No nausea today + Positive flatus, no bowel movement today per patient Denies any chest pain, dyspnea, vomiting, abdominal pain, dizziness Review of Systems Review of Systems: All systems reviewed & are unremarkable except as noted in Subjective Physical Exam Physical Exam: Physical Exam: Vitals signs as noted above General Appearance:Obese, no apparent distress Head: normocephalic, Atraumatic Eyes: normal inspection, EOMI Neck: supple, Trachea midline Respiratory/Chest: Normal breath sounds, CTA, No accessory muscle use Cardiovascular: S1, S2, No murmur Abdomen/GI:Soft, Non tender, nondistended, no guarding or rigidity, bowel sounds present Extremities/Musculoskeletal:normal inspection, 1+edema Neurologic/Psych:AAOX3, grossly no focal neurological deficits Skin: normal color, warm Results & Data Results & Data Vital Signs (Past 12 Hours) Vital Signs Temp Pulse Resp BP Pulse Ox O2 Del Method 10/25/24 08:35 Nasal Cannula 10/25/24 07:47 36.4 C L 66 16 161/77 H 95 Room Air Laboratory Results [facility] 10/25/24 07:28 Creatinine 1.13 (5) Hypothyroid Hypothyroidism type: acquired Qualified Code(s): E03.9 - Hypothyroidism, unspecified
--- NOTE | 2024-10-25 12:57 | Discharge Summary ---
Date of Service October 25, 2024 Admission HPI Per Admitting Provider This is a 79 y/o female with DM2 with associated diabetic neuropathy, prior CVA, HTN, hyperlipidemia, hypothyroidism, venous insufficiency, lymphedema, history of medication noncompliance and other history as outlined below who presents to the ED today with N/V/D. Pt was found this morning by her daughter - in bed, more lethargic, incontinent of urine and stool per EMS report. Pt reports that she started about three days ago feeling very nauseated with associated vomiting and watery diarrhea. Denies hematemesis or bloody diarrhea. She reports at least two episodes of diarrhea yesterday but has trouble recalling the details of her symptoms. She denies fevers, chills, change in chronic cough, chest pain, dyspnea, change in urination, hematuria. She does note dysuria and is concerned that she may have a UTI. She also reports nasal congestion but has steroid nasal spray that she uses for this PRN. She has chronic LE lymphedema, which she reports is no worse than usual. Due to her symptoms, she has not taken her usual medications or her insulin for at least 2-3 days. She lives alone, uses a walker for ambulation. She denies falls in the last month. She has not recently seen her PCP and her records indicated previous issues with medication noncompliance. She reports that her BP runs high at baseline. She had difficulty recalling her medications but thinks that currently she only takes losartan 100 mg daily for BP although has not taken this in a few days. Admission Exam Per Admitting Provider On exam, General: Ill appearing elderly woman Eyes: PERRL, conjunctivae normal, not pale, anicteric sclerae, EOM intact bilaterally ENMT: External ear and nose normal, +dry oral mucosa Respiratory: Normal respiratory effort, no respiratory distress, lungs clear to auscultation, no crackles and no wheezes Cardiovascular: RRR S1 S2 Gastrointestinal (Abdomen): Abdomen is not distended, soft, non-tender to palpation, no guarding, normal bowel sounds Musculoskeletal: +pedal edema (reports this is chronic) Neurologic: Alert and oriented x 3, No focal weakness, sensation grossly intact Psychiatric: Euthymic affect, no depressed affect Principal Diagnosis Acute Gastroenteritis Dehydration Large Hiatal Hernia Urinary tract infection Hypertensive urgency Hypokalemia Hypomagnesemia Constipation Discharge Data Allergies Allergy/AdvReac Type Severity Reaction Status Date / Time semaglutide AdvReac Mild Diarrhea Unverified 04/28/24 17:53 metformin AdvReac Diarrhea Verified 12/05/22 20:52 Consultations 10/17/24 11:59 ED Decision to Admit Stat 10/18/24 07:36 Consult General Surgery Routine Procedures Performed Laboratory Results WBC 7.18 K/ul (4.8-10.8) 10/21/24 08:25 RBC 5.10 M/uL (4.20-5.40) 10/21/24 08:25 Hgb 14.1 g/dl (12.0-16.0) 10/21/24 08:25 Hct 40.6 % (37.0-47.0) 10/21/24 08:25 MCV 79.6 fL (80.0-100.0) L D 10/21/24 08:25 MCH 27.6 pg (25.0-34.0) 10/21/24 08:25 MCHC 34.7 g/dL (32.0-36.0) 10/21/24 08:25 RDW Std Deviation 39.1 fL (36.4-46.3) 10/21/24 08:25 RDW Coeff of Richelle 13.5 % (11.5-14.5) 10/21/24 08:25 Plt Count 215 K/uL (130-400) 10/21/24 08:25 MPV 10.6 fL (9.4-12.4) 10/21/24 08:25 Immature Gran % (Auto) 0.9 % 10/18/24 05:40 Neut % (Auto) 81.8 % 10/18/24 05:40 Lymph % (Auto) 10.5 % 10/18/24 05:40 [place] % (Auto) 6.5 % 10/18/24 05:40 Eos % (Auto) 0.1 % 10/18/24 05:40 Baso % (Auto) 0.2 % 10/18/24 05:40 Neut # (Auto) 7.91 K/uL (1.40-6.50) H 10/18/24 05:40 Lymph # (Auto) 1.02 K/uL (1.20-3.40) L 10/18/24 05:40 [place] # (Auto) 0.63 K/uL (0.11-0.59) H 10/18/24 05:40 Eos # (Auto) 0.01 K/uL (0.00-0.50) 10/18/24 05:40 Baso # (Auto) 0.02 K/uL (0.00-0.20) 10/18/24 05:40 Immature Gran # (Auto) 0.09 K/uL (0.01-0.20) 10/18/24 05:40 PT 11.6 Seconds (9.0-12.0) 10/17/24 07:55 INR 1.1 (0.9-1.1) 10/17/24 07:55 APTT 26 Seconds (21-31) 10/17/24 07:55 PTT Ratio 1.0 10/17/24 07:55 Sodium 134 mmol/L (136-145) L 10/24/24 07:11 Potassium 3.6 mmol/L (3.5-5.1) 10/24/24 07:11 Chloride 99 mmol/L (98-107) 10/24/24 07:11 Carbon Dioxide 29 mmol/L (21-32) 10/24/24 07:11 Anion Gap 6 (3-11) 10/24/24 07:11 BUN 36 mg/dl (6-23) H 10/24/24 07:11 Creatinine 1.13 mg/dl (0.6-1.2) 10/25/24 07:28 Est Cr Clr Drug Dosing 41.6 ml/min 10/25/24 07:28 eGFR 49.18 10/25/24 07:28 BUN/Creatinine Ratio 33.0 (10-20) H 10/24/24 07:11 Glucose 147 mg/dl (70-99(Fasting)) H 10/24/24 07:11 POC Glucose 166 mg/dl (70-99) H 10/25/24 11:19 Estimat Average Glucose 200 mg/dl 10/18/24 05:40 Hemoglobin A1c 8.6 % (4.5-5.6) H 10/18/24 05:40 Lactate 1.6 mmol/L (0.4-2.0) 10/17/24 08:17 Calcium 8.9 mg/dl (8.6-10.3) 10/24/24 07:11 Phosphorus 2.5 mg/dl (2.5-4.9) 10/19/24 05:46 Magnesium 1.7 mg/dl (1.7-2.4) 10/21/24 08:25 Total Bilirubin 0.8 mg/dl (0.2-1.0) 10/17/24 07:55 AST 12 U/L (13-39) L 10/17/24 07:55 ALT 10 U/L (7-52) 10/17/24 07:55 Alkaline Phosphatase 119 U/L (34-104) H 10/17/24 07:55 Total Creatine Kinase 42 U/L (26-192) 10/17/24 07:55 Troponin I High Sens 10.3 pg/ml (0-14) 10/17/24 07:55 Total Protein 7.5 gm/dl (6.0-8.3) 10/17/24 07:55 Albumin 4.2 gm/dl (3.4-5.0) 10/17/24 07:55 Globulin 3.3 gm/dl (2.5-4.0) 10/17/24 07:55 Albumin/Globulin Ratio 1.3 (0.9-2) 10/17/24 07:55 TSH 23.314 uIu/ml (0.300-4.500) H 10/18/24 05:40 Free T4 0.68 ng/dl (0.61-1.60) 10/18/24 05:40 Urine Color Yellow 10/17/24 13:27 Urine Appearance Turbid (Clear) A 10/17/24 13:27 Urine pH 5.0 (4.5-7.5) 10/17/24 13:27 Ur Specific [place] > 1.045 (1.000-1.030) H 10/17/24 13:27 Urine Protein 4+ (Negative) H 10/17/24 13:27 Urine Glucose (UA) 3+ (Negative) H 10/17/24 13:27 Urine Ketones Trace (Negative) H 10/17/24 13:27 Urine Blood 2+ (Negative) H 10/17/24 13:27 Urine Nitrite Negative (Negative) 10/17/24 13: Urine Bilirubin Negative (Negative) 10/17/24 13: Urine Urobilinogen Negative (Negative) 10/17/24 13:27 Ur Leukocyte Esterase 1+ (Negative) H 10/17/24 13:27 Urine WBC (Auto) >50 /hpf (0-5) H 10/17/24 13:27 Urine RBC (Auto) 6-10 /hpf (0-2) H 10/17/24 13:27 U Hyaline Cast (Auto) >20 /lpf (0-2) H 10/17/24 13:27 U Epithel Cells (Auto) 0-2 /hpf (0-2) 10/17/24 13:27 Urine Bacteria (Auto) 4+ (None Seen) H 10/17/24 13:27 Impressions Abdomen/Pelvis CT 10/17/24 09:[address] WITH IV CONTRAST CT DOSE: 1377.01 mGy.cm HISTORY: Acute generalized abdominal pain with nausea, vomiting and possible obstruction n,v, SBO TECHNIQUE: Multiaxial CT images of the abdomen and pelvis were performed follo wing the IV administration of 93 cc of Optiray, A dose lowering technique was utilized adhering to the principles of ALARA. COMPARISON STUDY: None. FINDINGS: Trace pericardial effusion. Coronary artery calcifications. Mild dependent subsegmental basilar atelectasis. There is no pneumatosis or pneumoperitoneum identified. There is a large hiatal hernia with majority of the stomach present within the thorax. Fluid-filled mildly distended stomach. Unremarkable spleen, moderately atrophic pancreas, gallbladder and adrenal glands. The liver is within normal limits. There is patency of the hepatic and portal veins. Multifocal cortical scarring with parenchymal thinning of the kidneys. No hydronephrosis. Mild nonspecific urinary bladder wall thickening with perivesicular stranding. There are a few small foci of air noted within the bladder lumen. Pelvic floor relaxation. Fibroid uterus with 2 cm fundal calcified fibroid. Severe atherosclerosis of the aorta without aneurysm. There is no lymphadenopathy. Colonic diverticulosis without acute diverticulitis. No bowel obstruction or bowel wall thickening. Noninflamed appendix. No acute fracture. Grade 1 anterolisthesis is noted at L4 on L5 and L5 on S1 secondary to chronic severe facet disease. Degenerative changes of the spine, pelvis and hips. IMPRESSION: 1. No bowel obstruction or bowel wall thickening. 2. Large hiatal hernia with fluid-filled mildly distended stomach. This is unlikely to represent gastric outlet obstruction, however considering patient history of acute nausea and vomiting, close clinical follow-up recommended. 3. Mild urinary bladder wall thickening. Correlate with urinalysis to exclude cystitis. 4. Colonic diverticulosis without acute diverticulitis. 5. Fibroid uterus. ACT 112: Negative or not required by law. The above report was generated using voice recognition software. It may contain grammatical, syntax or spelling errors. Electronically signed by: Lan Mantilla M.D. 10/17/2024 10:17 AM KUB X-Ray 10/25/24 07:00 EXAM: XR KUB/Abdomen 1 view CLINICAL HISTORY: Constipation. TECHNIQUE: X-ray images of the abdomen were obtained in the Anteroposterior (AP) projection. COMPARISON: No prior studies are available for comparison. FINDINGS: Gas Pattern: Loaded colon and rectum with fecal matter with speckled low-density soft tissue-like mass within a distended rectum. The gas pattern within the abdomen is normal. No evidence of bowel obstruction or distention. Soft Tissues: Right hypochondrial radio-opaque calcification. Soft tissues of the abdomen appear normal without evidence of masses. The liver, spleen, and kidneys are of normal size and position. Mild degenerative changes of both sacroiliac joints, grade II sacroiliitis Lumbar spondylotic changes with bilateral facet arthropathy at L4-5 and L5-S1 levels. Diffuse decreased bone density suggesting osteopenia. Bilateral mild hip osteoarthritic changes. IMPRESSION: 1. Loaded colon and rectum with fecal matter with speckled low-density soft tissue like mass within a distended rectum, likely suggesting fecal impaction.Clinical correlation and further investigation as indicated is advised. 2. Right hypochondrial radio-opaque calcification, possibility of gallbladder stone.ultrasound is advised. Electronically signed by Rene Pisano 10-25-2024 07:44 AM Ordered Studies 10/17/24 09:26 CT abd pelvis IV con only Stat Hospital Course (1) Acute gastroenteritis: (2) Hypokalemia: (3) Hypertensive urgency: (4) Diabetes mellitus, type II, insulin dependent: (5) Hypothyroid: (6) Noncompliance with medications: Plan Patient is an 79 y/o female with DM2 with associated diabetic neuropathy, prior CVA, HTN, hyperlipidemia, hypothyroidism, venous insufficiency, lymphedema, history of medication noncompliance and other history as outlined below who presents to the ED today with N/V/D x 3 days. She also notes poor oral intake and not taking any of her usual medications or insulin for at least 2-3 days. Work-up in the ED revealed hypokalemia with potassium of 3.0, hyperglycemia with glucose of 354 but no evidence of MIN or leukocytosis. She received labetalol for initial BP of 270/127 with improvement of systolic to the 190s to 200s. Pt referred for admission for further management of BP and glucose. Acute Gastroenteritis N/V/D Dehydration Large Hiatal Hernia --CT ABD:Large hiatal hernia with fluid-filled mildly distended stomach. This is unlikely to represent gastric outlet obstruction. Mild urinary bladder wall thickening. Correlate with urinalysis to exclude cystitis. Colonic diverticulosis without acute diverticulitis. Fibroid uterus. -- Will check stool studies if recurrence of diarrhea --Appreciate surgery input -- Continue Protonix 40 mg twice a day -- IV fluids, antiemetics as needed Tolerating regular diet Case management to help with discharge planning Symptomatically much improved Plan to discharge to rehab facility today Urinary tract infection--POA -- Urine culture growing pansensitive E. coli, Aerococcus urinae --Blood cultures negative to date Continue IV Rocephin>> transition to ampicillin Ampicillin transition to oral amoxicillin to complete the course Completed antibiotic course today Constipation Encouraged to ambulate Continue bowel regimen Hypertensive urgency Continue losartan 100 mg daily Added amlodipine 10 mg daily, HCTZ 12.5 mg daily, Coreg 3.125 mg twice a day Monitor and adjust medications as needed Blood pressure variable Hypokalemia Hypomagnesemia Replete and monitor Insulin-requiring DM2 -Basal insulin, insulin sliding scale - BSG ACHS Adjust insulin to minimize hypoglycemia Hypothyroidism -Continue levothyroxine Insomnia Melatonin HS as needed DVT Px: Lovenox SQ CODE STATUS Full code Disposition Plan to discharge to rehab facility today Total Time Total Time Spent Total Time Spent (In Minutes): 44 minutes Discharge Plan Discharge Items Patient Disposition: Transfer [facility] Reason For Visit: N/V/D, HYPERTENSIVE URGENCY Discharge Diagnosis: Acute Gastroenteritis Dehydration Large Hiatal Hernia Urinary tract infection Hypertensive urgency Hypokalemia Hypomagnesemia Constipation Condition on Discharge: Fair Activity: Resume your previous activity Non-emergency contact: Primary Care Provider and Surgeon Call non-emergency contact if: you have any medication questions, your symptoms worsen, your pain is concerning for you and you have a fever Follow-up/Referrals: Barbie Diamond MD [Primary Care Provider] - Diet: Carb Consistent or DM2 Addtl Attending Provider Instructions: Follow-up with your primary care physician in 1 week upon discharge from rehab facility Follow-up with your surgeon Dr. Erickson for possible hiatal hernia repair as recommended Consider following with your outpatient brood station manager as advised -Monitor your blood pressure regularly. Discuss with your primary care physician for further adjustment of medications for controlling your blood pressure as recommended. - Your blood glucose levels have been variable while you are hospitalized. Monitor your blood glucose levels while at rehab facility. Discussed with your physician for further adjustment of insulin as needed. Seek immediate medical attention if your symptoms reoccur or worsen Please review medication list provided on discharge for any medication changes as instructed. Please call if you have any questions or problems. You can reach a [facility] hospitalist on duty at [facility] 24 hours a day by calling [phone] Pending Studies at Discharge: Yes Studies:: Blood cultures Stand-Alone Forms: My [facility] Skilled Items Patient informed of condition?: Yes DNR: No Discharge Level of Care: Skilled Communicable Disease: No Discharge Prognosis: Stable Lines: None Urinary Catheter: No Medications and DC Order Prescriptions: New sennosides [Senokot] 8.6 mg Tablet 8.6 mg PO QAM PRN (Reason: Constipation) Qty: 30 0RF polyethylene glycol 3350 [Miralax] 17 gram Powder In Packet 17 g PO DAILY PRN (Reason: Constipation) Qty: 30 0RF amlodipine [Norvasc] 5 mg Tablet 10 mg PO QAM Qty: 30 0RF carvedilol 3.125 mg Tablet 3.125 mg PO BIDM Qty: 60 0RF pantoprazole 40 mg Tablet,Delayed Release (Dr/Ec) 40 mg PO BID Qty: 60 0RF docusate sodium 100 mg Capsule 100 mg PO BID Qty: 60 0RF hydrochlorothiazide 25 mg Tablet 12.5 mg PO QAM Qty: 30 0RF magnesium chloride [Mag 64] 64 mg Tablet,Delayed Release (Dr/Ec) 64 mg PO BID Qty: 60 0RF Continued atorvastatin 80 mg Tablet 80 mg PO DAILY insulin lispro [Humalog KwikPen Insulin] 100 unit/mL Insulin Pen 8 unit SUBCUT AC aspirin 81 mg Tablet,Delayed Release (Dr/Ec) 81 mg PO QAM potassium chloride 20 mEq tablet,ER particles/crystals 20 meq PO QAM levothyroxine 150 mcg tablet 150 mcg PO DAILY losartan 100 mg tablet 100 mg PO DAILY fluticasone propionate 50 mcg/actuation spray,suspension 2 spray intranasal DAILY PRN (Reason: Allergy Symptoms) escitalopram oxalate 20 mg tablet 20 mg PO DAILY Rx Instructions: Last filled 06/30/24 90 day supply Changed insulin detemir U-100 100 unit/mL (3 mL) Insulin Pen 10 unit SUBCUT BID Qty: 0 0RF Discontinued furosemide 20 mg Tablet 20 mg PO DAILY PRN (Reason: Edema) famotidine 20 mg tablet 20 mg PO DAILY PRN (Reason: reflux) Discharge Orders: Discharge Order (Routine); Ordered 10/25/24 Ordered By: Jamarcus Maloney/Other Patient Handouts: Managing Type 2 Diabetes Admission Data Admit Date/Time: 10/17/24 11:43 Attending Provider: Jamarcus Anaya Admit Provider: Nhi Mehta I. Primary Care Provider: Barbie Diamond Other Providers: Nhi Mehta I.; Filipe Erickson; [facility]; [place]; [facility]
[2024-10-25 13:14] VITALS: BP 145/74; PULSE 63
== END 2024-10-25 14:50 | DRG 690 ==
LOC: ED 07:36 → 2E 11:43 → SUATTDRO 11:43 → 2E 13:40 → 3N 10-20 17:45